=== PATIENT | female | born 1945 | race Caucasian/White ===

== ENCOUNTER 2019-07-21 18:09 | Emergency (ER) | payer MEDICARE, OTHER, SELFPAY ==
[2019-07-21 19:33] VITALS: BP 166/104; PULSE 83; RESP 18; TEMP 37; O2SAT 97; BMI 25.1
--- NOTE | 2019-07-21 20:18 | W.ED.GENADLT ---
HPI - General Adult General: Chief complaint: General Medical Stated complaint: diarrhea/vomiting Time Seen by Provider: 07/21/19 20:18 History of Present Illness: HPI narrative: Patient is a 73-year-old female comes to the ED with vomiting and diarrhea. Patient has a past medical history Alzheimer's. Patient's is with her to help provide history. Symptoms of vomiting and diarrhea started around 3 PM today. She states that she's vomited twice and has had diarrhea twice since 3 PM. She denies any abdominal pain or nausea. Really. Diarrhea was just brown and no blood was present. Emesis and no blood. Denies any fever or chills, chest pain, Shortness of breath, abdominal pain, dysuria, hematuria, weakness to extremities or numbness or tingling. Review of Systems General: Reports: 10 or more systems reviewed and unremarkable except in HPI and below PFSH ED PFSH: Statuses (acute, chronic, etc) shown below reflect problem list status as previously entered and may not be historically accurate Medical History Normal pressure hydrocephalus (Acute) Surgical History Intracranial shunt (Acute) Codman-Hakim programmable shunt with right angle valve placed on 03/20/2015 Family History Sister Cancer Family/Other Cancer Paternal Aunt Father Cancer Hypertension Diabetes Social History Smoking and tobacco status: never smoked Alcohol intake: never Lives independently: Yes Household members: spouse Marital status: Current occupational status: retired History of recent travel: No Physical Exam Narrative: EXAM NARRATIVE: Patient is a 73-year-old female who was sitting comfortably on the exam bed when I entered the room. She was showing no signs of acute distress or pain or respiratory distress. She was able to answer all my questions accurately and was able to follow line of questioning. Patient would look to her on occasion to help provide some history, but other than that appeared to be in good cognition. Const: COMMON NORMALS: oriented x3 HENMT: COMMON NORMALS: normocephalic HEAD & SCALP: normocephalic MOUTH: oral and palatal mucosa normal THROAT: posterior oropharynx normal and uvula midline Neck/C-Spine: COMMON NORMALS: supple GENERAL: Yes normal visual inspection Resp: COMMON NORMALS: normal respiratory effort, no retractions, no use of accessory muscles and clear to auscultation bilaterally AUSCULTATION: clear to auscultation bilaterally Cardio: COMMON NORMALS: regular rate, regular rhythm, S1 normal heart sound, S2 normal heart sound, no gallops, no clicks, no murmurs and peripheral pulses 2+ throughout RATE: regular rate RHYTHM: regular rhythm HEART SOUNDS: S1 normal and S2 normal PERIPHERAL PULSES: pulses 2+ throughout GI: COMMON NORMALS: normal to inspection, nondistended, normoactive bowel sounds, soft to palpation, non-tender and no masses PALPATION: Yes soft : COMMON NORMALS: Yes no CVA tenderness BLADDER/KIDNEY EXAM: Yes no CVA tenderness Back/Pelvis: COMMON NORMALS: no CVA tenderness Extremity: COMMON NORMALS: normal to inspection and normal capillary refill Neuro: COMMON NORMALS: oriented x3 and moves all extremities Skin: COMMON NORMALS: no rashes or lesions noted and skin turgor normal GENERAL SKIN EXAM: no rashes or lesions noted and turgor normal Course Vital Signs: Vital signs: Vital Signs Temperature 98.6 F 07/21/19 19:33 Pulse Rate 75 07/21/19 23:32 Respiratory Rate 18 07/21/19 23:32 Blood Pressure 161/99 07/21/19 23:32 Pulse Oximetry 96 07/21/19 23:32 [facility] - General Adult Lab Data: Attestation: I reviewed the patient's lab results. Labs: Lab Results 07/21/19 07/21/19 07/21/19 Range/Units 20:40 21:09 21:09 WBC 10.6 H (4.0-10.0) 10^3/ uL RBC 4.61 (4.1-5.3) 10^6/u L Hgb 14.2 (11.5-15.3) g/dL Hct 44.4 (37.0-47.0) % MCV 96.3 (81-99) fL MCH 30.8 (28.0-34.0) pg MCHC 32.0 (30.0-36.0) g/dL RDW 11.9 L (12.1-15.1) % Plt Count 147 (130-400) 10^3/c mm MPV 9.3 (7.4-10.4) fL Neut % (Auto) 84.8 % Lymph % (Auto) 8.4 % Kaufman % (Auto) 6.2 % Eos % (Auto) 0.1 % Baso % (Auto) 0.1 % Neut # (Auto) 9.0 H (1.8-7.7) 10^3/u L Lymph # (Auto) 0.9 (0.8-4.8) 10^3/u L Kaufman # (Auto) 0.7 (0.2-0.9) 10^3/u L Eos # (Auto) 0.0 (0.0-0.8) 10^3/u L Baso # (Auto) 0.0 (0.0-0.1) 10^3/u L Nucleated RBC % (a uto) 0 % Nucleated RBCs # 0.0 /100WBC Sodium 140 (136-145) mmol/L Potassium 4.6 (3.5-5.1) mmol/L Chloride 102 (98-107) mmol/L Carbon Dioxide 27 (22-29) mmol/L Anion Gap 15.6 (5-19) BUN 13 (8-23) mg/dL Creatinine 0.5 (0.5-0.9) mg/dL Glucose 107 (65-115) mg/dL Calcium 10.7 H (8.5-10.5) mg/dL Total Bilirubin 0.4 (0.15-1.2) mg/dL AST 23 (0-32) U/L ALT 8 (0-33) U/L Alkaline Phosphata se 103 (35-105) IU/L Total Protein 7.6 (6.6-8.7) g/dL Albumin 4.7 (3.5-5.2) g/dL Globulin 2.9 (1.3-4.6) g/dL Lipase 58 (13-60) U/L Urine Color Straw (Yellow) Urine Appearance Sl hazy (CLEAR) Urine pH 8 H (5-7) Ur Specific Gravit y 1.010 (1.005-1.030) Urine Protein Neg (Negative) Urine Glucose (UA) Norm (Normal) Urine Ketones Negative (Negative) Urine Occult Blood Neg (Negative) Urine Nitrate Positive H (Negative) Urine Bilirubin Neg (NEGATIVE) Prot Sulfosalicyli c Acd Negative Urine Urobilinogen Norm (Negative) mg/dL Ur Leukocyte Leatha ase Negative (Negative) Urine RBC None (0-2) /hpf Urine WBC Rare (0-5) /hpf Ur Squamous Epith Cells Rare (0-5) Urine Bacteria 2+ H (NONE) Discharge Plan Discharge Patient Disposition: Home, Self-Care Clinical Impression: UTI (urinary tract infection) Qualifiers: Urinary tract infection type: acute cystitis Hematuria presence: without hematuria Qualified Code(s): N30.00 - Acute cystitis without hematuria Nausea & vomiting Qualifiers: Vomiting type: unspecified Vomiting Intractability: non-intractable Qualified Code(s): R11.2 - Nausea with vomiting, unspecified Condition: Stable Prescriptions: New Bactrim DS 800-160 mg tablet 1 tab PO DAILY 7 Days Qty: 7 RF: 0 Zofran 4 mg tablet 4 mg PO DAILY 10 Days Qty: 10 RF: 0 No Action ibuprofen 200 mg capsule 400 mg PO Q8H PRN (Reason: Pain) RF: 0 multivitamin [Daily Multi-Vitamin] Tablet 1 tab PO QAM RF: 0 memantine 10 mg tablet 10 mg PO BID Qty: 60 RF: 7 donepezil 10 mg tablet 10 mg PO QDAY Qty: 30 RF: 7 Discharge Orders: Discharge Order (Routine); Ordered 07/21/19 Ordered By: Trevin Bledsoe Referrals: Rashaad Soriano DO [Primary Care Provider] - Discharge Diet: Regular Discharge Activity: Resume usual activity Patient Instructions: Urinary Tract Infection in Women (ED) Activity Restrictions/Additional Instructions: Follow-up with PCP in 7 days for reevaluation. Take full course of antibiotics as prescribed. Take Zofran as needed for nausea and vomiting. Drink plenty of fluids and stay hydrated. Continue taking all other home medications. Take Tylenol or ibuprofen as needed for fevers. Discharge Date/Time: 07/21/19 23:32 Coding Level of Care Code ED Gynecology Teacher for Иван Titus
[2019-07-21 21:18] LABS: Basophils % 0.1 %; Eosinophils % 0.1 %; Hematocrit 44.4 % (37.0-47.0); Hemoglobin 14.2 g/dL (11.5-15.3); Lymphocytes # 0.9 10^3/uL (0.8-4.8); Lymphocytes % 8.4 %; Mean Corpuscular Hemoglobin 30.8 pg (28.0-34.0); Mean Corpuscular Volume 96.3 fL (81-99); Mean Platelet Volume 9.3 fL (7.4-10.4); Monocytes # 0.7 10^3/uL (0.2-0.9); Monocytes % 6.2 %; Neutrophils % 84.8 %; Nucleated Red Blood Cells % 0 %; Platelet Count 147 10^3/cmm (130-400); Red Blood Count 4.61 10^6/uL (4.1-5.3); Red Cell Distribution Width 11.9 % (12.1-15.1); White Blood Count 10.6 10^3/uL (4.0-10.0)
[2019-07-21] MEDS: sodium chloride 0.9% 1,000 ML 999 ML IV (21:21)
[2019-07-21 21:28] LABS: Alanine Aminotransferase 8 U/L (0-33); Albumin Level 4.7 g/dL (3.5-5.2); Alkaline Phosphatase 103 IU/L (35-105); Anion Gap 15.6 (5-19); Aspartate Amino Transferase 23 U/L (0-32); Blood Urea Nitrogen 13 mg/dL (8-23); Calcium 10.7 mg/dL (8.5-10.5); Carbon Dioxide 27 mmol/L (22-29); Chloride 102 mmol/L (98-107); Creatinine Clr Calc Pharmacy 67.6855; Globulin 2.9 g/dL (1.3-4.6); Glucose 107 mg/dL (65-115); Lipase 58 U/L (13-60); Potassium 4.6 mmol/L (3.5-5.1); Sodium 140 mmol/L (136-145); Total Bilirubin 0.4 mg/dL (0.15-1.2); Total Protein 7.6 g/dL (6.6-8.7)
[2019-07-21 21:38] LABS: Add Urine Microscopic? YES; Bilirubin Urine Neg (NEGATIVE); Blood Urine Neg (Negative); Glucose Urine UA Norm (Normal); Ketones Urine Negative (Negative); Leukocyte Esterase Urine Negative (Negative); Nitrate Urine Positive (Negative); Protein Urine Neg (Negative); Sulfosalicylic Acid Urine Negative; Urine Appearance SL Hazy (CLEAR); Urine Color Straw (Yellow); Urobilinogen Urine Norm (Negative); pH Urine 8 (5-7)
[2019-07-21 21:39] LABS: Add Urine Culture? Yes; Bacteria Urine 2+; Squamous Epithelial Cell Urine RARE (0-5); WBC Urine RARE /hpf (0-5)
[2019-07-21 23:32] VITALS: BP 161/99; PULSE 75; RESP 18; O2SAT 96
== END 2019-07-21 23:32 | disposition home or self-care (01) ==
PROVIDERS: Emergency Provider Physician Assistant; Family Provider Electrodiagnostic Medicine; PCP Electrodiagnostic Medicine
DX: N39.0 Urinary tract infection, site not specified (principal); R11.2 Nausea with vomiting, unspecified; G30.9 Alzheimer's disease, unspecified; F02.80 Dementia in other diseases classified elsewhere, unspecified severity, without behavioral disturbance, psychotic disturbance, mood disturbance, and anxiety
CPT/HCPCS: 80053; 81001; 83690; 85025; 87077; 87086; 87186; 96360; 99282; 99283; J7030

== ENCOUNTER → 2019-08-16 07:58 | Outpatient (BNVA) | payer MEDICARE, OTHER, SELFPAY | PROVIDERS: Family Provider Electrodiagnostic Medicine; PCP Electrodiagnostic Medicine; Referring Provider Specialist; Visit Provider Specialist | DX: F02.80 Dementia in other diseases classified elsewhere, unspecified severity, without behavioral disturbance, psychotic disturbance, mood disturbance, and anxiety (principal) | CPT/HCPCS: 96116; 99213 ==

== ENCOUNTER 2019-09-02 09:22 | Outpatient (RCR) | payer MEDICARE, OTHER, SELFPAY | END 2019-09-14 23:59 | disposition home or self-care (01) | LOC: SPT 09:22 | PROVIDERS: Family Provider Electrodiagnostic Medicine; PCP Electrodiagnostic Medicine; Referring Provider Specialist; Visit Provider Specialist | DX: R26.9 Unspecified abnormalities of gait and mobility (principal) | CPT/HCPCS: 97110; 97112; 97162 ==

== ENCOUNTER 2020-01-13 09:11 | Outpatient (RCR) | payer MEDICARE, OTHER, SELFPAY | END 2020-01-14 23:59 | disposition home or self-care (01) | LOC: SPT 09:11 | PROVIDERS: PCP Electrodiagnostic Medicine; Referring Provider Electrodiagnostic Medicine; Visit Provider Electrodiagnostic Medicine | DX: M81.0 Age-related osteoporosis without current pathological fracture (principal); S43.015D Anterior dislocation of left humerus, subsequent encounter; F03.90 Unspecified dementia, unspecified severity, without behavioral disturbance, psychotic disturbance, mood disturbance, and anxiety; R26.9 Unspecified abnormalities of gait and mobility; Z91.81 History of falling | CPT/HCPCS: 97161 ==

== ENCOUNTER 2020-01-15 06:00 | Outpatient (RCR) | payer MEDICARE, OTHER, SELFPAY | END 2020-02-14 23:59 | disposition home or self-care (01) | LOC: SPT 06:00 | PROVIDERS: PCP Electrodiagnostic Medicine; Referring Provider Electrodiagnostic Medicine; Visit Provider Electrodiagnostic Medicine | DX: S43.015D Anterior dislocation of left humerus, subsequent encounter (principal); X58.XXXD Exposure to other specified factors, subsequent encounter; M81.0 Age-related osteoporosis without current pathological fracture; F03.90 Unspecified dementia, unspecified severity, without behavioral disturbance, psychotic disturbance, mood disturbance, and anxiety; R26.9 Unspecified abnormalities of gait and mobility; R29.6 Repeated falls | CPT/HCPCS: 97110 ==

== ENCOUNTER 2020-02-15 06:00 | Outpatient (RCR) | payer MEDICARE, OTHER, SELFPAY | END 2020-03-15 23:59 | disposition home or self-care (01) | LOC: SPT 06:00 | PROVIDERS: PCP Electrodiagnostic Medicine; Referring Provider Electrodiagnostic Medicine; Visit Provider Electrodiagnostic Medicine | DX: M81.0 Age-related osteoporosis without current pathological fracture (principal); S43.015D Anterior dislocation of left humerus, subsequent encounter; X58.XXXD Exposure to other specified factors, subsequent encounter; F03.90 Unspecified dementia, unspecified severity, without behavioral disturbance, psychotic disturbance, mood disturbance, and anxiety; R26.9 Unspecified abnormalities of gait and mobility | CPT/HCPCS: 97110 ==

== ENCOUNTER 2020-04-11 11:29 | Outpatient (RCR) | payer MEDICARE, OTHER, SELFPAY | END 2020-04-15 23:59 | disposition home or self-care (01) | LOC: SPT 11:29 | PROVIDERS: PCP Electrodiagnostic Medicine; Visit Provider Electrodiagnostic Medicine | DX: R29.6 Repeated falls (principal); F03.90 Unspecified dementia, unspecified severity, without behavioral disturbance, psychotic disturbance, mood disturbance, and anxiety; R26.9 Unspecified abnormalities of gait and mobility | CPT/HCPCS: 97161 ==

== ENCOUNTER 2020-04-16 06:00 | Outpatient (RCR) | payer MEDICARE, OTHER, SELFPAY | END 2020-05-15 23:59 | disposition home or self-care (01) | LOC: SPT 06:00 | PROVIDERS: PCP Electrodiagnostic Medicine; Visit Provider Electrodiagnostic Medicine | DX: R29.6 Repeated falls (principal); F03.90 Unspecified dementia, unspecified severity, without behavioral disturbance, psychotic disturbance, mood disturbance, and anxiety; R26.9 Unspecified abnormalities of gait and mobility | CPT/HCPCS: 97110 ==

== ENCOUNTER 2020-04-18 14:23 | Outpatient (CLI) | payer MEDICARE, OTHER, SELFPAY ==
--- NOTE | 2020-04-18 14:32 | XR_ITS ---
WS: [id number] Bone mineral density performed on a [employer] IDXA, 04/18/2020 Clinical data: OSTEOPOROSIS, VITAMIN D DEFICIENCY, OSTEOARTHRITIS COMPARISON STUDY: DEXA scan, 03/26/2018. Findings: The first 4 lumbar vertebral bodies demonstrated the bone mineral density of 1.029 g/cm2 for a young adult T score of -1.3. Measurement of the left hip reveals a bone mineral density of 0.686 g/cm2 with a young adult T score of -2.6. Measurement of the right hip reveals the bone mineral density of 0.720 g/cm2 for young adult T score of -2.3. XR/XR DEXA axial skeleton* [id number] Impression: 1. Osteopenia of the lumbar spine which represents worsening of the bone minera l density from the prior study. 2. Osteoporosis of the left hip which represents worsening of the bone mineral density from before. 3. Osteopenia of the right hip which also represents worsening of the bone mine ral density compared to the prior study.
== END 2020-04-18 14:24 | disposition home or self-care (01) ==
LOC: RADWPI 14:29
PROVIDERS: PCP Electrodiagnostic Medicine; Visit Provider Electrodiagnostic Medicine
DX: M81.0 Age-related osteoporosis without current pathological fracture (principal); E55.9 Vitamin D deficiency, unspecified; M85.89 Other specified disorders of bone density and structure, multiple sites
CPT/HCPCS: 77080

== ENCOUNTER 2020-05-16 06:00 | Outpatient (RCR) | payer MEDICARE, OTHER, SELFPAY | END 2020-06-15 23:59 | disposition home or self-care (01) | LOC: SPT 06:00 | PROVIDERS: PCP Electrodiagnostic Medicine; Visit Provider Electrodiagnostic Medicine | DX: R29.6 Repeated falls (principal); F03.90 Unspecified dementia, unspecified severity, without behavioral disturbance, psychotic disturbance, mood disturbance, and anxiety; R26.9 Unspecified abnormalities of gait and mobility | CPT/HCPCS: 97110; 97112 ==

== ENCOUNTER 2020-06-16 06:00 | Outpatient (RCR) | payer MEDICARE, OTHER, SELFPAY | END 2020-07-16 23:59 | disposition home or self-care (01) | LOC: SPT 06:00 | PROVIDERS: PCP Electrodiagnostic Medicine; Visit Provider Electrodiagnostic Medicine | DX: R29.6 Repeated falls (principal); F03.90 Unspecified dementia, unspecified severity, without behavioral disturbance, psychotic disturbance, mood disturbance, and anxiety; R26.9 Unspecified abnormalities of gait and mobility | CPT/HCPCS: 97110; 97112 ==

== ENCOUNTER 2020-07-17 06:00 | Outpatient (RCR) | payer MEDICARE, OTHER, SELFPAY | END 2020-07-25 23:00 | disposition home or self-care (01) | LOC: SPT 06:00 | PROVIDERS: PCP Electrodiagnostic Medicine; Visit Provider Electrodiagnostic Medicine | DX: R29.6 Repeated falls (principal); F03.90 Unspecified dementia, unspecified severity, without behavioral disturbance, psychotic disturbance, mood disturbance, and anxiety; R26.81 Unsteadiness on feet | CPT/HCPCS: 97110 ==

== ENCOUNTER → 2020-08-14 08:53 | Outpatient (BNVA) | payer MEDICARE, OTHER, SELFPAY | PROVIDERS: PCP Electrodiagnostic Medicine; Visit Provider Specialist | DX: G31.83 Neurocognitive disorder with Lewy bodies (principal); F02.80 Dementia in other diseases classified elsewhere, unspecified severity, without behavioral disturbance, psychotic disturbance, mood disturbance, and anxiety; G91.2 (Idiopathic) normal pressure hydrocephalus; Z98.2 Presence of cerebrospinal fluid drainage device | CPT/HCPCS: 96116; 99214 ==

== ENCOUNTER 2020-08-17 11:12 | Outpatient (CLI) | payer MEDICARE, OTHER, SELFPAY ==
--- NOTE | 2020-08-17 11:45 | CT_ITS ---
WS: [id number] CT HEAD TECHNIQUE: Noncontrast CT of the head obtained from the skullbase to the vertex. CLINICAL INFORMATION: Z99.2 - Dependence on renal dialysis COMPARISON: CT head May 2019 DLP: 992.[address] scans at [facility] use at least one of these dose optimization techniques: automat ed exposure control; mA and/or kV adjustment per patient size (includes targeted exams where dose is matched to clinical indication); or iterative reconstruction. FINDINGS: No evidence of intracranial hemorrhage or mass effect. Ventricular system and basal cisterns are mims nt. Moderate small vessel changes with moderate parenchymal volume loss. No extra-axial fluid collect ions. No evidence of mass or mass effect. Right frontal shunt catheter tip in the right frontal horn. Ventricular size is unchanged from previo us. No evidence of progressive hydrocephalus. Mastoid air cells are well aerated. Mild mucosal thicke phani in the paranasal sinuses. CT/CT head wo con* [id number] IMPRESSION: 1. No evidence of intracranial hemorrhage or mass effect. 2. Right frontal shunt catheter with tip in the right frontal horn. Ventricula r size is unchanged. 3. No acute intracranial findings.
== END 2020-08-17 11:13 | disposition home or self-care (01) ==
LOC: RADWPI 11:14
PROVIDERS: PCP Electrodiagnostic Medicine; Visit Provider Specialist
DX: Z99.2 Dependence on renal dialysis (principal)
CPT/HCPCS: 70450

== ENCOUNTER 2020-11-21 09:55 | Emergency (ER) | payer MEDICARE, OTHER, SELFPAY ==
--- NOTE | 2020-11-21 10:05 | ECG_ITS ---
[facility] Test Date: 2020-11-21 Pat Name: Keysha Rodriguez Department: Room: Gender: Female Dental Surgeon: : 1945 Requested By: Aneesh Delarosa Order Number: [id number] Angeles MD: Steve Linda M.D. Measurements Intervals [place] Rate: 68 P: 78 MO: 165 QRS: 99 QRSD: 98 T: 46 QT: 443 QTc: 474 Interpretive Statements MULTIFOCAL ATRIAL RHYTHM BORDERLINE RIGHT AXIS DEVIATION [QRS AXIS > 90] LEFT VENTRICULAR HYPERTROPHY AND ST-T CHANGE [VOLTAGE CRITERIA PLUS ST/T ABNORMALITY] Compared to ECG 03/14/2018 22:52:15 ST (T wave) deviation now present T-wave abnormality no longer present Electronically Signed On 11-21-2020 17:07:34 CDT by Steve Linda M.D. [id number]
--- NOTE | 2020-11-21 10:05 | XRR_ITS ---
PROCEDURE INFORMATION: Exam: XR Chest Exam date and time: 11/21/2020 10:10 AM Age: 75 years old Clinical indication: Other: Chest discomfort TECHNIQUE: Imaging protocol: XR of the chest. Views: 1 view. COMPARISON: CR Chest 1 [place] [id number] 03/14/2018 8:46 PM FINDINGS: Tubes, catheters and devices: Right PLASTER APPLICATOR shunt catheter. Lungs: COPD and interstitial prominence. Asymmetric left basilar airspace/pleural disease. Pleural spaces: Small right pleural effusion. Heart/Mediastinum: Cardiac silhouette upper limits of normal in size. Bones/joints: Osteopenia and degenerative change. XR/XR chest 1V portable [id number] IMPRESSION: 1. COPD and asymmetric left basilar airspace/pleural disease. 2. Additional findings as described above.
[2020-11-21 10:31] VITALS: BP 135/78; PULSE 65; RESP 18; TEMP 36.6; O2SAT 93; BMI 22.9
--- NOTE | 2020-11-21 10:51 | CT_ITS ---
WS: [id number] CT ABDOMEN AND PELVIS WITH CONTRAST HISTORY: abd pain TECHNIQUE: Imaging performed of the abdomen and pelvis with IV contrast. Single phase imaging of the abdomen. Coronal and sagittal reformats are submitted. All CT scans at [facility] use at least one of these dose optimization techniques: automated exposure control; mA and/or kV adjustment per patient size (includes targeted exams where dose is matched to clinical indication); or iterativ e reconstruction. IV CONTRAST: Omnipaque 300; 95 mL IV. Oral contrast: No DLP: 1052.56 mGy.cm COMPARISON: None available. Lower thorax: Small bilateral pleural effusions at the lung bases, RIGHT greater than LEFT. Markedly enlarged heart. RIGHT heart chambers are enlarged. Small hiatal hernia. Liver/biliary system: Heterogeneous liver. Probably due to delayed contrast opacification from poor c ardiac output. Gallbladder: Normal. No gallstones or wall thickening. No pericholecystic fluid. Pancreas: Normal size pancreas and pancreatic duct. No adjacent inflammation. Spleen: Normal size spleen. No mass or infarct. Adrenal glands: Normal. Right kidney: Normal. Left kidney: Fullness in the LEFT renal pelvis. Calyces are not significantly dilated. These may be s mall parapelvic cysts or mild hydronephrosis secondary to a UP junction obstruction. There is fullnes s of the pelvis is more prominent as compared to a study from 2015. Aorta: Tortuous atherosclerotic aorta. Aneurysmal dilatation measures 3.3 cm. Lymphadenopathy: None. Free fluid: Small amount of free fluid in the pelvis. May be related to patient's NEWS PRODUCER shunt catheter. GI tract: Normal appendix. No obstruction. Numerous diverticula in the sigmoid colon. No definite acu te diverticulitis. Abdominal wall: Unremarkable abdominal wall. No hernia. Pelvis: Small amount of free fluid in the pelvis. Uterus is not identified. No adnexal masses. Bones: Advanced degenerative changes in the spine. Osteopenia. Extensive fusion across the facet join ts and mild lumbar spine. CT/CT abdomen pelvis w con* [id number] IMPRESSION: 1. Small amount of free fluid in the pelvis may be related to the patient's sh unt. 2. Small bilateral pleural effusions. 3. Severe cardiomegaly. 4. LEFT parapelvic cysts versus a mild UP junction obstruction. 5. Moderate atherosclerosis aorta with 3.3 cm aneurysm. 6. Extensive sigmoid diverticulosis without evidence for acute diverticulitis. 7. Normal appendix.
--- NOTE | 2020-11-21 10:52 | W.ED.GENADLT ---
HPI - General Adult General: Chief complaint: Recheck/Abnormal Lab/Rx Stated complaint: abnormal ekg sent by Dr. 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 She has some mood body dementia. Also complaining some lower abdominal pain said for the last several weeks she denies any chest pain or difficulty breathing at the moment although she has had some in the past. She is on donepezil as well as memantine. She denies having chest pain at the moment. Her main focus is lower abdominal pain in the right and left lower quadrant she denies any medic easy melena hematemesis occurs denies any dysuria urgency or frequency. Onset (ago): week(s) Location: abdomen Severity: moderate Quality: aching Pain Consistency: intermittent Relieving factors: none Exacerbating factors: none Associated symptoms: Reports confusion, malaise, nausea and weakness; Deny chest pain, cough, diaphoresis, decreased appetite, dyspnea, fevers/chills, headache(s), rash, palpitations, seizures, short of breath, syncope or vomiting Treatments prior to arrival: none Review of Systems Const: Reports: malaise; Denies: diaphoresis ENMT: Denies: throat pain, ear or mastoid pain, nasal discharge or nasal congestion Card: Denies: chest pain, palpitations or syncope Resp: Denies: dyspnea GI: Reports: nausea; Denies: vomiting : Denies: flank pain, difficulty voiding, dysuria, urinary frequency or urinary urgency Skin/Breast: Denies: rash Neuro: Reports: confusion; Denies: headache(s) PFS ED PFSH: Medical History (Updated 11/21/20 @ 13:30 by Aneesh Vaqsuez DO) Normal pressure hydrocephalus Surgical History Intracranial shunt Codman-Hakim programmable shunt with right angle valve placed on 03/20/2015 Family History Sister Cancer Family/Other Cancer Paternal Aunt Father Cancer Hypertension Diabetes Other CAD (coronary artery disease) Denies family history of Stroke Social History Smoking and tobacco status: never smoked Alcohol intake: never Lives independently: Yes Household members: spouse Marital status: Current occupational status: retired History of recent travel: No Physical Exam Const: COMMON NORMALS: no acute distress GENERAL APPEARANCE: cooperative and comfortable ORIENTATION/CONSCIOUSNESS: Yes awake, Yes oriented to person, Yes oriented to place and Yes oriented to time HENMT: COMMON NORMALS: normocephalic, atraumatic, hearing grossly normal bilaterally and external ears normal HEAD & SCALP: normocephalic and atraumatic EXTERNAL EAR: Yes external ears normal Eye: COMMON NORMALS: Equal, round and reactive pupils present, EOMs intact bilaterally, conjunctivae normal and no scleral icterus CONJUNCTIVA: Yes conjunctivae normal PUPIL: Yes Equal, round and reactive pupils present Neck/C-Spine: COMMON NORMALS: full ROM, no lymphadenopathy, supple and no JVD Lymph: LYMPHATIC: no lymphadenopathy noted and no lymphedema noted Resp: COMMON NORMALS: normal respiratory effort, No retractions, No use of accessory muscles and clear to auscultation bilaterally AUSCULTATION: clear to auscultation bilaterally Cardio: COMMON NORMALS: no JVD, regular rate, regular rhythm and No murmurs present (Cardio) RATE: regular rate RHYTHM: regular rhythm GI: COMMON NORMALS: Soft to palpation and No hepatosplenomegaly present AUSCULTATION: Yes normoactive bowel sounds PALPATION: Yes Soft to palpation, No Tenderness to palpation present (GI), No Guarding due to palpation present (GI) and Yes No hepatosplenomegaly present Extremity: COMMON NORMALS: normal to inspection, capillary refill normal, no clubbing, cyanosis or edema, no calf tenderness and no pedal edema Neuro: SENSORIUM/ORIENTATION: Yes oriented to person, Yes oriented to place and Yes oriented to time Skin: COMMON NORMALS: no rashes or lesions noted GENERAL SKIN EXAM: no rashes or lesions noted Course Vital Signs: Vital signs: Vital Signs Temperature 97.9 F 11/21/20 10:31 Pulse Rate 73 11/21/20 14:24 Respiratory Rate 22 H 11/21/20 14:24 Blood Pressure 155/92 11/21/20 14:24 Pulse Oximetry 92 11/21/20 14:24 MDM - General Adult MDM Narrative: Medical decision making narrative: EKG from outside clinic shows lots artifact EKGs and here does not show anything acute laboratory tests are normal. Lab Data: Labs: Lab Results 11/21/20 11/21/20 11/21/20 Range/Units 11:00 11:00 11:00 WBC 7.3 (4.0-10.0) 10^3/ uL RBC 4.15 (4.1-5.3) 10^6/u L Hgb 12.6 (11.5-15.3) g/dL Hct 38.0 (37.0-47.0) % MCV 91.6 (81-99) fL MCH 30.4 (28.0-34.0) pg MCHC 33.2 (30.0-36.0) g/dL RDW 13.2 (12.1-15.1) % Plt Count 138 (130-400) 10^3/c mm MPV 9.6 (7.4-10.4) fL Neut % (Auto) 83.7 % Lymph % (Auto) 9.7 % Gooding % (Auto) 4.8 % Eos % (Auto) 0.4 % Baso % (Auto) 0.4 % Neut # (Auto) 6.10 (1.8-7.7) 10^3/u L Lymph # (Auto) 0.7 L (0.8-4.8) 10^3/u L Gooding # (Auto) 0.4 (0.2-0.9) 10^3/u L Eos # (Auto) 0.0 (0.0-0.8) 10^3/u L Baso # (Auto) 0.0 (0.0-0.1) 10^3/u L Nucleated RBC % (a uto) 0 % Nucleated RBCs # 0.0 /100WBC Sodium Cancelled Potassium Cancelled Chloride Cancelled Carbon Dioxide Cancelled Anion Gap Cancelled BUN Cancelled Creatinine Cancelled GFR Calculation Cancelled Glucose Cancelled Calculated Osmolal ity Cancelled Calcium Cancelled Total Bilirubin Cancelled AST Cancelled ALT Cancelled Alkaline Phosphata se Cancelled Troponin T Baselin e 10 (0-10) ng/L Troponin T 120 Min sarah (0-10) ng/L Delta Troponin T (0-10) ABS# Total Protein Cancelled Albumin Cancelled Globulin Cancelled 11/21/20 11/21/20 Range/Units 11:46 12:52 WBC (4.0-10.0) 10^3/ uL RBC (4.1-5.3) 10^6/u L Hgb (11.5-15.3) g/dL Hct (37.0-47.0) % MCV (81-99) fL MCH (28.0-34.0) pg MCHC (30.0-36.0) g/dL RDW (12.1-15.1) % Plt Count (130-400) 10^3/c mm MPV (7.4-10.4) fL Neut % (Auto) % Lymph % (Auto) % Gooding % (Auto) % Eos % (Auto) % Baso % (Auto) % Neut # (Auto) (1.8-7.7) 10^3/u L Lymph # (Auto) (0.8-4.8) 10^3/u L Gooding # (Auto) (0.2-0.9) 10^3/u L Eos # (Auto) (0.0-0.8) 10^3/u L Baso # (Auto) (0.0-0.1) 10^3/u L Nucleated RBC % (a uto) % Nucleated RBCs # /100WBC Sodium 142 Potassium 4.0 Chloride 108 H Carbon Dioxide 23 Anion Gap 15.0 BUN 22 Creatinine 0.5 GFR Calculation Not Reportable Glucose 156 H Calculated Osmolal ity 301 H Calcium 8.3 L Total Bilirubin 0.5 AST 25 ALT 17 Alkaline Phosphata se 68 Troponin T Baselin e (0-10) ng/L Troponin T 120 Min sarah 12.98 H (0-10) ng/L Delta Troponin T 2.98 (0-10) ABS# Total Protein 5.6 L Albumin 4.1 Globulin 1.5 Discharge Plan Discharge Patient Disposition: Home Clinical Impression: Lewy body dementia, Abdominal pain, Abnormal ECG Condition: Stable Prescriptions: No Action ibuprofen 200 mg capsule 400 mg PO Q8H PRN (Reason: Pain) RF: 0 multivitamin [Daily Multi-Vitamin] Tablet 1 tab PO QAM RF: 0 memantine 10 mg tablet 10 mg PO BID Qty: 180 RF: 4 donepezil 10 mg tablet 10 mg PO DAILY RF: 0 Discharge Orders: Discharge ED (Routine); Ordered 11/21/20 Ordered By: Aneesh Vasquez Referrals: Rashaad Soriano, [Primary Care Provider] - Discharge Diet: Usual diet Discharge Activity: Resume usual activity Patient Instructions: Abdominal Pain (ED), Opioid Safety Coding Level of Care Code ED Servomechanism Assembler for Chg Fwd Exam Comprehensive
[2020-11-21 11:17] LABS: Basophils % 0.4 %; Eosinophils % 0.4 %; Hemoglobin 12.6 g/dL (11.5-15.3); Lymphocytes # 0.7 10^3/uL (0.8-4.8); Lymphocytes % 9.7 %; Mean Corpuscular HGB Conc 33.2 g/dL (30.0-36.0); Mean Corpuscular Hemoglobin 30.4 pg (28.0-34.0); Mean Corpuscular Volume 91.6 fL (81-99); Mean Platelet Volume 9.6 fL (7.4-10.4); Monocytes # 0.4 10^3/uL (0.2-0.9); Monocytes % 4.8 %; Neutrophils % 83.7 %; Nucleated Red Blood Cells % 0 %; Platelet Count 138 10^3/cmm (130-400); Red Blood Count 4.15 10^6/uL (4.1-5.3); Red Cell Distribution Width 13.2 % (12.1-15.1); White Blood Count 7.3 10^3/uL (4.0-10.0)
[2020-11-21 11:29] LABS: Troponin(5th) Baseline 10 ng/L (0-10)
[2020-11-21 11:35] LABS: Slide Review Slide Review Perform
[2020-11-21 12:00] VITALS: BP 151/96; PULSE 64; RESP 20; O2SAT 95
--- NOTE | 2020-11-21 12:05 | ECG_ITS ---
[facility] Test Date: 2020-11-21 Pat Name: Keysha Rodriguez Department: Room: Gender: Female Regional Sales Representative: : 1945 Requested By: Aneesh Delarosa Order Number: [id number] Angeles MD: Steve Linda M.D. Measurements Intervals [place] Rate: 77 P: 98 [place]: 155 QRS: 95 QRSD: 98 T: 46 QT: 432 QTc: 491 Interpretive Statements SINUS RHYTHM POSSIBLE LEFT ATRIAL ENLARGEMENT [-0.1mV P WAVE IN V1/V2] BORDERLINE RIGHT AXIS DEVIATION [QRS AXIS > 90] Compared to ECG 11/21/2020 11:09:04 Left ventricular hypertrophy no longer present ST (T wave) deviation no longer present Electronically Signed On 11-21-2020 17:09:18 CDT by Steve Linda M.D. [id number]
[2020-11-21 12:12] LABS: Alanine Aminotransferase 17 U/L (0-33); Albumin Level 4.1 g/dL (3.5-5.2); Alkaline Phosphatase 68 IU/L (35-105); Aspartate Amino Transferase 25 U/L (0-32); Blood Urea Nitrogen 22 mg/dL (8-23); Calcium 8.3 mg/dL (8.5-10.5); Carbon Dioxide 23 mmol/L (22-29); Chloride 108 mmol/L (98-107); Globulin 1.5 g/dL (1.3-4.6); Glucose 156 mg/dL (65-115); Osmolality Calculated 301 mOsm/kg (285-295); Sodium 142 mmol/L (136-145); Total Bilirubin 0.5 mg/dL (0.15-1.2); Total Protein 5.6 g/dL (6.6-8.7)
[2020-11-21 12:30] VITALS: BP 145/96; PULSE 68; O2SAT 92
[2020-11-21] MEDS: iohexol 300 mg/mL 100 mL Btl IV (12:38)
[2020-11-21 13:15] VITALS: BP 162/105; PULSE 74; RESP 20; O2SAT 90
[2020-11-21] MEDS: ondansetron 2 mg/ML SDV 2 mL 4 MG IVP (13:15)
[2020-11-21 13:20] LABS: Troponin 5 2HR 12.98 ng/L (0-10); Troponin 5 2HR Delta 2.98 ABS# (0-10)
[2020-11-21 14:24] VITALS: BP 155/92; PULSE 73; RESP 22; O2SAT 92
== END 2020-11-21 14:19 | disposition home or self-care (01) ==
PROVIDERS: Emergency Provider Family Medicine; PCP Electrodiagnostic Medicine
DX: R94.31 Abnormal electrocardiogram [ECG] [EKG] (principal); G31.83 Neurocognitive disorder with Lewy bodies; F02.80 Dementia in other diseases classified elsewhere, unspecified severity, without behavioral disturbance, psychotic disturbance, mood disturbance, and anxiety
CPT/HCPCS: 71045; 74177; 80053; 84484; 85025; 93005; 96374; 99284; J2405; Q9967

== ENCOUNTER 2020-11-28 16:57 | Observation (INO) | payer MEDICARE, OTHER, SELFPAY ==
[2020-11-28 18:08] VITALS: BP 153/90; PULSE 66; RESP 17; TEMP 36.7; O2SAT 95; BMI 23.6
--- NOTE | 2020-11-28 18:19 | XRR_ITS ---
PROCEDURE INFORMATION: Exam: XR Left Ribs with PA Chest Exam date and time: 11/28/2020 6:19 PM Age: 75 years old Clinical indication: Injury or trauma; Rib area, left side; Blunt trauma; Injury details: Fall in kitchen today. C/O left side rib pain; Prior surgery; Surgery type: Shunt; Additional info: Fall/injury TECHNIQUE: Imaging protocol: XR Left ribs with PA chest. Views: 3 views COMPARISON: CR (CHEST, ) 11/21/2020 10:08 AM FINDINGS: Tubes, catheters and devices: Partial visualization of ventriculoperitoneal shunt catheter. Lungs: Emphysematous lung changes with hyperinflated pattern. No focal airspace consolidation. Pleural spaces: Small volume bilateral pleural effusions. Negative for pneumothorax. Heart/Mediastinum: Mild cardiomegaly. Bones/joints: Multiple acute displaced left-sided posterior rib fractures are identified involving at least ribs 6, 7 and 8. 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 XR/XR ribs LT mn 3V w CXR1V [id number] IMPRESSION: Multiple acute left posterior rib fractures.
--- NOTE | 2020-11-28 20:02 | W.ED.FALL ---
Documented by User: PARKER De Jesus 11/28/20 22:09 HPI - Fall General: Chief Complaint: Fall Stated Complaint: Fell, hurt Left side, rib pain, Time Seen by Provider: 11/28/20 19:55 Source: patient and family () Mode of arrival: wheelchair Limitations: no limitations History of Present Illness: HPI Narrative: Patient is a 75-year-old female who presents to ED today along with her for evaluation following a fall. states that his chronically has issues with gait and balance. She is supposed to be using a walker at all times however earlier today she was using her cane and fell onto her left side. She denies striking her head or LOC. She complains of pain to her left ribs but does admit she had a bellyache earlier following the fall. She has been ambulatory since the event. She does not complain of hip pain or back pain. Denies lightheadedness, dizziness, chest pain, palpitations prior to the fall. MD complaint: fall Onset (ago): hour(s) Fall from: standing Fall witnessed: yes, by family () Place fall occurred: home Loss of consciousness: None Prolonged down time: no Symptoms prior to fall: none Context: history of frequent falls Location of injury: chest and abdomen Severity: severe Severity scale (1-10): 8 Quality: sharp and stabbing Associated symptoms-after fall: Reports abdominal pain and chest pain (L chest wall pain); Denies headache(s), hematuria, lightheadedness or neck pain Review of Systems Const: Denies: fever(s) Eyes: Denies: change in vision, blurry vision, floaters or seeing flashes Card: Reports: chest pain (L chest wall pain); Denies: palpitations, lightheadedness, syncope or pre-syncope Resp: Reports: pain on inspiration; Denies: dyspnea, productive cough, non-productive cough, wheezing or hemoptysis GI: Reports: abdominal pain; Denies: nausea, vomiting or change in bowel habits : Denies: flank pain or hematuria Musc: Denies: neck pain, back pain, extremity pain or joint pain Skin/Breast: Reports: other (no lacerations/abrasions) Neuro: Reports: frequent falls; Denies: headache(s), numbness in extremities, sensory changes or dizziness PFSH ED PFSH: Medical History (Updated 11/28/20 @ 21:53 by PARKER De Jesus) Normal pressure hydrocephalus Surgical History Intracranial shunt Codman-Hakim programmable shunt with right angle valve placed on 03/20/2015 Family History Sister Cancer Family/Other Cancer Paternal Aunt Father Cancer Hypertension Diabetes Other CAD (coronary artery disease) Denies family history of Stroke Social History Smoking and tobacco status: never smoked Alcohol intake: never Lives independently: Yes Household members: spouse Marital status: Current occupational status: retired History of recent travel: No Physical Exam Const: COMMON NORMALS: no acute distress, no limitations, alert and well nourished GENERAL APPEARANCE: cooperative OTHER: chronic dementia; at mental baseline per HENMT: COMMON NORMALS: normocephalic and atraumatic HEAD & SCALP: normocephalic and atraumatic Eye: COMMON NORMALS: Equal, round and reactive pupils present and EOMs intact bilaterally GENERAL EYE: appearance normal, both eyes and all related structures PUPIL: Yes Equal, round and reactive pupils present Neck/C-Spine: COMMON NORMALS: full ROM CERVICAL SPINE: Yes cervical ROM normal, No Cervical spine tenderness and No Paracervical muscle tenderness Chest: COMMONS NORMALS: normal inspection of the chest OTHER: TTP L anteriolateral ribs; some mild crepitus noted Resp: COMMON NORMALS: normal respiratory effort and clear to auscultation bilaterally AUSCULTATION: clear to auscultation bilaterally Cardio: COMMON NORMALS: regular rate and regular rhythm RATE: regular rate RHYTHM: regular rhythm GI: COMMON NORMALS: Normal to inspection, nondistended, normoactive bowel sounds present, Soft to palpation, No hepatosplenomegaly present and no masses INSPECTION: No abdominal wall ecchymosis PALPATION: Yes Soft to palpation, Yes Tenderness to palpation present (GI) Details: LUQ and Yes No hepatosplenomegaly present Back/Pelvis: COMMON NORMALS: thoracic and lumbar spine normal to inspection, no thoracic nor lumbar tenderness, thoraco-lumbar ROM normal and straight leg raise negative bilaterally Extremity: COMMON NORMALS: normal to inspection and full ROM GENERAL: Yes normal exam except as noted Neuro: [place] COMA SCALE: document GCS findings [place] coma scale eye opening: Spontaneous [place] coma scale verbal response: Orientated [place] coma scale motor response: Obey commands [place] coma scale total score: 15 COMMON NORMALS: moves all extremities, no focal motor deficits and no sensory deficits noted SENSORIUM/ORIENTATION: Yes alert Skin: COMMON NORMALS: no rashes or lesions noted GENERAL SKIN EXAM: no rashes or lesions noted TRAUMA: no lacerations or abrasions Course Vital Signs: Vital signs: Vital Signs Temperature 98.0 F 11/28/20 18:08 Pulse Rate 76 11/28/20 21:19 Respiratory Rate 27 H 11/28/20 21:19 Blood Pressure 159/115 11/28/20 20:28 Pulse Oximetry 100 11/28/20 21:19 MDM - Fall MDM Narrative: Medical decision making narrative: Patient with fractures of her 6, 7, [address] scan read as displaced but after speaking to [facility] physician Dr. Morales he states 6-7 are more non-displaced. She has bilateral pleural effusions that were present on previous scan. I spoke to Dr. Corona regarding CT results and he recommended admitting patient to the hospital. I spoke to Dr. Marshall who will admit patient. Lab Data: Labs: Lab Results 11/28/20 11/28/20 11/28/20 Range/Units 20:25 20:25 21:04 WBC 8.3 (4.0-10.0) 10^3/ uL RBC 4.18 (4.1-5.3) 10^6/u L Hgb 12.7 (11.5-15.3) g/dL Hct 40.3 (37.0-47.0) % MCV 96.4 (81-99) fL MCH 30.4 (28.0-34.0) pg MCHC 31.5 (30.0-36.0) g/dL RDW 13.1 (12.1-15.1) % Plt Count 142 (130-400) 10^3/c mm MPV 9.5 (7.4-10.4) fL Neut % (Auto) 83.9 % Lymph % (Auto) 9.0 % Teller % (Auto) 6.1 % Eos % (Auto) 0.1 % Baso % (Auto) 0.5 % Neut # (Auto) 6.94 (1.8-7.7) 10^3/u L Lymph # (Auto) 0.7 L (0.8-4.8) 10^3/u L Teller # (Auto) 0.5 (0.2-0.9) 10^3/u L Eos # (Auto) 0.0 (0.0-0.8) 10^3/u L Baso # (Auto) 0.0 (0.0-0.1) 10^3/u L Nucleated RBC % (a uto) 0 % Nucleated RBCs # 0.0 /100WBC Sodium 145 (136-145) mmol/L Potassium 4.3 (3.5-5.1) mmol/L Chloride 108 H (98-107) mmol/L Carbon Dioxide 26 (22-29) mmol/L Anion Gap 15.3 (5-19) BUN 22 (8-23) mg/dL Creatinine 0.8 (0.5-0.9) mg/dL GFR Calculation Not Reportable Glucose 127 H (65-115) mg/dL Calculated Osmolal ity 305 H (285-295) mOsm/k g Calcium 9.1 (8.5-10.5) mg/dL Total Bilirubin 0.7 (0.15-1.2) mg/dL AST 25 (0-32) U/L ALT 19 (0-33) U/L Alkaline Phosphata se 73 (35-105) IU/L Total Protein 6.2 L (6.6-8.7) g/dL Albumin 4.2 (3.5-5.2) g/dL Globulin 2.0 (1.3-4.6) g/dL Urine Color Yellow (Yellow) Urine Appearance Cloudy (CLEAR) Urine pH 5 (5-7) Ur Specific Gravit y 1.020 (1.005-1.030) Urine Protein Neg (Negative) Urine Glucose (UA) Norm (Normal) Urine Ketones 1+ H (Negative) Urine Blood Neg (Negative) Urine Nitrate Positive H (Negative) Urine Bilirubin Neg (Negative) Urine Urobilinogen Norm (Negative) mg/dL Ur Leukocyte Leatha ase Negative (Negative) Urine RBC 0-4 H (0-2) /hpf Urine WBC 5-10 H (0-5) /hpf Ur Squamous Epith Cells 0-4 H (0-5) /hpf Amorphous Sediment Not Reportable Urine Bacteria 4+ H (NONE) /hpf Imaging Data^: L ribs/CXR: Radiologist's impression: 6Scan [address] [place] [id number] XRay Report Signed Patient: Keysha Rodriguez Unit #: [id number] : 1945 Age/Sex: 75 / F ADM Date: 11/28/20 Loc: ER Room/Bed: Attending Dr: Ordering Provider/Ordering MD: Brianne Mcconnell Date of Service: 11/28/20 Procedure(s): XR ribs LT mn 3V w CXR1V [id number] Accession Number(s): [id number] Report Number: [id number] PROCEDURE INFORMATION: Exam: XR Left Ribs with PA Chest Exam date and time: 11/28/2020 6:19 PM Age: 75 years old Clinical indication: Injury or trauma; Rib area, left side; Blunt trauma; Injury details: Fall in kitchen today. C/O left side rib pain; Prior surgery; Surgery type: Shunt; Additional info: Fall/injury TECHNIQUE: Imaging protocol: XR Left ribs with PA chest. Views: 3 views COMPARISON: CR (CHEST, ) 11/21/2020 10:08 AM FINDINGS: Tubes, catheters and devices: Partial visualization of ventriculoperitoneal shunt catheter. Lungs: Emphysematous lung changes with hyperinflated pattern. No focal airspace consolidation. Pleural spaces: Small volume bilateral pleural effusions. Negative for pneumothorax. Heart/Mediastinum: Mild cardiomegaly. Bones/joints: Multiple acute displaced left-sided posterior rib fractures are identified involving at least ribs 6, 7 and 8. 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 XR/XR ribs LT mn 3V w CXR1V [id number] IMPRESSION: Multiple acute left posterior rib fractures. Dictated By: Alexandr Morales Signed By: Alexandr Morales Signed Date/Time: 11/28/201902 DD/ 00 CT chest/abd/pelvis: Radiologist's impression: 6Scan [address] [place] [id number] [address] Scan Report Signed Patient: Keysha Rodriguez [facility] [id number] [facility] 1945 [id number] Age/Sex: 75 / F ADM Date: 11/28/20 Loc: ER Room/Bed: Attending Dr: Ordering Provider/Ordering MD: Brianne Mcconnell Date of Service: 11/28/20 Procedure(s): CT chest abd pel w con* Accession Number(s): [id number] Report Number: [id number] PROCEDURE INFORMATION: Exam: CT Chest With Contrast; Diagnostic Exam date and time: 11/28/2020 8:01 PM Age: 75 years old Clinical indication: Injury or trauma; Generalized; Blunt trauma (contusions or hematomas); Prior surgery; Surgery type: Hyst, shunt; Patient HX: Fall in kitchen today. Left side chest pain; Additional info: Fall; Multiple left rib fxs TECHNIQUE: Imaging protocol: Diagnostic computed tomography of the chest with contrast. Radiation optimization: All CT scans at this facility use at least one of these dose optimization techniques: automated exposure control; mA and/or kV adjustment per patient size (includes targeted exams where dose is matched to clinical indication); or iterative reconstruction. Contrast material: OMNI 300; Contrast volume: 95 ml; Contrast route: INTRAVENOUS (IV); COMPARISON: CR (CHEST, ) 11/28/2020 6:31 PM RADIATION DOSE METRICS: Total DLP (mGy-cm): 1305.89 FINDINGS: Tubes, catheters and devices: Right-sided tunneled ventriculoperitoneal shunt catheter present. Lungs: Mild severity emphysematous lung changes. Mild left lower lobe volume loss changes. Pleural spaces: Moderate volume layering right-sided pleural effusion. Small volume layering left-sided pleural effusion. Negative for pneumothorax. Heart: See Kidneys and ureters finding. Mediastinal space: Negative for thoracic esophageal wall thickening. Aorta: Unremarkable. No aortic aneurysm. Lymph nodes: Unremarkable. No enlarged lymph nodes. Kidneys and ureters: Dilated cardiomyopathy changes. Negative for pericardial effusion. Bones/joints: Displaced fractures involving lateral aspects left-sided ribs 6, 7 8. Thoracic spine alignment is unremarkable. No acute vertebral fracture. Soft tissues: There is a mild degree left chest intercostal soft tissue hematoma. IMPRESSION: 1. Multiple acute left lateral rib fractures. 2. Bilateral pleural effusions. 3. Dilated cardiomyopathy changes. PROCEDURE INFORMATION: Exam: CT Abdomen And Pelvis With Contrast Exam date and time: 11/28/2020 8:01 PM Age: 75 years old Clinical indication: Injury or trauma; Generalized; Blunt trauma (contusions or hematomas); Prior surgery; Surgery type: Hyst, shunt; Patient HX: Fall in kitchen today. Left side chest pain; Additional info: Fall; Multiple left rib fxs TECHNIQUE: Imaging protocol: Computed tomography of the abdomen and pelvis with contrast. Radiation optimization: All CT scans at this facility use at least one of these dose optimization techniques: automated exposure control; mA and/or kV adjustment per patient size (includes targeted exams where dose is matched to clinical indication); or iterative reconstruction. Contrast material: OMNI 300; Contrast volume: 95 ml; Contrast route: INTRAVENOUS (IV); COMPARISON: CR (CHEST, ) 11/28/2020 6:31 PM RADIATION DOSE METRICS: Total DLP (mGy-cm): 1305.89 FINDINGS: Tubes, catheters and devices: Ventriculoperitoneal shunt catheter terminates in the right pelvis. No abdominal fluid collection around the ventriculoperitoneal catheter tip. Liver: Normal. No mass. Gallbladder and bile ducts: Normal. No calcified stones. No ductal dilation. Pancreas: Normal. No ductal dilation. Spleen: Normal. No splenomegaly. Adrenal glands: Normal. No mass. Kidneys and ureters: Normal. No hydronephrosis. Stomach and bowel: Diverticulosis coli. Negative for bowel obstruction. Negative for bowel perforation. No focal inflammatory wall thickening identified. No focal bowel wall mass. Appendix: Normal appendix. Intraperitoneal space: Trace pelvic free fluid. Vasculature: Tortuosity of the abdominal aorta. The mid abdominal aortic segment is mildly aneurysmal up to 3.4 cm. Negative for dissection. Lymph nodes: Unremarkable. No enlarged lymph nodes. Urinary bladder: Unremarkable as visualized. Reproductive: Hysterectomy. Bones/joints: Pelvic ring alignment is normal. Sacroiliac joints are intact. Old posterior lumbar spine osseous fusion changes.The lumbar spine demonstrates marked discogenic and apophyseal joint degenerative changes at multiple levels. No acute lumbar fracture. Soft tissues: Unremarkable. CT/CT chest abd pel w con* IMPRESSION: 1. Negative for acute abdominopelvic injury. 2. Incidental finding of a mild fusiform mid abdominal aortic aneurysm. Outpatient surveillance recommended. Radiation Dose CTDIVOL = (mGy): DLP = 1305.89 1305.89 (mGy-cm) Dictated By: Alexandr Morales Signed By: Alexandr Morales Signed Date/Time: 11/28/202058 DD/ 56 Discharge Plan Discharge Patient Disposition: Admitted As Inpatient Clinical Impression: Bilateral pleural effusion Multiple fractures of ribs Qualifiers: Encounter type: initial encounter Fracture type: closed Laterality: left Qualified Code(s): S22.42XA - Multiple fractures of ribs, left side, initial encounter for closed fracture Condition: Stable Coding Level of Care Code ED [employer] Operator for Chg Fwd Exam Comprehensive Documented by User: Anival Marshall MD 11/28/20 21:43 HPI - Fall General: Chief Complaint: Fall Stated Complaint: Fell, hurt Left side, rib pain, Time Seen by Provider: 11/28/20 19:55 PFSH ED PFSH: Medical History (Updated 11/28/20 @ 21:53 by PARKER De Jesus) Normal pressure hydrocephalus Surgical History Intracranial shunt Codman-Hakim programmable shunt with right angle valve placed on 03/20/2015 Family History Sister Cancer Family/Other Cancer Paternal Aunt Father Cancer Hypertension Diabetes Other CAD (coronary artery disease) Denies family history of Stroke Social History Smoking and tobacco status: never smoked Alcohol intake: never Lives independently: Yes Household members: spouse Marital status: Current occupational status: retired History of recent travel: No Course Vital Signs: Vital signs: Vital Signs Temperature 98.0 F 11/28/20 18:08 Pulse Rate 76 11/28/20 21:19 Respiratory Rate 27 H 11/28/20 21:19 Blood Pressure 159/115 11/28/20 20:28 Pulse Oximetry 100 11/28/20 21:19 - Fall Lab Data: Labs: Lab Results 11/28/20 11/28/20 11/28/20 Range/Units 20:25 20:25 21:04 WBC 8.3 (4.0-10.0) 10^3/ uL RBC 4.18 (4.1-5.3) 10^6/u L Hgb 12.7 (11.5-15.3) g/dL Hct 40.3 (37.0-47.0) % MCV 96.4 (81-99) fL MCH 30.4 (28.0-34.0) pg MCHC 31.5 (30.0-36.0) g/dL RDW 13.1 (12.1-15.1) % Plt Count 142 (130-400) 10^3/c mm MPV 9.5 (7.4-10.4) fL Neut % (Auto) 83.9 % Lymph % (Auto) 9.0 % Teller % (Auto) 6.1 % Eos % (Auto) 0.1 % Baso % (Auto) 0.5 % Neut # (Auto) 6.94 (1.8-7.7) 10^3/u L Lymph # (Auto) 0.7 L (0.8-4.8) 10^3/u L Teller # (Auto) 0.5 (0.2-0.9) 10^3/u L Eos # (Auto) 0.0 (0.0-0.8) 10^3/u L Baso # (Auto) 0.0 (0.0-0.1) 10^3/u L Nucleated RBC % (a uto) 0 % Nucleated RBCs # 0.0 /100WBC Sodium 145 (136-145) mmol/L Potassium 4.3 (3.5-5.1) mmol/L Chloride 108 H (98-107) mmol/L Carbon Dioxide 26 (22-29) mmol/L Anion Gap 15.3 (5-19) BUN 22 (8-23) mg/dL Creatinine 0.8 (0.5-0.9) mg/dL GFR Calculation Not Reportable Glucose 127 H (65-115) mg/dL Calculated Osmolal ity 305 H (285-295) mOsm/k g Calcium 9.1 (8.5-10.5) mg/dL Total Bilirubin 0.7 (0.15-1.2) mg/dL AST 25 (0-32) U/L ALT 19 (0-33) U/L Alkaline Phosphata se 73 (35-105) IU/L Total Protein 6.2 L (6.6-8.7) g/dL Albumin 4.2 (3.5-5.2) g/dL Globulin 2.0 (1.3-4.6) g/dL Urine Color Yellow (Yellow) Urine Appearance Cloudy (CLEAR) Urine pH 5 (5-7) Ur Specific Gravit y 1.020 (1.005-1.030) Urine Protein Neg (Negative) Urine Glucose (UA) Norm (Normal) Urine Ketones 1+ H (Negative) Urine Blood Neg (Negative) Urine Nitrate Positive H (Negative) Urine Bilirubin Neg (Negative) Urine Urobilinogen Norm (Negative) mg/dL Ur Leukocyte Leatha ase Negative (Negative) Urine RBC 0-4 H (0-2) /hpf Urine WBC 5-10 H (0-5) /hpf Ur Squamous Epith Cells 0-4 H (0-5) /hpf Amorphous Sediment Not Reportable Urine Bacteria 4+ H (NONE) /hpf Discharge Plan Discharge Patient Disposition: Admitted As Inpatient Clinical Impression: Bilateral pleural effusion Multiple fractures of ribs Qualifiers: Encounter type: initial encounter Fracture type: closed Laterality: left Qualified Code(s): S22.42XA - Multiple fractures of ribs, left side, initial encounter for closed fracture Condition: Stable Coding Level of Care Code ED [employer] Operator for Иван Fwd Exam Comprehensive
[2020-11-28] MEDS: ondansetron 2 mg/ML SDV 2 mL 4 MG IVP (20:27)
[2020-11-28] MEDS: morphine 4 mg/mL SDV 1 mL IVP (20:27)
[2020-11-28 20:28] VITALS: BP 159/115; PULSE 70; RESP 23; O2SAT 96
[2020-11-28 20:32] LABS: Basophils % 0.5 %; Eosinophils % 0.1 %; Hematocrit 40.3 % (37.0-47.0); Hemoglobin 12.7 g/dL (11.5-15.3); Lymphocytes # 0.7 10^3/uL (0.8-4.8); Mean Corpuscular HGB Conc 31.5 g/dL (30.0-36.0); Mean Corpuscular Hemoglobin 30.4 pg (28.0-34.0); Mean Corpuscular Volume 96.4 fL (81-99); Mean Platelet Volume 9.5 fL (7.4-10.4); Monocytes # 0.5 10^3/uL (0.2-0.9); Monocytes % 6.1 %; Neutrophils # 6.94 10^3/uL (1.8-7.7); Neutrophils % 83.9 %; Nucleated Red Blood Cells % 0 %; Platelet Count 142 10^3/cmm (130-400); Red Blood Count 4.18 10^6/uL (4.1-5.3); Red Cell Distribution Width 13.1 % (12.1-15.1); White Blood Count 8.3 10^3/uL (4.0-10.0)
[2020-11-28] MEDS: iohexol 300 mg/mL 100 mL Btl IV (20:38)
[2020-11-28 21:13] LABS: Alanine Aminotransferase 19 U/L (0-33); Albumin Level 4.2 g/dL (3.5-5.2); Alkaline Phosphatase 73 IU/L (35-105); Anion Gap 15.3 (5-19); Aspartate Amino Transferase 25 U/L (0-32); Blood Urea Nitrogen 22 mg/dL (8-23); Calcium 9.1 mg/dL (8.5-10.5); Carbon Dioxide 26 mmol/L (22-29); Chloride 108 mmol/L (98-107); Glucose 127 mg/dL (65-115); Osmolality Calculated 305 mOsm/kg (285-295); Potassium 4.3 mmol/L (3.5-5.1); Sodium 145 mmol/L (136-145); Total Bilirubin 0.7 mg/dL (0.15-1.2); Total Protein 6.2 g/dL (6.6-8.7)
[2020-11-28 21:19] VITALS: PULSE 76; RESP 27; O2SAT 100
[2020-11-28 21:30] LABS: Add Urine Culture? Yes; Add Urine Microscopic? YES; Bacteria Urine 4+ /hpf; Bilirubin Urine Neg (Negative); Blood Urine Neg (Negative); Glucose Urine UA Norm (Normal); Ketones Urine 1+ (Negative); Leukocyte Esterase Urine Negative (Negative); Nitrate Urine Positive (Negative); Protein Urine Neg (Negative); RBC Urine 0-4 /hpf (0-2); Squamous Epithelial Cell Urine 0-4 /hpf (0-5); Urine Appearance Cloudy (CLEAR); Urine Color Yellow (Yellow); Urobilinogen Urine Norm (Negative); pH Urine 5 (5-7)
[2020-11-28 22:14] VITALS: BP 155/98; PULSE 74; RESP 19; O2SAT 98
--- NOTE | 2020-11-28 23:12 | CTR_ITS ---
PROCEDURE INFORMATION: Exam: CT Head Without Contrast Exam date and time: 11/28/2020 11:12 PM Age: 75 years old Clinical indication: Injury or trauma; Fall; Blunt trauma (contusions or hematomas); Prior surgery; Surgery type: Shunt; Additional info: Fall with HX of nph and shunt TECHNIQUE: Imaging protocol: Computed tomography of the head without contrast. Radiation optimization: All CT scans at this facility use at least one of these dose optimization techniques: automated exposure control; mA and/or kV adjustment per patient size (includes targeted exams where dose is matched to clinical indication); or iterative reconstruction. COMPARISON: CT head wo con* [id number] 08/17/2020 11:27 AM RADIATION DOSE METRICS: Total DLP (mGy-cm): 812.94 FINDINGS: Tubes, catheters and devices: Right frontal ventriculostomy catheter is unchanged in position the comparison imaging. No change in volume of the ventricles. Mild ventriculomegaly changes. The included portion of the COAL FEEDER OPERATOR shunt is intact. Brain: Severe diffuse cerebral cortical volume loss. No midline shift of brain. Negative for intracranial hemorrhage. Finch matter and white matter interfaces are preserved. Cerebral ventricles: See Tubes, catheters and devices finding. Paranasal sinuses: Visualized sinuses are unremarkable. No fluid levels. Mastoid air cells: Visualized mastoid air cells are well aerated. Orbital cavity: Symmetric, unremarkable orbits. Bones/joints: Unremarkable. No acute fracture. Soft tissues: Unremarkable. CT/CT head wo con* [id number] IMPRESSION: 1. Negative for acute intracranial abnormality. 2. No significant changes from comparison Radiation Dose CTDIVOL = (mGy): DLP = 812.94 (mGy-cm)
--- NOTE | 2020-11-28 23:17 | P.HP_ITS ---
Providers/Chief Complaint Admitting Physician: Anival Marshall Primary Care Provider: Rashaad Soriano DO Chief Complaint: Fell, hurt Left side, rib pain, History of Present Illness 74-year-old with a past medical history significant for Alzheimer's, normal pressure hydrocephalus status post history right frontal programmable shunt with a right angle valve in 2014 who presented to the hospital after she sustained a fall. Patient does have a baseline gate abnormality due to NPH which has led to recurrent falls. patient was complaining of left-sided chest wall pain with deep inspiration. Denied respiratory distress. No chest pain. No fever, chills, nausea or vomiting. Upon arrival to ER her initial laboratory work up showed a WBC of 8.3, hemoglobin of 12.7, hematocrit of 40.3, and a platelet count of 142. Sodium of 145, potassium of 4.3, chloride 108, bicarb 26, BUN 22 and creatinine of 0.8. Urinalysis showed positive nitrites, 5 to 10 wbc's and 4+ bacteria. Chest x-ray showed emphysematous lung changes with hyperinflated pattern without any evidence of focal consolidation. Multiple left-sided posterior rib fractures involving 6, 7 [address] of chest abdomen pelvis was then performed which showed multiple acute left rib fractures, bilateral pleural e ffusions appearing to be moderate in size on the right, and dilated cardiomyopathy. On abdominal portion no acute findings were noted. In emergency room patient was not treated with any medications. Review of Systems General: Reports: 10 or more systems reviewed and unremarkable except in HPI a nd below Medications/Allergies Home Medications Medication Instructions Recorded Confirmed Last Taken Type ibuprofen 200 mg capsule 400 mg PO Q8H PRN 06/14/19 11/28/20 07/21/19 History multivitamin 1 tab PO DAILY 06/14/19 11/28/20 11/28/20 History memantine 10 mg tablet 10 mg PO BID #180 tab 08/14/20 11/28/20 11/28/20 Rx donepezil 10 mg PO DAILY 11/21/20 11/28/20 11/28/20 History Allergies Allergy/AdvReac Type Severity Reaction Status Date / Time No Known Allergies Allergy Verified 11/28/20 18:08 PFSH Acute PFSH: Medical History (Updated 11/29/20 @ 05:28 by Anival Marshall MD) Alzheimer disease Normal pressure hydrocephalus Surgical History (Updated 11/29/20 @ 05:28 by Anival Marshall MD) Intracranial shunt Codman-Hakim programmable shunt with right angle valve placed on 03/20/2015 Status post ventriculoatrial shunt placement (03/20/15) Right frontal ventriculoperitoneal shunt placement. Codman-Hakim programmable right angle valve at 12 cm [address] De La Cruz Family History Sister Cancer Family/Other Cancer Paternal Aunt Father Cancer Hypertension Diabetes Other CAD (coronary artery disease) Denies family history of Stroke Social History Smoking and tobacco status: never smoked Alcohol intake: never Lives independently: Yes Household members: spouse Marital status: Current occupational status: retired History of recent travel: No Vitals/I&O/Wt Last Vital Signs Temp 98.0 F 11/28/20 18:08 Pulse 74 11/28/20 22:14 Resp 19 H 11/28/20 22:14 BP 155/98 11/28/20 22:14 Pulse Ox 98 11/28/20 22:14 Weight last 48 hrs Weight 74.843 kg Physical Exam Narrative: EXAM NARRATIVE: General -alert awake, in no distress HEENT -grossly unremarkable CVS -regular rate rhythm no obvious murmurs Chest -clear to auscultation bilaterally Abdomen-soft nontender non distended Extremities-no edema Data : 11/29/20 02:29 11/29/20 02:29 A&P Assessment and plan (1) Multiple fractures of ribs: Status: Acute Qualifiers: Encounter type: initial encounter Fracture type: closed Laterality: left Qualified Code(s): S22.42XA - Multiple fractures of ribs, left side, initial encounter for closed fracture (2) Bilateral pleural effusion: Status: Acute (3) Lewy body dementia: Status: Acute (4) Intracranial shunt: Status: Acute (5) Normal pressure hydrocephalus: Status: Acute Fall due to below Head CT negative PT consult May consider SNF Fall precautions Normal pressure hydrocephalus Programmable intracranial shunt CT head - stable Chronic gait abnormality outpatient follow up with Neurology Left minimal displaced fracture of rib Post 6,7,8 Pain control Supplemental o2 as needed Bilateral Pleural effusion R/L No respiratory distress If noted dyspnea - may consider tap Can consider cardiac work up Suspected Urinary tract infection UA showed positive nitrates Rocephin 1 g IV daily Follow up on urine culture Alzhemer Dementia Namenda / Aricept DVT ppx SCDS With shunt - will avoid anticoagulation Attestations Medical Necessity Statement*: AnticipateLess than 2 midnight stay in hospital for evaluation and treatment Time Spent in Patient Care: Greater than 35 minutes (>than 50% of time spent in counselling and/or direct pt care on unit) . Coding Level of Care Code Acute Camp Program Director for [facility] Fwd Diagnoses Multiple fractures of ribs S22.42XA Encounter type: initial encounter Fracture type: closed Laterality: left Bilateral pleural effusion J90 Lewy body dementia G31.83; F02.80 Intracranial shunt Z98.2 Normal pressure hydrocephalus G91.2
[2020-11-28 23:39] VITALS: BP 153/97; PULSE 84; RESP 23; O2SAT 95
[2020-11-28] MEDS: cefTRIAXone 1,000 MG in sodium chloride 0.9% (plus) 50 ML 100 MG IV (23:57)
[2020-11-29] VITALS (7 sets, daily range): BP systolic 100–128; BP diastolic 65–71; PULSE 59–66; RESP 14–19; TEMP 36.4–37.1; O2SAT 90–93
[2020-11-29] MEDS: sodium chloride 0.9% 1,000 ML 75 ML IV (00:55)
[2020-11-29] MEDS: HYDROcodone-acetaminophen 5-325 mg Tablet 1 TAB PO ×2 (01:29→10:16)
[2020-11-29 02:45] LABS: Basophils % 0.5 %; Eosinophils # 0.1 10^3/uL (0.0-0.8); Eosinophils % 0.7 %; Hematocrit 38.2 % (37.0-47.0); Lymphocytes # 0.7 10^3/uL (0.8-4.8); Lymphocytes % 8.2 %; Mean Corpuscular HGB Conc 31.4 g/dL (30.0-36.0); Mean Corpuscular Hemoglobin 30.5 pg (28.0-34.0); Mean Platelet Volume 9.7 fL (7.4-10.4); Monocytes # 0.7 10^3/uL (0.2-0.9); Monocytes % 8.8 %; Neutrophils # 6.81 10^3/uL (1.8-7.7); Neutrophils % 81.4 %; Nucleated Red Blood Cells % 0 %; Platelet Count 149 10^3/cmm (130-400); Red Blood Count 3.94 10^6/uL (4.1-5.3); Red Cell Distribution Width 13.1 % (12.1-15.1); White Blood Count 8.4 10^3/uL (4.0-10.0)
[2020-11-29 03:06] LABS: Alanine Aminotransferase 16 U/L (0-33); Albumin Level 3.7 g/dL (3.5-5.2); Alkaline Phosphatase 69 IU/L (35-105); Anion Gap 13.3 (5-19); Aspartate Amino Transferase 21 U/L (0-32); Blood Urea Nitrogen 21 mg/dL (8-23); Calcium 8.7 mg/dL (8.5-10.5); Carbon Dioxide 27 mmol/L (22-29); Chloride 104 mmol/L (98-107); Globulin 1.9 g/dL (1.3-4.6); Glucose 158 mg/dL (65-115); Magnesium 1.9 mg/dL (1.7-2.3); Osmolality Calculated 296 mOsm/kg (285-295); Potassium 4.3 mmol/L (3.5-5.1); Sodium 140 mmol/L (136-145); Total Bilirubin 0.5 mg/dL (0.15-1.2); Total Protein 5.6 g/dL (6.6-8.7)
--- NOTE | 2020-11-29 09:27 | USCV_ITS ---
Keysha Rodriguez Age: 75 Gender: F : 1945 Exam Date: 11/29/2020 13:56 Ordering Phys: George Callahan MD Technologist: Exam Location: [facility] [place] Indication: CHEST PAIN BP: 123 / 75 HR: 60 Rhythm: Sinus Technical Quality: Adequate MEASUREMENTS (Male / Female) Normal Values 2D ECHO LV Diastolic Diameter PLAX 5.5 cm 4.2 - 5.9 / 3.9 - 5.3 cm LV Systolic Diameter PLAX 2.9 cm IVS Diastolic Thickness 1.0 cm 0.6 - 1.0 / 0.6 - 0.9 cm IVS Systolic Thickness 1.4 cm LVPW Diastolic Thickness 1.2 cm 0.6 - 1.0 / 0.6 - 0.9 cm LVPW Systolic Thickness 1.2 cm LVOT Diameter 2.0 cm LV Ejection Fraction 2D Teich 76.9 % LV Ejection Fraction MOD 2C 53.2 % LV Ejection Fraction 2C AL 52.7 % LA Diameter 3.7 cm LA Width 5.9 cm LA Height 6.9 cm RA Width 4.4 cm RA Height 6.5 cm Aorta at Sinotubular Diameter 2.9 cm DOPPLER AV Peak Velocity 181.0 cm/s LVOT Peak Velocity 89.0 cm/s AV Area Cont Eq vti 1.4 cm squared AV Area Cont Eq pk 1.6 cm squared MV Area PHT 5.0 cm squared Mitral E to A Ratio 2.1 MV E' Velocity 142.0 cm/s Mitral E to LV E' Septal Ratio 9.2 TR Peak Velocity 324.7 cm/s TR Peak Gradient 42.2 mmHg TV Peak E Velocity 123.0 cm/s Right Atrial Pressure 3.0 mmHg Pulmonary Artery Systolic Pressu 45.2 mmHg PV Peak Velocity 66.0 cm/s FINDINGS Left Ventricle LV is mildly dilated. LV systolic function is normal with EF of 55-60%. No regional wall motion abnormalities. Diastolic function is indeterminate because of rhythm abnormality Right Ventricle The right ventricle is normal in size and function. Right Atrium The right atrium is enlarged Left Atrium The left atrium is severely dilated Mitral Valve Thickened mitral valve without significant stenosis or prolapse. There is mild mitral regurgitation. Aortic Valve Structurally normal aortic valve without significant sclerosis or stenosis. There is no aortic regurgitation. Tricuspid Valve Structurally normal tricuspid valve without significant stenosis or regurgitation. Insufficient TR jet to calculate RVSP Pulmonic Valve Structurally normal pulmonic valve without significant stenosis. There is trace pulmonic regurgitation. Pericardium Normal pericardium without effusion. Aorta Normal ascending aorta dimension. CONCLUSIONS LV systolic function is normal with EF of 55-60% Left atrium is severely enlarged Mild mitral regurgitation Trace pulmonic regurgitation No comparison studies are available Steve Linda MD (Electronically Signed) Final Date: 30 November 2020 12:55 S
[2020-11-29] MEDS: levoFLOXacin 500 mg Tablet PO (10:14)
--- NOTE | 2020-11-29 10:38 | PC.CHAP ---
Pastoral Care Encounter/Spiritual Assessment Type of Contact [] Declined trouble locater visit [] Patient/Family/Request visit [] Outpatient visit [] Follow-up visit [] Physician referral [] Code/Alert [x] Routine visit [] Staff referral [] Actively dying [] Patient sleeping [] Family support [] [] Out of room [] Palliative care [] [] Receiving care in room [] Pre-surgical visit [] Trauma [] Long length of stay [] ICU visit [] Other: Relational/Emotional Strength [] Patient feels connected with others/family/visitors/staff [] Distress [] Loneliness/isolation [] Abandonment Spirituality of Patient [x] Person of Devora [x] Attends Nondenominational of their Devora [x] Believes in Prayer [] Reads Bible or Latter Day materials [] There are Spiritual issues to be addressed [employer] Interventions [x] Prayer [x] Active listening [] Non-anxious presence [] Spiritual/emotional support [] Crisis/trauma care [] Spiritual counseling [] Bereavement support [] Provided bereavement packet [] Provided Bible/devotional materials [] Provided toy/stuffed animal, coloring book to patient or family member [] Provided Communion [] Anointing/[place] [] Salvation [x] Completed spiritual assessment [] Other: Impact on Illness or Injury [] Angry [] Fearful [] Anxious [] Often cries [] Exhaustion [] Unable to work [] Unable to attend temple [] Unable to walk/stand [] Unable to read [] Unable to drive [] Unable to eat/drink [] Unable to sleep [] Unable to be with family [] Patient intubated [] Other: Summary Time spent with patient 10 min
--- NOTE | 2020-11-29 13:59 | P.DS_ITS ---
Discharge Providers Date of Admission: 11/28/20 22:06 Date of Discharge: November 29, 2020 Attending Provider at Admission: Anival Marshall Attending Provider at Discharge: George Callahan MD Primary Care Provider: Rashaad Soriano DO Diagnoses at Discharge Discharge Diagnosis (1) Multiple fractures of ribs: Status: Acute Qualifiers: Encounter type: initial encounter Fracture type: closed Laterality: left Qualified Code(s): S22.42XA - Multiple fractures of ribs, left side, initial encounter for closed fracture (2) Bilateral pleural effusion: Status: Acute (3) Lewy body dementia: Status: Acute (4) Intracranial shunt: Status: Acute Permanent problem details: Codman-Hakim programmable shunt with right angle valve placed on 03/20/2015 (5) Normal pressure hydrocephalus: Status: Acute Reason for Visit Reason for Visit: Fell, hurt Left side, rib pain, Hospital Course Hospital Course 74-year-old with a past medical history significant for Alzheimer's, normal pressure hydrocephalus status post history right frontal programmable shunt with a right angle valve in 2014 who presented to the hospital after she sustained a fall. Patient does have a baseline gate abnormality due to NPH which has led to recurrent falls. patient was complaining of left-sided chest wall pain with deep inspiration. Denied respiratory distress. No chest pain. No fever, chills, nausea or vomiting. Upon arrival to ER her initial laboratory work up showed a WBC of 8.3, hemoglobin of 12.7, hematocrit of 40.3, and a platelet count of 142. Sodium of 145, potassium of 4.3, chloride 108, bicarb 26, BUN 22 and creatinine of 0.8. Urinalysis showed positive nitrites, 5 to 10 wbc's and 4+ bacteria. Chest x-ray showed emphysematous lung changes with hyperinflated pattern without any evidence of focal consolidation. Multiple left-sided posterior rib fractures involving 6, 7 and [address] of chest abdomen pelvis was then performed which showed multiple acute left rib fractures, bilateral pleural effusions appearing to be moderate in size on the right, and dilated cardiomyopathy. On abdominal portion no acute findings were noted. Patient was moved to the hospital for pain control and further monitoring. Patient hospital stay was unremarkable.She did well with incentive spirometry and remained on room air. Patient denied any dysuria did not have any white count on fever. As per her old cultures results from urine her antibiotic was changed to levofloxacin. She will take antibiotics for 5 more days to finish antibiotic course. CT chest done on in the ER on admission was concerning for dilated cardiomyopathy though patient was not in any acute exacerbation. Echocardiogram was done though the results are pending. Patient is discharging adeptly stable condition on pain control with advised to follow-up as an outpatient with primary care provider within next 1 week to follow-up results for urine culture and echocardiogram. Patient's care plan was discussed in detail with her and he verbalized understanding. Patient is also advised to continue doing incentive spirometry at least 4-5 times a day for next 1 week. Physical Exam Narrative: EXAM NARRATIVE: General -alert awake, in no distress HEENT -grossly unremarkable CVS -regular rate rhythm no obvious murmurs Chest -clear to auscultation bilaterally Abdomen-soft nontender non distended Extremities-no edema Discharge Data Data Completed and Pending: Completed Studies During Hospitalization Category Date Time Status CT chest abd pel w con* Urgent Cat Scan 11/28/20 20:[address] head wo con* 7 0450 Stat Cat Scan 11/28/20 23:12 Completed XR ribs LT mn 3V w CXR1V [id number] Urge nt Exams 11/28/20 18:19 Completed Pending at discharge Category Date Time Status Complete Blood Co unt w/Auto AM LABS Lab 11/30/20 04:00 Ordered Complete Blood Co unt w/Auto AM LABS Lab 12/01/20 04:00 Ordered Comprehensive Met abolic Panel AM LA BS Lab 11/30/20 04:00 Ordered Comprehensive Met abolic Panel AM LA BS Lab 12/01/20 04:00 Ordered Magnesium AM LABS Lab 11/30/20 04:00 Ordered Magnesium AM LABS Lab 12/01/20 04:00 Ordered Urine Culture Sta t Lab 11/28/20 21:04 Received CV echo complete* [id number] Routine Ultrasound 11/29/20 09:27 Ordered Labs from last 24 hours 11/29/20 11/29/20 11/28/20 02:29 02:29 21:04 WBC 8.4 RBC 3.94 L Hgb 12.0 Hct 38.2 MCV 97.0 MCH 30.5 MCHC 31.4 RDW 13.1 Plt Count 149 MPV 9.7 Neut % (Auto) 81.4 Lymph % (Auto) 8.2 [place] % (Auto) 8.8 Eos % (Auto) 0.7 Baso % (Auto) 0.5 Neut # (Auto) 6.81 Lymph # (Auto) 0.7 L [place] # (Auto) 0.7 Eos # (Auto) 0.1 Baso # (Auto) 0.0 Nucleated RBC % (a uto) 0 Nucleated RBCs # 0.0 Sodium 140 Potassium 4.3 Chloride 104 Carbon Dioxide 27 Anion Gap 13.3 BUN 21 Creatinine 0.6 GFR Calculation Not Reportable Glucose 158 H Calculated Osmolal ity 296 H Calcium 8.7 Magnesium 1.9 Total Bilirubin 0.5 AST 21 ALT 16 Alkaline Phosphata se 69 Total Protein 5.6 L Albumin 3.7 Globulin 1.9 Urine Color Yellow Urine Appearance Cloudy Urine pH 5 Ur Specific Gravit y 1.020 Urine Protein Neg Urine Glucose (UA) Norm Urine Ketones 1+ H Urine Blood Neg Urine Nitrate Positive H Urine Bilirubin Neg Urine Urobilinogen Norm Ur Leukocyte Leatha ase Negative Urine RBC 0-4 H Urine WBC 5-10 H Ur Squamous Epith Cells 0-4 H Amorphous Sediment Not Reportable Urine Bacteria 4+ H 11/28/20 11/28/20 20:25 20:25 WBC 8.3 RBC 4.18 Hgb 12.7 Hct 40.3 MCV 96.4 MCH 30.4 MCHC 31.5 RDW 13.1 Plt Count 142 MPV 9.5 Neut % (Auto) 83.9 Lymph % (Auto) 9.0 [place] % (Auto) 6.1 Eos % (Auto) 0.1 Baso % (Auto) 0.5 Neut # (Auto) 6.94 Lymph # (Auto) 0.7 L [place] # (Auto) 0.5 Eos # (Auto) 0.0 Baso # (Auto) 0.0 Nucleated RBC % (a uto) 0 Nucleated RBCs # 0.0 Sodium 145 Potassium 4.3 Chloride 108 H Carbon Dioxide 26 Anion Gap 15.3 BUN 22 Creatinine 0.8 GFR Calculation Not Reportable Glucose 127 H Calculated Osmolal ity 305 H Calcium 9.1 Magnesium Total Bilirubin 0.7 AST 25 ALT 19 Alkaline Phosphata se 73 Total Protein 6.2 L Albumin 4.2 Globulin 2.0 Urine Color Urine Appearance Urine pH Ur Specific Gravit y Urine Protein Urine Glucose (UA) Urine Ketones Urine Blood Urine Nitrate Urine Bilirubin Urine Urobilinogen Ur Leukocyte Leatha ase Urine RBC Urine WBC Ur Squamous Epith Cells Amorphous Sediment Urine Bacteria Addt'l Data from Hospital Stay: Laboratory Results WBC 8.4 10^3/uL (4.0- 10.0) 11/29/20 02:29 RBC 3.94 10^6/uL (4.1 -5.3) L 11/29/20 02:29 Hgb 12.0 g/dL (11.5-1 5.3) 11/29/20 02:29 Hct 38.2 % (37.0-47.0 ) 11/29/20 02:29 MCV 97.0 fL (81-99) 11/29/20 02:29 MCH 30.5 pg (28.0-34. 0) 11/29/20 02: MCHC 31.4 g/dL (30.0-3 6.0) 11/29/20 02:29 RDW 13.1 % (12.1-15.1 ) 11/29/20 02:29 Plt Count 149 10^3/cmm (130 -400) 11/29/20 02:29 MPV 9.7 fL (7.4-10.4) 11/29/20 02:29 Neut % (Auto) 81.4 % 11/29/20 02:29 Lymph % (Auto) 8.2 % 11/29/20 02:29 [place] % (Auto) 8.8 % 11/29/20 02:29 Eos % (Auto) 0.7 % 11/29/20 02:29 Baso % (Auto) 0.5 % 11/29/20 02:29 Neut # (Auto) 6.81 10^3/uL (1.8 -7.7) 11/29/20 02:29 Lymph # (Auto) 0.7 10^3/uL (0.8- 4.8) L 11/29/20 02:29 [place] # (Auto) 0.7 10^3/uL (0.2- 0.9) 11/29/20 02:29 Eos # (Auto) 0.1 10^3/uL (0.0- 0.8) 11/29/20 02:29 Baso # (Auto) 0.0 10^3/uL (0.0- 0.1) 11/29/20 02:29 Nucleated RBC % (a uto) 0 % 11/29/20 02:29 Nucleated RBCs # 0.0 /100WBC 11/29/20 02:29 Sodium 140 mmol/L (136-1 45) 11/29/20 02:29 Potassium 4.3 mmol/L (3.5-5 .1) 11/29/20 02:29 Chloride 104 mmol/L (98-10 7) 11/29/20 02:29 Carbon Dioxide 27 mmol/L (22-29) 11/29/20 02:29 Anion Gap 13.3 (5-19) 11/29/20 02:29 BUN 21 mg/dL (8-23) 11/29/20 02:29 Creatinine 0.6 mg/dL (0.5-0. 9) 11/29/20 02:29 GFR Calculation Not Reportable 11/29/20 02:29 Glucose 158 mg/dL (65-115 ) H 11/29/20 02:29 Calculated Osmolal ity 296 mOsm/kg (285- 295) H 11/29/20 02:29 Calcium 8.7 mg/dL (8.5-10 .5) 11/29/20 02:29 Magnesium 1.9 mg/dL (1.7-2. 3) 11/29/20 02:29 Total Bilirubin 0.5 mg/dL (0.15-1 .2) 11/29/20 02:29 AST 21 U/L (0-32) 11/29/20 02:29 ALT 16 U/L (0-33) 11/29/20 02:29 Alkaline Phosphata se 69 IU/L (35-105) 11/29/20 02:29 Total Protein 5.6 g/dL (6.6-8.7 ) L 11/29/20 02:29 Albumin 3.7 g/dL (3.5-5.2 ) 11/29/20 02:29 Globulin 1.9 g/dL (1.3-4.6 ) 11/29/20 02:29 Urine Color Yellow (Yellow) 11/28/20 21:04 Urine Appearance Cloudy (CLEAR) 11/28/20 21:04 Urine pH 5 (5-7) 11/28/20 21:04 Ur Specific Gravit y 1.020 (1.005-1.0 30) 11/28/20 21:04 Urine Protein Neg (Negative) 11/28/20 21:04 Urine Glucose (UA) Norm (Normal) 11/28/20 21:04 Urine Ketones 1+ (Negative) H 11/28/20 21:04 Urine Blood Neg (Negative) 11/28/20 21:04 Urine Nitrate Positive (Negati ve) H 11/28/20 21:04 Urine Bilirubin Neg (Negative) 11/28/20 21:04 Urine Urobilinogen Norm mg/dL (Negat alina) 11/28/20 21:04 Ur Leukocyte Leatha ase Negative (Negati ve) 11/28/20 21:04 Urine RBC 0-4 /hpf (0-2) H 11/28/20 21:04 Urine WBC 5-10 /hpf (0-5) H 11/28/20 21:04 Ur Squamous Epith Cells 0-4 /hpf (0-5) H 11/28/20 21:04 Amorphous Sediment Not Reportable 11/28/20 21:04 Urine Bacteria 4+ /hpf (NONE) H 11/28/20 21:04 Impressions Ribs X-Ray 11/28/20 18:19 IMPRESSION: Multiple acute left posterior rib fractures. Chest/Abdomen/Pelvis CT 11/28/20 20:01 IMPRESSION: 1. Negative for acute abdominopelvic injury. 2. Incidental finding of a mild fusiform mid abdominal aortic aneurysm. Outpatient surveillance recommended. Radiation Dose CTDIVOL = (mGy): DLP = 1305.89~1305.89 (mGy-cm) ADDENDUM: 11/28/202149 Findings were discussed with Brianne Mcconnell at 11/28/2020 9:47 PM CDT. Rib 8 fracture is displaced 4-5 mm. Rib 6 and 7 fractures relatively nondisplaced. Radiation Dose CTDIVOL = (mGy): DLP = 1305.89~1305.89 (mGy-cm) Head CT 11/28/20 23:12 IMPRESSION: 1. Negative for acute intracranial abnormality. 2. No significant changes from comparison Radiation Dose CTDIVOL = (mGy): DLP = 812.94 (mGy-cm) Vitals: Last Vital Signs Temp 97.5 F L 11/29/20 11:03 Pulse 59 L 11/29/20 11:03 Resp 19 H 11/29/20 11:03 BP 100/65 11/29/20 11:03 Pulse Ox 92 11/29/20 11:03 Discharge Plan Discharge Patient Disposition: Home Condition: Stable Prescriptions: New pantoprazole 40 mg Tablet,Delayed Release (Dr/Ec) 40 mg PO DAILY Qty: 14 RF: 0 levofloxacin 500 mg Tablet 500 mg PO DAILY@0600 Qty: 5 RF: 0 tramadol 50 mg tablet 25 mg PO Q8H PRN (Reason: pain) Qty: 7 RF: 0 Continued ibuprofen 200 mg capsule 400 mg PO Q8H PRN (Reason: Pain) RF: 0 multivitamin [Daily Multi-Vitamin] Tablet 1 tab PO DAILY RF: 0 memantine 10 mg tablet 10 mg PO BID Qty: 180 RF: 4 donepezil 10 mg tablet 10 mg PO DAILY RF: 0 Discharge Orders: Discharge Order (Routine); Ordered 11/29/20 Ordered By: George Callahan Referrals: Rashaad Soriano DO [Primary Care Provider] - 12/06/20 9:20 am Discharge Diet: Regular and Low Salt Discharge Activity: Resume usual activity Patient Instructions: Opioid Safety Activity Restrictions/Additional Instructions: Please continue doing incentive spirometry of discussed in detail to prevent atelectasis and pneumonia. You will get antibiotic called levofloxacin for next 5 days. Please follow-up with your primary care provider within next 1 week to discuss the results of echocardiogram and urine culture. If you have any fever, difficulty in breathing please come to the ER. You can take tramadol half a tablet every 8 hours as needed for pain control. Discharge Attestations Time Spent in Discharge Care*: greater than 30 min Specific Discharge Activities: educating patient, educating and/or supporting family/caregiver, discussing with case picker/social workers/dc planners, documenting/other paperwork and evaluating patient/reviewing data Status at Discharge: Cognitive status at discharge: cognitively intact , Behavioral status at discharge: cooperative , Functional status at discharge: uses cane/walker Overall status at discharge: patient is back to baseline Quality Metrics Clinical Quality Measures During this hospital stay, did patient experience: None Coding Level of Care Code Acute Chg FW DC note Diagnoses Multiple fractures of ribs S22.42XA Encounter type: initial encounter Fracture type: closed Laterality: left Bilateral pleural effusion J90 Lewy body dementia G31.83; F02.80 Intracranial shunt Z98.2 Normal pressure hydrocephalus G91.2
--- NOTE | 2020-11-29 17:01 | NUR.SHIFT ---
Report to Christina GUNDERSON at this time.
== END 2020-11-29 18:30 | disposition home or self-care (01) ==
LOC: ER 21:53 → MEDSURG 22:54
PROVIDERS: Admitting Provider Hospitalist; Emergency Provider Physician Assistant; PCP Electrodiagnostic Medicine; Visit Provider Student in an Organized Health Care Education/Training Program
DX: S22.42XA Multiple fractures of ribs, left side, initial encounter for closed fracture (principal); J90 Pleural effusion, not elsewhere classified; G31.83 Neurocognitive disorder with Lewy bodies; F02.80 Dementia in other diseases classified elsewhere, unspecified severity, without behavioral disturbance, psychotic disturbance, mood disturbance, and anxiety; Z98.2 Presence of cerebrospinal fluid drainage device; G91.2 (Idiopathic) normal pressure hydrocephalus; Z82.49 Family history of ischemic heart disease and other diseases of the circulatory system; G30.9 Alzheimer's disease, unspecified
CPT/HCPCS: 36415; 70450; 71101; 71260; 74177; 80053; 81001; 83735; 85025; 87077; 87086; 87186; 93306; 96361; 96365; 96375; 97161; 97165; 97530; 99285; G0378; J0696; J2270; J2405; J7030; Q9967

== ENCOUNTER 2020-12-06 09:21 | Outpatient (CLI) | payer MEDICARE, OTHER, SELFPAY ==
--- NOTE | 2020-12-06 09:30 | XR_ITS ---
WS: [id number] CHEST 2 VIEWS HISTORY: MULTIPLE FRACTURES OF RIBS/BILAT PLEURAL EFFUSIONS COMPARISON: 11/28/2020 Lungs: Hyperinflated lungs from emphysema. Blunting of the costophrenic angles bilaterally. Pleural t hickening on the RIGHT and pleural fluid on the LEFT. No significant increase in the pleural fluid. N o pneumonia. Cardiac size: Moderately enlarged cardiac silhouette. Mediastinum/Aorta: Mild atherosclerosis aorta. Bones: Bones are osteopenic. Recently described left-sided rib fractures are better seen on the dedic ated rib series. No pneumothorax. NUTRITIONISTS shunt tubing projects over the RIGHT thorax. XR/XR chest 2V* [id number] IMPRESSION: 1. Small persistent LEFT pleural effusion with no pneumothorax. 2. Acute rib fractures on the LEFT are better seen on the dedicated rib series from 11/28/2020. 3. Chronic emphysema.
== END 2020-12-06 09:22 | disposition home or self-care (01) ==
PROVIDERS: PCP Electrodiagnostic Medicine; Visit Provider Electrodiagnostic Medicine
DX: J90 Pleural effusion, not elsewhere classified (principal); J43.9 Emphysema, unspecified; S22.42XA Multiple fractures of ribs, left side, initial encounter for closed fracture; X58.XXXA Exposure to other specified factors, initial encounter
CPT/HCPCS: 71046

== ENCOUNTER 2021-02-17 09:23 | Emergency (ER) | payer MEDICARE, OTHER, SELFPAY ==
[2021-02-17 09:32] VITALS: BP 130/91; PULSE 57; RESP 16; TEMP 36.1; O2SAT 97; BMI 25.1
[2021-02-17 10:24] VITALS: RESP 15
--- NOTE | 2021-02-17 10:40 | CTR_ITS ---
PROCEDURE INFORMATION: Exam: CT Head Without Contrast Exam date and time: 02/17/2021 10:40 AM Age: 75 years old Clinical indication: Injury or trauma; Fall; Blunt trauma (contusions or hematomas) and laceration; Consciousness not specified; Without residual foreign body; Injury date: 02/17; Injury details: Posterior scalp lac; Prior surgery; Surgery date: 6+ months; Surgery type: Shunt 10+ years ago TECHNIQUE: Imaging protocol: Computed tomography of the head without contrast. Total images: 185 Radiation optimization: All CT scans at this facility use at least one of these dose optimization techniques: automated exposure control; mA and/or kV adjustment per patient size (includes targeted exams where dose is matched to clinical indication); or iterative reconstruction. COMPARISON: CT head wo con* [id number] 11/29/2020 12:27 AM RADIATION DOSE METRICS: Total DLP (mGy-cm): 740.51 FINDINGS: Tubes, catheters and devices: Right frontal ventriculostomy tube unchanged. Brain: Global brain atrophy and chronic white matter ischemic changes are present. Cerebral ventricles: Ventricles are appropriate in size for degree of atrophy. Lateral and 3rd ventricles appear slightly smaller. Paranasal sinuses: Visualized sinuses are unremarkable. No fluid levels. Mastoid air cells: Visualized mastoid air cells are well aerated. Orbital cavity: Prior left lens replacement. Bones/joints: Unremarkable. No acute fracture. Soft tissues: Unremarkable. CT/CT head wo con* [id number] IMPRESSION: 1. No acute intracranial pathology detected. 2. Right frontal ventriculostomy tube unchanged. 3. Lateral and 3rd ventricles appear slightly smaller. Radiation Dose CTDIVOL = (mGy): DLP = 740.51 (mGy-cm)
[2021-02-17] MEDS: tetanus-dipt-pertussis 0.5 mL SDV IM (10:59)
--- NOTE | 2021-02-17 11:34 | W.ED.WOUNDLC ---
HPI - Wound/Laceration General: Chief Complaint: Wound/Laceration Stated Complaint: fall 02/17; head lac Time Seen by Provider: 02/17/21 09:28 History of Present Illness: HPI narrative: 75 yo female comes emergency room complaining of a fall at home she stumbled and fell hit the back of her head if she went down on the edge of a door there is no loss of consciousness. She had multiple falls in the past. She has a history of BPH with a shunt in place has not had difficulty with it recently she denies loss consciousness no other injuries. Denies any neck pain. Does have a small scalp laceration. Has full range of motion of the neck. Onset (ago): minute(s) Location: scalp Place: home Patient tetanus UTD: No Context: accidental Associated symptoms: Denies chills, fever(s), foreign body sensation, inability to move, nausea, numbness, pain, syncope or vomiting Review of Systems Const: Denies: fever(s) or chills ENMT: Denies: throat pain, ear or mastoid pain, nasal discharge or nasal congestion Card: Denies: syncope Resp: Denies: dyspnea, productive cough or non-productive cough GI: Denies: nausea or vomiting : Denies: flank pain, difficulty voiding, dysuria, urinary frequency or urinary urgency Skin/Breast: Denies: rash or pruritus PFS ED PFSH: Medical History Alzheimer disease Essential hypertension Lewy body dementia Normal pressure hydrocephalus Surgical History Intracranial shunt Codman-Hakim programmable shunt with right angle valve placed on 03/20/2015 Status post ventriculoatrial shunt placement (03/20/15) Right frontal ventriculoperitoneal shunt placement. Codman-Hakim programmable right angle valve at 12 cm H[address] De La Cruz Family History Sister Cancer Family/Other Cancer Paternal Aunt Father Cancer Hypertension Diabetes Other CAD (coronary artery disease) Denies family history of Stroke Social History Smoking and tobacco status: never smoked Alcohol intake: never Lives independently: Yes Household members: spouse Marital status: Current occupational status: retired History of recent travel: No Physical Exam Const: COMMON NORMALS: no acute distress GENERAL APPEARANCE: cooperative and comfortable ORIENTATION/CONSCIOUSNESS: Yes awake, Yes oriented to person, Yes oriented to place and Yes oriented to time HENMT: COMMON NORMALS: normocephalic, atraumatic and hearing grossly normal bilaterally HEAD & SCALP: normocephalic and atraumatic Neck/C-Spine: COMMON NORMALS: no JVD Resp: COMMON NORMALS: normal respiratory effort, No retractions, No use of accessory muscles and clear to auscultation bilaterally AUSCULTATION: clear to auscultation bilaterally Cardio: COMMON NORMALS: no JVD, regular rate, regular rhythm and No murmurs present (Cardio) RATE: regular rate RHYTHM: regular rhythm GI: COMMON NORMALS: Soft to palpation and No hepatosplenomegaly present AUSCULTATION: Yes normoactive bowel sounds PALPATION: Yes Soft to palpation, No Tenderness to palpation present (GI), No Guarding due to palpation present (GI) and Yes No hepatosplenomegaly present Extremity: COMMON NORMALS: normal to inspection, capillary refill normal, no clubbing, cyanosis or edema, no calf tenderness and no pedal edema Neuro: SENSORIUM/ORIENTATION: Yes oriented to person, Yes oriented to place and Yes oriented to time Skin: COMMON NORMALS: no rashes or lesions noted GENERAL SKIN EXAM: no rashes or lesions noted Course Vital Signs: Vital signs: Vital Signs Temperature 96.9 F L 02/17/21 09:32 Pulse Rate 57 L 02/17/21 09:32 Respiratory Rate 15 02/17/21 10:24 Blood Pressure 130/91 02/17/21 09:32 Pulse Oximetry 97 02/17/21 09:32 MDM - Wound/Laceration MDM Narrative: Medical decision making narrative: CT head negative. [place] applied to the scalp to be removed in 10 days wound care instructions given use topical antibiotic ointment light application once daily return if has further problems. Discharge Plan Discharge Patient Disposition: Home Clinical Impression: Laceration of scalp Condition: Stable Prescriptions: No Action ibuprofen 200 mg capsule 400 mg PO Q8H PRN (Reason: Pain) RF: 0 multivitamin [Daily Multi-Vitamin] Tablet 1 tab PO DAILY RF: 0 memantine 10 mg tablet 10 mg PO BID Qty: 180 RF: 4 cholecalciferol (vitamin D3) 125 mcg (5,000 unit) capsule 125 mcg PO DAILY RF: 0 donepezil 10 mg tablet 10 mg PO DAILY RF: 0 pantoprazole 40 mg Tablet,Delayed Release (Dr/Ec) 40 mg PO DAILY Qty: 14 RF: 0 Discharge Orders: Discharge ED (Routine); Ordered 02/17/21 Ordered By: Aneesh Vasquez Referrals: Rashaad Soriano DO [Primary Care Provider] - Discharge Diet: Usual diet Discharge Activity: Resume usual activity Patient Instructions: Opioid Safety Activity Restrictions/Additional Instructions: [place] removed in 10 days. Coding Level of Care Code ED Senior It Business Analyst for Иван Fwd Exam Comprehensive
== END 2021-02-17 12:00 | disposition home or self-care (01) ==
PROVIDERS: Emergency Provider Family Medicine; PCP Electrodiagnostic Medicine
DX: S01.01XA Laceration without foreign body of scalp, initial encounter (principal); G30.9 Alzheimer's disease, unspecified; F02.80 Dementia in other diseases classified elsewhere, unspecified severity, without behavioral disturbance, psychotic disturbance, mood disturbance, and anxiety; I10 Essential (primary) hypertension; W01.10XA Fall on same level from slipping, tripping and stumbling with subsequent striking against unspecified object, initial encounter; Z23 Encounter for immunization
CPT/HCPCS: 12001; 70450; 90715; 99282

== ENCOUNTER → 2021-08-21 08:00 | Outpatient (BNVA) | payer MEDICARE, OTHER, SELFPAY | PROVIDERS: PCP Electrodiagnostic Medicine; Visit Provider Specialist | DX: G30.9 Alzheimer's disease, unspecified (principal); F02.80 Dementia in other diseases classified elsewhere, unspecified severity, without behavioral disturbance, psychotic disturbance, mood disturbance, and anxiety; G91.2 (Idiopathic) normal pressure hydrocephalus; Z98.2 Presence of cerebrospinal fluid drainage device | CPT/HCPCS: 96116; 99214 ==

== ENCOUNTER 2021-09-28 18:20 | Emergency (ER) | payer MEDICARE, OTHER, SELFPAY ==
[2021-09-28 18:26] VITALS: BP 160/93; PULSE 75; RESP 16; TEMP 36.4; O2SAT 95; BMI 25.1
--- NOTE | 2021-09-28 19:07 | ECG_ITS ---
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 Measurements Intervals [place] Rate: 64 P: 80 DE: 170 QRS: 93 QRSD: 92 T: 47 QT: 439 QTc: 454 Interpretive Statements SINUS RHYTHM POSSIBLE LEFT ATRIAL ENLARGEMENT [-0.1mV P-WAVE IN V1/V2] BORDERLINE RIGHT AXIS DEVIATION [QRS AXIS > 90] POSSIBLE LEFT VENTRICULAR HYPERTROPHY Compared to ECG 11/21/2020 12:21:54 No significant changes Electronically Signed On 09-29-2021 15:01:46 CDT by Belkis Bob M.D. [id number]
--- NOTE | 2021-09-28 19:07 | ED_ITS ---
HPI - Dizziness General: Chief Complaint: Dizziness Stated Complaint: Dizzy Time Seen by Provider: 09/28/21 18:59 History of Present Illness: HPI Narrative: 76-year-old female presents with vertigo. States this started earlier today. States she had some stomach cramps but denies any abdominal pain. Denies any nausea vomiting diarrhea constipation. States this completely resolved. She denies any head injury. Denies any fevers or chills. Denies any focal motor symptoms tingling vision or hearing change. Review of Systems Narrative: - CONSTITUTIONAL: Denies weight loss, fever and chills. - HEENT: Denies changes in vision and hearing. - RESPIRATORY: Denies SOB and cough. - CV: Denies palpitations and CP. - GI: Denies abdominal pain, nausea, vomiting and diarrhea. - : Denies dysuria and urinary frequency. - MSK: Denies myalgia and joint pain. - SKIN: Denies rash and pruritus. - NEUROLOGICAL: As above - PSYCHIATRIC: Denies suicidal ideation PFSH ED PFSH: Medical History Alzheimer disease Essential hypertension Lewy body dementia Normal pressure hydrocephalus Surgical History Intracranial shunt Codman-Hakim programmable shunt with right angle valve placed on 03/20/2015 Status post ventriculoatrial shunt placement (03/20/15) Right frontal ventriculoperitoneal shunt placement. Codman-Hakim programmable right angle valve at 12 cm H[address] De La Cruz Family History Sister Cancer Family/Other Cancer Paternal Aunt Father Cancer Hypertension Diabetes Other CAD (coronary artery disease) Denies family history of Stroke Social History Smoking and tobacco status: never smoked Alcohol intake: never Lives independently: Yes Household members: spouse Marital status: Current occupational status: retired History of recent travel: No Physical Exam Narrative: EXAM NARRATIVE: - GENERAL: Alert and oriented x 3. No acute distress. Well-nourished. - EYES: EOMI. Anicteric. - HENT: Atraumatic, no C-spine tenderness. Moist mucous membranes. No scleral icterus. No cervical lymphadenopathy. - LUNGS: Clear to auscultation bilaterally. No accessory muscle use. Equal lung sounds bilaterally. No respiratory distress. - CARDIOVASCULAR: Regular rate and rhythm. No murmur. No JVD. - ABDOMEN: Soft, non-tender and non-distended. Negative CVA tenderness bilaterally, no rebound or guarding, negative Payton sign. No palpable masses. - EXTREMITIES: No edema. Non-tender. - SKIN: No rashes or lesions. Warm. - NEUROLOGIC: Positive Diana-Hallpike maneuver. No meningismus or focal neurological deficits. CN II-XII grossly intact. - PSYCHIATRIC: Cooperative. Appropriate mood and affect. Course Vital Signs: Vital signs: Vital Signs Temperature 98.0 F 09/28/21 21:19 Pulse Rate 79 09/28/21 21:19 Respiratory Rate 16 09/28/21 21:19 Blood Pressure 159/97 09/28/21 21:19 Pulse Oximetry 95 09/28/21 21:19 MDM - Dizziness Medical Decision Making 76-year-old presents due to vertigo. Reports earlier she had abdominal cramping but right now has no abdominal tenderness or pain. Physical exam unremarkable except positive Diana-Hallpike. CT scan does not reveal any intracranial hemorrhage or acute abnormality. EKG does not reveal any sign of arrhythmia acute ischemia or other acute abnormality. Urinalysis concerning for UTI, pr escription for Keflex provided, otherwise lab work unremarkable. Prescription for meclizine provided. At this time I believe patient would be safe for discharge and outpatient follow-up. Return precautions provided. Plan was reviewed with the patient who expressed understanding. Questions answered. Patient will follow up with PCP. Patient discharged in stable condition. Lab Data : 09/28/21 19:40 09/28/21 19:[address] 09/28/21 19:23 IMPRESSION: 1. Shunt catheter is unchanged in good position but there is interval mild increased ventricular dilatation/hydrocephalus compared to the prior exam. 2. No acute hemorrhage, shift or mass effect. Unchanged diffuse volume loss. Laboratory Results WBC 7.2 10^3/uL (4.0-10.0) 09/28/21 19:40 RBC 4.01 10^6/uL (4.1-5.3) L 09/28/21 19:40 Hgb 12.5 g/dL (11.5-15.3) 09/28/21 19:40 Hct 38.4 % (37.0-47.0) 09/28/21 19:40 MCV 95.8 fl (81-99) 09/28/21 19:40 MCH 31.2 pg (28.0-34.0) 09/28/21 19:40 MCHC 32.6 g/dL (30.0-36.0) 09/28/21:40 RDW 13.0 % (12.1-15.1) 09/28/21 19:40 Plt Count 135 10^3/cmm (130-400) 09/28/21:40 MPV 9.8 fL (7.4-10.4) 09/28/21 19:40 Neut % (Auto) 86.2 % 09/28/21:40 Lymph % (Auto) 7.6 % 09/28/21:40 Walker % (Auto) 4.9 % 09/28/21:40 Eos % (Auto) 0.6 % 09/28/21:40 Baso % (Auto) 0.4 % 09/28/21:40 Neut # (Auto) 6.20 10^3/uL (1.8-7.7) 09/28/21:40 Lymph # (Auto) 0.6 10^3/uL (0.8-4.8) L 09/28/21:40 Walker # (Auto) 0.4 10^3/uL (0.2-0.9) 09/28/21:40 Eos # (Auto) 0.0 10^3/uL (0.0-0.8) 09/28/21 19:40 Baso # (Auto) 0.0 10^3/uL (0.0-0.1) 09/28/21: Nucleated RBC % (auto) 0 % 09/28/21: Nucleated RBCs # 0.0 /100WBC 09/28/21 19:40 Sodium 140 mmol/L (136-145) 09/28/21:40 Potassium 4.4 mmol/L (3.5-5.1) 09/28/21:40 Chloride 106 mmol/L (98-107) 09/28/21 19:40 Carbon Dioxide 25 mmol/L (22-29) 09/28/21 19:40 Anion Gap 13.4 (5-19) 09/28/21 19:40 BUN 23 mg/dL (8-23) 09/28/21 19:40 Creatinine 0.6 mg/dL (0.5-0.9) 09/28/21 19:40 GFR Calculation Not Reportable 09/28/21 19:40 Glucose 143 mg/dL (65-115) H 09/28/21 19:40 Calculated Osmolality 296 mOsm/kg (285-295) H 09/28/21 19:40 Calcium 8.5 mg/dL (8.5-10.5) 09/28/21 19:40 Total Bilirubin 0.5 mg/dL (0.15-1.2) 09/28/21 19:40 AST 25 U/L (0-32) 09/28/21 19:40 ALT 12 U/L (0-33) 09/28/21 19:40 Alkaline Phosphatase 79 IU/L (35-105) 09/28/21 19:40 Total Protein 5.7 g/dL (6.6-8.7) L 09/28/21 19:40 Albumin 4.2 g/dL (3.5-5.2) 09/28/21 19:40 Globulin 1.5 g/dL (1.3-4.6) 09/28/21 19:40 Lipase 56 U/L (13-60) 09/28/21 19:40 Urine Color Yellow (Yellow) 09/28/21 22:05 Urine Appearance Clear (CLEAR) 09/28/21 22:05 Urine pH 5 (5-7) 09/28/21 22:05 Ur Specific [place] 1.020 (1.005-1.030) 09/28/21 22:05 Urine Protein Neg (Negative) 09/28/21 22:05 Urine Glucose (UA) Norm (Normal) 09/28/21 22:05 Urine Ketones 1+ (Negative) H 09/28/21 22:05 Urine Blood Neg (Negative) 09/28/21 22:05 Urine Nitrate Positive (Negative) H 09/28/21 22:05 Urine Bilirubin Neg (Negative) 04/15/22 22:05 Urine Urobilinogen Norm mg/dL (Negative) 09/28/21 22:05 Ur Leukocyte Esterase Negative (Negative) 09/28/21 22:05 Urine RBC 0-4 /hpf (0-2) H 09/28/21 22:05 Urine WBC 0-4 /hpf (0-5) H 09/28/21 22:05 Ur Squamous Epith Cells 0-4 /hpf (0-5) H 09/28/21 22:05 Calcium Oxalate Crystal 0-4 /hpf H 09/28/21 22:05 Amorphous Sediment Not Reportable 09/28/21 22:05 Urine Bacteria 4+ /hpf (NONE) H 09/28/21 22:05 EKG Data EKG 1: Other EKG comments: Sinus rhythm, no sign of acute ischemia or other acute abnormality. Discharge Plan Discharge Patient Disposition: Home Clinical Impression: Vertigo, Acute UTI Condition: Stable Prescriptions: New meclizine 25 mg tablet 25 mg PO TID PRN (Reason: dizziness) Qty: 10 0RF cephalexin 500 mg tablet 500 mg PO BID 7 Days Qty: 14 0RF No Action ibuprofen 200 mg capsule 400 mg PO Q8H PRN (Reason: Pain) 0RF multivitamin [Daily Multi-Vitamin] Tablet 1 tab PO DAILY 0RF memantine 10 mg tablet 10 mg PO BID Qty: 180 4RF donepezil 10 mg tablet 10 mg PO DAILY 0RF pantoprazole 40 mg Tablet,Delayed Release (Dr/Ec) 40 mg PO DAILY Qty: 14 0RF Discharge Orders: Discharge ED (Routine); Ordered 09/28/21 Ordered By: Cornelius Urrutia Referrals: Rashaad Soriano DO [Primary Care Provider] - 1-3 days Coding Level of Care Code ED Lead Systems Architect for Chg Tacho
--- NOTE | 2021-09-28 19:23 | CTR_ITS ---
PROCEDURE INFORMATION: Exam: CT Head Without Contrast Exam date and time: 09/28/2021 8:05 PM Age: 76 years old Clinical indication: Dizziness; Prior surgery; Surgery type: Shunt; Patient HX: C/O vertigo. History of alzheimer's TECHNIQUE: Imaging protocol: Computed tomography of the head without contrast. Radiation optimization: All CT scans at this facility use at least one of these dose optimization techniques: automated exposure control; mA and/or kV adjustment per patient size (includes targeted exams where dose is matched to clinical indication); or iterative reconstruction. COMPARISON: CT head wo con* [id number] 02/17/2021 10:46 AM RADIATION DOSE METRICS: Total DLP (mGy-cm): 830.2 FINDINGS: Brain: There is volume loss and periventricular low density compatible with chronic small vessel disease changes. There is no acute hemorrhage, edema or mass effect. Marked volume loss of the cerebellum is unchanged. Cerebral ventricles: There is a right frontal shunt catheter with the tip in the frontal horn of the right lateral ventricle unchanged in position since the prior exam. The ventricles are more dilated than the prior exam with the 3rd ventricle having a transverse measurement of 11 mm image 22 today compared to 9 mm previously and the right lateral ventricle has a transverse measurement of 22 mm today compared to 20 mm previously. Paranasal sinuses: There is mild mucosal thickening in the sinuses. No fluid levels. Mastoid air cells: Visualized mastoid air cells are well aerated. Bones/joints: Unremarkable. No acute fracture. Soft tissues: Unremarkable. CT/CT head wo con* [id number] IMPRESSION: 1. Shunt catheter is unchanged in good position but there is interval mild increased ventricular dilatation/hydrocephalus compared to the prior exam. 2. No acute hemorrhage, shift or mass effect. Unchanged diffuse volume loss.
[2021-09-28] MEDS: meclizine 25 mg tablet PO (19:48)
[2021-09-28 19:50] LABS: Basophils % 0.4 %; Eosinophils % 0.6 %; Hematocrit 38.4 % (37.0-47.0); Hemoglobin 12.5 g/dL (11.5-15.3); Lymphocytes # 0.6 10^3/uL (0.8-4.8); Lymphocytes % 7.6 %; Mean Corpuscular HGB Conc 32.6 g/dL (30.0-36.0); Mean Corpuscular Hemoglobin 31.2 pg (28.0-34.0); Mean Corpuscular Volume 95.8 fl (81-99); Mean Platelet Volume 9.8 fL (7.4-10.4); Monocytes # 0.4 10^3/uL (0.2-0.9); Monocytes % 4.9 %; Neutrophils % 86.2 %; Nucleated Red Blood Cells % 0 %; Platelet Count 135 10^3/cmm (130-400); Red Blood Count 4.01 10^6/uL (4.1-5.3); White Blood Count 7.2 10^3/uL (4.0-10.0)
[2021-09-28 20:15] LABS: Alanine Aminotransferase 12 U/L (0-33); Albumin Level 4.2 g/dL (3.5-5.2); Alkaline Phosphatase 79 IU/L (35-105); Anion Gap 13.4 (5-19); Aspartate Amino Transferase 25 U/L (0-32); Blood Urea Nitrogen 23 mg/dL (8-23); Calcium 8.5 mg/dL (8.5-10.5); Carbon Dioxide 25 mmol/L (22-29); Chloride 106 mmol/L (98-107); Globulin 1.5 g/dL (1.3-4.6); Glucose 143 mg/dL (65-115); Lipase 56 U/L (13-60); Osmolality Calculated 296 mOsm/kg (285-295); Potassium 4.4 mmol/L (3.5-5.1); Sodium 140 mmol/L (136-145); Total Bilirubin 0.5 mg/dL (0.15-1.2); Total Protein 5.7 g/dL (6.6-8.7)
[2021-09-28 20:44] VITALS: BP 141/94; PULSE 68; RESP 13; TEMP 36.6; O2SAT 94
[2021-09-28 21:19] VITALS: BP 159/97; PULSE 79; RESP 16; TEMP 36.7; O2SAT 95
[2021-09-28 22:35] LABS: Bilirubin Urine Neg (Negative); Blood Urine Neg (Negative); Glucose Urine UA Norm (Normal); Ketones Urine 1+ (Negative); Leukocyte Esterase Urine Negative (Negative); Nitrate Urine Positive (Negative); Protein Urine Neg (Negative); Urine Appearance Clear (CLEAR); Urine Color Yellow (Yellow); Urobilinogen Urine Norm (Negative); pH Urine 5 (5-7)
[2021-09-28 22:36] LABS: Add Urine Culture? Yes; Bacteria Urine 4+ /hpf; Calcium Oxalate Crystals Urine 0-4 /hpf; RBC Urine 0-4 /hpf (0-2); Squamous Epithelial Cell Urine 0-4 /hpf (0-5); WBC Urine 0-4 /hpf (0-5)
[2021-09-28 22:55] VITALS: BP 151/108; PULSE 97; RESP 14; TEMP 36.7; O2SAT 93
[2021-09-28 22:56] VITALS: BP 151/108; PULSE 97; RESP 15; TEMP 36.7; O2SAT 93
== END 2021-09-28 22:55 | disposition home or self-care (01) ==
PROVIDERS: Emergency Medicine; Emergency Provider Emergency Medicine; PCP Electrodiagnostic Medicine
DX: N39.0 Urinary tract infection, site not specified (principal); R42 Dizziness and giddiness; G30.9 Alzheimer's disease, unspecified; F02.80 Dementia in other diseases classified elsewhere, unspecified severity, without behavioral disturbance, psychotic disturbance, mood disturbance, and anxiety; I10 Essential (primary) hypertension
CPT/HCPCS: 70450; 80053; 81001; 83690; 85025; 87077; 87086; 87186; 93005; 99284; J8597

== ENCOUNTER 2021-10-09 06:50 | Outpatient (RCR) | payer MEDICARE, OTHER, SELFPAY | END 2021-10-13 23:59 | disposition home or self-care (01) | LOC: SPT 06:50 | PROVIDERS: PCP Electrodiagnostic Medicine; Referring Provider Specialist; Visit Provider Specialist | DX: J90 Pleural effusion, not elsewhere classified (principal); S22.49XD Multiple fractures of ribs, unspecified side, subsequent encounter for fracture with routine healing; X58.XXXD Exposure to other specified factors, subsequent encounter | CPT/HCPCS: 97162 ==

== ENCOUNTER 2021-10-14 06:00 | Outpatient (RCR) | payer MEDICARE, OTHER, SELFPAY | END 2021-11-13 23:59 | disposition home or self-care (01) | LOC: SPT 06:00 | PROVIDERS: PCP Electrodiagnostic Medicine; Referring Provider Specialist; Visit Provider Specialist | DX: J90 Pleural effusion, not elsewhere classified (principal); S22.49XD Multiple fractures of ribs, unspecified side, subsequent encounter for fracture with routine healing; X58.XXXD Exposure to other specified factors, subsequent encounter | CPT/HCPCS: 97110; 97530 ==

== ENCOUNTER 2021-11-14 06:00 | Outpatient (RCR) | payer MEDICARE, OTHER, SELFPAY | END 2021-11-22 23:59 | disposition home or self-care (01) | LOC: SPT 06:00 | PROVIDERS: PCP Electrodiagnostic Medicine; Referring Provider Specialist; Visit Provider Specialist | DX: R29.6 Repeated falls (principal); R26.9 Unspecified abnormalities of gait and mobility | CPT/HCPCS: 97110; 97530 ==

== ENCOUNTER 2021-11-20 13:33 | Outpatient (CLI) | payer MEDICARE, OTHER, SELFPAY ==
--- NOTE | 2021-11-20 | XR_ITS ---
WS: [id number] RIBS BILATERAL WITH CHEST TECHNIQUE: 9 views bilateral ribs with PA chest CLINICAL INFORMATION: RIB PAIN COMPARISON: None. FINDINGS: Partially visualized shunt catheter tubing over the RIGHT hemithorax. Cardiomegaly. Aortic calcificat ion. Chronic emphysematous changes. Small bilateral pleural effusions with pleural thickening. Slight subsegmental atelectasis in the rodrick g bases. Chronic appearing LEFT mid and lower lateral rib fractures with callus formation. No acute a ppearing rib fractures bilaterally. XR/XR ribs BI mn 4V w CXR1V [id number] IMPRESSION: 1. No visualized acute rib fractures. 2. Chronic LEFT lateral rib fractures with callus formation. 3. Small bilateral pleural effusions.
== END 2021-11-20 13:34 | disposition home or self-care (01) ==
LOC: RADOUTREAD 13:35
PROVIDERS: PCP Electrodiagnostic Medicine; Visit Provider Nurse Practitioner Family
DX: R07.81 Pleurodynia (principal)
CPT/HCPCS: 71111

== ENCOUNTER 2021-11-27 11:06 | Outpatient (CLI) | payer MEDICARE, OTHER, SELFPAY ==
--- NOTE | 2021-11-27 | XR_ITS ---
WS: [id number] PA and lateral chest, 11/27/2021 Clinical Data: PLEURAL EFFUSION Comparison: None. Findings: There is a left pleural effusion and possibly a small right effusion unchanged. The heart i s slightly enlarged. The upper lobes are clear. The aortic arch and descending thoracic aorta show mi ld tortuosity. There is a ventriculoperitoneal shunt tube in position. No nodules or masses are seen. No pneumonia or pneumothorax is present. XR/XR chest 2V* [id number] Impression: 1. Bilateral pleural effusions unchanged. 2. Cardiomegaly and atherosclerosis.
== END 2021-11-27 11:07 | disposition home or self-care (01) ==
PROVIDERS: PCP Electrodiagnostic Medicine; Visit Provider Electrodiagnostic Medicine
DX: J90 Pleural effusion, not elsewhere classified (principal); I51.7 Cardiomegaly; I70.0 Atherosclerosis of aorta
CPT/HCPCS: 71046

== ENCOUNTER → 2022-01-10 09:15 | Outpatient (BNVA) | payer MEDICARE, OTHER, SELFPAY | PROVIDERS: PCP Electrodiagnostic Medicine; Visit Provider Nurse Practitioner Family | DX: N39.0 Urinary tract infection, site not specified (principal); R35.0 Frequency of micturition | CPT/HCPCS: 51798; 81003; 87086; 99203 ==

== ENCOUNTER → 2022-02-04 09:16 | Outpatient (BNVA) | payer MEDICARE, OTHER, SELFPAY | PROVIDERS: PCP Electrodiagnostic Medicine; Visit Provider Nurse Practitioner Family | DX: N30.80 Other cystitis without hematuria (principal) | CPT/HCPCS: 99213 ==

== ENCOUNTER 2022-03-14 20:37 | Inpatient (IN) | payer MEDICARE, OTHER, SELFPAY ==
[2022-03-14 20:40] VITALS: BP 121/71; PULSE 72; RESP 18; TEMP 35.7; O2SAT 93; BMI 25.1
--- NOTE | 2022-03-14 20:47 | XRR_ITS ---
PROCEDURE INFORMATION: Exam: XR Chest Exam date and time: 03/14/2022 8:58 PM Age: 76 years old Clinical indication: Pain; On breathing; Additional info: SOB TECHNIQUE: Imaging protocol: Radiologic exam of the chest. Views: 1 view. COMPARISON: CR XR chest 2V* [id number] 11/27/2021 1:48 PM FINDINGS: Tubes, catheters and devices: Cranial peritoneal shunt catheter overlays the right lower neck, the right hemithorax and the right it upper abdomen, similar to the prior. Lungs: Low lung volumes and bronchovascular crowding. Interval significant reduction of the lung volumes compared to the prior. Increased pulmonary vascular hilar shadows. Increased pulmonary vascularity and interstitial opacities concerning for pulmonary edema. Atypical infection can give a similar appearance. Pleural spaces: Moderate right and mild left pleural effusions, increased compared to the prior. There is adjacent atelectasis in the lower lobes, right more than left. Linear opacities in the the right mid lung zone compatible with atelectasis and thickened right minor fissure. Heart/Mediastinum: There is cardiomegaly however the cardiac silhouette is obscured. Vasculature: There are atherosclerotic calcifications of the thoracic aorta. Bones/joints: There are degenerative changes of the spine and the shoulder joints. XR/XR chest 1V portable [id number] IMPRESSION: 1. Interval decreased lung volumes and increased bilateral pleural effusions, right more than left. Adjacent atelectasis as outlined. 2. Increased pulmonary vascularity concerning for pulmonary edema. Atypical infection can give a similar appearance. 3. Cardiomegaly, similar to the prior.
--- NOTE | 2022-03-14 20:48 | ECG_ITS ---
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 Measurements Intervals [place] Rate: 67 P: NE: QRS: 116 QRSD: 102 T: 10 QT: 429 QTc: 453 Interpretive Statements Sinus rhythm with a frequent PACs POSSIBLE RIGHT VENTRICULAR HYPERTROPHY [SOME/ALL OF: PROMINENT R IN V1, LATE TRANSITION, RAD, FAUSTO, SSS] Compared to ECG 09/28/2021 19:47:39 Electronically Signed On 03-15-2022 19:06:12 CDT by Susan Ayon M.D. [id number]
--- NOTE | 2022-03-14 20:58 | W.ED.SOB ---
HPI - SOB/Dyspnea General: Chief Complaint: Shortness of Breath/Dyspnea Stated Complaint: SOB Time Seen by Provider: 03/14/22 20:43 Source: patient and EMS Mode of arrival: EMS Limitations: no limitations History of Present Illness: HPI Narrative: 76-year-old female who states she had increasing shortness of breath of the last 2 days. She has also had swelling in her extremities does have edema here. Patient's called EMS tonight EMS states her pulse ox was in the 80s on room air she is currently on 2 L she denies any cough or fever denies any worsening improving factors. Associated symptoms: Deny abdominal pain, chest pain, fever(s), nausea or vomiting Review of Systems Const: Denies: fever(s), chills, body aches or change in appetite Eyes: Denies: blurry vision or eye discomfort ENMT: Denies: throat pain or dental pain Card: Denies: chest pain Resp: Reports: dyspnea GI: Denies: abdominal pain, nausea, vomiting or diarrhea : Denies: dysuria Musc: Reports: extremity swelling Skin/Breast: Denies: rash Neuro: Denies: headache(s) Psych: Denies: depression Hardik/Lymph: Denies: easy bruising All/Imm: Denies: urticaria PFSH ED PFSH: Medical History Alzheimer disease Essential hypertension Lewy body dementia Normal pressure hydrocephalus Surgical History Intracranial shunt Codman-Hakim programmable shunt with right angle valve placed on 03/20/2015 Status post ventriculoatrial shunt placement (03/20/15) Right frontal ventriculoperitoneal shunt placement. Codman-Hakim programmable right angle valve at 12 cm H[address] De La Cruz Family History Sister Cancer Family/Other Cancer Paternal Aunt Father Cancer Hypertension Diabetes Other CAD (coronary artery disease) Denies family history of Stroke Social History Smoking and tobacco status: never smoked Alcohol intake: never Lives independently: Yes Household members: spouse Marital status: Current occupational status: retired History of recent travel: No Physical Exam Const: COMMON NORMALS: patient oriented x3 GENERAL APPEARANCE: ill appearing HENMT: COMMON NORMALS: normocephalic and atraumatic HEAD & SCALP: normocephalic and atraumatic Eye: COMMON NORMALS: Equal, round and reactive pupils present and EOMs intact bilaterally PUPIL: Yes Equal, round and reactive pupils present Neck/C-Spine: COMMON NORMALS: full ROM and supple Chest: COMMONS NORMALS: normal inspection of the chest and normal palpation of entire chest wall Resp: COMMON NORMALS: No retractions and No use of accessory muscles EFFORT & INSPECTION: Yes tachypneic AUSCULTATION: rales Cardio: COMMON NORMALS: regular rate, regular rhythm and No murmurs present (Cardio) RATE: regular rate RHYTHM: regular rhythm GI: COMMON NORMALS: Normal to inspection, nondistended, normoactive bowel sounds present, Soft to palpation, non-tender and no masses PALPATION: Yes Soft to palpation Extremity: COMMON NORMALS: full ROM NARRATIVE EXTREMITY EXAM: 2+edema to le Neuro: COMMON NORMALS: patient oriented x3, moves all extremities and no focal motor deficits Psych: COMMON NORMALS: mental status grossly normal, Normal thought process present and cooperative THOUGHT PROCESS: Normal thought process present Skin: COMMON NORMALS: no rashes or lesions noted and no wounds GENERAL SKIN EXAM: no rashes or lesions noted Course Vital Signs: Vital signs: Vital Signs Temperature 96.3 F L 03/14/22 20:40 Pulse Rate 72 03/14/22 20:40 Respiratory Rate 18 03/14/22 20:40 Blood Pressure 121/71 03/14/22 20:40 Pulse Oximetry 93 03/14/22 20:40 Oxygen Delivery Me thod 03/14/22 20:40 Oxygen Flow Rate 2 03/14/22 20:40 MDM - SOB/Dyspnea Medical Decision Making Patient presents here with shortness of breath patient has pulmonary edema along with congestion likely CHF her BNP is elevated as well spoke to hospitalist will admit at this time. Lab Data : 03/14/22 21:30 03/14/22 21:30 Labs/Radiology: Radiology Impressions Chest X-Ray 03/14/22 20:47 IMPRESSION: 1. Interval decreased lung volumes and increased bilateral pleural effusions, right more than left. Adjacent atelectasis as outlined. 2. Increased pulmonary vascularity concerning for pulmonary edema. Atypical infection can give a similar appearance. 3. Cardiomegaly, similar to the prior. Laboratory Results WBC 5.3 10^3/uL (4.0-10.0) 03/14/22 21: RBC 4.30 10^6/uL (4.1-5.3) 03/14/22 21: Hgb 11.8 g/dL (11.5-15.3) 03/14/22: Hct 39.8 % (37.0-47.0) 03/14/22 21: MCV 92.6 fl (81-99) 03/14/22 21: MCH 27.4 pg (28.0-34.0) L 03/14/22: MCHC 29.6 g/dL (30.0-36.0) L 03/14/22: RDW 14.7 % (12.1-15.1) 03/14/22: Plt Count 151 10^3/cmm (130-400) 03/14/22 21: MPV 10.8 fL (7.4-10.4) H 03/14/22 21: Neut % (Auto) 81.9 % 03/14/22: Lymph % (Auto) 7.6 % 03/14/22: [place] % (Auto) 9.5 % 03/14/22: Eos % (Auto) 0.4 % 03/14/22: Baso % (Auto) 0.2 % 03/14/22: Neut # (Auto) 4.30 10^3/uL (1.8-7.7) 03/14/22: Lymph # (Auto) 0.4 10^3/uL (0.8-4.8) L 03/14/22: [place] # (Auto) 0.5 10^3/uL (0.2-0.9) 03/14/22 21: Eos # (Auto) 0.0 10^3/uL (0.0-0.8) 03/14/22: Baso # (Auto) 0.0 10^3/uL (0.0-0.1) 03/14/22 21:30 Nucleated RBC % (auto) 0.6 % 03/14/22 21:30 Nucleated RBCs # 0.0 /100WBC 03/14/22 21:30 PT 15.50 SECONDS (12.1-14.9) H 03/14/22 21:30 INR 1.20 (0.8-1.2) 03/14/22 21:30 Sodium 134 mmol/L (136-145) L 03/14/22 21:30 Potassium 4.5 mmol/L (3.5-5.1) 03/14/22 21:30 Chloride 96 mmol/L (98-107) L 03/14/22 21:30 Carbon Dioxide 31 mmol/L (22-29) H 03/14/22 21:30 Anion Gap 11.5 (5-19) 03/14/22 21:30 BUN 49 mg/dL (8-23) H 03/14/22 21:30 Creatinine 0.9 mg/dL (0.5-0.9) 03/14/22 21:30 GFR Calculation Not Reportable 03/14/22 21:30 Glucose 104 mg/dL (65-115) 03/14/22 21:30 Calculated Osmolality 291 mOsm/kg (285-295) 03/14/22 21:30 Calcium 9.0 mg/dL (8.5-10.5) 03/14/22 21:30 Total Bilirubin 0.5 mg/dL (0.15-1.2) 03/14/22 21:30 AST 30 U/L (0-32) 03/14/22 21:30 ALT 17 U/L (0-33) 03/14/22 21:30 Alkaline Phosphatase 96 U/L (35-105) 03/14/22 21:30 Troponin T Baseline 35 ng/L (0-10) H 03/14/22 21:30 NT-Pro-B Natriuret Pep 38970 pg/mL (0-450) H 03/14/22 21:30 Total Protein 5.6 g/dL (6.6-8.7) L 03/14/22 21:30 Albumin 3.4 g/dL (3.5-5.2) L 03/14/22 21:30 Globulin 2.2 g/dL (1.3-4.6) 03/14/22 21:30 SARS-CoV-2 Ag (Rapid) Negative (Negative) 03/14/22 21:30 EKG Data EKG 1: I personally reviewed and interpreted this EKG as follows: EKG Interpretation Date: 03/14/22 EKG interpretation time: 20:48 Interpretation: hr [address] or t wave abnormalities qrs 102 qtc 444 Discharge Plan Discharge Patient Disposition: Admitted As Inpatient Clinical Impression: CHF exacerbation Condition: Stable Coding Level of Care Code ED Night Auditor for Chg Fwd Exam Comprehensive
[2022-03-14] MEDS: FUROsemide 10 mg/mL SDV 10mL 60 MG IVP (21:43)
[2022-03-14 21:49] LABS: Basophils % 0.2 %; Eosinophils % 0.4 %; Hematocrit 39.8 % (37.0-47.0); Hemoglobin 11.8 g/dL (11.5-15.3); Lymphocytes # 0.4 10^3/uL (0.8-4.8); Lymphocytes % 7.6 %; Mean Corpuscular HGB Conc 29.6 g/dL (30.0-36.0); Mean Corpuscular Hemoglobin 27.4 pg (28.0-34.0); Mean Corpuscular Volume 92.6 fl (81-99); Mean Platelet Volume 10.8 fL (7.4-10.4); Monocytes # 0.5 10^3/uL (0.2-0.9); Monocytes % 9.5 %; Neutrophils % 81.9 %; Nucleated Red Blood Cells % 0.6 %; Platelet Count 151 10^3/cmm (130-400); Red Cell Distribution Width 14.7 % (12.1-15.1); White Blood Count 5.3 10^3/uL (4.0-10.0)
[2022-03-14] MEDS: azithromycin 500 MG in sodium chloride 0.9% 250 ML 250 MG IV (22:05)
[2022-03-14] MEDS: cefTRIAXone 1,000 MG in sodium chloride 0.9% (plus) 50 ML 100 MG IV (22:05)
[2022-03-14 22:08] LABS: Troponin(5th) Baseline 35 ng/L (0-10)
[2022-03-14 22:16] LABS: Alanine Aminotransferase 17 U/L (0-33); Albumin Level 3.4 g/dL (3.5-5.2); Alkaline Phosphatase 96 U/L (35-105); Anion Gap 11.5 (5-19); Aspartate Amino Transferase 30 U/L (0-32); Blood Urea Nitrogen 49 mg/dL (8-23); Carbon Dioxide 31 mmol/L (22-29); Chloride 96 mmol/L (98-107); Globulin 2.2 g/dL (1.3-4.6); Glucose 104 mg/dL (65-115); NT Pro B Type Natriuretic Pept 10923 pg/mL (0-450); Osmolality Calculated 291 mOsm/kg (285-295); Potassium 4.5 mmol/L (3.5-5.1); Sodium 134 mmol/L (136-145); Total Bilirubin 0.5 mg/dL (0.15-1.2); Total Protein 5.6 g/dL (6.6-8.7)
[2022-03-14 22:35] LABS: SARS Covid-2 Antigen Negative (Negative)
--- NOTE | 2022-03-14 22:48 | ECG_ITS ---
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 Measurements Intervals [place] Rate: 70 P: WA: QRS: 114 QRSD: 92 T: 27 QT: 422 QTc: 456 Interpretive Statements Sinus rhythm with a frequent premature atrial contractions POSSIBLE RIGHT VENTRICULAR HYPERTROPHY [SOME/ALL OF: PROMINENT R IN V1, LATE TRANSITION, RAD, FAUSTO, SSS] Possible SEPTAL MYOCARDIAL INFARCTION , OF INDETERMINATE AGE [40+ ms Q WAVE IN V1/V2] Compared to ECG 03/14/2022 20:48:12 Myocardial infarct finding now present Electronically Signed On 03-15-2022 19:11:15 CDT by Susan Ayon M.D. [email or web address]
[2022-03-14 23:46] LABS: Troponin 5 2HR 32.12 ng/L (0-10)
[2022-03-14 23:47] LABS: Troponin 5 2HR Delta -2.88 ABS# (0-10)
[2022-03-15] VITALS (21 sets, daily range): BP systolic 94–118; BP diastolic 62–77; PULSE 57–95; RESP 17–24; TEMP 35.1–36.6; O2SAT 87–98
--- NOTE | 2022-03-15 00:36 | PM.HP ---
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 Some history has been gathered by ER chart review. Currently family is not available to help with history. Upon arrival in the ER she was worked up for above-mentioned complaint: Pertinent imaging studies: X-ray chest: Bilateral pleural effusion right greater than left, pulmonary vascular congestion EKG: Sinus rhythm with PACs Pertinent labs: WBC 5.3, H&H 11 and 39 ,PLT: 151 , serum sodium 134 serum potassium 4.5, serum bicarb 31, BUN serum creatinine: 49/0.9 , Troponin: 35-32 proBNP: 11579 Rapid COVID-negative Review of Systems General: Reports: ROS unobtainable due to medical condition Medications/Allergies Home Medications Medication Instructions Recorded Confirmed Last Taken Type ibuprofen 200 mg capsule 400 mg PO Q8H PRN Pain 06/14/19 02/04/22 07/21/19 History multivitamin (Daily Multi-Vitamin 1 tab PO DAILY 06/14/19 02/04/22 11/28/20 History tablet) memantine 10 mg tablet 10 mg PO BID #180 tabs 08/14/20 02/04/22 11/28/20 Rx pantoprazole 40 mg tablet,delayed 40 mg PO DAILY #14 tabs 11/29/20 02/04/22 Unknown Rx release meclizine 25 mg tablet 25 mg PO TID PRN dizziness #10 tabs 09/28/21 02/04/22 Unknown Rx donepezil 10 mg tablet 10 mg PO DAILY #90 tabs 10/25/21 02/04/22 Unknown Rx cefuroxime axetil 500 mg tablet 500 mg PO BID #60 tabs 02/04/22 02/04/22 Unknown Rx Allergies Allergy/AdvReac Type Severity Reaction Status Date / Time No Known Allergies Allergy Verified 02/04/22 10:13 PFSH Acute PFSH: Medical History Alzheimer disease Essential hypertension Lewy body dementia Normal pressure hydrocephalus Surgical History Intracranial shunt Codman-Hakim programmable shunt with right angle valve placed on 03/20/2015 Status post ventriculoatrial shunt placement (03/20/15) Right frontal ventriculoperitoneal shunt placement. Codman-Hakim programmable right angle valve at 12 cm H[address] De La Cruz Family History Sister Cancer Family/Other Cancer Paternal Aunt Father Cancer Hypertension Diabetes Other CAD (coronary artery disease) Denies family history of Stroke Social History Smoking and tobacco status: never smoked Alcohol intake: never Lives independently: Yes Household members: spouse Marital status: Current occupational status: retired History of recent travel: No Vitals/I&O/Wt Last Vital Signs Temp 96.3 F L 03/14/22 20:40 Pulse 72 03/14/22 20:40 Resp 18 03/14/22 20:40 BP 121/71 03/14/22 20:40 Pulse Ox 93 03/14/22 20:40 O2 Del Method 03/14/22 20:40 O2 Flow Rate 2 03/14/22 20:40 03/14/22 03/14/22 03/15/22 14:59 22:59 06:59 Intake Total 50 / 50 Balance 50 / 50 Weight last 48 hrs Weight 77.111 kg Physical Exam HENMT: COMMON NORMALS: normocephalic and atraumatic HEAD & SCALP: normocephalic and atraumatic Resp: COMMON NORMALS: clear to auscultation bilaterally EFFORT & INSPECTION: Yes symmetric chest movement AUSCULTATION: clear to auscultation bilaterally OTHER: Diminished air entry bilaterally, predominantly in the right lung base. Cardio: COMMON NORMALS: regular rate, regular rhythm, S1 normal heart sound present, S2 normal heart sound present, No gallops present (Cardio) and No rub (Cardio) RATE: regular rate RHYTHM: regular rhythm HEART SOUNDS: S1 normal heart sound present and S2 normal heart sound present PERIPHERAL PULSES: Peripheral pulses 2+ throughout OTHER: PSM in mitral area, Diminished B/L DPA GI: COMMON NORMALS: Normal to inspection, nondistended, normoactive bowel sounds present, Soft to palpation, non-tender, No hepatosplenomegaly present and no masses AUSCULTATION: Yes normoactive bowel sounds PALPATION: Yes Soft to palpation and Yes No hepatosplenomegaly present RECTAL EXAM: deferred Extremity: NARRATIVE EXTREMITY EXAM: B/L L/E 2+ Pitting Edema Data : 03/14/22 21:30 03/14/22 21:30 Micro: Microbiology 03/14/22 22:18 Blood Culture - Preliminary Blood SPECIMEN COLLECTED 03/14/22 22:12 Blood Culture - Preliminary Blood SPECIMEN COLLECTED A&P Assessment and plan (1) Bilateral pleural effusion: (2) Essential hypertension: (3) Alzheimer's dementia without behavioral disturbance: (4) CHF exacerbation: (5) Normal pressure hydrocephalus: Plan 76 year old female with past medical history of Alzheimer's dementia, 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 Assessment: Decompensated heart failure with preserved ejection fraction Bilateral pleural effusion: Likely secondary to decompensated heart failure Possible Pneumonia HTN History of NPH History of Alzheimer's dementia R/O PAD Plan: Follow repeat 2D echo: 2D echo done earlier in 12/04: Results appreciated Procalcitonin Sputum Gram stain and culture Blood Culture Follow B/L L/E Arterial Duplex Continue Lasix 40 mg IV twice daily K> 4, Mg>2 Monitor intake output charting Daily weight Telemetry monitoring Possible thoracentesis Continue chronic home medications CODE STATUS: Currently full code, family should be reached out tomorrow in the morning regarding clarification on CODE STATUS DVT prophylaxis: Lovenox Attestations Medical Necessity Statement*: Patient is to be in hospital for management of decompensated heart failure.Anticipated length of stay greater than 2 midnights. Time Spent in Patient Care: Greater than 35 minutes (>than 50% of time spent in counselling and/or direct pt care on unit). Coding Level of Care Code Acute Knapsack Sprayer for Chg Fwd Exam Expanded Problem Focused Diagnoses Bilateral pleural effusion J90 Essential hypertension I10 Alzheimer's dementia without behavioral disturbance G30.9; F02.80 CHF exacerbation I50.9 Normal pressure hydrocephalus G91.2
--- NOTE | 2022-03-15 00:45 | USCV_ITS ---
Keysha Rodriguez Age: 76 Gender: F : 1945 Exam Date: 03/15/2022 02:18 Ordering Phys: Maxime Herrera MD Technologist: EARLENE [place] [facility] [place]: sob. Patient is unresponsive. BP: 98 / 76 HR: 82 Rhythm: Sinus Technical Quality: Adequate MEASUREMENTS (Male / Female) Normal Values 2D ECHO LV Diastolic Diameter PLAX 4.7 cm 4.2 - 5.9 / 3.9 - 5.3 cm LV Systolic Diameter PLAX 2.8 cm IVS Diastolic Thickness 1.0 cm 0.6 - 1.0 / 0.6 - 0.9 cm IVS Systolic Thickness 1.2 cm LVPW Diastolic Thickness 0.9 cm 0.6 - 1.0 / 0.6 - 0.9 cm LVPW Systolic Thickness 1.5 cm LVOT Diameter 1.9 cm LV Ejection Fraction 2D Teich 70.8 % LV Ejection Fraction MOD 2C 67.0 % LV Ejection Fraction 2C AL 66.9 % LA Diameter 5.4 cm LA Width 5.2 cm LA Height 7.4 cm RA Width 5.9 cm RA Height 7.3 cm Aorta at Sinotubular Diameter 3.0 cm IVC Diameter 3.3 cm M-MODE Aortic Annulus Diameter 3.4 cm LA Ao Ratio MM 1.6 MV E Point Septal Separation 0.0 cm DOPPLER AV Peak Velocity 83.0 cm/s LVOT Peak Velocity 85.0 cm/s AV Area Cont Eq vti 2.1 cm squared AV Area Cont Eq pk 3.0 cm squared MV Area PHT 4.8 cm squared Mitral E to A Ratio 1.7 MV E' Velocity 58.5 cm/s Mitral E to MV E' Ratio 18.1 Mitral E to LV E' Lateral Ratio 11.7 Mitral E to LV E' Septal Ratio 40.2 TR Peak Velocity 334.0 cm/s TR Peak Gradient 44.6 mmHg TV Peak E Velocity 33.0 cm/s Right Atrial Pressure 15.0 mmHg Pulmonary Artery Systolic Pressu 59.6 mmHg PV Peak Velocity 94.0 cm/s RV Acceleration Time 0.0 s RV Ejection Time 0.3 s RV AcT/ET 0.1 FINDINGS Left Ventricle Normal left ventricular size and systolic function, EF 62 %. Flattened septum in systole consistent with right ventricle pressure overload. Right Ventricle Dilated right ventricle with some flattening of the interventricular septum. Thickened free wall of the right ventricle Right Atrium Moderately increased right atrial size. Left Atrium Moderately increased left atrial size. Mitral Valve Thickened mitral valve. Severe eccentric mitral regurgitation with the regurgitant jet directed anteriorly, suggesting prolapse of the posterior leaflet Aortic Valve Thickened aortic valve. Trace aortic valve regurgitation. Tricuspid Valve At least moderate tricuspid regurgitation. Estimated pulmonary artery peak systolic pressure 60 mmHg Pulmonic Valve Mild pulmonary valve regurgitation. Pericardium Small pericardial effusion. Aorta Normal aortic annulus size. IVC Normal IVC dimension with <50% respiratory change of the inferior vena cava. CONCLUSIONS Normal left ventricular size and systolic function, EF 62 %. Flattened septum in systole consistent with right ventricle pressure overload. Dilated right ventricle with the features of pressure overload. Moderate biatrial enlargement. Severe eccentric mitral regurgitation with the regurgitant jet directed anteriorly, suggesting prolapse of the posterior leaflet. Thickened aortic valve. Trace aortic valve regurgitation. At least moderate tricuspid regurgitation. Pulmonary hypertension with an estimated pulmonary artery peak systolic pressure of 60 mmHg. This could be an underestimation because of the suboptimal Doppler signals. Thickened aortic valve. Trace aortic valve regurgitation. Mild pulmonary valve regurgitation. Small pericardial effusion. Compared to the study report from 11/29/2020, there is worsening of the pulmonary hypertension and mitral regurgitation Dr. Munoz was informed about these findings Dr Susan Ayon MD [facility] (Electronically Signed) Final Date: 15 March 2022 18:34 S
[2022-03-15] MEDS: enoxaparin 40 mg/0.4 mL Syringe SUBCUT (01:21)
--- NOTE | 2022-03-15 01:24 | PC.NURSE ---
Patient's speech is very difficult to understand. Patient is able to tell me who she is and where she is at. She states the year is 2020.
[2022-03-15 01:29] LABS: Add Urine Microscopic? NO; Charge for UA Resulting for Rev
[2022-03-15 01:37] LABS: Bilirubin Urine Negative (Negative); Blood Urine Negative (Negative); Glucose Urine UA Negative (Normal); Ketones Urine Negative (Negative); Leukocyte Esterase Urine Negative (Negative); Nitrate Urine Negative; Protein Urine Negative (Negative); Specific Gravity, Urine 1.015 (1.005-1.030); Urine Appearance Clear (CLEAR); Urine Color Yellow (Yellow); Urobilinogen Urine 0.2 mg/dL (Negative)
--- NOTE | 2022-03-15 02:06 | PC.NURSE ---
Dr. Herrera notified of pedal pulse present by doppler in left foot, but absent in right foot. Dr. Herrera notified of rectal temp of 95.7. Patient is cold to touch. Unable to obtain oral or axillary temp. Bear brennon ordered.
[2022-03-15 02:35] LABS: Glucose Point of Care 92 mg/dL (70-110)
--- NOTE | 2022-03-15 03:10 | USCV_ITS ---
Keysha Rodriguez Age: 76 Gender: F : 1945 Exam Date: 03/15/2022 03:38 Ordering Phys: Maxime Herrera MD Technologist: EARLENE Exam Location: [facility] [place] Indication: purple feet. Patient is unresponsive. Risk Factors: purple feet. Patient is unresponsive. Previous Vascular Surgery: unknown at time of exam. Nurse states unknown at time of exam. Nurse states no fistulas. RIGHT LEFT BP: 120.0 / BP: 121.0/ 0 0 Waveform Velocity (cm/s) Velocity (cm/s) Waveform Triphasic 106.5 Iliac Prox 135.4 Triphasic Triphasic 81.5 Iliac Mid 139.1 Triphasic Triphasic 86.5 Iliac Distal 141.0 Triphasic Triphasic 35.0 DIRECTOR CONSTRUCTION SERVICES 91.7 Triphasic Triphasic 80.8 SFA Prox 62.1 Triphasic Triphasic 57.5 SFA Mid 65.3 Triphasic Triphasic 37.3 SFA Dist 58.3 Triphasic Triphasic 37.4 POP 32.9 Triphasic Triphasic 77.2 MANAGER RETAIL SALES 69.9 Biphasic Biphasic 32.9 DPA 55.2 Biphasic 1.1 BRANDI 1.1 FINDINGS Resting BRANDI 1.1 bilaterally Near normal arterial Doppler waveforms and velocities bilaterally Minimal plaques in the SFA and popliteal arteries bilaterally CONCLUSIONS No evidence of any significant arterial obstruction, based on the above findings. Dr Susan Ayon MD [facility] (Electronically Signed) Final Date: 15 March 2022 18:37 S
[2022-03-15 04:14] LABS: Magnesium 2.1 mg/dL (1.7-2.3)
[2022-03-15 04:20] LABS: Troponin 5 6HR 37.52 ng/L (0-10)
[2022-03-15 04:24] LABS: Troponin 5 6HR Delta 2.52 ng/L (0-12)
[2022-03-15 05:19] LABS: Glucose Point of Care 94 mg/dL (70-110)
--- NOTE | 2022-03-15 05:29 | PC.NURSE ---
Addendum entered by Lu Watts RN 03/15/22 05:30: Notified of blood pressure of 100/69. Original Note: Dr. Herrera notified that patient still appears to be having some respiratory distress. Ordered to give 9 am Lasix now.
[2022-03-15 05:39] LABS: Eosinophils # 0.1 10^3/uL (0.0-0.8); Eosinophils % 1.1 %; Hematocrit 36.1 % (37.0-47.0); Hemoglobin 10.8 g/dL (11.5-15.3); Lymphocytes # 0.5 10^3/uL (0.8-4.8); Lymphocytes % 8.8 %; Mean Corpuscular HGB Conc 29.9 g/dL (30.0-36.0); Mean Corpuscular Hemoglobin 27.9 pg (28.0-34.0); Mean Corpuscular Volume 93.3 fl (81-99); Mean Platelet Volume 11.3 fL (7.4-10.4); Monocytes # 0.7 10^3/uL (0.2-0.9); Neutrophils # 4.32 10^3/uL (1.8-7.7); Neutrophils % 77.6 %; Nucleated Red Blood Cells % 0.5 %; Platelet Count 141 10^3/cmm (130-400); Red Blood Count 3.87 10^6/uL (4.1-5.3); Red Cell Distribution Width 14.7 % (12.1-15.1); White Blood Count 5.6 10^3/uL (4.0-10.0)
[2022-03-15] MEDS: FUROsemide 10 mg/mL SDV 4mL 40 MG IVP ×2 (05:41→17:41)
[2022-03-15 05:49] LABS: Anion Gap 18.7 (5-19); Blood Urea Nitrogen 46 mg/dL (8-23); Calcium 8.8 mg/dL (8.5-10.5); Carbon Dioxide 26 mmol/L (22-29); Chloride 96 mmol/L (98-107); Glucose 106 mg/dL (65-115); Osmolality Calculated 294 mOsm/kg (285-295); Potassium 4.7 mmol/L (3.5-5.1); Sodium 136 mmol/L (136-145)
[2022-03-15 05:56] LABS: Procalcitonin 0.05 ng/mL (0-0.5)
--- NOTE | 2022-03-15 07:14 | PC.NURSE ---
Unable to verify patient's home medications at this time. Patient's pharmacy or family will need to be contacted for this information.
[2022-03-15] MEDS: ipratropium-albuterol 3 mL Neb INHALATION ×3 (08:20→20:02)
[2022-03-15] MEDS: cefTRIAXone 1,000 MG in sodium chloride 0.9% (plus) 50 ML 100 MG IV (08:37)
[2022-03-15] MEDS: memantine 5 mg tablet 10 MG PO ×2 (08:42→17:36)
[2022-03-15] MEDS: pantoprazole DR 40 mg Tablet PO (08:42)
[2022-03-15] MEDS: donepezil 5 MG Tablet 10 MG PO (08:42)
[2022-03-15] MEDS: azithromycin 500 MG in sodium chloride 0.9% 250 ML 250 MG IV (09:28)
--- NOTE | 2022-03-15 11:30 | FL_ITS ---
WS: [id number] Exam: FL barium swallow modifd [id number] Date/Time of Exam: 03/15/2022 1:10 PM Reason For Exam: Oropharyngeal dysphagia Fluoroscopy time: minutes # of spot films: The exam was performed in conjunction with the speech therapy service. The patient experienced moderate difficulty initiating the swallowing process at the level of the era pharynx specifically elevating the tongue to the hard palate to initiate swallowing. The patient expe rienced penetration into the laryngeal inlet when ingesting thin liquid and nectar consistency barium foodstuffs. No obvious aspiration into the airway was noted. The patient ingested the barium tablet with minimal difficulty. The barium tablet passed into the stomach. FL/FL barium swallow modifd [id number] IMPRESSION: 1. Moderate dysfunction initiating swallowing at the level of the oropharynx as discussed above. 2. The patient experienced penetration into the laryngeal inlet when ingesting thin liquid and nectar consistency barium foodstuffs. No aspiration was identif ied. A separate report of recommendations and findings will follow from the speech t herapy service.
--- NOTE | 2022-03-15 11:43 | PC.CHAP ---
Pastoral Care Encounter/Spiritual Assessment Type of Contact [] Declined peanut picker visit [] Patient/Family/Request visit [] Outpatient visit [] Follow-up visit [] Physician referral [] Code/Alert [x] Routine visit [] Staff referral [] Actively dying [] Patient sleeping [] Family support [] [x] Out of room [] Palliative care [] [] Receiving care in room [] Pre-surgical visit [] Trauma [] Long length of stay [] ICU visit [] Other: Relational/Emotional Strength [] Patient feels connected with others/family/visitors/staff [] Distress [] Loneliness/isolation [] Abandonment Spirituality of Patient [] Person of Devora [] Attends Orthodox of their Devora [] Believes in Prayer [] Reads Bible or Rastafarian materials [] There are Spiritual issues to be addressed Tooling Engineer Interventions [] Prayer [] Active listening [] Non-anxious presence [] Spiritual/emotional support [] Crisis/trauma care [] Spiritual counseling [] Bereavement support [] Provided bereavement packet [] Provided Bible/devotional materials [] Provided toy/stuffed animal, coloring book to patient or family member [] Provided Communion [] Anointing/[place] [] Salvation [] Completed spiritual assessment [] Other: Impact on Illness or Injury [] Angry [] Fearful [] Anxious [] Often cries [] Exhaustion [] Unable to work [] Unable to attend alevism [] Unable to walk/stand [] Unable to read [] Unable to drive [] Unable to eat/drink [] Unable to sleep [] Unable to be with family [] Patient intubated [] Other: Summary Time spent with patient
--- NOTE | 2022-03-15 14:16 | PM.MISC ---
Miscellaneous Note Note: Had a discussion with patient's at bedside. He states she has been falling at home due to her swollen extremities. He says he has noticed that gradually his arms and legs have been swelling up. She went to see her primary care doctor Dr. Soriano as well. Patient has not been able to get around lately. Last 3 days breathing has been compromised and she is more short of breath. Denies nausea, vomiting, diarrhea. Patient also supplemented providing a lot of this history today. She is not altered at this time. Patient is a little hard to understand but she knows where she is and she knows what is going on. Able to tell me her name date of and the fact that she is in the hospital. However does not know who the president is. Patient had modified barium swallow. Speech has recommended diet. We will place her on that. Patient has never had a diagnosis of heart failure or any heart issues in the past. Denies chest pain. Patient and both state that she is a full code. Continue current management. Await echo results.
--- NOTE | 2022-03-15 19:05 | PC.NURSE ---
Bedside report given to Lu Pemberton RN at this time
[2022-03-16] VITALS (15 sets, daily range): BP systolic 106–131; BP diastolic 69–83; PULSE 50–85; RESP 16–22; TEMP 36.5–36.8; O2SAT 92–98
[2022-03-16] MEDS: ipratropium-albuterol 3 mL Neb INHALATION ×4 (02:38→19:55)
[2022-03-16 05:04] LABS: Basophils % 0.2 %; Eosinophils # 0.1 10^3/uL (0.0-0.8); Eosinophils % 1.3 %; Hematocrit 35.4 % (37.0-47.0); Hemoglobin 10.4 g/dL (11.5-15.3); Lymphocytes # 0.7 10^3/uL (0.8-4.8); Lymphocytes % 12.1 %; Mean Corpuscular HGB Conc 29.4 g/dL (30.0-36.0); Mean Corpuscular Hemoglobin 27.3 pg (28.0-34.0); Mean Corpuscular Volume 92.9 fl (81-99); Mean Platelet Volume 10.8 fL (7.4-10.4); Monocytes # 0.8 10^3/uL (0.2-0.9); Monocytes % 14.1 %; Neutrophils # 3.97 10^3/uL (1.8-7.7); Neutrophils % 71.9 %; Nucleated Red Blood Cells % 0 %; Platelet Count 121 10^3/cmm (130-400); Red Blood Count 3.81 10^6/uL (4.1-5.3); Red Cell Distribution Width 14.9 % (12.1-15.1); White Blood Count 5.5 10^3/uL (4.0-10.0)
[2022-03-16 05:24] LABS: Anion Gap 9.9 (5-19); Blood Urea Nitrogen 37 mg/dL (8-23); Calcium 8.3 mg/dL (8.5-10.5); Carbon Dioxide 34 mmol/L (22-29); Chloride 98 mmol/L (98-107); Glucose 92 mg/dL (65-115); Osmolality Calculated 294 mOsm/kg (285-295); Potassium 3.9 mmol/L (3.5-5.1); Sodium 138 mmol/L (136-145)
[2022-03-16] MEDS: enoxaparin 40 mg/0.4 mL Syringe SUBCUT (05:31)
[2022-03-16] MEDS: pantoprazole DR 40 mg Tablet PO (10:07)
[2022-03-16] MEDS: memantine 5 mg tablet 10 MG PO ×2 (10:07→17:34)
[2022-03-16] MEDS: donepezil 5 MG Tablet 10 MG PO (10:08)
[2022-03-16] MEDS: cefTRIAXone 1,000 MG in sodium chloride 0.9% (plus) 50 ML 100 MG IV (10:09)
[2022-03-16] MEDS: azithromycin 500 MG in sodium chloride 0.9% 250 ML 250 MG IV (10:12)
[2022-03-16] MEDS: FUROsemide 10 mg/mL SDV 4mL 40 MG IVP (10:21)
--- NOTE | 2022-03-16 12:53 | P.PN_ITS ---
Subjective Subjective: Seen this morning. 2700 urine output since yesterday. Patient does feel better. Edema in bilateral upper and lower extremities is also improved. present at bedside. Discussed results of echo with them. They are waiting to speak to cardiology. Vitals/I&O/Wt Last Vital Signs Temp 98.1 F 03/16/22 12:00 Pulse 73 03/16/22 12:00 Resp 17 03/16/22 12:00 BP 106/69 03/16/22 12:00 Pulse Ox 98 03/16/22 12:00 O2 Del Method 03/16/22 12:00 O2 Flow Rate 3 03/16/22 07:52 03/15/22 03/16/22 03/16/22 22:59 06:59 14:59 Intake Total 200 / 500 540 / 540 Output Total 1825 / 1825 850 / 2675 Balance -1625 / -1325 -850 / -2175 540 / 540 Weight last 48 hrs Weight 77.111 kg Physical Exam HENMT: COMMON NORMALS: normocephalic and atraumatic HEAD & SCALP: normocephalic and atraumatic Resp: COMMON NORMALS: clear to auscultation bilaterally EFFORT & INSPECTION: Yes symmetric chest movement AUSCULTATION: clear to auscultation bilaterally OTHER: Diminished air entry bilaterally, predominantly in the right lung base. Cardio: COMMON NORMALS: regular rate, regular rhythm, S1 normal heart sound present, S2 normal heart sound present, No gallops present (Cardio), No rub (Cardio) and Peripheral pulses 2+ throughout RATE: regular rate RHYTHM: regular rhythm HEART SOUNDS: S1 normal heart sound present and S2 normal heart sound present PERIPHERAL PULSES: Peripheral pulses 2+ throughout OTHER: PSM in mitral area, Diminished B/L DPA GI: COMMON NORMALS: Normal to inspection, nondistended, normoactive bowel soun ds present, Soft to palpation, non-tender, No hepatosplenomegaly present and no masses AUSCULTATION: Yes normoactive bowel sounds PALPATION: Yes Soft to palpation and Yes No hepatosplenomegaly present RECTAL EXAM: deferred Extremity: NARRATIVE EXTREMITY EXAM: B/L L/E 2+ Pitting Edema Urinary Catheter Management: Champagne: Cath Placed During This Visit: yes Reason for Continuing Indwelling Catheter: Other Urinary Catheter Date of Insertion: 03/15/22 Urinary Catheter Time of Insertion: 12:00 Data : 03/16/22 04:45 03/16/22 04:45 Micro: Microbiology 03/14/22 22:18 Blood Culture - Preliminary Blood NEGATIVE TO DATE 03/14/22 22:12 Blood Culture - Preliminary Blood NEGATIVE TO DATE A&P Assessment and plan (1) Bilateral pleural effusion: (2) Essential hypertension: (3) Alzheimer's dementia without behavioral disturbance: (4) CHF exacerbation: (5) Normal pressure hydrocephalus: Plan 76 year old female with past medical history of Alzheimer's dementia, NPH with 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 Assessment: Decompensated heart failure with preserved ejection fraction Bilateral pleural effusion: Likely secondary to decompensated heart failure Possible Pneumonia HTN History of NPH History of Alzheimer's dementia R/O PAD Plan: Follow repeat 2D echo: 2D echo done earlier in 12/04: Results appreciated Procalcitonin Sputum Gram stain and culture Blood Culture Follow B/L L/E Arterial Duplex Continue Lasix 40 mg IV twice daily K> 4, Mg>2 Monitor intake output charting Daily weight Telemetry monitoring Possible thoracentesis Continue chronic home medications -Repeat echo showed Normal left ventricular size and systolic function, EF 62 %.? ?Flattened septum in systole consistent with right ventricle ?pressure overload. ?Dilated right ventricle with the features of pressure overload. ?Moderate biatrial enlargement. ?Severe eccentric mitral regurgitation with the regurgitant jet ?directed anteriorly, suggesting prolapse of the posterior ?leaflet. ?Thickened aortic valve. Trace aortic valve regurgitation. ?At least moderate tricuspid regurgitation. ?Pulmonary hypertension with an estimated pulmonary artery peak ?systolic pressure of 60 mmHg.? This could be an underestimation ?because of the suboptimal Doppler signals. ?Thickened aortic valve. Trace aortic valve regurgitation. ?Mild pulmonary valve regurgitation. ?Small pericardial effusion. Cardiology consult placed. -Patient put out 2600 cc of urine. She is 2 L negative since admission. ? Switch to Lasix 40 IV daily. CODE STATUS: Currently full code, family should be reached out tomorrow in the [facility] regarding clarification on CODE STATUS DVT prophylaxis: Lovenox Attestations Medical Necessity Statement*: Patient is to be in hospital for management of decompensated heart failure.Anticipated length of stay greater than 2 midnights. Time Spent in Patient Care: Greater than 35 minutes (>than 50% of time spent in counselling and/or direct pt care on unit) . Coding Level of Care Code Acute Sea Shell Gatherer for Chg Fwd Diagnoses Bilateral pleural effusion J90 Essential hypertension I10 Alzheimer's dementia without behavioral disturbance G30.9; F02.80 CHF exacerbation I50.9 Normal pressure hydrocephalus G91.2
--- NOTE | 2022-03-16 13:20 | PC.NURSE ---
patients lasix order changed from BID to Daily. Order clarified by Dr. Munoz to start tomorrow since patient received 0900 lasix this morning.
[2022-03-17] VITALS (12 sets, daily range): BP systolic 129–139; BP diastolic 74–85; PULSE 67–88; RESP 16–18; TEMP 36.6–36.8; O2SAT 90–99
[2022-03-17] MEDS: ipratropium-albuterol 3 mL Neb INHALATION ×3 (02:19→15:17)
[2022-03-17 04:24] LABS: Basophils % 0.2 %; Eosinophils # 0.1 10^3/uL (0.0-0.8); Eosinophils % 1.1 %; Hematocrit 36.9 % (37.0-47.0); Hemoglobin 10.8 g/dL (11.5-15.3); Lymphocytes # 0.6 10^3/uL (0.8-4.8); Lymphocytes % 9.7 %; Mean Corpuscular HGB Conc 29.3 g/dL (30.0-36.0); Mean Corpuscular Hemoglobin 27.5 pg (28.0-34.0); Mean Corpuscular Volume 93.9 fl (81-99); Mean Platelet Volume 10.8 fL (7.4-10.4); Monocytes # 0.8 10^3/uL (0.2-0.9); Monocytes % 13.7 %; Neutrophils # 4.26 10^3/uL (1.8-7.7); Neutrophils % 74.9 %; Nucleated Red Blood Cells % 0 %; Platelet Count 132 10^3/cmm (130-400); Red Blood Count 3.93 10^6/uL (4.1-5.3); Red Cell Distribution Width 14.7 % (12.1-15.1); White Blood Count 5.7 10^3/uL (4.0-10.0)
[2022-03-17 04:42] LABS: Anion Gap 6.1 (5-19); Blood Urea Nitrogen 33 mg/dL (8-23); Calcium 8.5 mg/dL (8.5-10.5); Carbon Dioxide 37 mmol/L (22-29); Chloride 96 mmol/L (98-107); Glucose 122 mg/dL (65-115); Osmolality Calculated 289 mOsm/kg (285-295); Potassium 4.1 mmol/L (3.5-5.1); Sodium 135 mmol/L (136-145)
[2022-03-17] MEDS: enoxaparin 40 mg/0.4 mL Syringe SUBCUT (05:15)
--- NOTE | 2022-03-17 09:02 | PM.PN ---
Subjective Subjective: seen this am no acute events overnight. 2500 cc urine output overnight will hold lasix today 3L negative since admission Vitals/I&O/Wt Last Vital Signs Temp 98.0 F 03/17/22 08:00 Pulse 67 03/17/22 08:00 Resp 18 03/17/22 08:00 BP 129/74 03/17/22 08:00 Pulse Ox 93 03/17/22 08:00 O2 Del Method 03/17/22 08:00 O2 Flow Rate 2 03/17/22 02:17 03/16/22 03/17/22 03/17/22 22:59 06:59 14:59 Intake Total 770 / 1550 Output Total 2500 / 2500 Balance -1730 / -950 Physical Exam HENMT: COMMON NORMALS: normocephalic and atraumatic HEAD & SCALP: normocephalic and atraumatic Resp: COMMON NORMALS: clear to auscultation bilaterally EFFORT & INSPECTION: Yes symmetric chest movement AUSCULTATION: clear to auscultation bilaterally OTHER: Diminished air entry bilaterally, predominantly in the right lung base. Cardio: COMMON NORMALS: regular rate, regular rhythm, S1 normal heart sound present, S2 normal heart sound present, No gallops present (Cardio), No rub (Cardio) and Peripheral pulses 2+ throughout RATE: regular rate RHYTHM: regular rhythm HEART SOUNDS: S1 normal heart sound present and S2 normal heart sound present PERIPHERAL PULSES: Peripheral pulses 2+ throughout OTHER: PSM in mitral area, Diminished B/L DPA GI: COMMON NORMALS: Normal to inspection, nondistended, normoactive bowel sounds present, Soft to palpation, non-tender, No hepatosplenomegaly present and no masses AUSCULTATION: Yes normoactive bowel sounds PALPATION: Yes Soft to palpation and Yes No hepatosplenomegaly present RECTAL EXAM: deferred Extremity: NARRATIVE EXTREMITY EXAM: B/L L/E 2+ Pitting Edema , significant improvement since admission Urinary Catheter Management: Champagne: Cath Placed During This Visit: yes Reason for Continuing Indwelling Catheter: Assist Healing of Perineal & Sacral Wounds- Incontinent Patients Urinary Catheter Date of Insertion: 03/15/22 Urinary Catheter Time of Insertion: 12:00 Data : 03/17/22 03:13 03/17/22 03:13 A&P Assessment and plan (1) Bilateral pleural effusion: (2) Essential hypertension: (3) Alzheimer's dementia without behavioral disturbance: (4) CHF exacerbation: (5) Normal pressure hydrocephalus: Plan 76 year old female with past medical history of Alzheimer's dementia, 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 Assessment: Decompensated heart failure with preserved ejection fraction Bilateral pleural effusion: Likely secondary to decompensated heart failure Possible Pneumonia HTN History of NPH History of Alzheimer's dementia R/O PAD Plan: Follow repeat 2D echo: 2D echo done earlier in 12/04: Results appreciated Procalcitonin Sputum Gram stain and culture Blood Culture Follow B/L L/E Arterial Duplex Continue Lasix 40 mg IV twice daily K> 4, Mg>2 Monitor intake output charting Daily weight Telemetry monitoring Possible thoracentesis Continue chronic home medications -Repeat echo showed Normal left ventricular size and systolic function, EF 62 %.? ?Flattened septum in systole consistent with right ventricle ?pressure overload. ?Dilated right ventricle with the features of pressure overload. ?Moderate biatrial enlargement. ?Severe eccentric mitral regurgitation with the regurgitant jet ?directed anteriorly, suggesting prolapse of the posterior ?leaflet. ?Thickened aortic valve. Trace aortic valve regurgitation. ?At least moderate tricuspid regurgitation. ?Pulmonary hypertension with an estimated pulmonary artery peak ?systolic pressure of 60 mmHg.? This could be an underestimation ?because of the suboptimal Doppler signals. ?Thickened aortic valve. Trace aortic valve regurgitation. ?Mild pulmonary valve regurgitation. ?Small pericardial effusion. Cardiology consult placed. -Pt 3L negative since admission. Hold lasix today Ns 250 cc bolus today Seem by cardiology. Pt's family has been given options regarding further treatment. They will discuss and let us know. CODE STATUS: Full Code DVT prophylaxis: Lovenox Attestations Medical Necessity Statement*: Patient is to be in hospital for management of decompensated heart failure.Anticipated length of stay greater than 2 midnights. Time Spent in Patient Care: Greater than 35 minutes (>than 50% of time spent in counselling and/or direct pt care on unit). Coding Level of Care Code Acute Conduit Cleaner for Chg Fwd Diagnoses Bilateral pleural effusion J90 Essential hypertension I10 Alzheimer's dementia without behavioral disturbance G30.9; F02.80 CHF exacerbation I50.9 Normal pressure hydrocephalus G91.2
[2022-03-17] MEDS: cefTRIAXone 1,000 MG in sodium chloride 0.9% (plus) 50 ML 100 MG IV (09:13)
[2022-03-17] MEDS: memantine 5 mg tablet 10 MG PO ×2 (09:13→17:37)
[2022-03-17] MEDS: donepezil 5 MG Tablet 10 MG PO (09:13)
[2022-03-17] MEDS: pantoprazole DR 40 mg Tablet PO (09:13)
[2022-03-17] MEDS: azithromycin 500 MG in sodium chloride 0.9% 250 ML 250 MG IV (09:14)
[2022-03-17] MEDS: FUROsemide 10 mg/mL SDV 4mL 40 MG IVP (09:16)
--- NOTE | 2022-03-17 10:04 | P.CONIM_ITS ---
Providers/Reason For Consult Consulting Physician/Specialty*: Steve Linda MD/ Cardiology Reason for Consult*: Severe Mitral regurgitation Requesting Physician: Dr Munoz Attending Physician: Shawanda Munoz MD Primary Care Provider: Rashaad Soriano DO History of Present Illness History of Present Illness ( Please consider it as note for 03/16/2022, as documentation was missed but patient seen on 03/16/2022) Keysha Rodriguez is a 76 year old female with past medical history of HFpEF, Alzheimer's dementia, NPH who came to the hospital with worsening shortness of breath. Secondary to her significant dementia, history obtained from . Echocardiogram showed preserved LV systolic function however severe anteriorly directed eccentric mitral regurgitation is noted. Review of Systems General: Reports: ROS unobtainable due to medical condition Medications/Allergies Home Medications Medication Instructions Recorded Confirmed Last Taken Type ibuprofen 200 mg capsule 400 mg PO Q8H PRN Pain 06/14/19 03/15/22 07/21/19 History cefuroxime axetil 500 mg tablet 500 mg PO BID #60 tabs 02/04/22 03/15/22 Unknown Rx cholecalciferol (vitamin D3) 25 25 mcg PO DAILY 03/15/22 03/15/22 Unknown History mcg (1,000 unit) capsule (Vitamin D3) [id number] ac 400 1 tab PO DAILY 03/15/22 03/15/22 Unknown History mcg-calcium carb 500 mg-vit K1 20 mcg tablet (Women's 50 Plus Multivitamin) vitamin B12 0.5 mg-folic acid 1 mg 1 tab PO DAILY 03/15/22 03/15/22 Unknown History tablet Allergies Allergy/AdvReac Type Severity Reaction Status Date / Time No Known Allergies Allergy Verified 03/15/22 07:58 Current Medications Generic Name Dose Route Start Last Admin Trade Name Freq PRN Reason Stop Dose Admin Albuterol/Ipratropium 3 ml 03/15/22 20:00 03/17/22 09:19 Ipratropium-Albuterol 3 Ml Neb INHALATION 3 ml Q6H.RESP HEATHER Administration Donepezil HCl 10 mg 03/15/22 09:00 03/17/22 09:13 Donepezil 5 Mg Tablet PO 10 mg DAILY HEATHER Administration Enoxaparin Sodium 40 mg 03/16/22 05:15 03/17/22 05:15 Enoxaparin 40 Mg/0.4 Ml Syringe SUBCUT 40 mg Q24H HEATHER Administration Furosemide 40 mg 03/17/22 09:00 03/17/22 09:16 Furosemide 10 Mg/Ml Sdv 4ml IVP 40 mg DAILY HEATHER Administration Azithromycin 500 mg/ Sodium 250 mls @ 250 mls/hr 03/15/22 09:00 03/17/22 09:14 Chloride IV 250 mls/hr Q24H HEATHER Administration Protocol Ceftriaxone Sodium 1,000 mg/ 50 mls @ 100 mls/hr 03/15/22 09:00 03/17/22 09:58 Sodium Chloride IV Infused Q24H HEATHER Infusion Protocol Memantine 10 mg 03/15/22 09:00 03/17/22 09:13 Memantine 5 Mg Tablet PO 10 mg BID HEATHER Administration Pantoprazole Sodium 40 mg 03/15/22 09:00 03/17/22 09:[address] 40 Mg Tablet PO 40 mg DAILY HEATHER Administration PFSH Acute PFSH: Medical History Alzheimer disease Essential hypertension Lewy body dementia Normal pressure hydrocephalus Surgical History Intracranial shunt Codman-Hakim programmable shunt with right angle valve placed on 03/20/2015 Status post ventriculoatrial shunt placement (03/20/15) Right frontal ventriculoperitoneal shunt placement. Codman-Hakim programmable right angle valve at 12 cm [address] De La Cruz Family History Sister Cancer Family/Other Cancer Paternal Aunt Father Cancer Hypertension Diabetes Other CAD (coronary artery disease) Denies family history of Stroke Social History Smoking and tobacco status: never smoked Alcohol intake: never Lives independently: Yes Household members: spouse Marital status: Current occupational status: retired History of recent travel: No Vitals/I&O/Wt Last Vital Signs Temp 98.0 F 03/17/22 08:00 Pulse 88 03/17/22 09:29 Resp 17 03/17/22 09:19 BP 129/74 03/17/22 08:00 Pulse Ox 90 03/17/22 09:19 O2 Del Method 03/17/22 09:19 O2 Flow Rate 6 03/17/22 09:19 03/16/22 03/17/22 03/17/22 22:59 06:59 14:59 Intake Total 770 / 1550 530 / 530 Output Total 2500 / 2500 Balance -1730 / -950 530 / 530 Physical Exam Narrative: GENERAL: Patient is alert. Not oriented NECK: No jugular vein distension. [] HEENT: No cyanosis. No icterus. No pallor. [] HEART: Regular S1 and S2. No murmur, rub or gallop. [] LUNGS: Mild crackles, decreased breathing sounds CENTRAL NERVOUS SYSTEM: Grossly nonfocal. [] EXTREMITIES: Lower extremities with 1+ edema bilaterally. Pulses palpable in the lower extremities, both dorsalis pedis and posterior tibial. [] Urinary Catheter Management: Champagne: Cath Placed During This Visit: yes Reason for Continuing Indwelling Catheter: Assist Healing of Perineal & Sacral Wounds- Incontinent Patients Urinary Catheter Date of Insertion: 03/15/22 Urinary Catheter Time of Insertion: 12:00 Data : 03/17/22 03:13 03/17/22 03:13 A&P Assessment and plan (1) Essential hypertension: (2) CHF exacerbation: (3) Severe mitral regurgitation: (4) Alzheimer's dementia without behavioral disturbance: Plan Patient has severe dementia. She is not very functional. She has been found to have severe mitral regurgitation. I discussed with family in detail all options available. These will include work-up for valve replacement versus medical therapy. Medical therapy will be reasonable given her severe dementia and physical limitations. Family will discuss and will inform us about their decision. Continue diuresis Monitor I&O's and electrolytes Monitor renal function Thank you for involving us with care of this patient. We will continue to follow. Please call with questions Consult Attestations Medical Necessity Statement: Care expected to cross 2 midnights. Coding Level of Care Code Acute Auction Assistant for Иван Fwd Diagnoses Essential hypertension I10 CHF exacerbation I50.9 Severe mitral regurgitation I34.0 Alzheimer's dementia without behavioral disturbance G30.9; F02.80
--- NOTE | 2022-03-17 10:18 | PM.PN ---
Subjective Subjective: Patient is stable. Diuresing well. Vitals/I&O/Wt Last Vital Signs Temp 98.0 F 03/17/22 08:00 Pulse 88 03/17/22 09:29 Resp 17 03/17/22 09:19 BP 129/74 03/17/22 08:00 Pulse Ox 90 03/17/22 09:19 O2 Del Method 03/17/22 09:19 O2 Flow Rate 6 03/17/22 09:19 03/16/22 03/17/22 03/17/22 22:59 06:59 14:59 Intake Total 770 / 1550 530 / 530 Output Total 2500 / 2500 Balance -1730 / -950 530 / 530 Physical Exam Narrative: GENERAL: Patient is alert. Not oriented NECK: No jugular vein distension. [] HEENT: No cyanosis. No icterus. No pallor. [] HEART: Regular S1 and S2. Has grade 3/6 systolic murmur LUNGS: Mild crackles, decreased breathing sounds CENTRAL NERVOUS SYSTEM: Grossly nonfocal. [] EXTREMITIES: Lower extremities with 1-2+ edema bilaterally. Pulses palpable in the lower extremities, both dorsalis pedis and posterior tibial. [] Urinary Catheter Management: Champagne: Cath Placed During This Visit: yes Reason for Continuing Indwelling Catheter: Assist Healing of Perineal & Sacral Wounds- Incontinent Patients Urinary Catheter Date of Insertion: 03/15/22 Urinary Catheter Time of Insertion: 12:00 Data : 03/17/22 03:13 03/17/22 03:13 A&P Assessment and plan (1) Essential hypertension: (2) CHF exacerbation: (3) Severe mitral regurgitation: (4) Alzheimer's dementia without behavioral disturbance: Plan Patient has severe dementia. She is not very functional. She has been found to have severe mitral regurgitation. It is eccentric anteriorly directed severe mitral regurgitation with possible prolapse of the posterior valve leaflet. Family wants to pursue procedural options. She may not be a good surgical candidate given advanced dementia and limited mobility. However MitraClip is a possible option. We may transfer patient for further workup to tertiary care center. Continue diuresis Monitor I&O's and electrolytes Monitor renal function Thank you for involving us with care of this patient. We will continue to follow. Please call with questions Attestations Medical Necessity Statement*: Care expected to cross 2 midnights. Coding Level of Care Code Acute Industrial Renderer for Иван Titus Diagnoses Essential hypertension I10 CHF exacerbation I50.9 Severe mitral regurgitation I34.0 Alzheimer's dementia without behavioral disturbance G30.9; F02.80
[2022-03-17] MEDS: sodium chloride 0.9% 250 ML IV (12:28)
--- NOTE | 2022-03-17 16:09 | PM.TDS ---
Transfer Summary Providers Date of Admission: 03/15/22 00:29 Date of Discharge/Transfer: 03/17/22 Attending Provider at Admission: Maxime Herrera MD Attending Provider at Transfer: Shawanda Munoz MD Primary Care Provider: Rashaad Soriano DO Transfer Plans: Anticipated date of transfer: 03/17/22. 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 Some history has been gathered by ER chart review. Currently family is not available to help with history. Upon arrival in the ER she was worked up for above-mentioned complaint: Pertinent imaging studies: X-ray chest: Bilateral pleural effusion right greater than left, pulmonary vascular congestion EKG: Sinus rhythm with PACs Pertinent labs: WBC 5.3, H&H 11 and 39 ,PLT: 151 , serum sodium 134 serum potassium 4.5, serum bicarb 31, BUN serum creatinine: 49/0.9 , Troponin: 35-32 proBNP: 84412 Rapid COVID-negative Hospital Course Hospital Course Patient was admitted to the hospital for decompensated heart failure with preserved ejection fraction. She also had bilateral pleural effusions. Echocardiogram was done: Normal left ventricular size and systolic function, EF 62 %.? ?Flattened septum in systole consistent with right ventricle ?pressure overload. ?Dilated right ventricle with the features of pressure overload. ?Moderate biatrial enlargement. ?Severe eccentric mitral regurgitation with the regurgitant jet ?directed anteriorly, suggesting prolapse of the posterior ?leaflet. ?Thickened aortic valve. Trace aortic valve regurgitation. ?At least moderate tricuspid regurgitation. ?Pulmonary hypertension with an estimated pulmonary artery peak ?systolic pressure of 60 mmHg.? This could be an underestimation ?because of the suboptimal Doppler signals. ?Thickened aortic valve. Trace aortic valve regurgitation. ?Mild pulmonary valve regurgitation. ?Small pericardial effusion. Patient was diuresed with Lasix 40 IV twice daily and transition to 40 daily. She is 3.5 L negative since admission. Cardiology was consulted.Patient has severe dementia.? She is not very functional.? She has been found to have severe mitral regurgitation.? It is eccentric anteriorly directed severe mitral regurgitation with possible prolapse of the posterior valve leaflet.? Family wants to pursue procedural options.? She may not be a good surgical candidate given advanced dementia and limited mobility.? However MitraClip is a possible option. Case was discussed with Dr. Li at [facility] who accepted the patient for transfer. Hospitalist team will admit patient to stepdown unit. accepting physician. The above transfer was coordinated by our fresco artist Dr. Linda. Patient will be transferred to [facility] in stable condition. She is currently on 6L NC. Due to patient's presentation of shortness of breath requiring oxygen for possible pneumonia she was empirically covered with ceftriaxone and azithromycin. Physical Exam Narrative: GENERAL: Patient is alert. Not oriented NECK: No jugular vein distension. [] HEENT: No cyanosis. No icterus. No pallor. [] HEART: Regular S1 and S2. Has grade 3/6 systolic murmur LUNGS: Mild crackles, decreased breathing sounds CENTRAL NERVOUS SYSTEM: Grossly nonfocal. [] EXTREMITIES: Lower extremities with 1-2+ edema bilaterally. Pulses palpable in the lower extremities, both dorsalis pedis and posterior tibial. [] Urinary Catheter Management: Champagne: Cath Placed During This Visit: yes Reason for Continuing Indwelling Catheter: Assist Healing of Perineal & Sacral Wounds- Incontinent Patients Urinary Catheter Date of Insertion: 03/15/22 Urinary Catheter Time of Insertion: 12:00 TS Data Studies Completed and Pending Pending at discharge Category Date Time Status BMP [Basic Metabolic Panel] AM LABS Lab 03/18/22 04:00 Ordered Blood Culture Stat Lab 03/14/22 22:18 Results CBC Auto Diff [Complete Blood Count w/Auto] AM LABS Lab 03/18/22 04:00 Ordered Sputum Culture and Gram Stain Routine Lab 03/15/22 05:33 Uncollected Labs from last 24 hours 03/17/22 03/17/22 03:13 03:13 WBC 5.7 RBC 3.93 L Hgb 10.8 L Hct 36.9 L MCV 93.9 MCH 27.5 L MCHC 29.3 L RDW 14.7 Plt Count 132 MPV 10.8 H Neut % (Auto) 74.9 Lymph % (Auto) 9.7 Whitley % (Auto) 13.7 Eos % (Auto) 1.1 Baso % (Auto) 0.2 Neut # (Auto) 4.26 Lymph # (Auto) 0.6 L Whitley # (Auto) 0.8 Eos # (Auto) 0.1 Baso # (Auto) 0.0 Nucleated RBC % (auto) 0 Nucleated RBCs # 0.0 Sodium 135 L Potassium 4.1 Chloride 96 L Carbon Dioxide 37 H Anion Gap 6.1 BUN 33 H Creatinine 0.6 GFR Calculation Not Reportable Glucose 122 H Calculated Osmolality 289 Calcium 8.5 Completed Studies During Hospitalization Category Date Time Status Modified barium swallow [FL barium swallow modifd [id number] Exams 03/15/22 11:30 Completed ] Routine XR chest 1V portable [id number] Stat Exams 03/14/22 20:47 Completed CV. echo complete* [id number] Stat Ultrasound 03/15/22 00:45 Completed US arterial duplex lower extremity bilat [CV arterial Ultrasound 03/15/22 03:10 [place] [id number]] Routine Laboratory Last Values WBC 5.7 10^3/uL (4.0-10.0) 03/17/22 03:13 RBC 3.93 10^6/uL (4.1-5.3) L 03/17/22 03:13 Hgb 10.8 g/dL (11.5-15.3) L 03/17/22 03:13 Hct 36.9 % (37.0-47.0) L 03/17/22 03:13 MCV 93.9 fl (81-99) 03/17/22 03:13 MCH 27.5 pg (28.0-34.0) L 03/17/22 03:13 MCHC 29.3 g/dL (30.0-36.0) L 03/17/22 03:13 RDW 14.7 % (12.1-15.1) 03/17/22 03:13 Plt Count 132 10^3/cmm (130-400) 03/17/22 03:13 MPV 10.8 fL (7.4-10.4) H 03/17/22 03:13 Neut % (Auto) 74.9 % 03/17/22 03:13 Lymph % (Auto) 9.7 % 03/17/22 03:13 Whitley % (Auto) 13.7 % 03/17/22 03:13 Eos % (Auto) 1.1 % 03/17/22 03:13 Baso % (Auto) 0.2 % 03/17/22 03:13 Neut # (Auto) 4.26 10^3/uL (1.8-7.7) 03/17/22 03:13 Lymph # (Auto) 0.6 10^3/uL (0.8-4.8) L 03/17/22 03:13 Whitley # (Auto) 0.8 10^3/uL (0.2-0.9) 03/17/22 03:13 Eos # (Auto) 0.1 10^3/uL (0.0-0.8) 03/17/22 03:13 Baso # (Auto) 0.0 10^3/uL (0.0-0.1) 03/17/22 03:13 Nucleated RBC % (auto) 0 % 03/17/22 03:13 Nucleated RBCs # 0.0 /100WBC 03/17/22 03:13 PT 15.50 SECONDS (12.1-14.9) H 03/14/22 21:30 INR 1.20 (0.8-1.2) 03/14/22 21:30 Sodium 135 mmol/L (136-145) L 03/17/22 03:13 Potassium 4.1 mmol/L (3.5-5.1) 03/17/22 03:13 Chloride 96 mmol/L (98-107) L 03/17/22 03:13 Carbon Dioxide 37 mmol/L (22-29) H 03/17/22 03:13 Anion Gap 6.1 (5-19) 03/17/22 03:13 BUN 33 mg/dL (8-23) H 03/17/22 03:13 Creatinine 0.6 mg/dL (0.5-0.9) 03/17/22 03:13 GFR Calculation Not Reportable 03/17/22 03:13 Glucose 122 mg/dL (65-115) H 03/17/22 03:13 POC Glucose 94 mg/dL (70-110) 03/15/22 05:14 Calculated Osmolality 289 mOsm/kg (285-295) 03/17/22 03:13 Calcium 8.5 mg/dL (8.5-10.5) 03/17/22 03:13 Magnesium 2.1 mg/dL (1.7-2.3) 03/15/22 03:35 Total Bilirubin 0.5 mg/dL (0.15-1.2) 03/14/22 21:30 AST 30 U/L (0-32) 03/14/22 21:30 ALT 17 U/L (0-33) 03/14/22 21:30 Alkaline Phosphatase 96 U/L (35-105) 03/14/22 21:30 Troponin T Baseline 35 ng/L (0-10) H 03/14/22 21:30 Troponin T 120 Minute 32.12 ng/L (0-10) H 03/14/22 23:18 Delta Troponin T -2.88 ABS# (0-10) L 03/14/22 23:18 Troponin T Hi Sens 6Hr 37.52 ng/L (0-10) H 03/15/22 03:35 Troponin T Hi Sens 6Hr Delta 2.52 ng/L (0-12) 03/15/22 03:35 NT-Pro-B Natriuret Pep 10169 pg/mL (0-450) H 03/14/22 21:30 Total Protein 5.6 g/dL (6.6-8.7) L 03/14/22 21:30 Albumin 3.4 g/dL (3.5-5.2) L 03/14/22 21:30 Globulin 2.2 g/dL (1.3-4.6) 03/14/22 21:30 Procalcitonin 0.05 ng/mL (0-0.5) 03/15/22 03:35 Urine Color Yellow (Yellow) 03/15/22 01:15 Urine Appearance Clear (CLEAR) 03/15/22 01:15 Urine pH 5.0 (5-7) 03/15/22 01:15 Ur Specific [place] 1.015 (1.005-1.030) 03/15/22 01:15 Urine Protein Negative (Negative) 03/15/22 01:15 Urine Glucose (UA) Negative (Normal) 03/15/22 01:15 Urine Ketones Negative (Negative) 03/15/22 01:15 Urine Blood Negative (Negative) 03/15/22 01:15 Urine Nitrate Negative 03/15/22 01:15 Urine Bilirubin Negative (Negative) 03/15/22 01:15 Urine Urobilinogen 0.2 mg/dL (Negative) 03/15/22 01:15 Ur Leukocyte Esterase Negative (Negative) 03/15/22 01:15 SARS-CoV-2 Ag (Rapid) Negative (Negative) 03/14/22 21:30 Radiology Impressions Chest X-Ray 03/14/22 20:47 IMPRESSION: 1. Interval decreased lung volumes and increased bilateral pleural effusions, right more than left. Adjacent atelectasis as outlined. 2. Increased pulmonary vascularity concerning for pulmonary edema. Atypical infection can give a similar appearance. 3. Cardiomegaly, similar to the prior. Modified Barium Swallow 03/15/22 11:30 IMPRESSION: 1. Moderate dysfunction initiating swallowing at the level of the oropharynx as discussed above. 2. The patient experienced penetration into the laryngeal inlet when ingesting thin liquid and nectar consistency barium foodstuffs. No aspiration was identified. A separate report of recommendations and findings will follow from the speech therapy service. Recent Clincial Data Last Vital Signs Temp 98.2 F 03/17/22 15:42 Pulse 76 03/17/22 15:42 Resp 18 03/17/22 15:42 BP 139/74 03/17/22 11:53 Pulse Ox 98 03/17/22 15:42 O2 Del Method 03/17/22 15:42 O2 Flow Rate 3 03/17/22 15:22 Vital Signs Temp Pulse Resp BP Pulse Ox O2 Del Method O2 Flow Rate 03/17/22 15:42 98.2 F 76 18 98 Nasal Cannula 03/17/22 15:22 76 17 96 Nasal Cannula 3 03/17/22 15:17 78 17 99 Nasal Cannula 6 03/17/22 11:53 98.0 F 74 16 139/74 97 Nasal Cannula 03/17/22 09:29 88 03/17/22 09:19 87 17 90 Nasal Cannula 6 03/17/22 08:00 98.0 F 67 18 129/74 93 Nasal Cannula 03/17/22 05:53 73 Intake & Output/Weight 09/30/22 10/01/22 10/02/22 10/03/22 06:59 06:59 06:59 06:59 Intake Total 300 / 300 500 / 500 1550 / 1550 1270 / 1270 Output Total 575 / 575 2675 / 2675 2500 / 2500 Balance -275 / -275 -2175 / -2175 -950 / -950 1270 / 1270 Weight 77.111 kg Vitals Last Vital Signs Temp 98.2 F 03/17/22 15:42 Pulse 76 03/17/22 15:42 Resp 18 03/17/22 15:42 BP 139/74 03/17/22 11:53 Pulse Ox 98 03/17/22 15:42 O2 Del Method 03/17/22 15:42 O2 Flow Rate 3 03/17/22 15:22 TS Medications Medications Acetaminophen (Acetaminophen 325 Mg Tablet) 650 mg PO Q6H PRN PRN Reason: Mild/Mod Pain Or Temp >/= 101 Albuterol/Ipratropium (Ipratropium-Albuterol 3 Ml Neb) 3 ml INHALATION Q6H.RESP HEATHER Last Admin: 03/17/22 15:17 Dose: 3 ml Bisacodyl (Bisacodyl 5 Mg Tablet) 10 mg PO DAILY PRN; Protocol PRN Reason: Constipation (see protocol) Donepezil HCl (Donepezil 5 Mg Tablet) 10 mg PO DAILY [facility] Last Admin: 03/17/22 09:13 Dose: 10 mg Enoxaparin Sodium (Enoxaparin 40 Mg/0.4 Ml Syringe) 40 mg SUBCUT Q24H HEATHER Last Admin: 03/17/22 05:15 Dose: 40 mg Azithromycin 500 mg/ Sodium (Chloride) 250 mls @ 250 mls/hr IV Q24H HEATHER; Protocol Last Infusion: 03/17/22 10:33 Dose: Infused Ceftriaxone Sodium 1,000 mg/ (Sodium Chloride) 50 mls @ 100 mls/hr IV Q24H HEATHER; Protocol Last Infusion: 03/17/22 09:58 Dose: Infused Memantine (Memantine 5 Mg Tablet) 10 mg PO BID HEATHER Last Admin: 03/17/22 09:13 Dose: 10 mg Ondansetron HCl (Ondansetron 2 Mg/Ml Sdv 2 Ml) 4 mg IVP Q8H PRN PRN Reason: vomiting, or N/V if npo Pantoprazole Sodium (Pantoprazole Dr 40 Mg Tablet) 40 mg PO DAILY HEATHER Last Admin: 03/17/22 09:13 Dose: 40 mg Discontinued Medications Albuterol/Ipratropium (Ipratropium-Albuterol 3 Ml Neb) 3 ml INHALATION Q6H.RESP [facility] Last Admin: 03/15/22 08:21 Dose: Not Given Albuterol/Ipratropium (Ipratropium-Albuterol 3 Ml Neb) 3 ml INHALATION Q6H PRN PRN Reason: SHORTNESS OF BREATH Albuterol/Ipratropium (Ipratropium-Albuterol 3 Ml Neb) 3 ml INHALATION Q6H [facility] Last Admin: 03/15/22 15:09 Dose: 3 ml Enoxaparin Sodium (Enoxaparin 40 Mg/0.4 Ml Syringe) 40 mg SUBCUT Q24H [facility] Last Admin: 03/16/22 05:12 Dose: Not Given Furosemide (Furosemide 10 Mg/Ml Sdv 10ml) 60 mg IVP ONCE ONE Stop: 03/14/22 21:14 Last Admin: 03/14/22 21:43 Dose: 60 mg Furosemide (Furosemide 10 Mg/Ml Sdv 4ml) 40 mg IVP BID [facility] Last Admin: 03/16/22 10:21 Dose: 40 mg Furosemide (Furosemide 10 Mg/Ml Sdv 4ml) 40 mg IVP ONCE ONE Stop: 03/15/22 05:32 Last Admin: 03/15/22 05:41 Dose: 40 mg Furosemide (Furosemide 10 Mg/Ml Sdv 4ml) 40 mg IVP DAILY [facility] Last Admin: 03/16/22 13:20 Dose: Not Given Furosemide (Furosemide 10 Mg/Ml Sdv 4ml) 40 mg IVP DAILY [facility] Last Admin: 03/17/22 09:16 Dose: 40 mg Azithromycin 500 mg/ Sodium (Chloride) 250 mls @ 250 mls/hr IV ONCE ONE; Protocol Stop: 03/14/22 22:12 Last Infusion: 03/15/22 01:05 Dose: Infused Ceftriaxone Sodium 1,000 mg/ (Sodium Chloride) 50 mls @ 100 mls/hr IV ONCE ONE; Protocol Stop: 03/14/22 21:42 Last Infusion: 03/14/22 22:53 Dose: Infused Sodium Chloride (Sodium Chloride 0.9%) 250 mls @ 250 mls/hr IV ONCE ONE Stop: 03/17/22 13:08 Last Infusion: 10/02/22 14:00 Dose: Infused Allergies No Known Allergies Allergy (Verified 03/15/22 07:58) Home Medications ibuprofen 200 mg capsule 400 mg PO Q8H PRN Pain 06/14/19 [History Confirmed 03/15/22] cefuroxime axetil 500 mg tablet 500 mg PO BID #60 tabs 02/04/22 [Rx Confirmed 03/15/22] cholecalciferol (vitamin D3) 25 mcg (1,000 unit) capsule (Vitamin D3) 25 mcg PO DAILY 03/15/22 [History Confirmed 03/15/22] oesykcbe-ouq-wciok ac 400 mcg-calcium carb 500 mg-vit K1 20 mcg tablet (Women's 50 Plus Multivitamin) 1 tab PO DAILY 03/15/22 [History Confirmed 03/15/22] vitamin B12 0.5 mg-folic acid 1 mg tablet 1 tab PO DAILY 03/15/22 [History Confirmed 03/15/22] Discharge Plan Discharge Patient Disposition: Home Condition: Stable Prescriptions: No Action ibuprofen 200 mg capsule 400 mg PO Q8H PRN (Reason: Pain) cefuroxime axetil 500 mg tablet 500 mg PO BID Qty: 60 2RF Vitamin D3 25 mcg (1,000 unit) Capsule 25 mcg PO DAILY vitamin A09-rotwh acid 0.5-1 mg Tablet 1 tab PO DAILY Women's 50 Plus Multivitamin 400 mcg-500 mg calcium-20 mcg Tablet 1 tab PO DAILY Referrals: Rashaad Soriano DO [Primary Care Provider] - Patient Instructions: Opioid Safety Transfer Attestations Time Spent in Transfer Care: greater than 30 min Status at Transfer: Cognitive status at transfer: cognitively intact; Behavioral status at transfer: cooperative; Quality Metrics Clinical Quality Measures [ No reported AMI, CVA or VTE this stay] Coding Level of Care Code 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
[2022-03-18 03:09] VITALS: BP 133/76; PULSE 76; RESP 18; TEMP 36.8; O2SAT 98
== END 2022-03-17 19:20 | disposition short-term general hospital (02) | DRG 291 ==
LOC: ER 23:18 → MEDSURG 03-15 01:42
PROVIDERS: Admitting Provider Internal Medicine; Emergency Provider Emergency Medicine; PCP Electrodiagnostic Medicine; Visit Provider Internal Medicine
DX: I11.0 Hypertensive heart disease with heart failure (principal); I50.33 Acute on chronic diastolic (congestive) heart failure; G91.2 (Idiopathic) normal pressure hydrocephalus; G30.9 Alzheimer's disease, unspecified; F02.C0 Dementia in other diseases classified elsewhere, severe, without behavioral disturbance, psychotic disturbance, mood disturbance, and anxiety; I34.0 Nonrheumatic mitral (valve) insufficiency; Z98.2 Presence of cerebrospinal fluid drainage device; I27.20 Pulmonary hypertension, unspecified; I34.1 Nonrheumatic mitral (valve) prolapse
CPT/HCPCS: 36415; 36416; 51702; 71045; 74230; 80048; 80053; 81003; 82962; 83735; 83880; 84145; 84484; 85025; 85610; 87040; 87426; 92507; 92523; 92526; 92610; 92611; 93005; 93306; 93925; 94640; 96365; 96367; 96372; 96375; 97161; 97165; 99285; J0456; J0696; J1650; J1940; J7050

== ENCOUNTER → 2022-08-19 09:05 | Outpatient (BNVA) | payer MEDICARE, OTHER, MEDICAID, SELFPAY | PROVIDERS: PCP Electrodiagnostic Medicine; Visit Provider Specialist | DX: G30.9 Alzheimer's disease, unspecified (principal); F02.80 Dementia in other diseases classified elsewhere, unspecified severity, without behavioral disturbance, psychotic disturbance, mood disturbance, and anxiety; G91.2 (Idiopathic) normal pressure hydrocephalus; R26.89 Other abnormalities of gait and mobility; I50.9 Heart failure, unspecified | CPT/HCPCS: 96116; 99214 ==

== ENCOUNTER 2022-09-03 15:27 | Outpatient (CLI) | payer MEDICARE, OTHER, MEDICAID, SELFPAY ==
--- NOTE | 2022-09-03 16:00 | CT_ITS ---
WS: [id number] CT HEAD TECHNIQUE: Noncontrast CT of the head obtained from the skullbase to the vertex. CLINICAL INFORMATION: R41.3 - Other amnesia COMPARISON: CT August 17, 2020 DLP: 1009.[address] scans at [facility] use at least one of these dose optimization techniques: automated e xposure control; mA and/or kV adjustment per patient size (includes targeted exams where dose is matc hed to clinical indication); or iterative reconstruction. FINDINGS: Thin late subacute to chronic RIGHT frontoparietal subdural hematoma with minimal underlying mass eff ect. This measures approximately 7 mm in maximum transverse dimension. No high attenuation acute bloo d products. Findings are new since September 28, 2021. Smaller more recent appearing subacute subdural hematoma overlying the LEFT parietal convexity at the vertex with a tiny amount of scattered high attenuation blood products. Subdural hematoma measures 5 mm in maximum transverse dimension. No significant mass effect. Additional small amount of low-attenuation parafalcine subdural hematoma overlying the LEFT frontal l obe with minimal mass effect. RIGHT frontal shunt catheter with tip in the RIGHT frontal horn. Ventricular size appears stable. No significant progressed hydrocephalus. Vascular calcification. Mild small vessel changes. Moderate par enchymal volume loss. Mastoid air cells are well aerated. Mild mucosal thickening in the paranasal si nuses. Vascular calcification. Normal posterior nasopharynx. CT/CT head wo con* [id number] IMPRESSION: 1. Thin late subacute to chronic appearing subdural hematoma overlying the RIG HT frontoparietal convexity measuring 7 mm in maximum dimension. Minimal mass e ffect on the underlying brain parenchyma. No midline shift. 2. Smaller more recent appearing subacute subdural hematoma overlying the LEFT parietal convexity and the vertex with a tiny amount of scattered high attenua tion blood products. Subdural hematoma measures 5 mm in maximum transverse dime nsion. No significant mass effect. Recommend interval follow-up of the subdural hematomas to ensure resolution. 3. Additional small amount of low-attenuation parafalcine subdural hematoma ov erlying the LEFT frontal lobe. 4. Stable RIGHT frontal shunt catheter tip in the RIGHT frontal horn. Stable d ilatation of the ventricular system. No progressed hydrocephalus. 5. Moderate small vessel changes with moderate parenchymal volume loss. 6. Vascular calcification. Notified Yvonne Ugalde MD at 09/03/2022 4:41 PM.
== END 2022-09-03 15:28 | disposition home or self-care (01) ==
LOC: RAD 15:28
PROVIDERS: PCP Electrodiagnostic Medicine; Visit Provider Specialist
DX: R41.3 Other amnesia (principal); F02.80 Dementia in other diseases classified elsewhere, unspecified severity, without behavioral disturbance, psychotic disturbance, mood disturbance, and anxiety; G30.9 Alzheimer's disease, unspecified
CPT/HCPCS: 70450

== ENCOUNTER 2022-09-06 14:15 | Outpatient (CLI) | payer MEDICARE, OTHER, MEDICAID, SELFPAY ==
--- NOTE | 2022-09-06 16:30 | CT_ITS ---
WS: [id number] EXAMINATION: CT head wo con* [id number] REASON FOR EXAM: G30.9 - Alzheimer's disease, unspecified COMPARISON: 09/03/2022 ORDER DATE: 09/06/2022 2:43 PM TOTAL EXAM DLP: 973.[address] scans at [facility] use at least one of these dose optimization techniques: automated ex posure control; mA and/or kV adjustment per patient size (includes targeted exams where dose is match ed to clinical indication); or iterative reconstruction. TECHNIQUE: AXIAL IMAGING WITH 2-D REFORMATS WITHOUT CONTRAST Thin late subacute to chronic RIGHT frontoparietal subdural hematoma with minimal underlying mass effect. This measures approximately 7 mm in maximum transverse dimension. No high attenuation acute blood products. Findings are new since September 28, 2021, but unchanged since previous study. Smaller more recent appearing subacute subdural hematoma overlying the LEFT parietal convexity at the vertex with a tiny amount of scattered high attenuation blood products. Subdural hematoma measures 5 mm in maximum transverse dimension. No significant mass effect. Additional small amount of low-attenuation parafalcine subdural hematoma overlying the LEFT frontal lobe with minimal mass effect. RIGHT frontal shunt catheter with tip in the RIGHT frontal horn. Ventricular size appears stable. No significant progressed hydrocephalus. Vascular calcification. Mild small vessel changes. Moderate parenchymal volume loss. Mastoid air cells are well aerated. Mild mucosal thickening in the paranasal sinuses. Vascular calcification. Normal posterior nasopharynx. CT/CT head wo con* [id number] IMPRESSION: 1. Thin late subacute to chronic appearing subdural hematoma overlying the RIGH T frontoparietal convexity unchanged from the previous study 2. Smaller more recent appearing subacute subdural hematoma overlying the LEFT parietal convexity with a tiny amount of scattered high attenuation blood produ cts is also unchanged from previous. 3. Additional small amount of low-attenuation parafalcine subdural hematoma ove rlying the LEFT frontal lobe unchanged.. 4. Ventricular shunt catheter terminating in the right frontal horn. Stable dil atation of the ventricular system. No progressed hydrocephalus. 5. Moderate small vessel changes with moderate parenchymal volume loss. 6. Vascular calcification.
== END 2022-09-06 14:16 | disposition home or self-care (01) ==
PROVIDERS: PCP Internal Medicine; Visit Provider Specialist
DX: F02.80 Dementia in other diseases classified elsewhere, unspecified severity, without behavioral disturbance, psychotic disturbance, mood disturbance, and anxiety (principal); G30.9 Alzheimer's disease, unspecified
CPT/HCPCS: 70450

== ENCOUNTER 2022-12-16 08:50 | Outpatient (CLI) | payer MEDICARE, OTHER, MEDICAID, SELFPAY ==
--- NOTE | 2022-12-16 08:58 | US_ITS ---
WS: [id number] transvaginal [id number] HISTORY: VAGINAL BLEEDING COMPARISON: 07/27/2013 No midline mass. Patient is status post hysterectomy. No uterine tissue is identified. Neither ovary is identified. There is a very tiny amount of fluid in the RIGHT pelvis without increased vascularity . US/ transvaginal [id number] IMPRESSION: 1. Very tiny amount of fluid in the pelvis. 2. Status post hysterectomy. 3. Neither ovary identified.
== END 2022-12-16 08:51 | disposition home or self-care (01) ==
LOC: RAD 08:53
PROVIDERS: PCP Internal Medicine; Visit Provider Internal Medicine
DX: N93.9 Abnormal uterine and vaginal bleeding, unspecified (principal); Z90.710 Acquired absence of both cervix and uterus
CPT/HCPCS: 76830

== ENCOUNTER → 2023-02-18 09:17 | Outpatient (BNVA) | payer MEDICARE, OTHER, MEDICAID, SELFPAY | PROVIDERS: PCP Internal Medicine; Visit Provider Specialist | DX: G30.9 Alzheimer's disease, unspecified (principal); F02.80 Dementia in other diseases classified elsewhere, unspecified severity, without behavioral disturbance, psychotic disturbance, mood disturbance, and anxiety; S06.5XAA Traumatic subdural hemorrhage with loss of consciousness status unknown, initial encounter; X58.XXXA Exposure to other specified factors, initial encounter | CPT/HCPCS: 99214 ==

== ENCOUNTER 2023-04-25 10:33 | Outpatient (CLI) | payer MEDICARE, OTHER, MEDICAID, SELFPAY ==
--- NOTE | 2023-04-25 10:39 | USCV_ITS ---
Keysha Rodriguez Age: 77 Gender: F : 1945 Exam Date: 04/25/2023 10:56 Ordering Phys: Cristiano Sharpe Technologist: LUL [place] [facility] [place]: [place] BP: 102 / 60 HR: 67 Rhythm: Atrial fibrillation Technical Quality: Adequate MEASUREMENTS (Male / Female) Normal Values 2D ECHO LVOT Diameter 2.0 cm LV Ejection Fraction MOD 2C 68.8 % LV Ejection Fraction 2C AL 69.4 % LA Diameter 2.9 cm LA Width 3.0 cm LA Height 4.4 cm RA Width 2.4 cm RA Height 4.4 cm Aorta at Sinotubular Diameter 2.6 cm IVC Diameter 1.2 cm M-MODE Aortic Annulus Diameter 2.4 cm LA Ao Ratio MM 1.1 MV E Point Septal Separation 0.3 cm DOPPLER AV Peak Velocity 129.0 cm/s LVOT Peak Velocity 77.0 cm/s AV Area Cont Eq vti 1.5 cm squared AV Area Cont Eq pk 1.9 cm squared MV Peak Velocity 186.0 cm/s MV Area PHT 2.1 cm squared MV E' Velocity 85.5 cm/s Mitral E to MV E' Ratio 19.0 Mitral E to LV E' Lateral Ratio 18.6 Mitral E to LV E' Septal Ratio 19.7 TR Peak Velocity 274.1 cm/s TR Peak Gradient 30.1 mmHg TR Mean Velocity 226.6 cm/s TR Mean Gradient 21.5 mmHg TR Velocity Time Integral 90.6 cm TV Peak E Velocity 43.0 cm/s Right Atrial Pressure 3.0 mmHg Pulmonary Artery Systolic Pressu 33.1 mmHg PV Peak Velocity 98.0 cm/s RV Acceleration Time 0.0 s RV Ejection Time 0.3 s RV AcT/ET 0.2 FINDINGS Left Ventricle Normal left ventricular size, systolic function and wall thickness, with no regional wall motion abnormalities. Normal left ventricular wall thickness. Normal diastolic filling pattern. Right Ventricle The right ventricle is normal in size and function. Right Atrium The right atrium is normal in size. Left Atrium The left atrium is normal in size. Mitral Valve Structurally normal mitral valve without significant stenosis or prolapse. There is mild mitral regurgitation. Mitral valve clip in place Aortic Valve Structurally normal aortic valve without significant sclerosis or stenosis. There is trivial aortic regurgitation. Tricuspid Valve Structurally normal tricuspid valve without significant stenosis. There is mild regurgitation. Pulmonary artery systolic pressure is normal. Pulmonic Valve Structurally normal pulmonic valve without significant stenosis. There is no pulmonic regurgitation. Pericardium Normal pericardium without effusion. Aorta Normal ascending aorta dimension. IVC The inferior vena cava appears normal. CONCLUSIONS Lucas Pizano MD (Electronically Signed) Final Date: 25 April 2023 11:52 S
== END 2023-04-25 10:34 | disposition home or self-care (01) ==
LOC: RAD 10:33
PROVIDERS: PCP Internal Medicine; Visit Provider Physician Assistant
DX: I34.0 Nonrheumatic mitral (valve) insufficiency (principal); I48.19 Other persistent atrial fibrillation; Z99.3 Dependence on wheelchair; Z99.81 Dependence on supplemental oxygen; Z98.890 Other specified postprocedural states
CPT/HCPCS: 93306

== ENCOUNTER → 2024-02-18 07:53 | Outpatient (BNVA) | payer MEDICARE, OTHER, MEDICAID, SELFPAY | PROVIDERS: PCP Internal Medicine; Visit Provider Specialist | DX: R41.3 Other amnesia (principal); G30.9 Alzheimer's disease, unspecified; F02.80 Dementia in other diseases classified elsewhere, unspecified severity, without behavioral disturbance, psychotic disturbance, mood disturbance, and anxiety; S06.5XAA Traumatic subdural hemorrhage with loss of consciousness status unknown, initial encounter; X58.XXXA Exposure to other specified factors, initial encounter | CPT/HCPCS: 99213 ==

== ENCOUNTER 2024-07-28 13:27 | Emergency (ER) | payer MEDICARE, OTHER, MEDICAID, SELFPAY ==
[2024-07-28] VITALS (8 sets, daily range): BP systolic 100–128; BP diastolic 41–82; PULSE 58–74; TEMP 36.8; O2SAT 94–98; BMI 24.3
--- NOTE | 2024-07-28 13:44 | CTR_ITS ---
PROCEDURE INFORMATION: Exam: CT Abdomen And Pelvis With Contrast Exam date and time: 07/28/2024 3:11 PM Age: 78 years old Clinical indication: Condition or disease; Other: Rectal bleeding; Prior surgery; Surgery date: 6+ months; Surgery type: Shunt TECHNIQUE: Imaging protocol: Computed tomography of the abdomen and pelvis with contrast. Radiation optimization: All CT scans at this facility use at least one of these dose optimization techniques: automated exposure control; mA and/or kV adjustment per patient size (includes targeted exams where dose is matched to clinical indication); or iterative reconstruction. Contrast material: OMNIPAQUE 350; Contrast volume: 100 ml; Contrast route: INTRAVENOUS (IV); COMPARISON: CT chest abd pel w con* 11/28/2020 8:36 PM RADIATION DOSE METRICS: Total DLP (mGy-cm): 655.96 FINDINGS: Liver: Normal. No mass. Gallbladder and biliary ducts: Cholecystectomy. No ductal dilation. Pancreas: Normal. No ductal dilation. Spleen: Normal. No splenomegaly. Adrenal glands: Normal. No mass. Kidneys and ureters: 1 cm cyst noted in the left kidney. No hydronephrosis. Stomach and bowel: Mild circumferential wall thickening of the rectum. Colonic diverticulosis. No obstruction. Appendix: No evidence of appendicitis. Intraperitoneal space: UNIVERSITY RELATIONS VICE PRESIDENT shunt terminates in the left mid abdomen. No free air. No significant fluid collection. Vasculature: 4.8 cm infrarenal abdominal aortic aneurysm. Lymph nodes: Unremarkable. No enlarged lymph nodes. Urinary bladder: Unremarkable as visualized. Reproductive: Hysterectomy. Bones/joints: No acute fracture. Soft tissues: Unremarkable. CT/CT abdomen pelvis w con* [id number] IMPRESSION: 1. Mild circumferential wall thickening of the rectum most likely reflecting proctitis. 2. Abdominal aortic aneurysm measuring 4.8 cm in size. COMMENTS: Consistent with the [employer]'s Incidental Findings Committee white paper (J Am Jordi Radiol 2018): Any incidental renal lesion less than 1 cm or classified as too small to characterize, or any incidental cystic renal lesion characterized as simple-appearing, is likely benign. No follow-up imaging is recommended for these lesions per consensus recommendations based on imaging criteria.
--- NOTE | 2024-07-28 13:46 | ED_ITS ---
HPI - GI Bleed 2 General: Chief complaint: GI Bleed Stated complaint: GI Bleed Time Seen by Provider: 07/28/24 13:28 Source: patient and EMS Mode of arrival: EMS Limitations: no limitations History of Present Illness: Patient is an 78-year-old female with past medical history of Alzheimer's, Lewy body dementia, and chronic cystitis who is brought into the emergency department by ambulance from [facility] for bleeding, thought to be rectal by staff. She had labs drawn this morning with primary care, no results on these and I am unable to access them. Patient seems to be at baseline mentation, alert to self and place, not to time. EMS is reporting they are at baseline. Patient reports to me that she noticed the blood after wiping after urinating, that she did not have any gross hematochezia or blood in the toilet bowl. Denies ever having bleeding and currently she is not reporting any other symptoms. States that I feel fine and confirms that she is not having any abdominal pain, fevers, or vomiting/diarrhea. Currently her vitals are all within normal limits. No history of cancer, abdominal surgeries. She does have a CLIENT SERVICE PROFESSIONAL shunt in place for normal pressure hydrocephalus, placed about a decade ago. Does not report a history of hemorrhoids or previous GI bleed, and I did not see any record of this in her chart. Reviewing her med list it does appear that she is on apixaban. complaint: blood on toilet paper Onset (ago): hour(s) Severity: mild Relieving factors: none Exacerbating factors: none Associated symptoms: Reports no associated symptoms; Denies abdominal pain, chills, fever(s), headache(s), nausea, rash or vomiting Treatments Prior to Arrival: none Related Data Home Medications ?Medication ?Instructions ?Recorded ?Confirmed furosemide 40 mg tablet 40 mg PO BID 08/19/22 metoprolol succinate 25 mg 25 mg PO DAILY 08/19/2206/09 tablet,extended release 24 hr spironolactone 25 mg tablet 25 mg PO DAILY 08/19/22 bisacodyl 10 mg rectal suppository 10 mg HI DAILY PRN Constipation 02/18/23 07/28/24 (Dulcolax (bisacodyl)) bisacodyl 5 mg tablet,delayed 10 mg PO DAILY PRN Const ipation 02/18/23 07/28/24 release (Dulcolax (bisacodyl)) nitroglycerin 0.4 mg sublingual 0.4 mg sublingual Q5M PRN Chest 02/18/23 07/28/24 tablet Pain acetaminophen 325 mg tablet 650 mg PO Q6H PRN pain or 07/28/24 07/28/24 increased temp magnesium hydroxide 400 mg/5 mL 30 ml PO DAILY PRN Con stipation 07/28/24 07/28/24 oral suspension (Milk of Magnesia) sodium phosphates 19 gram-7 118 ml HI DAILY PRN Consti pation 07/28/24 07/28/24 gram/118 mL enema (Fleet Enema) Previous Rx's ?Medication ?Instructions ?Recorded galantamine 4 mg tablet 4 mg PO BID #180 tabs cefdinir 300 mg capsule 300 mg PO BID 10 days #20 ca ps 07/28/24 Allergies Allergy/AdvReac Type Severity Reaction Status Date / Time No Known Allergies Allergy Verified 02/18/24 07:54 Review of Systems 2 General: Reports: 10 or more systems reviewed and unremarkable except in HPI and below Const: Denies: fever(s), chills, change in appetite, change in weight or diaphoresis ENMT: Denies: throat pain or hoarseness Card: Denies: chest pain, palpitations or lightheadedness Resp: Denies: dyspnea, productive cough or wheezing GI: Reports: other (Rectal bleeding, blood on toilet paper); Denies: abdominal pain, nausea, vomiting, diarrhea, constipation, bloating or change in stool character : Denies: flank pain, difficulty voiding, dysuria, urinary frequency or urinary urgency Musc: Denies: neck pain or back pain Skin/Breast: Denies: rash or new lesions Neuro: Denies: headache(s) or dizziness PFSH ED 2 PFSH: Medical History Chronic cystitis Essential hypertension Alzheimer disease Lewy body dementia Normal pressure hydrocephalus Surgical History Status post ventriculoatrial shunt placement (03/20/15) Right frontal ventriculoperitoneal shunt placement. Codman-Hakim programmable right angle valve at 12 cm H[address] De La Cruz Intracranial shunt Codman-Hakim programmable shunt with right angle valve placed on 03/20/2015 Family History Sister Cancer Family/Other Cancer Paternal Aunt Father Cancer Hypertension Diabetes Other CAD (coronary artery disease) Denies family history of Stroke Social History Smoking and tobacco/nicotine status: never used tobacco/nicotine Alcohol intake: never Substance/Drug Use: never Lives independently: Yes Household members: spouse Marital status: Current occupational status: retired Physical Exam 2 Const: COMMON NORMALS: no acute distress, no limitations, healthy appearing and alert GENERAL APPEARANCE: cooperative and comfortable O RIENTATION/CONSCIOUSNESS: Yes awake, Yes oriented to person and Yes oriented to place HENMT: COMMON NORMALS: atraumatic, moist oral mucous membranes and oropharynx normal HEAD & SCALP: atraumatic and other (CLIENT SERVICE PROFESSIONAL shunt) Eye: COMMON NORMALS: EOMs intact bilaterally and conjunctivae normal C ONJUNCTIVA: Yes conjunctivae normal Neck/C-Spine: COMMON NORMALS: full ROM and no meningeal signs Resp: COMMON NORMALS: normal respiratory effort, No retractions, No use of accessory muscles and clear to auscultation bilaterally AUSCULTATION: clear to auscultation bilaterally Cardio: COMMON NORMALS: regular rate, regular rhythm, S1 normal heart sound present, S2 normal heart sound present, No gallops present (Cardio), No murmurs present (Cardio) and No rub (Cardio) RATE: regular rate RHYTHM: regular rhythm HEART SOUNDS: S1 normal heart sound present and S2 normal heart sound present GI: COMMON NORMALS: Normal to inspection, nondistended, normoactive bowel sounds present, Soft to palpation and non-tender PALPATION: Yes Soft to palpation RECTAL EXAM: visual inspection normal (No obvious hemorrhoids) and no fissure noted OTHER: Normal rectal tone. Hemoccult positive stool. : COMMON NORMALS: Yes no CVA tenderness BLADDER/KIDNEY EXAM: Yes no CVA tenderness OTHER: No obvious bleeding on external vaginal exam Back/Pelvis: COMMON NORMALS: no CVA tenderness Extremity: COMMON NORMALS: normal to inspection, full ROM and no pedal edema Neuro: COMMON NORMALS: moves all extremities, no focal motor deficits and no sensory deficits noted SENSORIUM/ORIENTATION: Yes alert, Yes oriented to person and Yes oriented to place MENINGEAL SIGNS: Yes no meningeal signs Skin: COMMON NORMALS: no rashes or lesions noted GENERAL SKIN EXAM: no rashes or lesions noted Course 2 Vital Signs: Vital signs: Vital Signs Temperature 98.3 F 07/28/24 13:32 Pulse Rate 73 07/28/24 13:37 Blood Pressure 128/82 07/28/24 13:37 Pulse Oximetry 97 07/28/24 13:37 Oxygen Delivery Me thod Room Air 07/28/24 13:37 MDM - GI Bleed Medical Decision Making This patient presented by ambulance for bleeding, it was unknown if rectal or vaginal until on exam found her to be Hemoccult positive by stool and normal external vaginal exam. Her vitals have been within normal limits throughout her ED stay and though she does have a history of Alzheimer's and Lewy body dementia she has not shown any signs of altered mental status. She does have a history of chronic cystitis and on urinalysis does have evidence of a current UTI. Will treat this with antibiotics. Her hemoglobin was normal which does not indicate any acute blood loss anemia, her BUN and creatinine were normal and the rest of her labs essentially unremarkable. On CT there was signs of a proctitis, however indicating cannot rule out a rectal mass and that this needs colorectal screening. I asked the patient when her last colonoscopy was, she had stated it was years ago. For these findings I spoke with on-call general surgeon, Dr. Collins, who had stated that this can follow-up in the office for routine colonoscopy being that she is stable. Patient has maintained throughout ED stay without symptoms and states she is ready to go home. Referred her to general surgery and started her on antibiotics, encouraged her to return if she has any worsening bleeding or any pain. She did verbalize understanding and will be discharged back to senior care. Discussed case with Dr. Deutsch here in the ED. Lab Data 07/28/24 13:56 07/28/24 13:56 Radiology Impressions Abdomen/Pelvis CT 07/28/24 13:44 IMPRESSION: 1. Mild circumferential wall thickening of the rectum most likely reflecting proctitis. 2. Abdominal aortic aneurysm measuring 4.8 cm in size. COMMENTS: Consistent with the [place] [employer]'s Incidental Findings Committee white paper (J Am Jordi Radiol 2018): Any incidental renal lesion less than 1 cm or classified as too small to characterize, or any incidental cystic renal lesion characterized as simple-appearing, is likely benign. No follow-up imaging is recommended for these lesions per consensus recommendations based on imaging criteria. ADDENDUM: 07/28/24 1536 Please note, a rectal mass can not be excluded on CT, please ensure patient is up to date with colorectal screening. Laboratory Results WBC 8.54 10^3/uL (3.29-11.43) 07/28/24 13:56 RBC 3.86 10^6/uL (3.85-5.65) 07/28/24 13:56 Hgb 11.60 g/dL (11.27-16.99) 07/28/24 13:56 Hct 35.5 % (36-47) L 07/28/24 13:56 MCV 92.0 fl (85-98) 07/28/24 13:56 MCH 30.1 pg (27-33) 07/28/24 13:56 MCHC 32.7 g/dL (30-55) 07/28/24 13:56 RDW 12.8 % (12.1-15.1) 07/28/24 13:56 Plt Count 193 10^3/cmm (157-399) 07/28/24 13:56 MPV 8.8 fL (7.4-10.4) 07/28/24 13:56 Neut % (Auto) 71.2 % 07/28/24 13:56 Lymph % (Auto) 15.2 % 07/28/24 13:56 [place] % (Auto) 10.2 % 07/28/24 13:56 Eos % (Auto) 2.2 % 07/28/24 13:56 Baso % (Auto) 0.5 % 07/28/24 13:56 Neut # (Auto) 6.08 10^3/uL (1.8-7.7) 07/28/24 13:56 Lymph # (Auto) 1.3 10^3/uL (0.8-4.8) 07/28/24 13:56 [place] # (Auto) 0.9 10^3/uL (0.2-0.9) 07/28/24 13:56 Eos # (Auto) 0.2 10^3/uL (0.0-0.8) 07/28/24 13:56 Baso # (Auto) 0.0 10^3/uL (0.0-0.1) 07/28/24 13:56 Nucleated RBC % (auto) 0 % 07/28/24 13:56 Nucleated RBCs # 0.0 /100WBC 07/28/24 13:56 Sodium 139 mmol/L (136-145) 07/28/24 13:56 Potassium 3.9 mmol/L (3.5-5.1) 07/28/24 13:56 Chloride 100 mmol/L (98-107) 07/28/24 13:56 Carbon Dioxide 27 mmol/L (22-29) 07/28/24 13:56 Anion Gap 15.9 (5-19) 07/28/24 13:56 BUN 14 mg/dL (8-23) 07/28/24 13:56 Creatinine 0.9 mg/dL (0.5-0.9) 07/28/24 13:56 GFR Calculation Not Reportable 07/28/24 13:56 Glucose 117 mg/dL (65-115) H 07/28/24 13:56 Calculated Osmolality 290 mOsm/kg (285-295) 07/28/24 13:56 Lactic Acid 2.1 mmol/L (0.5-2.2) 07/28/24 13:56 Calcium 8.8 mg/dL (8.5-10.5) 07/28/24 13:56 Total Bilirubin 0.5 mg/dL (0.15-1.2) 07/28/24 13:56 AST 11 U/L (0-32) 07/28/24 13:56 ALT < 5 U/L (0-33) 07/28/24 13:56 Alkaline Phosphatase 109 U/L (35-105) H 07/28/24 13:56 Total Protein 6.5 g/dL (6.6-8.7) L 07/28/24 13:56 Albumin 3.8 g/dL (3.5-5.2) 07/28/24 13:56 Globulin 2.7 g/dL (1.3-4.6) 07/28/24 13:56 Lipase 77 U/L (13-60) H 07/28/24 13:56 Urine Color Yellow (Yellow) 07/28/24 15:00 Urine Appearance Cloudy (CLEAR) A 07/28/24 15:00 Urine pH 7.0 (5-7) 07/28/24 15:00 Ur Specific [place] 1.010 (1.005-1.030) 07/28/24 15:00 Urine Protein Negative (Negative) 07/28/24 15:00 Urine Glucose (UA) Negative (Normal) 07/28/24 15:00 Urine Ketones Negative (Negative) 07/28/24 15:00 Urine Blood 1+ (Negative) A 07/28/24 15:00 Urine Nitrate Positive (Negative) A 07/28/24 15:00 Urine Bilirubin Negative (Negative) 07/28/24 15:00 Urine Urobilinogen 1.0 mg/dL (Negative) 07/28/24 15:00 Ur Leukocyte Esterase 2+ (Negative) A 07/28/24 15:00 Urine RBC 0-2 /hpf (0-2) 07/28/24 15:00 Urine WBC 21-50 /hpf (0-5) H 07/28/24 15:00 Ur Squamous Epith Cells 0-5 /hpf (0-5) 07/28/24 15:00 Amorphous Sediment Not Reportable 07/28/24 15:00 Urine Bacteria 4+ /hpf (NONE) H 07/28/24 15:00 Hyaline Casts 2.05 /lpf 07/28/24 15:00 Coronavirus (PCR) Negative (Negative) 07/28/24 14:55 Influenza A (PCR) Negative (Negative) 07/28/24 14:55 Influenza Type B (PCR) Negative (Negative) 07/28/24 14:55 RSV (PCR) Negative (Negative) 07/28/24 14:55 Blood Type B Negative 07/28/24 13:56 Rho(D) Type Rh negative 07/28/24 13:56 Antibody Screen Negative 07/28/24 13:56 All radiology interpretation(s) finalized by discharge Discharge Plan Discharge Patient Disposition: Home Clinical Impression: Acute proctitis Acute cystitis Qualifiers: Hematuria presence: without hematuria Qualified Code(s): N30.00 - Acute cystitis without hematuria Condition: Stable Prescriptions: New cefdinir 300 mg capsule 300 mg PO BID 10 Days Qty: 20 0RF No Action furosemide 40 mg tablet 40 mg PO BID metoprolol succinate 25 mg tablet extended release 24 hr 25 mg PO DAILY spironolactone 25 mg tablet 25 mg PO DAILY bisacodyl [Dulcolax (bisacodyl)] 5 mg tablet,delayed release (DR/EC) 10 mg PO DAILY PRN (Reason: Constipation) Rx Instructions: if no results from Milk of Mag bisacodyl [Dulcolax (bisacodyl)] 10 mg suppository 10 mg HI DAILY PRN (Reason: Constipation) nitroglycerin 0.4 mg tablet, sublingual 0.4 mg sublingual Q5M PRN (Reason: Chest Pain) Rx Instructions: do not exceed 3 doses per episode galantamine 4 mg tablet 4 mg PO BID Qty: 180 4RF acetaminophen 325 mg Tablet 650 mg PO Q6H PRN (Reason: pain or increased temp) magnesium hydroxide [Milk of Magnesia] 400 mg/5 mL Suspension 30 ml PO DAILY PRN (Reason: Constipation) Fleet Enema 19-7 gram/118 mL Enema 118 ml HI DAILY PRN (Reason: Constipation) Discharge Orders: Discharge ED (Routine); Ordered 07/28/24 Ordered By: Wilder Small Referrals: Tru Mendenhall DO [Primary Care Provider] - Patient Instructions: Proctitis (ED), Urinary Tract Infection in Older Adults (ED) Activity Restrictions/Additional Instructions: Please follow-up with general surgery, await call to schedule appointment. Please take your antibiotics as prescribed. Return with any worsening bleeding, worsening pain, or any fevers. Print Language: Slovak Coding Level of Care Code ED Gem [employer] Cutter for вИан Titus
[2024-07-28 14:14] LABS: Basophils % 0.5 %; Eosinophils # 0.2 10^3/uL (0.0-0.8); Eosinophils % 2.2 %; Hematocrit 35.5 % (36-47); Lymphocytes # 1.3 10^3/uL (0.8-4.8); Lymphocytes % 15.2 %; Mean Corpuscular HGB Conc 32.7 g/dL (30-55); Mean Corpuscular Hemoglobin 30.1 pg (27-33); Mean Platelet Volume 8.8 fL (7.4-10.4); Monocytes # 0.9 10^3/uL (0.2-0.9); Monocytes % 10.2 %; Neutrophils # 6.08 10^3/uL (1.8-7.7); Neutrophils % 71.2 %; Nucleated Red Blood Cells % 0 %; Platelet Count 193 10^3/cmm (157-399); Red Blood Count 3.86 10^6/uL (3.85-5.65); Red Cell Distribution Width 12.8 % (12.1-15.1); White Blood Count 8.54 10^3/uL (3.29-11.43)
[2024-07-28 14:31] LABS: Alanine Aminotransferase < 5 U/L (0-33); Albumin Level 3.8 g/dL (3.5-5.2); Alkaline Phosphatase 109 U/L (35-105); Anion Gap 15.9 (5-19); Aspartate Amino Transferase 11 U/L (0-32); Blood Urea Nitrogen 14 mg/dL (8-23); Calcium 8.8 mg/dL (8.5-10.5); Carbon Dioxide 27 mmol/L (22-29); Chloride 100 mmol/L (98-107); Creatinine Clr Calc Pharmacy 58.2801; Globulin 2.7 g/dL (1.3-4.6); Glucose 117 mg/dL (65-115); Lipase 77 U/L (13-60); Osmolality Calculated 290 mOsm/kg (285-295); Potassium 3.9 mmol/L (3.5-5.1); Sodium 139 mmol/L (136-145); Total Bilirubin 0.5 mg/dL (0.15-1.2); Total Protein 6.5 g/dL (6.6-8.7)
[2024-07-28 14:33] LABS: Lactic Sepsis W/Reflex 2.1 mmol/L (0.5-2.2)
--- NOTE | 2024-07-28 14:57 | PC.PHAR ---
Pt is from [facility]. Current med list does not show Multivitamin, Vitamin b12, Vitamin d, miralax, ibuprofen 200mg, calmoseptine and ELIQUIS 5MG LAST FILL 08/19/22 30DS. Removed from pt med list.
[2024-07-28] MEDS: iohexol 350 mg/mL 500 mL Btl (per mL) IV (15:12)
[2024-07-28 15:26] LABS: Bilirubin Urine Negative (Negative); Blood Urine 1+ (Negative); Glucose Urine UA Negative (Normal); Ketones Urine Negative (Negative); Leukocyte Esterase Urine 2+ (Negative); Nitrate Urine Positive (Negative); Protein Urine Negative (Negative); Urine Appearance Cloudy (CLEAR); Urine Color Yellow (Yellow)
[2024-07-28 15:31] LABS: Add Urine Microscopic? YES; Bacteria Urine 4+ /hpf; Hyaline Casts Urine 2.05 /lpf; RBC Urine 0-2 /hpf (0-2); Squamous Epithelial Cell Urine 0-5 /hpf (0-5); WBC Urine 21-50 /hpf (0-5)
[2024-07-28 15:57] LABS: Reflex Lactate Order REFLEX LACTIC ORDERD
[2024-07-28 15:58] LABS: Add Urine Culture? Yes
[2024-07-28 16:17] LABS: Covid PCR NEGATIVE (Negative); Influenza A NEGATIVE (Negative); Influenza B NEGATIVE (Negative); Respiratory Syncytial Virus Ce NEGATIVE (Negative)
[2024-07-28 17:24] LABS: Lactic Acid level (Lactate) 1.6 mmol/L (0.5-2.2)
--- NOTE | 2024-07-29 08:12 | DCPLANNER ---
message gen surg for er f/u
== END 2024-07-28 17:21 | disposition home or self-care (01) ==
PROVIDERS: Emergency Provider Physician Assistant; PCP Internal Medicine
DX: K62.89 Other specified diseases of anus and rectum (principal); N30.00 Acute cystitis without hematuria; Z11.52 Encounter for screening for COVID-19; I10 Essential (primary) hypertension
CPT/HCPCS: 36415; 74177; 80053; 81001; 83605; 83690; 85025; 86850; 86900; 87086; 87637; 99285

== ENCOUNTER → 2024-08-12 08:21 | Outpatient (BNVA) | payer MEDICARE, OTHER, MEDICAID, SELFPAY | PROVIDERS: PCP Internal Medicine; Visit Provider Student in an Organized Health Care Education/Training Program | DX: K92.1 Melena (principal) | CPT/HCPCS: 99204 ==

== ENCOUNTER 2024-08-31 06:59 | Day surgery (SDC) | payer MEDICARE, OTHER, MEDICAID, SELFPAY ==
[2024-08-31 07:26] VITALS: BP 122/78; PULSE 77; RESP 18; TEMP 36.2; O2SAT 98; BMI 24.4
--- NOTE | 2024-08-31 07:33 | ANES.PREANE2 ---
Pre-Anesthetic Assessment Height/Weight: Height 1.8 m Preop Diagnosis: Screening Operation Date: 08/31/24 08:00 Proposed Procedures p Colonoscopy 39631 G0105 Z12.11 K92.1(Not Applicable) - Adi Collins MD Familial anesthetic complications: none Was Beta Ricky taken within 24 hours: Yes Was Clonidine taken within 24 hours: N/A Last intake: before midnight Social No alcohol and No tobacco Exam alert and clear to auscultation bilaterally Dementia, irregular rhythm, murmur Airway Mallampati: Class II Dentition: full Pulmonary None reported CV/HEM Congestive Heart Failure, Hypertension and Murmur Echo shows EF 68%, trace MR, mitral clip in place. None reported Hepatic None reported GI Gastroesophageal Reflux Disease Metabolic Hyperlipidemia [facility] [place] None reported Neuropsych Dementia Hx. of subdural hematoma, alzheimers. Anesthetic Plan ASA status: 3 Anesthesia: MAC Risk of > 500 ml blood loss (7ml/kg in children): No Medications/Allergies Home Medications ?Medication ?Instructions ?Recorded ?Confirmed ?Last Taken ?Type furosemide 40 mg tablet 40 mg PO BID 08/19/22 08/27/24 08/30/24 History metoprolol succinate 25 mg 25 mg PO DAILY 08/19/22 08/27/24 08/30/24 History tablet,extended release 24 hr spironolactone 25 mg tablet 25 mg PO DAILY 08/19/22 08/27/24 08/30/24 History bisacodyl 10 mg rectal suppository 10 mg DE DAILY PRN Constipation 02/18/23 08/27/24 Unknown History (Dulcolax (bisacodyl)) bisacodyl 5 mg tablet,delayed 10 mg PO DAILY PRN Constipation 02/18/23 08/27/24 04/21/24 History release (Dulcolax (bisacodyl)) nitroglycerin 0.4 mg sublingual 0.4 mg sublingual Q5M PRN Chest 02/18/23 08/27/24 Unknown History tablet Pain galantamine 4 mg tablet 4 mg PO BID #180 tabs 02/18/24 08/27/24 08/30/24 Rx acetaminophen 325 mg tablet 650 mg PO Q6H PRN pain or 07/28/24 08/27/24 07/28/24 History increased temp magnesium hydroxide 400 mg/5 mL 30 ml PO DAILY PRN Constipation 07/28/24 08/27/24 11/24/23 History oral suspension (Milk of Magnesia) sodium phosphates 19 gram-7 118 ml DE DAILY PRN Constipation 07/28/24 08/27/24 Unknown History gram/118 mL enema (Fleet Enema) famotidine 20 mg tablet 20 mg PO BEDTIME 08/12/24 08/27/24 08/30/24 History Allergies Allergy/AdvReac Type Severity Reaction Status Date / Time No Known Allergies Allergy Verified 08/26/24 08:57 [facility] Anesthesia Medical History Chronic cystitis Essential hypertension Alzheimer disease Lewy body dementia Normal pressure hydrocephalus Surgical History Status post ventriculoatrial shunt placement (03/20/15) Right frontal ventriculoperitoneal shunt placement. Codman-Hakim programmable right angle valve at 12 cm H[address] De La Cruz Intracranial shunt Codman-Hakim programmable shunt with right angle valve placed on 03/20/2015 Family History Sister Cancer Family/Other Cancer Paternal Aunt Father Cancer Hypertension Diabetes Other CAD (coronary artery disease) Denies family history of Stroke Social History Smoking and tobacco/nicotine status: never used tobacco/nicotine Alcohol intake: never Substance/Drug Use: never Lives independently: Yes Household members: spouse Marital status: Current occupational status: retired Data Anesthesia Cardiac Studies: Echocardiogram 04/25/23 Echocardiogram Ultrasound 11/29/20
[2024-08-31] MEDS: sodium chloride 0.9% 500 ML 15 ML IV (07:43)
--- NOTE | 2024-08-31 07:58 | W.PM.OPSUD ---
Surgery/Procedure H&P Update DATE OF PROCEDURE: August 31, 2024 DATE H&P PERFORMED: 08/12/24 H&P UPDATE INFORMATION: I have reviewed H&P completed within last 30 days, I have examined patient prior to procedure and No changes to prior documentation PREOP DIAGNOSIS: Screening PLANNED PROCEDURE: Operation Date: 08/31/24 08:00 Proposed Procedures p Colonoscopy 31309 G0105 Z12.11 K92.1(Not Applicable) - Adi Collins MD
[2024-08-31 08:33] VITALS: BP 106/62; PULSE 64; RESP 17; TEMP 36.1; O2SAT 95
[2024-08-31 08:41] VITALS: BP 112/84; PULSE 69; RESP 16; TEMP 36.3; O2SAT 96
[2024-08-31 09:02] VITALS: BP 116/85; PULSE 70; RESP 16; TEMP 36.4; O2SAT 97
--- NOTE | 2024-08-31 13:23 | ANE.PACU2 ---
Inpatient post-anesthesia follow up: Airway intact: Yes Vital signs: Temperature 97.5 F Pulse Rate 70 Respiratory Rate 16 Blood Pressure 116/85 Pulse Oximetry 97 Oxygen Delivery Me thod Room Air Oxygen Flow Rate Fraction of Inspir ed Oxygen Hydration adequate: Yes Nausea and vomiting: No Pain level: 1 Mental status: Baseline Additional Comments: discussed with patient to f/u with PCP or financial service professional about rhythm
== END 2024-08-31 09:31 | disposition home or self-care (01) ==
PROVIDERS: PCP Internal Medicine; Visit Provider Student in an Organized Health Care Education/Training Program
PROC: 0DJD8ZZ Inspection of Lower Intestinal Tract, Via Natural or Artificial Opening Endoscopic (ICD-10-PCS; CPT 45378; principal; 2024-08-31 08:00)
DX: D12.4 Benign neoplasm of descending colon (principal); K57.31 Diverticulosis of large intestine without perforation or abscess with bleeding; K21.9 Gastro-esophageal reflux disease without esophagitis; E78.5 Hyperlipidemia, unspecified; I11.0 Hypertensive heart disease with heart failure; I50.9 Heart failure, unspecified; Z79.899 Other long term (current) drug therapy; G31.83 Neurocognitive disorder with Lewy bodies; F02.80 Dementia in other diseases classified elsewhere, unspecified severity, without behavioral disturbance, psychotic disturbance, mood disturbance, and anxiety; G30.9 Alzheimer's disease, unspecified; Z98.2 Presence of cerebrospinal fluid drainage device
CPT/HCPCS: 45380; 45381; 88305; J2704; J7040

== ENCOUNTER 2024-09-09 08:01 | Oncology outpatient (recurring) (ONCR) | payer MEDICARE, MEDICAID, SELFPAY ==
[2024-09-09 08:48] LABS: Basophils % 0.7 %; Eosinophils # 0.2 10^3/uL (0.0-0.8); Eosinophils % 2.7 %; Hematocrit 39.3 % (36-47); Lymphocytes # 0.9 10^3/uL (0.8-4.8); Lymphocytes % 15.6 %; Mean Corpuscular HGB Conc 33.1 g/dL (30-55); Mean Corpuscular Hemoglobin 30.4 pg (27-33); Mean Corpuscular Volume 91.8 fl (85-98); Mean Platelet Volume 9.1 fL (7.4-10.4); Monocytes # 0.4 10^3/uL (0.2-0.9); Monocytes % 7.4 %; Neutrophils # 4.37 10^3/uL (1.8-7.7); Neutrophils % 73.1 %; Nucleated Red Blood Cells % 0 %; Platelet Count 168 10^3/cmm (157-399); Red Blood Count 4.28 10^6/uL (3.85-5.65); Red Cell Distribution Width 13.1 % (12.1-15.1); Reticulocyte % 1.8 % (0.5-2.0); White Blood Count 5.97 10^3/uL (3.29-11.43)
[2024-09-09 09:14] LABS: Alanine Aminotransferase < 5 U/L (0-33); Albumin Level 4.3 g/dL (3.5-5.2); Alkaline Phosphatase 101 U/L (35-105); Anion Gap 13.8 (5-19); Aspartate Amino Transferase 14 U/L (0-32); Blood Urea Nitrogen 15 mg/dL (8-23); Calcium 9.5 mg/dL (8.5-10.5); Carbon Dioxide 29 mmol/L (22-29); Chloride 100 mmol/L (98-107); Ferritin 273 ng/mL (15-150); Globulin 2.6 g/dL (1.3-4.6); Glucose 103 mg/dL (65-115); Iron 66 ug/dL (37-145); Lactate Dehydrogenase 191 U/L (135-214); Osmolality Calculated 289 mOsm/kg (285-295); Percent Saturation 20.6 % (20-50); Potassium 3.8 mmol/L (3.5-5.1); Sodium 139 mmol/L (136-145); Total Bilirubin 0.5 mg/dL (0.15-1.2); Total Iron Binding Capacity 319 mcg/dl; Total Protein 6.9 g/dL (6.6-8.7); Unsaturated Iron Binding 253 ug/dL (112-347)
[2024-09-09 09:28] LABS: Vitamin B12 301 pg/mL (232-1245)
[2024-09-09 09:31] LABS: Folate Level 16.5 ng/mL (4.8-37.3)
== END 2024-09-13 23:59 | disposition home or self-care (01) ==
PROVIDERS: PCP Internal Medicine; Visit Provider Internal Medicine
DX: K63.89 Other specified diseases of intestine (principal); I50.9 Heart failure, unspecified; D64.9 Anemia, unspecified; F03.90 Unspecified dementia, unspecified severity, without behavioral disturbance, psychotic disturbance, mood disturbance, and anxiety
CPT/HCPCS: 36415; 80053; 82607; 82728; 82746; 83010; 83540; 83550; 83615; 85025; 85045; 86880; 99204

== ENCOUNTER → 2024-09-16 08:47 | Outpatient (BNVA) | payer MEDICARE, OTHER, MEDICAID, SELFPAY | PROVIDERS: PCP Internal Medicine; Visit Provider Student in an Organized Health Care Education/Training Program | DX: Z09 Encounter for follow-up examination after completed treatment for conditions other than malignant neoplasm (principal) | CPT/HCPCS: 99213 ==

== ENCOUNTER 2024-09-24 13:15 | Oncology outpatient (recurring) (ONCR) | payer MEDICARE, OTHER, MEDICAID, SELFPAY ==
--- NOTE | 2024-09-24 13:15 | CTR_ITS ---
PROCEDURE INFORMATION: Exam: CT Chest With Contrast; Diagnostic Exam date and time: 09/24/2024 1:27 PM Age: 79 years old Clinical indication: Mass, lump, or swelling in the chest; Additional info: Colonic mass TECHNIQUE: Imaging protocol: Diagnostic computed tomography of the chest with contrast. Radiation optimization: All CT scans at this facility use at least one of these dose optimization techniques: automated exposure control; mA and/or kV adjustment per patient size (includes targeted exams where dose is matched to clinical indication); or iterative reconstruction. Contrast material: OMNI 350; Contrast volume: 100 ml; Contrast route: INTRAVENOUS (IV); COMPARISON: CT chest abd pel w con* 11/28/2020 8:36 PM RADIATION DOSE METRICS: Total DLP (mGy-cm): 379.31 FINDINGS: Lungs: 5 mm subsolid peripheral nodule in the right lower lobe on series 5/40. No consolidation. Pleural spaces: Unremarkable. No pneumothorax. No pleural effusion. Heart: Moderate cardiomegaly. Coronary arteries: Coronary artery calcifications are present. Lymph nodes: Unremarkable. No enlarged lymph nodes. Vasculature: Prominent bilateral pulmonary arteries suggestive of pulmonary arterial hypertension. Bones/joints: Severe left glenohumeral osteoarthritis. Soft tissues: Unremarkable. CT/CT chest w con* [id number] IMPRESSION: 1. Moderate cardiomegaly. 2. Prominent bilateral pulmonary arteries suggestive of pulmonary arterial hypertension. 3. No evidence of acute intrathoracic process. 4. 5 mm subsolid peripheral nodule in the right lower lobe on series 5/40. No routine follow-up is indicated. (Reference: Barb) References: Barb Rizvi et al. Guidelines for Management of Incidental Pulmonary Nodules Detected on CT Images: From the Fleischner Society 2017. Radiology. 2017;284(1):228-243.
[2024-09-24] MEDS: iohexol 350 mg/mL 500 mL Btl (per mL) IV (13:38)
== END 2024-10-13 23:59 | disposition home or self-care (01) ==
LOC: RAD 09-25 00:01 → ONCMED 09-27 09:14
PROVIDERS: PCP Internal Medicine; Visit Provider Internal Medicine
DX: Z53.9 Procedure and treatment not carried out, unspecified reason; K63.89 Other specified diseases of intestine; I51.7 Cardiomegaly; R91.1 Solitary pulmonary nodule
CPT/HCPCS: 71260; 99213

== ENCOUNTER 2024-11-25 13:15 | Oncology outpatient (recurring) (ONCR) | payer MEDICARE, OTHER, MEDICAID, SELFPAY ==
[2024-11-16] MEDS: iohexol 350 mg/mL 500 mL Btl (per mL) PO (11:16)
--- NOTE | 2024-11-16 12:00 | CTR_ITS ---
PROCEDURE INFORMATION: Exam: CT Chest With Contrast; Diagnostic Exam date and time: 11/16/2024 12:44 PM Age: 79 years old Clinical indication: Condition or disease; Intestinal condition; Mass/lesion; Other: Colonic mass; Prior surgery; Surgery date: 6+ months; Surgery type: Hyst; Colon mass follow up; Additional info: Colonic Dr. Kenroy jean baptiste would like this done 11/16/24 TECHNIQUE: Imaging protocol: Diagnostic computed tomography of the chest with contrast. Radiation optimization: All CT scans at this facility use at least one of these dose optimization techniques: automated exposure control; mA and/or kV adjustment per patient size (includes targeted exams where dose is matched to clinical indication); or iterative reconstruction. Contrast material: OMNIPAQUE 350; Contrast volume: 100 ml; Contrast route: INTRAVENOUS (IV); Other contrast: Oral, omnipaque 350, 50ml; COMPARISON: CT chest w con* [id number] 09/24/2024 1:27 PM RADIATION DOSE METRICS: Total DLP (mGy-cm): 990.28 FINDINGS: Tubes, catheters and devices: Small caliber catheter tracks in the subcutaneous fat of the right anterior chest wall, likely a ventricular peritoneal shunt. Thyroid: Homogeneous thyroid. Lungs: Clear normal lung parenchyma. No features of interstitial lung disease, mass lesion, or infiltrate. Pleural spaces: No pneumothorax. No pleural effusion. Heart: There is severe four-chamber cardiomegaly with particular prominence the right atrium and ventricle. Mitral endoprosthesis is noted. Coronary arteries: No significant coronary artery calcification. Lymph nodes: No enlarged lymph nodes. Vasculature: Normal caliber thoracic aorta with typical branching pattern. Enlarged pulmonary artery tree. Main pulmonary artery trunk measures 4.0 cm. No visible filling defects in the pulmonary arteries. Diaphragm: Tiny sliding hiatal hernia. Bones/joints: No bony destructive change. No destructive bony lesions are seen. Adequate thoracic spinal canal. Moderate stenosis at C7-T1. Bilateral shoulder arthropathy with intra-articular loose bodies on the left. Soft tissues: Unremarkable. PROCEDURE INFORMATION: Exam: CT Abdomen And Pelvis With Contrast Exam date and time: 11/16/2024 12:44 PM Age: 79 years old Clinical indication: Condition or disease; Intestinal condition; Mass/lesion; Other: Colonic mass; Prior surgery; Surgery date: 6+ months; Surgery type: Hyst; Colon mass follow up; Additional info: Colonic massDr. Jasmine would like this done 11/16/24 TECHNIQUE: Imaging protocol: Computed tomography of the abdomen and pelvis with contrast. Radiation optimization: All CT scans at this facility use at least one of these dose optimization techniques: automated exposure control; mA and/or kV adjustment per patient size (includes targeted exams where dose is matched to clinical indication); or iterative reconstruction. Contrast material: OMNIPAQUE 350; Contrast volume: 100 ml; Contrast route: INTRAVENOUS (IV); Other contrast: Oral, omnipaque 350, 50ml; COMPARISON: CT abdomen pelvis w con* [id number] 07/28/2024 3:11 PM RADIATION DOSE METRICS: Total DLP (mGy-cm): 990.28 FINDINGS: Tubes, catheters and devices: Ventriculoperitoneal shunt catheter is in place. Liver: Normal configuration. Homogeneous parenchyma. Gallbladder and biliary ducts: No regional inflammation. No calcified stones. No ductal dilation. Pancreas: No mass or edema. No ductal dilation. Spleen: Normal. No splenomegaly. Adrenal glands: Normal configuration. Kidneys and ureters: Mild bilateral renal atrophy. No evidence of solid renal mass. Intrarenal stone noted in the lower pole of the left kidney. Stomach and bowel: There is high density contrast in the stomach. No gross gastric mass or ulcer. High-density contrast noted throughout the normal caliber small bowel in the proximal colon, limiting assessment of mucosal enhancement pattern. There appears to be lobulated soft tissue at the junction of the descending and sigmoid colon concerning for mass lesion. Colon is also notable for extensive diverticulosis distally without evidence of acute diverticulitis. Appendix: Normal appendix is confirmed. Intraperitoneal space: Trace pelvic free fluid. No free air. Vasculature: Infrarenal abdominal aortic aneurysm is unchanged from prior measuring 4.7 cm AP dimension. No perianeurysmal fibrosis or hemorrhage. Normal caliber iliac arteries. Mesenteric arteries and renal arteries are patent without significant stenosis. Lymph nodes: No enlarged lymph nodes. Urinary bladder: Unremarkable as visualized. Reproductive: Prior hysterectomy. No evidence of vaginal cuff or adnexal mass. Bones/joints: There is long segment posterior element fusion spanning L1 through L4. Degenerative disc and facet disease with thickening of the ligamentum flavum noted at L4-L5 causing mild spinal canal stenosis. There is bilateral neural foraminal stenosis at L4-L5 and L5-S1. Mild bilateral sacroiliac osteoarthritis. Mild bilateral hip arthropathy. Soft tissues: No perineal/perianal abscess or inflammation. No visible skin breakdown. CT/CT chest abdpel w/*[id number] IMPRESSION: 1. No findings of metastatic disease in the chest. 2. Enlarged main pulmonary artery trunk with enlargement of the right heart structures. Findings are most compelling for chronic PA hypertension. IMPRESSION: 1. 2.9 cm soft tissue focus at the junction of the descending and sigmoid colon may be adherent fecal debris but mass lesion is not excluded. Correlate with colonoscopy if the clinical scenario is ambiguous. 2. No findings of metastatic disease in the abdomen or pelvis. No visible liver lesions, adenopathy, or destructive bony lesions. 3. Unchanged fusiform abdominal aortic aneurysm. No perianeurysmal fibrosis or hemorrhage. 4. Intrarenal stone left kidney. No ureteral stones. Mild bilateral renal atrophy.
[2024-11-16 12:37] LABS: Blood Urea Nitrogen 13 mg/dL (8-23)
[2024-11-16] MEDS: iohexol 350 mg/mL 500 mL Btl (per mL) IV (12:46)
[2024-11-25 13:25] LABS: Basophils # 0.1 10^3/uL (0.0-0.1); Basophils % 0.6 %; Eosinophils # 0.2 10^3/uL (0.0-0.8); Eosinophils % 2.3 %; Hematocrit 40.6 % (36-47); Lymphocytes # 1.4 10^3/uL (0.8-4.8); Lymphocytes % 17.3 %; Mean Corpuscular HGB Conc 33.3 g/dL (30-55); Mean Corpuscular Hemoglobin 30.3 pg (27-33); Mean Platelet Volume 9.1 fL (7.4-10.4); Monocytes # 0.8 10^3/uL (0.2-0.9); Monocytes % 10.1 %; Neutrophils # 5.42 10^3/uL (1.8-7.7); Neutrophils % 68.9 %; Nucleated Red Blood Cells % 0 %; Platelet Count 198 10^3/cmm (157-399); Red Blood Count 4.46 10^6/uL (3.85-5.65); Red Cell Distribution Width 13.1 % (12.1-15.1); White Blood Count 7.86 10^3/uL (3.29-11.43)
[2024-11-25 13:45] LABS: Alanine Aminotransferase < 5 U/L (0-33); Albumin Level 4.4 g/dL (3.5-5.2); Alkaline Phosphatase 124 U/L (35-105); Anion Gap 19.4 (5-19); Aspartate Amino Transferase 14 U/L (0-32); Blood Urea Nitrogen 14 mg/dL (8-23); Calcium 9.2 mg/dL (8.5-10.5); Carbon Dioxide 28 mmol/L (22-29); Chloride 97 mmol/L (98-107); Globulin 3.1 g/dL (1.3-4.6); Glucose 115 mg/dL (65-115); Osmolality Calculated 293 mOsm/kg (285-295); Potassium 3.4 mmol/L (3.5-5.1); Sodium 141 mmol/L (136-145); Total Bilirubin 0.4 mg/dL (0.15-1.2); Total Protein 7.5 g/dL (6.6-8.7)
[2024-11-25 14:39] LABS: Folate Level 16.9 ng/mL (4.8-37.3)
[2024-11-25 15:07] LABS: Ferritin 144 ng/mL (15-150); Iron 59 ug/dL (37-145); Percent Saturation 16.2 % (20-50); Total Iron Binding Capacity 364 mcg/dl; Unsaturated Iron Binding 305 ug/dL (112-347)
== END 2024-12-13 23:59 | disposition home or self-care (01) ==
PROVIDERS: Nurse Practitioner; PCP Internal Medicine; Visit Provider Internal Medicine
DX: Z53.9 Procedure and treatment not carried out, unspecified reason (principal); K63.89 Other specified diseases of intestine; D64.9 Anemia, unspecified; F03.90 Unspecified dementia, unspecified severity, without behavioral disturbance, psychotic disturbance, mood disturbance, and anxiety
CPT/HCPCS: 36415; 71260; 74177; 80053; 82565; 82728; 82746; 83540; 83550; 84520; 85025; 99214

== ENCOUNTER → 2025-02-16 07:54 | Outpatient (BNVA) | payer MEDICARE, OTHER, MEDICAID, SELFPAY | PROVIDERS: PCP Internal Medicine; Visit Provider Specialist | DX: G30.9 Alzheimer's disease, unspecified (principal); F02.80 Dementia in other diseases classified elsewhere, unspecified severity, without behavioral disturbance, psychotic disturbance, mood disturbance, and anxiety; S06.5XAA Traumatic subdural hemorrhage with loss of consciousness status unknown, initial encounter; X58.XXXA Exposure to other specified factors, initial encounter | CPT/HCPCS: 99213 ==

== ENCOUNTER 2025-03-03 13:45 | Oncology outpatient (recurring) (ONCR) | payer MEDICARE, OTHER, MEDICAID, SELFPAY ==
[2025-03-03 14:14] LABS: Hematocrit 37.2 % (36-47); Hemoglobin 12.40 g/dL (11.27-16.99); Mean Corpuscular HGB Conc 33.3 g/dL (30-55); Mean Corpuscular Hemoglobin 29.7 pg (27-33); Mean Corpuscular Volume 89.2 fl (85-98); Nucleated Red Blood Cells % 0 %; Platelet Count 168 10^3/cmm (157-399); Red Blood Count 4.17 10^6/uL (3.85-5.65); White Blood Count 6.22 10^3/uL (3.29-11.43)
[2025-03-03 14:36] LABS: Alanine Aminotransferase < 5 U/L (0-33); Albumin Level 4.2 g/dL (3.5-5.2); Alkaline Phosphatase 120 U/L (35-105); Anion Gap 14.8 (5-19); Aspartate Amino Transferase 13 U/L (0-32); Blood Urea Nitrogen 14 mg/dL (8-23); Calcium 9.0 mg/dL (8.5-10.5); Carbon Dioxide 28 mmol/L (22-29); Chloride 102 mmol/L (98-107); Creatinine Clr Calc Pharmacy 61.0594; Globulin 2.8 g/dL (1.3-4.6); Glucose 120 mg/dL (65-115); Iron 51 ug/dL (37-145); Osmolality Calculated 294 mOsm/kg (285-295); Potassium 3.8 mmol/L (3.5-5.1); Sodium 141 mmol/L (136-145); Total Iron Binding Capacity 325 mcg/dl; Total Protein 7.0 g/dL (6.6-8.7); Unsaturated Iron Binding 274 ug/dL (112-347)
== END 2025-03-15 23:59 | disposition home or self-care (01) ==
PROVIDERS: Internal Medicine; PCP Internal Medicine; Visit Provider Internal Medicine
DX: K63.89 Other specified diseases of intestine (principal); D64.9 Anemia, unspecified; G30.9 Alzheimer's disease, unspecified; F02.80 Dementia in other diseases classified elsewhere, unspecified severity, without behavioral disturbance, psychotic disturbance, mood disturbance, and anxiety
CPT/HCPCS: 36415; 80053; 83540; 83550; 85025; 99214

== ENCOUNTER → 2025-03-07 14:28 | Outpatient (BNVA) | payer MEDICARE, OTHER, MEDICAID, SELFPAY | PROVIDERS: PCP Internal Medicine; Referring Provider Internal Medicine; Visit Provider Obstetrics & Gynecology | DX: R30.0 Dysuria (principal); R35.0 Frequency of micturition | CPT/HCPCS: 84315; 87086 ==

== ENCOUNTER 2025-03-10 18:58 | Emergency (ER) | payer MEDICARE, OTHER, MEDICAID, SELFPAY ==
[2025-03-10 18:58] VITALS: BP 106/70; PULSE 64; RESP 18; TEMP 36.5; O2SAT 95; BMI 28.7
--- OUTSIDE RECORDS SUMMARY | 2025-03-10 19:03 | XMS_ITS | Patient Health Record ---
Author Organization [facility] Address [address] [place] [address] Care Team Providers Care Rfid Manager Name Role Phone Za CORNELIUS Tru Primary Care Provider AlejandroMickie Rodriguez Unavailable [phone] Allergies No Known Allergies Reason For Referral No Information Medications Medication SIG (Take, Route, Frequency, Duration) Notes Start Date End Date Status Famotidine 20 MG Tablet 1 tablet at bedtime as needed Orally bid Active Eliquis 5 MG Tablet 1 tablet Orally Twice a day Active Metoprolol Tartrate 25 MG Tablet 1 tablet with food Orally qd Active Furosemide 40 MG Tablet 1 tablet Orally bid Active Spironolactone 25 MG Tablet 1 tablet Orally Once a day Active MiraLax 17 GM/SCOOP Powder as directed Orally Once a day Active Albuterol Sulfate HFA 108 (90 Base) MCG/ACT Aerosol Solution 1 puff as needed Inhalation every 4 hrs Active Donepezil hydrochloride 10 MG Oral Tablet Donepezil hydrochloride 10 MG Oral Tablet 09/29/2018 Not-Taking Amoxicillin-Pot Clavulanate 875-125 MG Tablet 1 tablet Orally every 12 hrs with food; Duration: 10 day(s) Not-Taking Memantine hydrochloride 10 MG Oral Tablet Memantine hydrochloride 10 MG Oral Tablet 09/29/2018 Not-Taking Immunizations Vaccine Route Administration Date Status Comme nts Influenza (whole), CPT 52254 Inactive Unknown 07/17/2018 Administered Social History Tobacco Use: Social History Observation Description Date Details (start date - stop date) Never Smoker NA - NA Social History Drugs/Alcohol: Social Info Question Answer Notes Alcohol Screen (Audit-C) Did you have a drink containing alcohol in the past year? No Points 0 Interpretation Negative Drugs Have you used drugs other than those for medical reasons in the past 12 months? No Tobacco Use: Social Info Question Answer Notes xTobacco Use/Smoking Are you a nonsmoker Additional Details Category Social Info Options Details Drugs/Alcohol: Do you smoke marijuana? De nies Do you drink alcohol? No Problems Problem Type SNOMED Code ICD Code Onset Dates Problem Status W/U Status Risk Notes Problem Urinary retention (327544024) Urinary retention (R33.9) Active confirmed Problem Heart failure (83810341) Congestive heart failure, unspecified HF chronicity, unspecified heart failure type (I50.9) Active confirmed Problem Normal pressure hydrocephalus (25729481) Normal pressure hydrocephalus (G91.2) Active confirmed Problem Indwelling urinary catheter, device (physical object) (42018769) Indwelling Champagne catheter present (Z97.8) Active confirmed Plan Of Treatment No Information Insurance Providers Payer Name Payer Address Payer Phone Subscriber Number Group Number Insured Name Patient Relationship to Insured Coverage Start Date Coverage End Date [place] Medicare [address] [address] [place] [address] [id number] Keysha Avila Self - patient is the insured [place] Medicaid [address] [place] [address] [id number] Keysha Avila Self - patient is the insured for Life Secondary to Medicare [address] [place] [address] [id number] Keysha Avila Self - patient is the insured Medical (General) History Medical History History ICD Code At risk for falls hypertension congestive heart failure alzheimers disease Atrial fibrillation normal pressure hydrocephalus urinary retention Surgical History Surgery Date(Month/Year) mitral valve 04/19/22 shunt head Hospitalization History Reason Date(Month/Year) mitral valve regurgitation 04/06/22
--- NOTE | 2025-03-10 19:06 | CTR_ITS ---
PROCEDURE INFORMATION: Exam: CT Abdomen And Pelvis With Contrast Exam date and time: 03/10/2025 7:32 PM Age: 79 years old Clinical indication: Other: Gi bleed TECHNIQUE: Imaging protocol: Computed tomography of the abdomen and pelvis with contrast. Radiation optimization: All CT scans at this facility use at least one of these dose optimization techniques: automated exposure control; mA and/or kV adjustment per patient size (includes targeted exams where dose is matched to clinical indication); or iterative reconstruction. Contrast material: OMNIPAQUE 350; Contrast volume: 100 ml; Contrast route: INTRAVENOUS (IV); COMPARISON: CT chest abdpel w/*[id number] 11/16/2024 12:44 PM RADIATION DOSE METRICS: Total DLP (mGy-cm): 747.17 FINDINGS: Tubes, catheters and devices: [employer] [facility] shunt terminates within left mid abdomen. Lungs: Unremarkable. Liver: Normal. No mass. Gallbladder and biliary ducts: Cholecystectomy. Pancreas: Normal. No ductal dilation. Spleen: Normal. No splenomegaly. Adrenal glands: Normal. No mass. Kidneys and ureters: 1.0 cm cyst within left kidney. No further imaging follow-up is required. No hydronephrosis. Stomach and bowel: No small bowel obstruction. Colonic diverticulosis without CT evidence of acute diverticulitis. Appendix: No evidence of appendicitis. Intraperitoneal space: Unremarkable. No free air. No significant fluid collection. Vasculature: 4.8 cm infrarenal abdominal aortic aneurysm. Lymph nodes: Unremarkable. No enlarged lymph nodes. Urinary bladder: Unremarkable as visualized. Reproductive: Hysterectomy. Bones/joints: Unremarkable. No acute fracture. Soft tissues: Unremarkable. CT/CT abdomen pelvis w con* [id number] IMPRESSION: 1. Colonic diverticulosis without CT evidence of acute diverticulitis. 2. 4.8 cm infrarenal abdominal aortic aneurysm. COMMENTS: Consistent with the [employer]'s Incidental Findings Committee white paper (J Am Jordi Radiol 2018): Any incidental renal lesion less than 1 cm or classified as too small to characterize, or any incidental cystic renal lesion characterized as simple-appearing, is likely benign. No follow-up imaging is recommended for these lesions per consensus recommendations based on imaging criteria.
--- OUTSIDE RECORDS SUMMARY | 2025-03-10 19:07 | XMS_ITS | Patient Health Record ---
Author Organization [facility] Address [address] [facility] [place] [address] Care Team Providers Care Toolroom Attendant Name Role Phone Tru Menednhall Primary Care Provider AZALIA Dickerson Unavailable [phone] TAWNYA KRAMER Unavailable [phone] Allergies No Known Allergies Reason For Referral No Information Medications Medication SIG (Take, Route, Frequency, Duration) Notes Start Date End Date Status Calmoseptine 0.44-20.6 % as directed Externally Active Donepezil hydrochloride 10 MG Oral Tablet Donepezil hydrochloride 10 MG Oral Tablet *Reorder from [employer] for eRx and Interaction Alerts* 09/29/2018 Not-Taking Nitroglycerin 0.4 MG as directed Sublingual Active Memantine hydrochloride 10 MG Oral Tablet Memantine hydrochloride 10 MG Oral Tablet *Reorder from [employer] for eRx and Interaction Alerts* 09/29/2018 Not-Taking Amoxicillin-Pot Clavulanate 875-125 MG 1 tablet Orally every 12 hrs with food; Duration: 10 day(s) Not-Taking Metoprolol Tartrate 25 MG 1 tablet with food Orally qd Active Albuterol Sulfate HFA 108 (90 Base) MCG/ACT 1 puff as needed Inhalation every 4 hrs Active Spironolactone 25 MG 1 tablet Orally Once a day Active Furosemide 40 MG 1 tablet Orally bid Active MiraLax 17 GM/SCOOP as directed Orally Once a day Active Famotidine 20 MG 1 tablet at bedtime as needed Orally bid Active Eliquis 5 MG 1 tablet Orally Twice a day Active Immunizations Vaccine Route Administration Date Status Comme nts Influenza (whole), CPT 56300 Inactive Unknown 07/17/2018 Administered Problems Problem Type SNOMED Code ICD Code Onset Dates Problem Status W/U Status Risk Notes Problem Urinary incontinence (276196461) Urinary incontinence (R32) Active confirmed Problem History of hysterectomy (414338474) S/P hysterectomy (Z90.710) Active confirmed Problem Normal pressure hydrocephalus (01129843) Normal pressure hydrocephalus (G91.2) Active confirmed Problem Heart failure (17810244) Congestive heart failure, unspecified HF chronicity, unspecified heart failure type (I50.9) Active confirmed Problem Indwelling urinary catheter, device (physical object) (01970524) Indwelling Champagne catheter present (Z97.8) Active confirmed Problem Urinary retention (647078890) Urinary retention (R33.9) Active confirmed history of Encounters Encounter Location Date Provider Diagnosis [facility] [address] [place] [address] 03/16/2024 TAWNYA KRAMER Plan Of Treatment Pending Test Test Name Order Date CULTURE, URINE, ROUTINE (395) 03/04/2024 Insurance Providers Payer Name Payer Address Payer Phone Subscriber Number Group Number Insured Name Patient Relationship to Insured Coverage Start Date Coverage End Date [place] Medicare [employer] [address] [place], [place] [id number] Keysha Avila Self - patient is the insured [place] Medicaid [address] [place], [place] [id number] [phone] [id number] Keysha Avila Self - patient is the insured for Life Secondary to Medicare [address] [place], [place] [id number] Keysha Avila Self - patient is the insured Medical (General) History Medical History History ICD Code At risk for falls hypertension congestive heart failure alzheimers disease Atrial fibrillation normal pressure hydrocephalus urinary retention Surgical History Surgery Date(Month/Year) mitral valve 04/19/22 shunt head Hospitalization History Reason Date(Month/Year) mitral valve regurgitation 04/06/22
--- OUTSIDE RECORDS SUMMARY | 2025-03-10 19:09 | XMS_ITS | Continuity of Care Document ---
Author Organization [employer] ([facility]) Address [address] [place] [address] Insurance Providers Payer Plan Claims Address Claims Phone Policy Number Group Number Relation Employer Guarantor Name Guarantor Guarantor Address Guarantor Phone [place] [facility] [address] [address], [place] [address] tel:[phone] Self Kyesha Rodriguez [address] [place] [id number] [place] [facility] [address], [place] [address] tel:[phone] Self Keysha Rodriguez [address] [place] [id number] [employer] [facility] to [facility] are [address], [place] [address] tel:[phone] [id number] Self Keysha Rodriguez [address] [place] [id number] Problems Condition ICD9 code ICD10 code SNOMED code Start Date End Date S tatus Hypertensive heart disease with heart failure I11.0 03/28/2022 Active Chronic diastolic (congestive) heart failure I50.32 03/28/2022 Active 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 03/28/2022 Active Alzheimer's disease, unspecified G30.9 03/28/2022 Active Dementia with Lewy bodies G31.83 03/28/2022 Active Dysphagia, oropharyngeal phase R13.12 05/01/2024 Active Dementia in other diseases classified elsewhere, mild, without behavioral disturbance, psychotic disturbance, mood disturbance, and anxiety F02.A0 05/22/2022 Active History of falling Z91.81 03/28/2022 Ac tive Nonrheumatic mitral (valve) insufficiency I34.0 03/29/2022 Act alina Presence of other cardiac implants and grafts Z95.818 04/23/2022 Activ e Other persistent atrial fibrillation I48.19 03/28/2022 Active (Idiopathic) normal pressure hydrocephalus G91.2 03/28/2022 Ac tive Presence of cerebrospinal fluid drainage device Z98.2 03/28/2022 Act alina Retention of urine, unspecified R33.9 06/25/2022 Active 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 Refere nce Range COVID-19 Test Viral Antigen null flavor [null] 04/05/2024 05:00 PM See note NEG COVID-19 Test Viral Antigen COVID-19 Test Viral Antigen null flavor [null] 03/29/2024 05:00 PM See note NEG COVID-19 Test Viral Antigen COVID-19 Test Viral Antigen null flavor [null] 03/16/2024 01:35 PM See note POS COVID-19 Test Viral Antigen COVID-19 Test Viral Antigen null flavor [null] 03/15/2024 05:00 PM See note NEG COVID-19 Test Viral Antigen COVID-19 Test Viral Antigen null flavor [null] 03/08/2024 05:00 PM See note NEG COVID-19 Test Viral Antigen COVID-19 Test Viral Antigen null flavor [null] 03/01/2024 05:00 PM See note NEG COVID-19 Test Viral Antigen Allergies, adverse reactions, alerts No known allergies and adverse reactions Immunizations Vaccine Route Date Status COVID-19 Vaccine Unassigned Route of Administration Completed COVID-19 Vaccine Unassigned Route of Administration Completed COVID-19 Vaccine Unassigned Route of Administration Completed COVID-19 Vaccine Unassigned Route of Administration Refused COVID-19 Vaccine Unassigned Route of Administration Refused COVID-19 Vaccine Unassigned Route of Administration Refused Influenza Vaccine Unassigned Route of Administration 1 Completed Influenza Vaccine Unassigned Route of Administration 1 Completed COVID-19 Vaccine Unassigned Route of Administration Refused Medications Medication Instructions Route Dosage Frequency Start Date Stop Date Indications Status Dulcolax (bisacodyl) (bisacodyl) 10 mg suppository (Dulcolax (bisacodyl) (bisacodyl)) 1 suppository, rectal, Once A Day - PRN, Give rectally if can't take p/o, if no results from MOM rectal 1.0 1.0 d 2021 Active Dulcolax (bisacodyl) (bisacodyl) 5 mg tablet,delayed release (DR/EC) (Dulcolax (bisacodyl) (bisacodyl)) 2 tabs/10mg, oral, Once A Day - PRN, Give if no results from MOM oral 1.0 1.0 d 2021 Active Fleet Enema (sodium phosphates) 19-7 gram/118 mL enema (Fleet Enema (sodium phosphates)) 1 application, rectal, Once A Day - PRN, Give fleets if no results from MOM and Dulcolax rectal 1.0 1.0 d 2021 Active galantamine 4 mg tablet (galantamine) 1, oral, Twice A Day oral 1.0 12.0 h 2022 Dementia in other diseases classified elsewhere, mild, without behavioral disturbance, psychotic disturbance, mood disturbance, and anxiety Active Lasix (furosemide) 40 mg tablet (Lasix (furosemide)) 1, oral, Twice A Day oral 1.0 12.0 h 2022 Pulmonary hypertension due to left heart disease Active metoprolol succinate 25 mg tablet extended release 24 hr (metoprolol succinate) 1, oral, Once A Day oral 1.0 1.0 d 2021 Pulmonary hypertension due to left heart disease Active Milk of Magnesia (magnesium hydroxide) 400 mg/5 mL suspension (Milk of Magnesia (magnesium hydroxide)) 30 ml, oral, Once A Day - PRN, if no BM in 3 daysDO NOT GIVE TO RENAL PATIENTS--GO TO DULCOLAX ORDERS oral 1.0 1.0 d 2021 Active nitroglycerin 0.4 mg tablet, sublingual (nitroglycerin) 1-3, sublingual, Three Times A Day - PRN, Administer 1 tablet sublingually every 5 min for chest pain. NO MORE than 3 tablets. Monitor BP and HOLD if SBP less than or equal to 90. sublingua l 1.0 8.0 h 2021 Active spironolactone 25 mg tablet (spironolactone ) 1, oral, Once A Day, Clinical Indication:HT N oral 1.0 1.0 d 10/14 Active Tylenol (acetaminophen) 325 mg tablet (Tylenol (acetaminophen) ) 2 tabs/650mg, oral, Every 6 Hours - PRN, as needed for PRN pain/increase d tempMay give rectally if necessary oral 1.0 6.0 h 2021 Active spironolactone 25 mg tablet (spironolactone ) 1 tab, oral, Once A Day, 1 tab daily x 4 days due to wt gain of 2.8lbs in 24 hours oral 1.0 1.0 d 06/09 Active famotidine 20 mg tablet (famotidine) 1, oral, At Bedtime oral 1.0 2024 Active cefdinir 300 mg capsule (cefdinir) 1 cap, oral, Twice A Day oral 1.0 12.0 h 08/07 Active cefdinir 300 mg capsule (cefdinir) 1 cap, oral, Twice A Day oral 1.0 12.0 h 07/28 Active Dulcolax (bisacodyl) (bisacodyl) 5 mg tablet,delayed release (DR/EC) (Dulcolax (bisacodyl) (bisacodyl)) 4 tablets, oral, Once - One Time, Take 4 tablets at 2 pm oral 1.0 08/30 Active magnesium citrate - solution (magnesium citrate) 1 bottle, oral, Once - One Time, Drink entire bottle with in 30 min oral 1.0 08/30 Active Calmoseptine (menthol-zinc oxide) 0.44-20.6 % ointment (Calmoseptine (menthol-zinc oxide)) 1 application, topical, Every Shift, Buttock: Cleanse area with NS and gauze, apply thin layer to open area on right buttock and red area on bilateral buttock. topical 1.0 8.0 h 2024 Active spironolactone 25 mg tablet (spironolactone ) / tab= 12.5mg, oral, Once A Day oral 1.0 1.0 d 2024 Pulmonary hypertension due to left heart disease Active memantine 5 mg tablet (memantine) 1, oral, Once A Day oral 1.0 1.0 d 02/23 Active nystatin 100,000 unit/gram powder (nystatin) apply under breast, topical, Every Shift, Apply to red areas under breast till healed then dc topical 1.0 8.0 h 2024 Active Macrobid (nitrofurantoin monohyd/m-cryst ) 100 mg capsule (Macrobid (nitrofurantoin monohyd/m-cryst )) 1 tablet, oral, Twice A Day oral 1.0 12.0 h 01/23 Active memantine 5 mg tablet (memantine) 1, oral, Twice A Day oral 1.0 12.0 h 03/03 Active memantine 5 mg tablet (memantine) 1, oral, Once A Morning oral 1.0 03/11 Active memantine 10 mg tablet (memantine) 1, oral, At Bedtime oral 1.0 03/11 Active Macrobid (nitrofurantoin monohyd/m-cryst ) 100 mg capsule (Macrobid (nitrofurantoin monohyd/m-cryst )) 1 cap, oral, Twice A Day oral 1.0 12.0 h 03/16 Active Vital Signs Date Vital Result Comment 05/25/2024 09:47 PM Temperature (8310-5) 97.4 [degF] Oxygen Saturation (17381-7) 94 % Respiratory Rate (9279-1) 18 /min Heart Rate (8867-4) 58 /min Blood Pressure Systolic (8480-6) 110 mm[Hg] Blood Pressure Diastolic (8462-4) 75 mm[Hg] 05/25/2024 09:14 AM Oxygen Saturation (66801-9) 99 % 05/25/2024 09:13 AM Temperature (8310-5) 98 [degF] Oxygen Saturation (46900-5) 99 % Respiratory Rate (9279-1) 18 /min Heart Rate (8867-4) 66 /min Blood Pressure Systolic (8480-6) 103 mm[Hg] Blood Pressure Diastolic (8462-4) 63 mm[Hg] 05/25/2024 09:12 AM Body Weight (37386-1) 172.6 [lb_av ] Body Mass Index (65208-3) 24.07 kg/m2 05/24/2024 09:39 PM Temperature (8310-5) 98.5 [degF] Respiratory Rate (9279-1) 17 /min Heart Rate (8867-4) 91 /min Blood Pressure Systolic (8480-6) 179 mm[Hg] Blood Pressure Diastolic (8462-4) 98 mm[Hg] 05/24/2024 09:38 PM Oxygen Saturation (40578-0) 99 % 05/24/2024 11:09 AM Body Weight (95292-0) 178.6 [lb_av ] Body Mass Index (99181-4) 24.91 kg/m2 05/24/2024 08:43 AM Temperature (8310-5) 97.7 [degF] Oxygen Saturation (66139-6) 97 % Respiratory Rate (9279-1) 18 /min Heart Rate (8867-4) 77 /min Blood Pressure Systolic (8480-6) 117 mm[Hg] Blood Pressure Diastolic (8462-4) 74 mm[Hg] 05/24/2024 08:00 AM Oxygen Saturation (50732-1) 97 % 05/24/2024 12:28 AM Temperature (8310-5) 97.5 [degF] Respiratory Rate (9279-1) 18 /min Heart Rate (8867-4) 71 /min Blood Pressure Systolic (8480-6) 116 mm[Hg] Blood Pressure Diastolic (8462-4) 63 mm[Hg] 05/23/2024 09:56 PM Oxygen Saturation (41960-2) 96 % 05/23/2024 11:36 AM Temperature (8310-5) 97.7 [degF] Oxygen Saturation (28033-8) 97 % Respiratory Rate (9279-1) 17 /min Heart Rate (8867-4) 77 /min Blood Pressure Systolic (8480-6) 120 mm[Hg] Blood Pressure Diastolic (8462-4) 66 mm[Hg] 05/23/2024 10:44 AM Body Weight (43375-8) 173 [lb_av] Body Mass Index (67337-5) 24.13 kg/m2 05/22/2024 10:42 PM Temperature (8310-5) 98.1 [degF] Respiratory Rate (9279-1) 18 /min Heart Rate (8867-4) 69 /min Blood Pressure Systolic (8480-6) 116 mm[Hg] Blood Pressure Diastolic (8462-4) 68 mm[Hg] 05/22/2024 10:41 PM Oxygen Saturation (81144-2) 97 % 05/22/2024 04:16 PM Temperature (8310-5) 97.8 [degF] Oxygen Saturation (57982-2) 95 % Respiratory Rate (9279-1) 18 /min Heart Rate (8867-4) 72 /min Blood Pressure Systolic (8480-6) 122 mm[Hg] Blood Pressure Diastolic (8462-4) 71 mm[Hg] 05/22/2024 09:04 AM Body Weight (00536-4) 172.8 [lb_av ] Body Mass Index (29237-1) 24.1 kg/m2 05/21/2024 11:38 PM Temperature (8310-5) 98 [degF] Respiratory Rate (9279-1) 20 /min Heart Rate (8867-4) 69 /min Blood Pressure Systolic (8480-6) 127 mm[Hg] Blood Pressure Diastolic (8462-4) 66 mm[Hg] 05/21/2024 09:00 AM Body Weight (65145-0) 173.3 [lb_av ] Body Mass Index (72365-8) 24.17 kg/m2 05/21/2024 08:59 AM Temperature (8310-5) 97.8 [degF] Respiratory Rate (9279-1) 18 /min Heart Rate (8867-4) 63 /min Blood Pressure Systolic (8480-6) 112 mm[Hg] Blood Pressure Diastolic (8462-4) 59 mm[Hg] 05/20/2024 09:15 AM Body Weight (94223-4) 172.6 [lb_av ] Body Mass Index (19846-5) 24.07 kg/m2 05/19/2024 09:40 AM Body Weight (98225-1) 173.8 [lb_av ] Body Mass Index (99604-0) 24.24 kg/m2 05/18/2024 09:14 AM Body Weight (62124-8) 173.8 [lb_av ] Body Mass Index (46265-0) 24.24 kg/m2 05/17/2024 08:44 AM Body Weight (30680-6) 173.6 [lb_av ] Body Mass Index (64147-2) 24.21 kg/m2 05/16/2024 08:49 AM Body Weight (89798-7) 172.6 [lb_av ] Body Mass Index (36347-7) 24.07 kg/m2 05/15/2024 05:22 PM Body Weight (31434-6) 173 [lb_av] Body Mass Index (96117-0) 24.13 kg/m2 05/14/2024 07:52 AM Body Weight (29898-6) 170.8 [lb_av ] Body Mass Index (28100-7) 23.82 kg/m2 05/13/2024 09:06 AM Body Weight (38334-6) 171.3 [lb_av ] Body Mass Index (57956-9) 23.89 kg/m2 05/12/2024 08:12 AM Body Weight (56428-7) 173.6 [lb_av ] Body Mass Index (07354-1) 24.21 kg/m2 05/11/2024 06:32 AM Body Weight (47761-2) 171.2 [lb_av ] Body Mass Index (33110-2) 23.87 kg/m2 05/10/2024 07:52 AM Body Weight (90356-9) 173.6 [lb_av ] Body Mass Index (57506-0) 24.21 kg/m2 05/09/2024 09:12 AM Body Weight (30070-3) 173.9 [lb_av ] Body Mass Index (32871-9) 24.25 kg/m2 05/08/2024 04:21 PM Body Weight (68470-6) 173.6 [lb_av ] Body Mass Index (19736-3) 24.21 kg/m2 05/06/2024 06:58 AM Body Weight (41473-5) 170 [lb_av] Body Mass Index (18429-0) 23.71 kg/m2 05/05/2024 02:09 PM Body Weight (73895-7) 175 [lb_av] Body Mass Index (15091-6) 24.4 kg/m2 05/04/2024 11:30 AM Body Weight (04353-1) 171.2 [lb_av ] Body Mass Index (13886-7) 23.87 kg/m2 05/03/2024 06:46 AM Body Weight (52534-5) 171.4 [lb_av ] Body Mass Index (61060-1) 23.9 kg/m2 05/02/2024 12:27 PM Body Weight (23082-0) 172.8 [lb_av ] Body Mass Index (38113-2) 24.1 kg/m2 05/01/2024 02:42 PM Body Weight (85924-8) 173.4 [lb_av ] Body Mass Index (83546-6) 24.18 kg/m2 04/30/2024 06:47 PM Body Weight (60483-8) 173 [lb_av] Body Mass Index (92297-0) 24.13 kg/m2 04/29/2024 11:07 AM Body Weight (00625-1) 171.4 [lb_av ] Body Mass Index (51880-4) 23.9 kg/m2 04/28/2024 11:32 AM Body Weight (48831-8) 171.2 [lb_av ] Body Mass Index (20825-4) 23.87 kg/m2 04/27/2024 08:25 AM Body Weight (91997-7) 171.2 [lb_av ] Body Mass Index (79825-0) 23.87 kg/m2 04/26/2024 04:22 PM Body Weight (89856-5) 171.2 [lb_av ] Body Mass Index (66928-9) 23.87 kg/m2 04/25/2024 08:09 PM Body Weight (45629-9) 171.1 [lb_av ] Body Mass Index (99206-3) 23.86 kg/m2 04/24/2024 04:56 PM Body Weight (79998-0) 171.3 [lb_av ] Body Mass Index (96849-5) 23.89 kg/m2 04/23/2024 01:57 PM Body Weight (40012-0) 171 [lb_av] Body Mass Index (09615-8) 23.85 kg/m2 04/22/2024 04:32 PM Body Weight (61994-7) 171 [lb_av] Body Mass Index (69008-4) 23.85 kg/m2 04/21/2024 10:31 AM Body Weight (48171-5) 171.2 [lb_av ] Body Mass Index (68558-2) 23.87 kg/m2 04/20/2024 04:10 PM Body Weight (29893-8) 171.4 [lb_av ] Body Mass Index (94952-5) 23.9 kg/m2 04/19/2024 01:56 PM Body Weight (25142-7) 172 [lb_av] Body Mass Index (29410-1) 23.99 kg/m2 04/18/2024 08:56 AM Body Weight (47571-2) 174.2 [lb_av ] Body Mass Index (88186-8) 24.29 kg/m2 04/17/2024 02:59 PM Body Weight (72721-8) 174 [lb_av] Body Mass Index (47173-3) 24.27 kg/m2 04/16/2024 04:06 PM Body Weight (12189-5) 173 [lb_av] Body Mass Index (63989-8) 24.13 kg/m2 04/15/2024 12:39 PM Body Weight (59157-4) 170.4 [lb_av ] Body Mass Index (32038-1) 23.76 kg/m2 04/14/2024 05:39 PM Body Weight (95254-2) 170.6 [lb_av ] Body Mass Index (27488-2) 23.79 kg/m2 04/13/2024 08:31 AM Body Weight (84035-4) 170 [lb_av] Body Mass Index (99017-9) 23.71 kg/m2 04/12/2024 02:03 PM Body Weight (82037-8) 169.8 [lb_av ] Body Mass Index (31232-0) 23.68 kg/m2 04/10/2024 03:16 PM Body Weight (98136-3) 170.2 [lb_av ] Body Mass Index (39051-1) 23.74 kg/m2 04/07/2024 05:28 PM Body Weight (80014-7) 169.4 [lb_av ] Body Mass Index (64129-3) 23.62 kg/m2 04/05/2024 10:19 AM Body Weight (99669-8) 168.6 [lb_av ] Body Mass Index (71492-5) 23.51 kg/m2 04/04/2024 03:50 PM Body Weight (86650-3) 171 [lb_av] Body Mass Index (41775-8) 23.85 kg/m2 04/03/2024 04:00 PM Body Weight (60489-5) 170.8 [lb_av ] Body Mass Index (32620-7) 23.82 kg/m2 04/02/2024 03:52 PM Body Weight (63494-2) 171.2 [lb_av ] Body Mass Index (25732-5) 23.87 kg/m2 04/01/2024 03:25 PM Body Weight (18631-4) 172.2 [lb_av ] Body Mass Index (75723-2) 24.01 kg/m2 03/31/2024 02:22 PM Body Weight (55092-8) 170.8 [lb_av ] Body Mass Index (86859-6) 23.82 kg/m2 03/30/2024 04:14 PM Body Weight (61674-3) 170 [lb_av] Body Mass Index (13545-8) 23.71 kg/m2 03/29/2024 09:10 AM Body Weight (52052-7) 169.8 [lb_av ] Body Mass Index (88518-1) 23.68 kg/m2 03/28/2024 03:38 PM Body Weight (55599-5) 170.5 [lb_av ] Body Mass Index (34394-4) 23.78 kg/m2 03/27/2024 08:29 AM Body Weight (01841-5) 171 [lb_av] Body Mass Index (92179-1) 23.85 kg/m2 03/26/2024 03:05 PM Body Weight (04339-6) 168.6 [lb_av ] Body Mass Index (41598-5) 23.51 kg/m2 03/25/2024 07:44 AM Body Weight (20456-9) 166.4 [lb_av ] Body Mass Index (54412-8) 23.21 kg/m2 03/24/2024 07:59 AM Body Weight (12544-3) 165.8 [lb_av ] Body Mass Index (45828-9) 23.12 kg/m2 03/22/2024 12:54 PM Body Weight (07691-7) 167 [lb_av] Body Mass Index (30995-8) 23.29 kg/m2 03/21/2024 11:23 AM Body Weight (24915-4) 168.4 [lb_av ] Body Mass Index (63827-2) 23.48 kg/m2 03/20/2024 12:23 PM Body Weight (88421-8) 168 [lb_av] Body Mass Index (02904-4) 23.43 kg/m2 03/19/2024 10:54 AM Body Weight (25122-5) 168 [lb_av] Body Mass Index (12937-4) 23.43 kg/m2 03/18/2024 09:51 AM Body Weight (21860-4) 167.8 [lb_av ] Body Mass Index (44848-1) 23.4 kg/m2 03/17/2024 03:04 PM Body Weight (26989-1) 167.8 [lb_av ] Body Mass Index (79648-9) 23.4 kg/m2 03/16/2024 07:39 AM Body Weight (93204-4) 167.2 [lb_av ] Body Mass Index (19854-3) 23.32 kg/m2 03/15/2024 10:03 AM Body Weight (24889-8) 169.2 [lb_av ] Body Mass Index (22414-7) 23.6 kg/m2 03/14/2024 09:38 AM Body Weight (75565-3) 170.4 [lb_av ] Body Mass Index (38381-4) 23.76 kg/m2 03/13/2024 11:22 AM Body Weight (84440-6) 171 [lb_av] Body Mass Index (05543-3) 23.85 kg/m2 03/12/2024 09:40 AM Body Weight (03960-5) 168.8 [lb_av ] Body Mass Index (67337-5) 23.54 kg/m2 03/11/2024 03:41 PM Body Weight (92883-4) 170.2 [lb_av ] Body Mass Index (64064-4) 23.74 kg/m2 03/10/2024 12:43 PM Body Weight (59169-5) 169.8 [lb_av ] Body Mass Index (05525-4) 23.68 kg/m2 03/08/2024 08:36 AM Body Weight (27163-6) 167 [lb_av] Body Mass Index (22261-4) 23.29 kg/m2 03/07/2024 02:15 PM Body Weight (48180-9) 168.6 [lb_av ] Body Mass Index (16856-7) 23.51 kg/m2 03/06/2024 03:09 PM Body Weight (26116-4) 168.1 [lb_av ] Body Mass Index (31334-1) 23.44 kg/m2 03/05/2024 01:42 PM Body Weight (47829-0) 168.8 [lb_av ] Body Mass Index (36380-0) 23.54 kg/m2 03/04/2024 08:41 AM Body Weight (25664-1) 169.8 [lb_av ] Body Mass Index (43240-7) 23.68 kg/m2 03/03/2024 09:21 AM Body Weight (88887-0) 168.6 [lb_av ] Body Mass Index (27665-3) 23.51 kg/m2 03/02/2024 02:41 PM Body Weight (83441-2) 170.6 [lb_av ] Body Mass Index (71194-8) 23.79 kg/m2 03/01/2024 09:54 AM Body Weight (29753-4) 169.4 [lb_av ] Body Mass Index (95329-7) 23.62 kg/m2 02/29/2024 09:56 AM Body Weight (88437-7) 170 [lb_av] Body Mass Index (30671-8) 23.71 kg/m2 02/28/2024 01:54 PM Body Weight (13859-2) 170.6 [lb_av ] Body Mass Index (04104-7) 23.79 kg/m2 02/27/2024 04:31 PM Body Weight (31991-0) 169.8 [lb_av ] Body Mass Index (81205-0) 23.68 kg/m2 02/26/2024 12:13 PM Body Weight (21343-3) 169.8 [lb_av ] Body Mass Index (74929-2) 23.68 kg/m2 03/28/2022 11:34 PM Body Height (8302-2) 71 [in_us] 05/26/2024 09:53 AM Body Weight (43447-3) 173.6 [lb_av ] Body Mass Index (13664-5) 24.21 kg/m2 05/26/2024 09:52 AM Temperature (8310-5) 98.2 [degF] Oxygen Saturation (26579-8) 96 % Respiratory Rate (9279-1) 16 /min Heart Rate (8867-4) 80 /min Blood Pressure Systolic (8480-6) 128 mm[Hg] Blood Pressure Diastolic (8462-4) 76 mm[Hg] 05/26/2024 10:37 PM Temperature (8310-5) 97.4 [degF] Oxygen Saturation (09238-0) 97 % Respiratory Rate (9279-1) 18 /min Heart Rate (8867-4) 56 /min Blood Pressure Systolic (8480-6) 109 mm[Hg] Blood Pressure Diastolic (8462-4) 74 mm[Hg] 05/26/2024 08:45 PM Oxygen Saturation (29649-4) 97 % 05/28/2024 03:37 PM Body Weight (26973-0) 174.8 [lb_av ] Body Mass Index (27980-0) 24.38 kg/m2 05/28/2024 09:26 AM Temperature (8310-5) 97.8 [degF] Oxygen Saturation (81552-5) 93 % Respiratory Rate (9279-1) 17 /min Heart Rate (8867-4) 74 /min Blood Pressure Systolic (8480-6) 113 mm[Hg] Blood Pressure Diastolic (8462-4) 65 mm[Hg] 05/27/2024 10:35 PM Temperature (8310-5) 98.2 [degF] Respiratory Rate (9279-1) 18 /min Heart Rate (8867-4) 78 /min Blood Pressure Systolic (8480-6) 122 mm[Hg] Blood Pressure Diastolic (8462-4) 78 mm[Hg] 05/27/2024 06:43 PM Oxygen Saturation (38340-6) 97 % 05/27/2024 10:45 AM Oxygen Saturation (59693-8) 95 % 05/27/2024 10:44 AM Body Weight (19278-3) 174 [lb_av] Body Mass Index (83817-9) 24.27 kg/m2 05/27/2024 08:41 AM Temperature (8310-5) 97.8 [degF] Oxygen Saturation (22353-9) 95 % Respiratory Rate (9279-1) 16 /min Heart Rate (8867-4) 81 /min Blood Pressure Systolic (8480-6) 111 mm[Hg] Blood Pressure Diastolic (8462-4) 76 mm[Hg] 05/29/2024 11:34 AM Temperature (8310-5) 97.8 [degF] Oxygen Saturation (68873-3) 96 % Respiratory Rate (9279-1) 18 /min Heart Rate (8867-4) 75 /min Blood Pressure Systolic (8480-6) 126 mm[Hg] Blood Pressure Diastolic (8462-4) 74 mm[Hg] 05/28/2024 11:22 PM Temperature (8310-5) 98.1 [degF] Oxygen Saturation (04831-6) 96 % Respiratory Rate (9279-1) 18 /min Heart Rate (8867-4) 71 /min Blood Pressure Systolic (8480-6) 122 mm[Hg] Blood Pressure Diastolic (8462-4) 67 mm[Hg] 05/30/2024 01:52 PM Body Weight (03106-0) 174.2 [lb_av ] Body Mass Index (18711-4) 24.29 kg/m2 05/30/2024 01:12 PM Temperature (8310-5) 98.4 [degF] Oxygen Saturation (12748-8) 97 % Respiratory Rate (9279-1) 18 /min Heart Rate (8867-4) 76 /min Blood Pressure Systolic (8480-6) 124 mm[Hg] Blood Pressure Diastolic (8462-4) 73 mm[Hg] 05/29/2024 10:08 PM Temperature (8310-5) 98.2 [degF] Oxygen Saturation (76246-0) 97 % Respiratory Rate (9279-1) 18 /min Heart Rate (8867-4) 73 /min Blood Pressure Systolic (8480-6) 119 mm[Hg] Blood Pressure Diastolic (8462-4) 71 mm[Hg] 05/29/2024 04:14 PM Body Weight (89582-9) 174.4 [lb_av ] Body Mass Index (51613-7) 24.32 kg/m2 05/30/2024 10:10 PM Temperature (8310-5) 98.1 [degF] Oxygen Saturation (51445-7) 97 % Respiratory Rate (9279-1) 18 /min Heart Rate (8867-4) 69 /min Blood Pressure Systolic (8480-6) 117 mm[Hg] Blood Pressure Diastolic (8462-4) 68 mm[Hg] 05/31/2024 08:28 PM Temperature (8310-5) 98.4 [degF] Oxygen Saturation (68933-2) 96 % Respiratory Rate (9279-1) 18 /min Heart Rate (8867-4) 70 /min Blood Pressure Systolic (8480-6) 128 mm[Hg] Blood Pressure Diastolic (8462-4) 78 mm[Hg] 05/31/2024 08:15 AM Body Weight (07073-9) 173.6 [lb_av ] Body Mass Index (99797-8) 24.21 kg/m2 05/31/2024 08:14 AM Temperature (8310-5) 98.3 [degF] Oxygen Saturation (03445-9) 93 % Respiratory Rate (9279-1) 18 /min Heart Rate (8867-4) 69 /min Blood Pressure Systolic (8480-6) 111 mm[Hg] Blood Pressure Diastolic (8462-4) 69 mm[Hg] 06/01/2024 10:18 PM Temperature (8310-5) 97.1 [degF] Oxygen Saturation (02240-4) 98 % Respiratory Rate (9279-1) 18 /min Heart Rate (8867-4) 80 /min Blood Pressure Systolic (8480-6) 114 mm[Hg] Blood Pressure Diastolic (8462-4) 78 mm[Hg] 06/01/2024 08:14 AM Body Weight (41767-5) 172.2 [lb_av ] Body Mass Index (84104-1) 24.01 kg/m2 06/01/2024 08:13 AM Temperature (8310-5) 97.5 [degF] Oxygen Saturation (42038-9) 97 % Respiratory Rate (9279-1) 16 /min Heart Rate (8867-4) 68 /min Blood Pressure Systolic (8480-6) 129 mm[Hg] Blood Pressure Diastolic (8462-4) 83 mm[Hg] 06/03/2024 06:39 AM Oxygen Saturation (65598-4) 94 % 06/02/2024 10:16 PM Temperature (8310-5) 97.1 [degF] Oxygen Saturation (81355-1) 96 % Respiratory Rate (9279-1) 16 /min Heart Rate (8867-4) 65 /min Blood Pressure Systolic (8480-6) 125 mm[Hg] Blood Pressure Diastolic (8462-4) 83 mm[Hg] 06/02/2024 05:42 PM Body Weight (62786-7) 172.6 [lb_av ] Body Mass Index (59268-5) 24.07 kg/m2 06/02/2024 05:38 PM Temperature (8310-5) 97.5 [degF] Oxygen Saturation (60252-3) 94 % Respiratory Rate (9279-1) 16 /min Heart Rate (8867-4) 81 /min Blood Pressure Systolic (8480-6) 122 mm[Hg] Blood Pressure Diastolic (8462-4) 68 mm[Hg] 06/03/2024 08:15 PM Temperature (8310-5) 98.4 [degF] Oxygen Saturation (33487-0) 94 % Respiratory Rate (9279-1) 18 /min Heart Rate (8867-4) 76 /min Blood Pressure Systolic (8480-6) 120 mm[Hg] Blood Pressure Diastolic (8462-4) 58 mm[Hg] 06/03/2024 09:12 AM Body Weight (91944-1) 173 [lb_av] Body Mass Index (50733-0) 24.13 kg/m2 06/03/2024 08:55 AM Temperature (8310-5) 97.8 [degF] Oxygen Saturation (14503-3) 94 % Respiratory Rate (9279-1) 18 /min Heart Rate (8867-4) 69 /min Blood Pressure Systolic (8480-6) 146 mm[Hg] Blood Pressure Diastolic (8462-4) 80 mm[Hg] 06/04/2024 09:21 AM Body Weight (73704-9) 172.8 [lb_av ] Body Mass Index (04632-3) 24.1 kg/m2 06/04/2024 09:20 AM Temperature (8310-5) 97.5 [degF] Oxygen Saturation (74784-3) 94 % Respiratory Rate (9279-1) 16 /min Heart Rate (8867-4) 85 /min Blood Pressure Systolic (8480-6) 111 mm[Hg] Blood Pressure Diastolic (8462-4) 71 mm[Hg] 06/04/2024 09:19 AM Oxygen Saturation (86513-3) 94 % 06/05/2024 12:32 AM Temperature (8310-5) 98.1 [degF] Respiratory Rate (9279-1) 18 /min Heart Rate (8867-4) 72 /min Blood Pressure Systolic (8480-6) 116 mm[Hg] Blood Pressure Diastolic (8462-4) 68 mm[Hg] 06/05/2024 12:19 AM Oxygen Saturation (51110-1) 95 % 06/05/2024 09:44 PM Temperature (8310-5) 98.7 [degF] Oxygen Saturation (37829-4) 97 % Respiratory Rate (9279-1) 18 /min Heart Rate (8867-4) 69 /min Blood Pressure Systolic (8480-6) 126 mm[Hg] Blood Pressure Diastolic (8462-4) 64 mm[Hg] 06/05/2024 06:43 PM Body Weight (39208-8) 173.1 [lb_av ] Body Mass Index (39905-7) 24.14 kg/m2 06/05/2024 03:24 PM Temperature (8310-5) 98.4 [degF] Oxygen Saturation (58268-3) 95 % Respiratory Rate (9279-1) 18 /min Heart Rate (8867-4) 77 /min Blood Pressure Systolic (8480-6) 119 mm[Hg] Blood Pressure Diastolic (8462-4) 62 mm[Hg] 06/05/2024 10:15 AM Oxygen Saturation (99883-7) 94 % 06/06/2024 10:07 PM Oxygen Saturation (47318-0) 94 % 06/06/2024 09:17 AM Temperature (8310-5) 98 [degF] Oxygen Saturation (50446-0) 92 % Respiratory Rate (9279-1) 20 /min Heart Rate (8867-4) 80 /min Blood Pressure Systolic (8480-6) 121 mm[Hg] Blood Pressure Diastolic (8462-4) 74 mm[Hg] 06/06/2024 07:46 AM Body Weight (75569-3) 175.6 [lb_av ] Body Mass Index (12513-4) 24.49 kg/m2 06/07/2024 07:54 AM Body Weight (20719-3) 175.8 [lb_av ] Body Mass Index (58561-2) 24.52 kg/m2 06/07/2024 07:53 AM Temperature (8310-5) 97.6 [degF] Oxygen Saturation (68705-6) 96 % Respiratory Rate (9279-1) 17 /min Heart Rate (8867-4) 55 /min Blood Pressure Systolic (8480-6) 114 mm[Hg] Blood Pressure Diastolic (8462-4) 72 mm[Hg] 06/07/2024 01:11 AM Temperature (8310-5) 97.8 [degF] Respiratory Rate (9279-1) 18 /min Heart Rate (8867-4) 77 /min Blood Pressure Systolic (8480-6) 116 mm[Hg] Blood Pressure Diastolic (8462-4) 68 mm[Hg] 06/08/2024 09:39 AM Body Weight (08983-9) 172.8 [lb_av ] Body Mass Index (55913-8) 24.1 kg/m2 06/08/2024 09:20 AM Temperature (8310-5) 98.1 [degF] Oxygen Saturation (59181-8) 99 % Respiratory Rate (9279-1) 16 /min Heart Rate (8867-4) 82 /min Blood Pressure Systolic (8480-6) 127 mm[Hg] Blood Pressure Diastolic (8462-4) 82 mm[Hg] 06/07/2024 08:08 PM Temperature (8310-5) 99.4 [degF] Oxygen Saturation (39171-5) 93 % Respiratory Rate (9279-1) 17 /min Heart Rate (8867-4) 92 /min Blood Pressure Systolic (8480-6) 143 mm[Hg] Blood Pressure Diastolic (8462-4) 76 mm[Hg] 06/09/2024 11:31 PM Temperature (8310-5) 97.4 [degF] Oxygen Saturation (33852-1) 94 % Respiratory Rate (9279-1) 16 /min Heart Rate (8867-4) 69 /min Blood Pressure Systolic (8480-6) 114 mm[Hg] Blood Pressure Diastolic (8462-4) 70 mm[Hg] 06/09/2024 10:09 PM Oxygen Saturation (20524-4) 94 % 06/10/2024 10:53 PM Temperature (8310-5) 98.5 [degF] Respiratory Rate (9279-1) 18 /min Heart Rate (8867-4) 71 /min Blood Pressure Systolic (8480-6) 139 mm[Hg] Blood Pressure Diastolic (8462-4) 74 mm[Hg] 06/10/2024 10:52 PM Oxygen Saturation (96794-0) 95 % 06/10/2024 09:13 AM Temperature (8310-5) 98 [degF] Oxygen Saturation (94077-1) 93 % Respiratory Rate (9279-1) 18 /min Heart Rate (8867-4) 76 /min Blood Pressure Systolic (8480-6) 143 mm[Hg] Blood Pressure Diastolic (8462-4) 77 mm[Hg] 06/11/2024 09:10 AM Temperature (8310-5) 97.7 [degF] Oxygen Saturation (14072-8) 95 % Respiratory Rate (9279-1) 16 /min Heart Rate (8867-4) 81 /min Blood Pressure Systolic (8480-6) 109 mm[Hg] Blood Pressure Diastolic (8462-4) 62 mm[Hg] 06/12/2024 09:30 AM Temperature (8310-5) 97.9 [degF] Oxygen Saturation (44089-2) 99 % Respiratory Rate (9279-1) 16 /min Heart Rate (8867-4) 84 /min Blood Pressure Systolic (8480-6) 138 mm[Hg] Blood Pressure Diastolic (8462-4) 77 mm[Hg] 06/11/2024 11:24 PM Temperature (8310-5) 97.5 [degF] Oxygen Saturation (67778-7) 98 % Respiratory Rate (9279-1) 20 /min Heart Rate (8867-4) 81 /min Blood Pressure Systolic (8480-6) 117 mm[Hg] Blood Pressure Diastolic (8462-4) 70 mm[Hg] 06/12/2024 09:52 PM Temperature (8310-5) 97.5 [degF] Oxygen Saturation (91346-8) 97 % Respiratory Rate (9279-1) 18 /min Heart Rate (8867-4) 77 /min Blood Pressure Systolic (8480-6) 122 mm[Hg] Blood Pressure Diastolic (8462-4) 72 mm[Hg] 06/13/2024 09:42 AM Temperature (8310-5) 97.4 [degF] Oxygen Saturation (47486-3) 94 % Respiratory Rate (9279-1) 16 /min Heart Rate (8867-4) 81 /min Blood Pressure Systolic (8480-6) 110 mm[Hg] Blood Pressure Diastolic (8462-4) 70 mm[Hg] 06/13/2024 07:35 AM Oxygen Saturation (02593-6) 94 % 06/14/2024 11:54 AM Temperature (8310-5) 97.8 [degF] Oxygen Saturation (06241-4) 98 % Respiratory Rate (9279-1) 17 /min Heart Rate (8867-4) 78 /min Blood Pressure Systolic (8480-6) 104 mm[Hg] Blood Pressure Diastolic (8462-4) 80 mm[Hg] 06/13/2024 11:07 PM Temperature (8310-5) 98 [degF] Oxygen Saturation (92003-6) 95 % Respiratory Rate (9279-1) 18 /min Heart Rate (8867-4) 77 /min Blood Pressure Systolic (8480-6) 118 mm[Hg] Blood Pressure Diastolic (8462-4) 64 mm[Hg] 06/15/2024 06:43 AM Temperature (8310-5) 97.4 [degF] Oxygen Saturation (05192-6) 97 % Respiratory Rate (9279-1) 16 /min Heart Rate (8867-4) 85 /min Blood Pressure Systolic (8480-6) 134 mm[Hg] Blood Pressure Diastolic (8462-4) 93 mm[Hg] 06/15/2024 06:42 AM Oxygen Saturation (70547-7) 97 % 06/14/2024 07:31 PM Temperature (8310-5) 99.2 [degF] Oxygen Saturation (35624-8) 93 % Respiratory Rate (9279-1) 18 /min Heart Rate (8867-4) 79 /min Blood Pressure Systolic (8480-6) 101 mm[Hg] Blood Pressure Diastolic (8462-4) 64 mm[Hg] 06/16/2024 10:11 AM Temperature (8310-5) 98.3 [degF] Respiratory Rate (9279-1) 16 /min Heart Rate (8867-4) 81 /min Blood Pressure Systolic (8480-6) 123 mm[Hg] Blood Pressure Diastolic (8462-4) 76 mm[Hg] Body Weight (19329-3) 172.8 [lb_av] Body Mass Index (83178-2) 24.1 kg/m2 06/16/2024 10:10 AM Oxygen Saturation (84425-7) 95 % 06/15/2024 11:28 PM Temperature (8310-5) 97.2 [degF] Respiratory Rate (9279-1) 16 /min Heart Rate (8867-4) 74 /min Blood Pressure Systolic (8480-6) 104 mm[Hg] Blood Pressure Diastolic (8462-4) 74 mm[Hg] 06/15/2024 11:27 PM Oxygen Saturation (68708-5) 98 % 06/17/2024 07:25 PM Temperature (8310-5) 98.4 [degF] Oxygen Saturation (07093-7) 97 % Respiratory Rate (9279-1) 18 /min Heart Rate (8867-4) 62 /min Blood Pressure Systolic (8480-6) 107 mm[Hg] Blood Pressure Diastolic (8462-4) 62 mm[Hg] 06/17/2024 06:50 AM Temperature (8310-5) 97.7 [degF] Oxygen Saturation (75958-0) 97 % Respiratory Rate (9279-1) 16 /min Heart Rate (8867-4) 62 /min Blood Pressure Systolic (8480-6) 122 mm[Hg] Blood Pressure Diastolic (8462-4) 73 mm[Hg] 06/16/2024 09:56 PM Temperature (8310-5) 97.3 [degF] Oxygen Saturation (55449-5) 97 % Respiratory Rate (9279-1) 18 /min Heart Rate (8867-4) 70 /min Blood Pressure Systolic (8480-6) 106 mm[Hg] Blood Pressure Diastolic (8462-4) 76 mm[Hg] 06/18/2024 07:19 AM Oxygen Saturation (45239-6) 95 % 06/18/2024 07:20 AM Temperature (8310-5) 97.6 [degF] Respiratory Rate (9279-1) 19 /min Heart Rate (8867-4) 81 /min Blood Pressure Systolic (8480-6) 141 mm[Hg] Blood Pressure Diastolic (8462-4) 84 mm[Hg] 06/19/2024 10:49 AM Temperature (8310-5) 97.7 [degF] Respiratory Rate (9279-1) 17 /min Heart Rate (8867-4) 73 /min Blood Pressure Systolic (8480-6) 126 mm[Hg] Blood Pressure Diastolic (8462-4) 74 mm[Hg] 06/19/2024 10:48 AM Oxygen Saturation (01749-5) 97 % 06/19/2024 12:53 AM Temperature (8310-5) 97.9 [degF] Respiratory Rate (9279-1) 18 /min Heart Rate (8867-4) 75 /min Blood Pressure Systolic (8480-6) 122 mm[Hg] Blood Pressure Diastolic (8462-4) 72 mm[Hg] 06/19/2024 12:52 AM Oxygen Saturation (07545-6) 97 % 06/19/2024 10:03 PM Temperature (8310-5) 98 [degF] Respiratory Rate (9279-1) 20 /min Heart Rate (8867-4) 77 /min Blood Pressure Systolic (8480-6) 132 mm[Hg] Blood Pressure Diastolic (8462-4) 76 mm[Hg] 06/19/2024 10:01 PM Oxygen Saturation (71281-8) 96 % 06/20/2024 10:11 PM Temperature (8310-5) 98 [degF] Oxygen Saturation (29426-3) 97 % Respiratory Rate (9279-1) 18 /min Heart Rate (8867-4) 71 /min Blood Pressure Systolic (8480-6) 128 mm[Hg] Blood Pressure Diastolic (8462-4) 64 mm[Hg] 06/20/2024 07:42 AM Temperature (8310-5) 97.5 [degF] Oxygen Saturation (93604-3) 95 % Respiratory Rate (9279-1) 18 /min Heart Rate (8867-4) 75 /min Blood Pressure Systolic (8480-6) 139 mm[Hg] Blood Pressure Diastolic (8462-4) 61 mm[Hg] 06/21/2024 09:15 AM Temperature (8310-5) 98.2 [degF] Oxygen Saturation (77418-0) 92 % Respiratory Rate (9279-1) 16 /min Heart Rate (8867-4) 68 /min Blood Pressure Systolic (8480-6) 115 mm[Hg] Blood Pressure Diastolic (8462-4) 65 mm[Hg] 06/22/2024 08:35 AM Oxygen Saturation (38354-5) 96 % 06/21/2024 07:16 PM Temperature (8310-5) 97.6 [degF] Oxygen Saturation (02508-0) 95 % Respiratory Rate (9279-1) 20 /min Heart Rate (8867-4) 76 /min Blood Pressure Systolic (8480-6) 126 mm[Hg] Blood Pressure Diastolic (8462-4) 88 mm[Hg] 06/22/2024 08:36 AM Temperature (8310-5) 97 [degF] Oxygen Saturation (87256-3) 96 % Respiratory Rate (9279-1) 18 /min Heart Rate (8867-4) 60 /min Blood Pressure Systolic (8480-6) 122 mm[Hg] Blood Pressure Diastolic (8462-4) 79 mm[Hg] 06/22/2024 07:04 AM Blood Pressure Systolic (8480-6) 1 22 mm[Hg] Blood Pressure Diastolic (8462-4) 79 mm[Hg] 06/23/2024 08:38 AM Temperature (8310-5) 97.1 [degF] Oxygen Saturation (80384-0) 94 % Respiratory Rate (9279-1) 16 /min Heart Rate (8867-4) 55 /min Blood Pressure Systolic (8480-6) 111 mm[Hg] Blood Pressure Diastolic (8462-4) 64 mm[Hg] 06/23/2024 07:11 AM Blood Pressure Systolic (8480-6) 1 11 mm[Hg] Blood Pressure Diastolic (8462-4) 64 mm[Hg] 06/22/2024 09:02 PM Oxygen Saturation (39247-2) 96 % 06/23/2024 12:19 PM Body Weight (53169-9) 168.8 [lb_av ] Body Mass Index (60927-9) 23.54 kg/m2 06/22/2024 09:38 PM Temperature (8310-5) 97.2 [degF] Oxygen Saturation (94415-2) 94 % Respiratory Rate (9279-1) 18 /min Heart Rate (8867-4) 50 /min Blood Pressure Systolic (8480-6) 100 mm[Hg] Blood Pressure Diastolic (8462-4) 63 mm[Hg] 06/23/2024 08:37 AM Oxygen Saturation (02617-8) 94 % 06/24/2024 06:19 PM Temperature (8310-5) 97.9 [degF] Oxygen Saturation (35875-6) 92 % Respiratory Rate (9279-1) 16 /min Heart Rate (8867-4) 84 /min Blood Pressure Systolic (8480-6) 119 mm[Hg] Blood Pressure Diastolic (8462-4) 69 mm[Hg] 06/24/2024 07:41 AM Blood Pressure Systolic (8480-6) 1 19 mm[Hg] Blood Pressure Diastolic (8462-4) 69 mm[Hg] 06/23/2024 09:38 PM Temperature (8310-5) 97.2 [degF] Oxygen Saturation (38453-4) 99 % Respiratory Rate (9279-1) 16 /min Heart Rate (8867-4) 71 /min Blood Pressure Systolic (8480-6) 118 mm[Hg] Blood Pressure Diastolic (8462-4) 81 mm[Hg] 06/25/2024 07:41 AM Blood Pressure Systolic (8480-6) 1 35 mm[Hg] Blood Pressure Diastolic (8462-4) 88 mm[Hg] 06/25/2024 02:46 PM Temperature (8310-5) 97.8 [degF] Oxygen Saturation (75122-7) 94 % Respiratory Rate (9279-1) 18 /min Heart Rate (8867-4) 82 /min Blood Pressure Systolic (8480-6) 135 mm[Hg] Blood Pressure Diastolic (8462-4) 88 mm[Hg] 06/25/2024 08:22 AM Oxygen Saturation (84944-5) 96 % 06/24/2024 09:10 PM Temperature (8310-5) 97.6 [degF] Oxygen Saturation (48050-2) 97 % Respiratory Rate (9279-1) 18 /min Heart Rate (8867-4) 81 /min Blood Pressure Systolic (8480-6) 112 mm[Hg] Blood Pressure Diastolic (8462-4) 67 mm[Hg] 06/25/2024 10:18 PM Temperature (8310-5) 98.1 [degF] Oxygen Saturation (48858-5) 97 % Respiratory Rate (9279-1) 18 /min Heart Rate (8867-4) 79 /min Blood Pressure Systolic (8480-6) 133 mm[Hg] Blood Pressure Diastolic (8462-4) 79 mm[Hg] 06/26/2024 08:22 AM Blood Pressure Systolic (8480-6) 1 26 mm[Hg] Blood Pressure Diastolic (8462-4) 82 mm[Hg] 06/26/2024 10:53 AM Temperature (8310-5) 98 [degF] Oxygen Saturation (54127-3) 96 % Respiratory Rate (9279-1) 17 /min Heart Rate (8867-4) 80 /min 06/26/2024 10:48 PM Temperature (8310-5) 98.3 [degF] Oxygen Saturation (36514-1) 98 % Respiratory Rate (9279-1) 18 /min Heart Rate (8867-4) 73 /min Blood Pressure Systolic (8480-6) 117 mm[Hg] Blood Pressure Diastolic (8462-4) 75 mm[Hg] 06/27/2024 09:09 AM Blood Pressure Systolic (8480-6) 1 22 mm[Hg] Blood Pressure Diastolic (8462-4) 71 mm[Hg] 06/27/2024 09:57 AM Oxygen Saturation (20453-8) 96 % 06/27/2024 10:06 PM Temperature (8310-5) 98.1 [degF] Respiratory Rate (9279-1) 18 /min Heart Rate (8867-4) 69 /min Blood Pressure Systolic (8480-6) 118 mm[Hg] Blood Pressure Diastolic (8462-4) 68 mm[Hg] 06/27/2024 10:05 PM Oxygen Saturation (29727-8) 98 % 06/27/2024 09:58 AM Temperature (8310-5) 97.8 [degF] Respiratory Rate (9279-1) 18 /min Heart Rate (8867-4) 77 /min 06/28/2024 07:41 AM Temperature (8310-5) 97.3 [degF] Oxygen Saturation (46697-4) 97 % Respiratory Rate (9279-1) 16 /min Heart Rate (8867-4) 74 /min Blood Pressure Systolic (8480-6) 122 mm[Hg] Blood Pressure Diastolic (8462-4) 77 mm[Hg] 06/29/2024 06:49 AM Temperature (8310-5) 99.1 [degF] Oxygen Saturation (65950-5) 97 % Respiratory Rate (9279-1) 18 /min Heart Rate (8867-4) 78 /min Blood Pressure Systolic (8480-6) 122 mm[Hg] Blood Pressure Diastolic (8462-4) 83 mm[Hg] 06/29/2024 06:48 AM Oxygen Saturation (14826-2) 97 % 06/28/2024 08:06 PM Temperature (8310-5) 96.9 [degF] Respiratory Rate (9279-1) 20 /min Heart Rate (8867-4) 74 /min Blood Pressure Systolic (8480-6) 100 mm[Hg] Blood Pressure Diastolic (8462-4) 64 mm[Hg] 06/28/2024 08:05 PM Oxygen Saturation (98895-8) 96 % 06/30/2024 01:27 PM Body Weight (59020-3) 174.4 [lb_av ] Body Mass Index (86338-2) 24.32 kg/m2 06/30/2024 09:35 AM Temperature (8310-5) 98.8 [degF] Oxygen Saturation (24097-3) 94 % Respiratory Rate (9279-1) 14 /min Heart Rate (8867-4) 88 /min Blood Pressure Systolic (8480-6) 129 mm[Hg] Blood Pressure Diastolic (8462-4) 77 mm[Hg] 06/30/2024 07:27 AM Blood Pressure Systolic (8480-6) 1 29 mm[Hg] Blood Pressure Diastolic (8462-4) 77 mm[Hg] 06/29/2024 09:18 PM Temperature (8310-5) 97.3 [degF] Oxygen Saturation (71097-0) 97 % Respiratory Rate (9279-1) 18 /min Heart Rate (8867-4) 59 /min Blood Pressure Systolic (8480-6) 102 mm[Hg] Blood Pressure Diastolic (8462-4) 68 mm[Hg] 06/29/2024 09:08 PM Oxygen Saturation (27331-1) 97 % 07/01/2024 10:30 AM Oxygen Saturation (56353-9) 97 % 06/30/2024 08:51 PM Temperature (8310-5) 97.2 [degF] Oxygen Saturation (69470-3) 97 % Respiratory Rate (9279-1) 16 /min Heart Rate (8867-4) 55 /min Blood Pressure Systolic (8480-6) 103 mm[Hg] Blood Pressure Diastolic (8462-4) 74 mm[Hg] 07/01/2024 10:31 AM Temperature (8310-5) 97.4 [degF] Oxygen Saturation (97547-3) 97 % Respiratory Rate (9279-1) 16 /min Heart Rate (8867-4) 88 /min Blood Pressure Systolic (8480-6) 136 mm[Hg] Blood Pressure Diastolic (8462-4) 86 mm[Hg] 07/01/2024 06:47 AM Blood Pressure Systolic (8480-6) 1 36 mm[Hg] Blood Pressure Diastolic (8462-4) 86 mm[Hg] 07/02/2024 08:30 AM Temperature (8310-5) 97.8 [degF] Oxygen Saturation (63853-4) 98 % Respiratory Rate (9279-1) 16 /min Heart Rate (8867-4) 76 /min Blood Pressure Systolic (8480-6) 125 mm[Hg] Blood Pressure Diastolic (8462-4) 89 mm[Hg] 07/02/2024 07:53 AM Blood Pressure Systolic (8480-6) 1 25 mm[Hg] Blood Pressure Diastolic (8462-4) 89 mm[Hg] 07/01/2024 07:58 PM Temperature (8310-5) 98.4 [degF] Respiratory Rate (9279-1) 17 /min Heart Rate (8867-4) 64 /min Blood Pressure Systolic (8480-6) 112 mm[Hg] Blood Pressure Diastolic (8462-4) 60 mm[Hg] 07/01/2024 07:56 PM Oxygen Saturation (56604-3) 97 % 07/03/2024 10:12 PM Temperature (8310-5) 99.3 [degF] Oxygen Saturation (19943-5) 96 % Respiratory Rate (9279-1) 18 /min Heart Rate (8867-4) 79 /min Blood Pressure Systolic (8480-6) 132 mm[Hg] Blood Pressure Diastolic (8462-4) 77 mm[Hg] 07/03/2024 04:34 PM Temperature (8310-5) 99 [degF] Oxygen Saturation (25364-8) 94 % Respiratory Rate (9279-1) 20 /min Heart Rate (8867-4) 87 /min Blood Pressure Systolic (8480-6) 147 mm[Hg] Blood Pressure Diastolic (8462-4) 98 mm[Hg] 07/03/2024 01:40 PM Oxygen Saturation (23927-5) 96 % 07/03/2024 09:20 AM Blood Pressure Systolic (8480-6) 1 47 mm[Hg] Blood Pressure Diastolic (8462-4) 98 mm[Hg] 07/02/2024 11:34 PM Temperature (8310-5) 98 [degF] Respiratory Rate (9279-1) 18 /min Heart Rate (8867-4) 71 /min Blood Pressure Systolic (8480-6) 122 mm[Hg] Blood Pressure Diastolic (8462-4) 78 mm[Hg] 07/02/2024 11:33 PM Oxygen Saturation (94703-3) 97 % 07/04/2024 07:02 AM Blood Pressure Systolic (8480-6) 1 21 mm[Hg] Blood Pressure Diastolic (8462-4) 80 mm[Hg] 07/04/2024 09:30 PM Temperature (8310-5) 97.4 [degF] Oxygen Saturation (62841-9) 95 % Respiratory Rate (9279-1) 18 /min Heart Rate (8867-4) 72 /min Blood Pressure Systolic (8480-6) 127 mm[Hg] Blood Pressure Diastolic (8462-4) 76 mm[Hg] 07/04/2024 03:14 PM Temperature (8310-5) 96.9 [degF] Oxygen Saturation (33045-5) 91 % Respiratory Rate (9279-1) 20 /min Heart Rate (8867-4) 85 /min Blood Pressure Systolic (8480-6) 121 mm[Hg] Blood Pressure Diastolic (8462-4) 80 mm[Hg] 07/04/2024 03:13 PM Oxygen Saturation (24303-2) 91 % 07/05/2024 07:19 PM Temperature (8310-5) 97.7 [degF] Respiratory Rate (9279-1) 18 /min Heart Rate (8867-4) 67 /min Blood Pressure Systolic (8480-6) 148 mm[Hg] Blood Pressure Diastolic (8462-4) 77 mm[Hg] 07/05/2024 07:18 PM Oxygen Saturation (65070-2) 96 % 07/05/2024 09:12 AM Temperature (8310-5) 99.3 [degF] Oxygen Saturation (32592-7) 93 % Respiratory Rate (9279-1) 18 /min Heart Rate (8867-4) 77 /min 07/05/2024 07:20 AM Blood Pressure Systolic (8480-6) 1 32 mm[Hg] Blood Pressure Diastolic (8462-4) 78 mm[Hg] 07/06/2024 09:44 AM Temperature (8310-5) 98.1 [degF] Oxygen Saturation (49163-5) 95 % Respiratory Rate (9279-1) 17 /min Heart Rate (8867-4) 66 /min 07/06/2024 09:43 AM Blood Pressure Systolic (8480-6) 1 17 mm[Hg] Blood Pressure Diastolic (8462-4) 77 mm[Hg] 07/07/2024 09:54 AM Body Weight (61475-8) 174 [lb_av] Body Mass Index (19215-0) 24.27 kg/m2 07/07/2024 09:33 AM Temperature (8310-5) 98.2 [degF] Oxygen Saturation (90762-9) 97 % Respiratory Rate (9279-1) 16 /min Heart Rate (8867-4) 82 /min Blood Pressure Systolic (8480-6) 105 mm[Hg] Blood Pressure Diastolic (8462-4) 68 mm[Hg] 07/07/2024 08:13 AM Body Weight (77121-8) 174 [lb_av] Body Mass Index (87357-7) 24.27 kg/m2 07/07/2024 07:27 AM Blood Pressure Systolic (8480-6) 1 05 mm[Hg] Blood Pressure Diastolic (8462-4) 68 mm[Hg] 07/06/2024 09:18 PM Temperature (8310-5) 97.4 [degF] Oxygen Saturation (76277-0) 97 % Respiratory Rate (9279-1) 18 /min Heart Rate (8867-4) 67 /min Blood Pressure Systolic (8480-6) 110 mm[Hg] Blood Pressure Diastolic (8462-4) 73 mm[Hg] 07/06/2024 09:10 PM Oxygen Saturation (91394-4) 97 % 07/08/2024 09:49 AM Temperature (8310-5) 98.1 [degF] Oxygen Saturation (75446-0) 97 % Respiratory Rate (9279-1) 16 /min Heart Rate (8867-4) 78 /min Blood Pressure Systolic (8480-6) 126 mm[Hg] Blood Pressure Diastolic (8462-4) 84 mm[Hg] 07/08/2024 08:32 AM Blood Pressure Systolic (8480-6) 1 26 mm[Hg] Blood Pressure Diastolic (8462-4) 84 mm[Hg] 07/07/2024 09:01 PM Temperature (8310-5) 97.5 [degF] Oxygen Saturation (88618-8) 97 % Respiratory Rate (9279-1) 18 /min Heart Rate (8867-4) 70 /min Blood Pressure Systolic (8480-6) 100 mm[Hg] Blood Pressure Diastolic (8462-4) 72 mm[Hg] 07/07/2024 08:38 PM Oxygen Saturation (80507-6) 97 % 07/08/2024 10:05 PM Temperature (8310-5) 97.6 [degF] Oxygen Saturation (67697-8) 96 % Respiratory Rate (9279-1) 18 /min Heart Rate (8867-4) 73 /min Blood Pressure Systolic (8480-6) 121 mm[Hg] Blood Pressure Diastolic (8462-4) 72 mm[Hg] 07/09/2024 08:00 AM Blood Pressure Systolic (8480-6) 1 27 mm[Hg] Blood Pressure Diastolic (8462-4) 76 mm[Hg] 07/09/2024 09:03 AM Temperature (8310-5) 98 [degF] Oxygen Saturation (74095-4) 97 % Respiratory Rate (9279-1) 17 /min Heart Rate (8867-4) 87 /min 07/09/2024 08:44 PM Oxygen Saturation (76290-3) 9 % 07/10/2024 08:52 AM Temperature (8310-5) 98.1 [degF] Oxygen Saturation (77672-0) 96 % Respiratory Rate (9279-1) 16 /min Heart Rate (8867-4) 77 /min Blood Pressure Systolic (8480-6) 123 mm[Hg] Blood Pressure Diastolic (8462-4) 78 mm[Hg] 07/09/2024 09:04 PM Temperature (8310-5) 97.7 [degF] Oxygen Saturation (08833-0) 96 % Respiratory Rate (9279-1) 20 /min Heart Rate (8867-4) 75 /min Blood Pressure Systolic (8480-6) 133 mm[Hg] Blood Pressure Diastolic (8462-4) 77 mm[Hg] 07/11/2024 12:31 AM Temperature (8310-5) 97.7 [degF] Oxygen Saturation (94370-3) 93 % Respiratory Rate (9279-1) 18 /min Heart Rate (8867-4) 73 /min Blood Pressure Systolic (8480-6) 120 mm[Hg] Blood Pressure Diastolic (8462-4) 72 mm[Hg] 07/11/2024 08:55 AM Oxygen Saturation (06719-8) 98 % Blood Pressure Systolic (8480-6) 113 mm[Hg] Blood Pressure Diastolic (8462-4) 61 mm[Hg] 07/11/2024 10:45 AM Temperature (8310-5) 97.8 [degF] Respiratory Rate (9279-1) 17 /min Heart Rate (8867-4) 83 /min 07/11/2024 10:40 PM Temperature (8310-5) 98.1 [degF] Oxygen Saturation (60031-8) 95 % Respiratory Rate (9279-1) 20 /min Heart Rate (8867-4) 77 /min Blood Pressure Systolic (8480-6) 117 mm[Hg] Blood Pressure Diastolic (8462-4) 73 mm[Hg] 07/12/2024 05:40 PM Temperature (8310-5) 98.8 [degF] Oxygen Saturation (93793-1) 96 % Respiratory Rate (9279-1) 18 /min Heart Rate (8867-4) 77 /min Blood Pressure Systolic (8480-6) 124 mm[Hg] Blood Pressure Diastolic (8462-4) 78 mm[Hg] 07/12/2024 08:09 AM Blood Pressure Systolic (8480-6) 1 24 mm[Hg] Blood Pressure Diastolic (8462-4) 78 mm[Hg] 07/13/2024 09:13 AM Temperature (8310-5) 98.5 [degF] Oxygen Saturation (00492-8) 96 % Respiratory Rate (9279-1) 20 /min Heart Rate (8867-4) 80 /min Blood Pressure Systolic (8480-6) 115 mm[Hg] Blood Pressure Diastolic (8462-4) 75 mm[Hg] 07/13/2024 07:17 AM Blood Pressure Systolic (8480-6) 1 15 mm[Hg] Blood Pressure Diastolic (8462-4) 75 mm[Hg] 07/12/2024 07:39 PM Temperature (8310-5) 98 [degF] Oxygen Saturation (38535-0) 98 % Respiratory Rate (9279-1) 20 /min Heart Rate (8867-4) 75 /min Blood Pressure Systolic (8480-6) 117 mm[Hg] Blood Pressure Diastolic (8462-4) 54 mm[Hg] 07/13/2024 08:57 PM Oxygen Saturation (75578-3) 99 % 07/14/2024 06:27 PM Oxygen Saturation (23437-7) 94 % 07/13/2024 08:59 PM Temperature (8310-5) 97.8 [degF] Respiratory Rate (9279-1) 20 /min Heart Rate (8867-4) 64 /min Blood Pressure Systolic (8480-6) 112 mm[Hg] Blood Pressure Diastolic (8462-4) 74 mm[Hg] 07/14/2024 06:28 PM Temperature (8310-5) 97.9 [degF] Oxygen Saturation (32371-4) 94 % Respiratory Rate (9279-1) 19 /min Heart Rate (8867-4) 93 /min Blood Pressure Systolic (8480-6) 126 mm[Hg] Blood Pressure Diastolic (8462-4) 80 mm[Hg] 07/14/2024 06:30 PM Body Weight (63534-0) 174.6 [lb_av ] Body Mass Index (35038-2) 24.35 kg/m2 07/14/2024 07:10 AM Blood Pressure Systolic (8480-6) 1 26 mm[Hg] Blood Pressure Diastolic (8462-4) 82 mm[Hg] 07/15/2024 03:33 PM Temperature (8310-5) 97.7 [degF] Respiratory Rate (9279-1) 16 /min Heart Rate (8867-4) 78 /min Blood Pressure Systolic (8480-6) 114 mm[Hg] Blood Pressure Diastolic (8462-4) 66 mm[Hg] 07/15/2024 03:32 PM Oxygen Saturation (07703-1) 95 % 07/15/2024 11:56 AM Blood Pressure Systolic (8480-6) 1 14 mm[Hg] Blood Pressure Diastolic (8462-4) 66 mm[Hg] 07/14/2024 09:15 PM Temperature (8310-5) 97.7 [degF] Oxygen Saturation (68517-1) 93 % Respiratory Rate (9279-1) 18 /min Heart Rate (8867-4) 67 /min Blood Pressure Systolic (8480-6) 124 mm[Hg] Blood Pressure Diastolic (8462-4) 66 mm[Hg] 07/15/2024 07:11 PM Temperature (8310-5) 98 [degF] Oxygen Saturation (28494-0) 96 % Respiratory Rate (9279-1) 20 /min Heart Rate (8867-4) 82 /min Blood Pressure Systolic (8480-6) 122 mm[Hg] Blood Pressure Diastolic (8462-4) 74 mm[Hg] 07/16/2024 08:25 AM Blood Pressure Systolic (8480-6) 1 32 mm[Hg] Blood Pressure Diastolic (8462-4) 76 mm[Hg] 07/16/2024 03:45 PM Oxygen Saturation (11466-1) 95 % 07/16/2024 04:05 PM Temperature (8310-5) 98.1 [degF] Oxygen Saturation (41977-0) 94 % Respiratory Rate (9279-1) 16 /min Heart Rate (8867-4) 67 /min Blood Pressure Systolic (8480-6) 132 mm[Hg] Blood Pressure Diastolic (8462-4) 76 mm[Hg] 07/16/2024 11:28 PM Temperature (8310-5) 98.3 [degF] Oxygen Saturation (22204-6) 95 % Respiratory Rate (9279-1) 18 /min Heart Rate (8867-4) 71 /min Blood Pressure Systolic (8480-6) 127 mm[Hg] Blood Pressure Diastolic (8462-4) 69 mm[Hg] 07/17/2024 01:29 PM Body Weight (84884-2) 176.6 [lb_av ] Body Mass Index (54697-8) 24.63 kg/m2 07/17/2024 08:07 AM Oxygen Saturation (18502-4) 95 % Blood Pressure Systolic (8480-6) 114 mm[Hg] Blood Pressure Diastolic (8462-4) 70 mm[Hg] 07/17/2024 08:08 AM Temperature (8310-5) 98 [degF] Respiratory Rate (9279-1) 16 /min Heart Rate (8867-4) 81 /min 07/18/2024 09:40 AM Blood Pressure Systolic (8480-6) 1 18 mm[Hg] Blood Pressure Diastolic (8462-4) 64 mm[Hg] 07/17/2024 11:49 PM Temperature (8310-5) 97.7 [degF] Oxygen Saturation (30127-3) 95 % Respiratory Rate (9279-1) 18 /min Heart Rate (8867-4) 71 /min Blood Pressure Systolic (8480-6) 119 mm[Hg] Blood Pressure Diastolic (8462-4) 73 mm[Hg] 07/18/2024 03:47 PM Oxygen Saturation (40950-1) 96 % 07/18/2024 03:48 PM Temperature (8310-5) 98.1 [degF] Respiratory Rate (9279-1) 18 /min Heart Rate (8867-4) 84 /min 07/18/2024 10:10 PM Temperature (8310-5) 98.4 [degF] Oxygen Saturation (05940-7) 95 % Respiratory Rate (9279-1) 18 /min Heart Rate (8867-4) 79 /min Blood Pressure Systolic (8480-6) 125 mm[Hg] Blood Pressure Diastolic (8462-4) 71 mm[Hg] 07/19/2024 09:38 AM Temperature (8310-5) 98.6 [degF] Oxygen Saturation (86276-3) 95 % Respiratory Rate (9279-1) 20 /min Heart Rate (8867-4) 82 /min Blood Pressure Systolic (8480-6) 111 mm[Hg] Blood Pressure Diastolic (8462-4) 68 mm[Hg] 07/19/2024 07:46 AM Oxygen Saturation (47077-0) 95 % Blood Pressure Systolic (8480-6) 111 mm[Hg] Blood Pressure Diastolic (8462-4) 68 mm[Hg] 07/19/2024 07:21 PM Temperature (8310-5) 98.2 [degF] Oxygen Saturation (35751-9) 98 % Respiratory Rate (9279-1) 19 /min Heart Rate (8867-4) 76 /min Blood Pressure Systolic (8480-6) 140 mm[Hg] Blood Pressure Diastolic (8462-4) 76 mm[Hg] 07/20/2024 09:14 AM Blood Pressure Systolic (8480-6) 1 31 mm[Hg] Blood Pressure Diastolic (8462-4) 78 mm[Hg] 07/20/2024 12:35 PM Temperature (8310-5) 97.8 [degF] Oxygen Saturation (55027-1) 94 % Respiratory Rate (9279-1) 20 /min Heart Rate (8867-4) 77 /min Blood Pressure Systolic (8480-6) 131 mm[Hg] Blood Pressure Diastolic (8462-4) 78 mm[Hg] 07/21/2024 08:10 AM Blood Pressure Systolic (8480-6) 1 29 mm[Hg] Blood Pressure Diastolic (8462-4) 77 mm[Hg] 07/21/2024 10:55 AM Temperature (8310-5) 98.4 [degF] Oxygen Saturation (99454-0) 93 % Respiratory Rate (9279-1) 20 /min Heart Rate (8867-4) 53 /min Blood Pressure Systolic (8480-6) 129 mm[Hg] Blood Pressure Diastolic (8462-4) 77 mm[Hg] 07/21/2024 10:56 AM Body Weight (46158-4) 174.6 [lb_av ] Body Mass Index (86969-2) 24.35 kg/m2 07/21/2024 08:11 AM Oxygen Saturation (53340-7) 93 % 07/20/2024 08:50 PM Temperature (8310-5) 97.5 [degF] Oxygen Saturation (91717-2) 98 % Respiratory Rate (9279-1) 18 /min Heart Rate (8867-4) 63 /min Blood Pressure Systolic (8480-6) 121 mm[Hg] Blood Pressure Diastolic (8462-4) 80 mm[Hg] 07/22/2024 03:04 PM Temperature (8310-5) 98.1 [degF] Oxygen Saturation (15576-9) 95 % Respiratory Rate (9279-1) 18 /min Heart Rate (8867-4) 80 /min Blood Pressure Systolic (8480-6) 132 mm[Hg] Blood Pressure Diastolic (8462-4) 81 mm[Hg] 07/22/2024 07:28 AM Blood Pressure Systolic (8480-6) 1 32 mm[Hg] Blood Pressure Diastolic (8462-4) 81 mm[Hg] 07/21/2024 09:49 PM Temperature (8310-5) 97.3 [degF] Oxygen Saturation (67310-5) 97 % Respiratory Rate (9279-1) 18 /min Heart Rate (8867-4) 75 /min Blood Pressure Systolic (8480-6) 112 mm[Hg] Blood Pressure Diastolic (8462-4) 59 mm[Hg] 07/23/2024 02:41 PM Temperature (8310-5) 97.8 [degF] Oxygen Saturation (45897-6) 99 % Respiratory Rate (9279-1) 17 /min Heart Rate (8867-4) 80 /min 07/23/2024 07:52 AM Blood Pressure Systolic (8480-6) 1 28 mm[Hg] Blood Pressure Diastolic (8462-4) 72 mm[Hg] 07/22/2024 10:02 PM Temperature (8310-5) 98.3 [degF] Respiratory Rate (9279-1) 18 /min Heart Rate (8867-4) 75 /min Blood Pressure Systolic (8480-6) 124 mm[Hg] Blood Pressure Diastolic (8462-4) 76 mm[Hg] 07/22/2024 10:01 PM Oxygen Saturation (84784-1) 97 % 07/24/2024 11:18 AM Temperature (8310-5) 97.9 [degF] Oxygen Saturation (22434-6) 95 % Respiratory Rate (9279-1) 17 /min Heart Rate (8867-4) 96 /min Blood Pressure Systolic (8480-6) 132 mm[Hg] Blood Pressure Diastolic (8462-4) 77 mm[Hg] 07/24/2024 07:50 AM Blood Pressure Systolic (8480-6) 1 16 mm[Hg] Blood Pressure Diastolic (8462-4) 63 mm[Hg] 07/23/2024 09:21 PM Temperature (8310-5) 98 [degF] Respiratory Rate (9279-1) 19 /min Heart Rate (8867-4) 73 /min Blood Pressure Systolic (8480-6) 121 mm[Hg] Blood Pressure Diastolic (8462-4) 69 mm[Hg] 07/23/2024 06:56 PM Oxygen Saturation (59482-7) 97 % 07/24/2024 08:30 PM Temperature (8310-5) 98.2 [degF] Oxygen Saturation (61353-3) 96 % Respiratory Rate (9279-1) 18 /min Heart Rate (8867-4) 81 /min Blood Pressure Systolic (8480-6) 125 mm[Hg] Blood Pressure Diastolic (8462-4) 69 mm[Hg] 07/25/2024 08:58 PM Temperature (8310-5) 98 [degF] Oxygen Saturation (58465-9) 98 % Respiratory Rate (9279-1) 20 /min Heart Rate (8867-4) 89 /min Blood Pressure Systolic (8480-6) 138 mm[Hg] Blood Pressure Diastolic (8462-4) 81 mm[Hg] 07/25/2024 09:02 AM Temperature (8310-5) 98.2 [degF] Oxygen Saturation (16831-7) 99 % Respiratory Rate (9279-1) 18 /min Heart Rate (8867-4) 83 /min 07/25/2024 07:32 AM Blood Pressure Systolic (8480-6) 1 30 mm[Hg] Blood Pressure Diastolic (8462-4) 77 mm[Hg] 07/26/2024 08:09 AM Oxygen Saturation (45466-7) 99 % 07/26/2024 08:41 AM Temperature (8310-5) 97.8 [degF] Oxygen Saturation (61175-2) 99 % Respiratory Rate (9279-1) 16 /min Heart Rate (8867-4) 82 /min Blood Pressure Systolic (8480-6) 141 mm[Hg] Blood Pressure Diastolic (8462-4) 79 mm[Hg] 07/26/2024 08:08 AM Blood Pressure Systolic (8480-6) 1 41 mm[Hg] Blood Pressure Diastolic (8462-4) 79 mm[Hg] 07/26/2024 07:18 PM Temperature (8310-5) 97.9 [degF] Oxygen Saturation (53967-6) 99 % Respiratory Rate (9279-1) 18 /min Heart Rate (8867-4) 80 /min Blood Pressure Systolic (8480-6) 136 mm[Hg] Blood Pressure Diastolic (8462-4) 76 mm[Hg] 07/27/2024 09:46 PM Oxygen Saturation (35613-7) 95 % 07/27/2024 09:22 AM Temperature (8310-5) 97.4 [degF] Oxygen Saturation (58725-1) 97 % Respiratory Rate (9279-1) 16 /min Heart Rate (8867-4) 81 /min Blood Pressure Systolic (8480-6) 136 mm[Hg] Blood Pressure Diastolic (8462-4) 87 mm[Hg] 07/27/2024 08:05 AM Blood Pressure Systolic (8480-6) 1 36 mm[Hg] Blood Pressure Diastolic (8462-4) 87 mm[Hg] 07/27/2024 09:47 PM Temperature (8310-5) 97.1 [degF] Respiratory Rate (9279-1) 18 /min Heart Rate (8867-4) 75 /min Blood Pressure Systolic (8480-6) 98 mm[Hg] Blood Pressure Diastolic (8462-4) 60 mm[Hg] 07/28/2024 09:23 PM Temperature (8310-5) 97.6 [degF] Oxygen Saturation (51564-4) 98 % Respiratory Rate (9279-1) 18 /min Heart Rate (8867-4) 64 /min Blood Pressure Systolic (8480-6) 107 mm[Hg] Blood Pressure Diastolic (8462-4) 63 mm[Hg] 07/28/2024 09:19 PM Oxygen Saturation (73572-2) 98 % 07/28/2024 04:46 PM Body Weight (60950-3) 171.8 [lb_av ] Body Mass Index (52388-1) 23.96 kg/m2 07/28/2024 11:38 AM Temperature (8310-5) 97.8 [degF] Respiratory Rate (9279-1) 16 /min Heart Rate (8867-4) 84 /min Blood Pressure Systolic (8480-6) 133 mm[Hg] Blood Pressure Diastolic (8462-4) 75 mm[Hg] 07/28/2024 11:37 AM Oxygen Saturation (38732-9) 95 % 07/28/2024 09:25 AM Blood Pressure Systolic (8480-6) 1 33 mm[Hg] Blood Pressure Diastolic (8462-4) 75 mm[Hg] 07/29/2024 07:46 PM Temperature (8310-5) 97.8 [degF] Oxygen Saturation (13615-3) 93 % Respiratory Rate (9279-1) 18 /min Heart Rate (8867-4) 51 /min Blood Pressure Systolic (8480-6) 113 mm[Hg] Blood Pressure Diastolic (8462-4) 61 mm[Hg] 07/29/2024 12:12 PM Temperature (8310-5) 98.7 [degF] Respiratory Rate (9279-1) 16 /min Heart Rate (8867-4) 61 /min 07/29/2024 12:11 PM Oxygen Saturation (74160-8) 95 % 07/29/2024 10:14 AM Blood Pressure Systolic (8480-6) 1 09 mm[Hg] Blood Pressure Diastolic (8462-4) 66 mm[Hg] 07/30/2024 08:00 AM Blood Pressure Systolic (8480-6) 1 17 mm[Hg] Blood Pressure Diastolic (8462-4) 69 mm[Hg] 07/30/2024 07:58 PM Temperature (8310-5) 97.9 [degF] Oxygen Saturation (14584-6) 93 % Respiratory Rate (9279-1) 18 /min Heart Rate (8867-4) 70 /min Blood Pressure Systolic (8480-6) 116 mm[Hg] Blood Pressure Diastolic (8462-4) 70 mm[Hg] 07/30/2024 06:09 PM Temperature (8310-5) 98.4 [degF] Oxygen Saturation (97244-6) 96 % Respiratory Rate (9279-1) 18 /min Heart Rate (8867-4) 87 /min Blood Pressure Systolic (8480-6) 132 mm[Hg] Blood Pressure Diastolic (8462-4) 74 mm[Hg] 07/30/2024 05:17 PM Oxygen Saturation (84783-7) 94 % 07/31/2024 07:29 PM Temperature (8310-5) 98 [degF] Oxygen Saturation (73220-1) 96 % Respiratory Rate (9279-1) 18 /min Heart Rate (8867-4) 82 /min Blood Pressure Systolic (8480-6) 116 mm[Hg] Blood Pressure Diastolic (8462-4) 64 mm[Hg] 07/31/2024 03:17 PM Temperature (8310-5) 98.2 [degF] Oxygen Saturation (26506-8) 94 % Respiratory Rate (9279-1) 18 /min Heart Rate (8867-4) 83 /min Blood Pressure Systolic (8480-6) 141 mm[Hg] Blood Pressure Diastolic (8462-4) 87 mm[Hg] 07/31/2024 02:53 PM Oxygen Saturation (89158-0) 94 % 07/31/2024 08:57 AM Blood Pressure Systolic (8480-6) 1 41 mm[Hg] Blood Pressure Diastolic (8462-4) 87 mm[Hg] 08/01/2024 08:17 AM Blood Pressure Systolic (8480-6) 1 34 mm[Hg] Blood Pressure Diastolic (8462-4) 77 mm[Hg] 08/01/2024 08:11 PM Temperature (8310-5) 98.6 [degF] Oxygen Saturation (20470-7) 96 % Respiratory Rate (9279-1) 17 /min Heart Rate (8867-4) 76 /min Blood Pressure Systolic (8480-6) 124 mm[Hg] Blood Pressure Diastolic (8462-4) 84 mm[Hg] 08/01/2024 07:43 PM Temperature (8310-5) 98.4 [degF] Oxygen Saturation (99013-1) 98 % Respiratory Rate (9279-1) 18 /min Heart Rate (8867-4) 81 /min Blood Pressure Systolic (8480-6) 109 mm[Hg] Blood Pressure Diastolic (8462-4) 62 mm[Hg] 08/01/2024 04:19 PM Oxygen Saturation (99868-2) 96 % 08/02/2024 08:35 PM Temperature (8310-5) 98 [degF] Oxygen Saturation (97606-8) 98 % Respiratory Rate (9279-1) 16 /min Heart Rate (8867-4) 65 /min Blood Pressure Systolic (8480-6) 115 mm[Hg] Blood Pressure Diastolic (8462-4) 67 mm[Hg] 08/02/2024 12:35 PM Temperature (8310-5) 98.4 [degF] Oxygen Saturation (35150-0) 95 % Respiratory Rate (9279-1) 17 /min Heart Rate (8867-4) 84 /min Blood Pressure Systolic (8480-6) 128 mm[Hg] Blood Pressure Diastolic (8462-4) 76 mm[Hg] 08/02/2024 08:10 AM Blood Pressure Systolic (8480-6) 1 22 mm[Hg] Blood Pressure Diastolic (8462-4) 75 mm[Hg] 08/03/2024 08:16 AM Blood Pressure Systolic (8480-6) 1 26 mm[Hg] Blood Pressure Diastolic (8462-4) 83 mm[Hg] 08/04/2024 12:51 PM Body Weight (54162-3) 175 [lb_av] Body Mass Index (57646-1) 24.4 kg/m2 08/04/2024 08:09 AM Temperature (8310-5) 97.2 [degF] Oxygen Saturation (69755-8) 97 % Respiratory Rate (9279-1) 16 /min Heart Rate (8867-4) 102 /min Blood Pressure Systolic (8480-6) 132 mm[Hg] Blood Pressure Diastolic (8462-4) 84 mm[Hg] 08/03/2024 10:25 PM Temperature (8310-5) 97.3 [degF] Respiratory Rate (9279-1) 18 /min Heart Rate (8867-4) 56 /min Blood Pressure Systolic (8480-6) 107 mm[Hg] Blood Pressure Diastolic (8462-4) 72 mm[Hg] 08/03/2024 08:42 PM Oxygen Saturation (26155-0) 97 % 08/03/2024 04:59 PM Temperature (8310-5) 98.4 [degF] Oxygen Saturation (37367-1) 94 % Respiratory Rate (9279-1) 16 /min Heart Rate (8867-4) 54 /min Blood Pressure Systolic (8480-6) 126 mm[Hg] Blood Pressure Diastolic (8462-4) 83 mm[Hg] 08/05/2024 10:49 AM Temperature (8310-5) 97.6 [degF] Respiratory Rate (9279-1) 16 /min Heart Rate (8867-4) 70 /min Blood Pressure Systolic (8480-6) 107 mm[Hg] Blood Pressure Diastolic (8462-4) 57 mm[Hg] 08/05/2024 10:48 AM Oxygen Saturation (26220-8) 96 % 08/05/2024 08:21 AM Blood Pressure Systolic (8480-6) 1 07 mm[Hg] Blood Pressure Diastolic (8462-4) 57 mm[Hg] 08/04/2024 09:36 PM Temperature (8310-5) 97.2 [degF] Respiratory Rate (9279-1) 18 /min Heart Rate (8867-4) 65 /min Blood Pressure Systolic (8480-6) 105 mm[Hg] Blood Pressure Diastolic (8462-4) 73 mm[Hg] 08/04/2024 09:35 PM Oxygen Saturation (79069-3) 98 % 08/06/2024 10:37 AM Temperature (8310-5) 97.8 [degF] Oxygen Saturation (59623-8) 92 % Respiratory Rate (9279-1) 16 /min Heart Rate (8867-4) 87 /min Blood Pressure Systolic (8480-6) 122 mm[Hg] Blood Pressure Diastolic (8462-4) 82 mm[Hg] 08/06/2024 08:01 AM Oxygen Saturation (79141-8) 92 % Blood Pressure Systolic (8480-6) 122 mm[Hg] Blood Pressure Diastolic (8462-4) 82 mm[Hg] 08/06/2024 12:22 AM Temperature (8310-5) 98 [degF] Oxygen Saturation (50961-5) 94 % Respiratory Rate (9279-1) 18 /min Heart Rate (8867-4) 67 /min Blood Pressure Systolic (8480-6) 114 mm[Hg] Blood Pressure Diastolic (8462-4) 62 mm[Hg] 08/06/2024 11:34 PM Temperature (8310-5) 98 [degF] Respiratory Rate (9279-1) 18 /min Heart Rate (8867-4) 73 /min Blood Pressure Systolic (8480-6) 119 mm[Hg] Blood Pressure Diastolic (8462-4) 78 mm[Hg] 08/06/2024 11:18 PM Oxygen Saturation (46815-2) 97 % 08/07/2024 11:35 AM Temperature (8310-5) 96.8 [degF] Respiratory Rate (9279-1) 16 /min Heart Rate (8867-4) 76 /min Blood Pressure Systolic (8480-6) 121 mm[Hg] Blood Pressure Diastolic (8462-4) 78 mm[Hg] 08/07/2024 11:34 AM Oxygen Saturation (95079-6) 99 % 08/07/2024 07:48 AM Blood Pressure Systolic (8480-6) 1 21 mm[Hg] Blood Pressure Diastolic (8462-4) 78 mm[Hg] 08/08/2024 11:09 AM Temperature (8310-5) 97.2 [degF] Respiratory Rate (9279-1) 20 /min Heart Rate (8867-4) 79 /min Blood Pressure Systolic (8480-6) 118 mm[Hg] Blood Pressure Diastolic (8462-4) 54 mm[Hg] 08/08/2024 11:08 AM Oxygen Saturation (87722-0) 96 % 08/08/2024 07:56 AM Blood Pressure Systolic (8480-6) 1 18 mm[Hg] Blood Pressure Diastolic (8462-4) 55 mm[Hg] 08/08/2024 12:35 AM Temperature (8310-5) 98.7 [degF] Oxygen Saturation (12124-0) 96 % Respiratory Rate (9279-1) 18 /min Heart Rate (8867-4) 67 /min Blood Pressure Systolic (8480-6) 117 mm[Hg] Blood Pressure Diastolic (8462-4) 54 mm[Hg] 08/08/2024 10:40 PM Temperature (8310-5) 97.9 [degF] Respiratory Rate (9279-1) 18 /min Heart Rate (8867-4) 71 /min Blood Pressure Systolic (8480-6) 113 mm[Hg] Blood Pressure Diastolic (8462-4) 63 mm[Hg] 08/08/2024 10:39 PM Oxygen Saturation (66489-1) 98 % 08/09/2024 07:45 PM Temperature (8310-5) 97 [degF] Oxygen Saturation (32752-2) 96 % Respiratory Rate (9279-1) 20 /min Heart Rate (8867-4) 78 /min Blood Pressure Systolic (8480-6) 97 mm[Hg] Blood Pressure Diastolic (8462-4) 58 mm[Hg] 08/09/2024 08:50 AM Temperature (8310-5) 97.1 [degF] Oxygen Saturation (31414-5) 100 % Respiratory Rate (9279-1) 17 /min Heart Rate (8867-4) 80 /min 08/09/2024 08:49 AM Blood Pressure Systolic (8480-6) 1 24 mm[Hg] Blood Pressure Diastolic (8462-4) 76 mm[Hg] 08/10/2024 08:52 AM Temperature (8310-5) 97.1 [degF] Oxygen Saturation (95047-0) 93 % Respiratory Rate (9279-1) 16 /min Heart Rate (8867-4) 74 /min 08/10/2024 08:51 AM Blood Pressure Systolic (8480-6) 1 21 mm[Hg] Blood Pressure Diastolic (8462-4) 61 mm[Hg] 08/10/2024 09:34 PM Temperature (8310-5) 97.2 [degF] Oxygen Saturation (62179-5) 97 % Respiratory Rate (9279-1) 18 /min Heart Rate (8867-4) 53 /min Blood Pressure Systolic (8480-6) 106 mm[Hg] Blood Pressure Diastolic (8462-4) 64 mm[Hg] 08/10/2024 08:37 PM Oxygen Saturation (18862-7) 97 % 08/11/2024 09:12 PM Temperature (8310-5) 97 [degF] Oxygen Saturation (54300-0) 99 % Respiratory Rate (9279-1) 18 /min Heart Rate (8867-4) 78 /min Blood Pressure Systolic (8480-6) 134 mm[Hg] Blood Pressure Diastolic (8462-4) 92 mm[Hg] 08/11/2024 11:08 AM Body Weight (10086-6) 170.4 [lb_av ] Body Mass Index (04500-4) 23.76 kg/m2 08/11/2024 08:41 AM Temperature (8310-5) 98.1 [degF] Oxygen Saturation (74571-1) 95 % Respiratory Rate (9279-1) 17 /min Heart Rate (8867-4) 73 /min Blood Pressure Systolic (8480-6) 118 mm[Hg] Blood Pressure Diastolic (8462-4) 63 mm[Hg] 08/11/2024 07:01 AM Blood Pressure Systolic (8480-6) 1 11 mm[Hg] Blood Pressure Diastolic (8462-4) 73 mm[Hg] 08/12/2024 07:26 AM Blood Pressure Systolic (8480-6) 1 31 mm[Hg] Blood Pressure Diastolic (8462-4) 76 mm[Hg] 08/12/2024 08:48 PM Temperature (8310-5) 97.8 [degF] Oxygen Saturation (38862-4) 98 % Respiratory Rate (9279-1) 18 /min Heart Rate (8867-4) 75 /min Blood Pressure Systolic (8480-6) 101 mm[Hg] Blood Pressure Diastolic (8462-4) 62 mm[Hg] 08/12/2024 05:46 PM Temperature (8310-5) 98.6 [degF] Oxygen Saturation (55998-4) 93 % Respiratory Rate (9279-1) 16 /min Heart Rate (8867-4) 73 /min Blood Pressure Systolic (8480-6) 131 mm[Hg] Blood Pressure Diastolic (8462-4) 76 mm[Hg] 08/13/2024 10:03 PM Temperature (8310-5) 98.2 [degF] Oxygen Saturation (06568-5) 97 % Respiratory Rate (9279-1) 18 /min Heart Rate (8867-4) 72 /min Blood Pressure Systolic (8480-6) 116 mm[Hg] Blood Pressure Diastolic (8462-4) 63 mm[Hg] 08/13/2024 08:44 AM Temperature (8310-5) 97.7 [degF] Oxygen Saturation (65153-2) 98 % Respiratory Rate (9279-1) 17 /min Heart Rate (8867-4) 84 /min 08/13/2024 08:43 AM Blood Pressure Systolic (8480-6) 1 05 mm[Hg] Blood Pressure Diastolic (8462-4) 67 mm[Hg] 08/14/2024 08:24 AM Temperature (8310-5) 98.2 [degF] Respiratory Rate (9279-1) 16 /min Heart Rate (8867-4) 67 /min 08/14/2024 08:23 AM Oxygen Saturation (94247-4) 94 % Blood Pressure Systolic (8480-6) 123 mm[Hg] Blood Pressure Diastolic (8462-4) 57 mm[Hg] 08/15/2024 08:23 AM Temperature (8310-5) 98 [degF] Respiratory Rate (9279-1) 19 /min Heart Rate (8867-4) 84 /min 08/15/2024 08:22 AM Oxygen Saturation (99200-4) 98 % Blood Pressure Systolic (8480-6) 120 mm[Hg] Blood Pressure Diastolic (8462-4) 81 mm[Hg] 08/15/2024 04:46 AM Body Weight (07505-5) 174.8 [lb_av ] Body Mass Index (07994-4) 24.38 kg/m2 08/14/2024 09:58 PM Body Weight (93964-2) 174.8 [lb_av ] Body Mass Index (90481-2) 24.38 kg/m2 08/14/2024 09:24 PM Temperature (8310-5) 97.4 [degF] Oxygen Saturation (34762-1) 98 % Respiratory Rate (9279-1) 16 /min Heart Rate (8867-4) 63 /min Blood Pressure Systolic (8480-6) 117 mm[Hg] Blood Pressure Diastolic (8462-4) 59 mm[Hg] 08/15/2024 11:41 PM Temperature (8310-5) 97.4 [degF] Oxygen Saturation (68762-6) 97 % Respiratory Rate (9279-1) 18 /min Heart Rate (8867-4) 73 /min Blood Pressure Systolic (8480-6) 117 mm[Hg] Blood Pressure Diastolic (8462-4) 75 mm[Hg] 08/16/2024 07:44 PM Temperature (8310-5) 97.3 [degF] Respiratory Rate (9279-1) 20 /min Heart Rate (8867-4) 66 /min Blood Pressure Systolic (8480-6) 120 mm[Hg] Blood Pressure Diastolic (8462-4) 80 mm[Hg] 08/16/2024 07:43 PM Oxygen Saturation (35122-9) 95 % 08/16/2024 08:26 AM Temperature (8310-5) 97.4 [degF] Oxygen Saturation (99874-9) 94 % Respiratory Rate (9279-1) 18 /min Heart Rate (8867-4) 82 /min 08/16/2024 07:30 AM Blood Pressure Systolic (8480-6) 1 47 mm[Hg] Blood Pressure Diastolic (8462-4) 94 mm[Hg] 08/17/2024 09:33 AM Temperature (8310-5) 98.1 [degF] Respiratory Rate (9279-1) 18 /min Heart Rate (8867-4) 68 /min 08/17/2024 09:32 AM Oxygen Saturation (94078-1) 93 % 08/17/2024 09:31 AM Blood Pressure Systolic (8480-6) 1 28 mm[Hg] Blood Pressure Diastolic (8462-4) 72 mm[Hg] 08/18/2024 08:41 AM Temperature (8310-5) 98.1 [degF] Respiratory Rate (9279-1) 16 /min Heart Rate (8867-4) 83 /min 08/18/2024 08:40 AM Oxygen Saturation (66780-9) 97 % Blood Pressure Systolic (8480-6) 120 mm[Hg] Blood Pressure Diastolic (8462-4) 76 mm[Hg] 08/17/2024 09:26 PM Temperature (8310-5) 97.2 [degF] Oxygen Saturation (01228-4) 98 % Respiratory Rate (9279-1) 18 /min Heart Rate (8867-4) 59 /min Blood Pressure Systolic (8480-6) 107 mm[Hg] Blood Pressure Diastolic (8462-4) 78 mm[Hg] 08/19/2024 07:01 AM Temperature (8310-5) 98.4 [degF] Respiratory Rate (9279-1) 16 /min Heart Rate (8867-4) 82 /min 08/19/2024 06:59 AM Oxygen Saturation (42427-1) 96 % Blood Pressure Systolic (8480-6) 115 mm[Hg] Blood Pressure Diastolic (8462-4) 72 mm[Hg] 08/18/2024 08:19 PM Temperature (8310-5) 97.4 [degF] Oxygen Saturation (93393-9) 97 % Respiratory Rate (9279-1) 16 /min Heart Rate (8867-4) 64 /min Blood Pressure Systolic (8480-6) 117 mm[Hg] Blood Pressure Diastolic (8462-4) 77 mm[Hg] 08/20/2024 09:32 AM Temperature (8310-5) 98 [degF] Oxygen Saturation (17100-3) 94 % Respiratory Rate (9279-1) 18 /min Heart Rate (8867-4) 75 /min Blood Pressure Systolic (8480-6) 122 mm[Hg] Blood Pressure Diastolic (8462-4) 81 mm[Hg] 08/19/2024 10:05 PM Temperature (8310-5) 98.6 [degF] Oxygen Saturation (29894-8) 98 % Respiratory Rate (9279-1) 18 /min Heart Rate (8867-4) 74 /min Blood Pressure Systolic (8480-6) 118 mm[Hg] Blood Pressure Diastolic (8462-4) 68 mm[Hg] 08/20/2024 09:31 PM Temperature (8310-5) 98.4 [degF] Oxygen Saturation (36154-5) 97 % Respiratory Rate (9279-1) 18 /min Heart Rate (8867-4) 71 /min Blood Pressure Systolic (8480-6) 117 mm[Hg] Blood Pressure Diastolic (8462-4) 75 mm[Hg] 08/21/2024 10:19 PM Temperature (8310-5) 98.5 [degF] Oxygen Saturation (02582-0) 97 % Respiratory Rate (9279-1) 20 /min Heart Rate (8867-4) 53 /min Blood Pressure Systolic (8480-6) 130 mm[Hg] Blood Pressure Diastolic (8462-4) 65 mm[Hg] 08/21/2024 08:19 AM Temperature (8310-5) 98 [degF] Oxygen Saturation (98450-1) 94 % Respiratory Rate (9279-1) 16 /min Heart Rate (8867-4) 55 /min Blood Pressure Systolic (8480-6) 113 mm[Hg] Blood Pressure Diastolic (8462-4) 62 mm[Hg] 08/22/2024 08:05 AM Temperature (8310-5) 98.4 [degF] Respiratory Rate (9279-1) 18 /min Heart Rate (8867-4) 56 /min 08/22/2024 08:04 AM Oxygen Saturation (75940-9) 99 % 08/22/2024 08:03 AM Blood Pressure Systolic (8480-6) 1 26 mm[Hg] Blood Pressure Diastolic (8462-4) 66 mm[Hg] 08/22/2024 10:59 PM Temperature (8310-5) 98.1 [degF] Oxygen Saturation (10234-4) 97 % Respiratory Rate (9279-1) 18 /min Heart Rate (8867-4) 67 /min Blood Pressure Systolic (8480-6) 117 mm[Hg] Blood Pressure Diastolic (8462-4) 63 mm[Hg] 08/23/2024 07:45 PM Temperature (8310-5) 98.1 [degF] Oxygen Saturation (79589-8) 99 % Respiratory Rate (9279-1) 18 /min Heart Rate (8867-4) 70 /min Blood Pressure Systolic (8480-6) 120 mm[Hg] Blood Pressure Diastolic (8462-4) 70 mm[Hg] 08/23/2024 08:37 AM Temperature (8310-5) 97.2 [degF] Oxygen Saturation (21496-2) 100 % Respiratory Rate (9279-1) 17 /min Heart Rate (8867-4) 72 /min Blood Pressure Systolic (8480-6) 117 mm[Hg] Blood Pressure Diastolic (8462-4) 73 mm[Hg] 08/24/2024 02:28 PM Temperature (8310-5) 98.6 [degF] Oxygen Saturation (05138-6) 97 % Respiratory Rate (9279-1) 17 /min Heart Rate (8867-4) 87 /min Blood Pressure Systolic (8480-6) 122 mm[Hg] Blood Pressure Diastolic (8462-4) 78 mm[Hg] 08/24/2024 07:56 AM Blood Pressure Systolic (8480-6) 1 22 mm[Hg] Blood Pressure Diastolic (8462-4) 78 mm[Hg] 08/24/2024 07:54 AM Oxygen Saturation (47891-1) 97 % 08/24/2024 07:30 PM Temperature (8310-5) 98 [degF] Oxygen Saturation (71172-8) 97 % Respiratory Rate (9279-1) 20 /min Heart Rate (8867-4) 52 /min Blood Pressure Systolic (8480-6) 121 mm[Hg] Blood Pressure Diastolic (8462-4) 74 mm[Hg] 08/25/2024 07:30 AM Blood Pressure Systolic (8480-6) 1 11 mm[Hg] Blood Pressure Diastolic (8462-4) 67 mm[Hg] 08/25/2024 02:27 PM Body Weight (66306-3) 175.6 [lb_av ] Body Mass Index (83117-3) 24.49 kg/m2 08/25/2024 10:27 AM Temperature (8310-5) 97.1 [degF] Oxygen Saturation (04223-0) 96 % Respiratory Rate (9279-1) 16 /min Heart Rate (8867-4) 77 /min 08/25/2024 08:03 PM Oxygen Saturation (90864-3) 95 % 08/25/2024 08:07 PM Temperature (8310-5) 97 [degF] Oxygen Saturation (90434-9) 95 % Respiratory Rate (9279-1) 20 /min Heart Rate (8867-4) 71 /min Blood Pressure Systolic (8480-6) 112 mm[Hg] Blood Pressure Diastolic (8462-4) 61 mm[Hg] 08/26/2024 08:18 AM Blood Pressure Systolic (8480-6) 1 41 mm[Hg] Blood Pressure Diastolic (8462-4) 89 mm[Hg] 08/26/2024 08:10 PM Temperature (8310-5) 98.2 [degF] Oxygen Saturation (64198-2) 94 % Respiratory Rate (9279-1) 18 /min Heart Rate (8867-4) 53 /min Blood Pressure Systolic (8480-6) 114 mm[Hg] Blood Pressure Diastolic (8462-4) 62 mm[Hg] 08/26/2024 06:18 PM Temperature (8310-5) 97.4 [degF] Oxygen Saturation (08273-2) 96 % Respiratory Rate (9279-1) 19 /min Heart Rate (8867-4) 78 /min 08/27/2024 09:41 AM Oxygen Saturation (45096-3) 96 % 08/27/2024 07:53 AM Blood Pressure Systolic (8480-6) 1 43 mm[Hg] Blood Pressure Diastolic (8462-4) 73 mm[Hg] 08/27/2024 11:19 AM Temperature (8310-5) 97.6 [degF] Respiratory Rate (9279-1) 18 /min Heart Rate (8867-4) 79 /min 08/28/2024 12:47 AM Temperature (8310-5) 98 [degF] Respiratory Rate (9279-1) 20 /min Heart Rate (8867-4) 83 /min Blood Pressure Systolic (8480-6) 147 mm[Hg] Blood Pressure Diastolic (8462-4) 77 mm[Hg] 08/28/2024 12:46 AM Oxygen Saturation (81391-5) 96 % 08/28/2024 08:34 AM Temperature (8310-5) 98.2 [degF] Respiratory Rate (9279-1) 19 /min Heart Rate (8867-4) 74 /min 08/28/2024 08:33 AM Oxygen Saturation (31335-2) 94 % Blood Pressure Systolic (8480-6) 104 mm[Hg] Blood Pressure Diastolic (8462-4) 58 mm[Hg] 08/28/2024 08:20 PM Temperature (8310-5) 97.9 [degF] Oxygen Saturation (21707-1) 97 % Respiratory Rate (9279-1) 20 /min Heart Rate (8867-4) 81 /min Blood Pressure Systolic (8480-6) 122 mm[Hg] Blood Pressure Diastolic (8462-4) 69 mm[Hg] 08/29/2024 08:48 AM Blood Pressure Systolic (8480-6) 1 37 mm[Hg] Blood Pressure Diastolic (8462-4) 77 mm[Hg] 08/29/2024 12:07 PM Temperature (8310-5) 98.7 [degF] Respiratory Rate (9279-1) 18 /min Heart Rate (8867-4) 77 /min 08/29/2024 12:06 PM Oxygen Saturation (55629-4) 96 % 08/29/2024 07:28 PM Temperature (8310-5) 98.2 [degF] Oxygen Saturation (36932-7) 98 % Respiratory Rate (9279-1) 18 /min Heart Rate (8867-4) 67 /min Blood Pressure Systolic (8480-6) 119 mm[Hg] Blood Pressure Diastolic (8462-4) 71 mm[Hg] 08/30/2024 08:08 AM Blood Pressure Systolic (8480-6) 1 21 mm[Hg] Blood Pressure Diastolic (8462-4) 76 mm[Hg] 08/30/2024 09:51 AM Temperature (8310-5) 97.8 [degF] Oxygen Saturation (12187-4) 98 % Respiratory Rate (9279-1) 18 /min Heart Rate (8867-4) 62 /min Blood Pressure Systolic (8480-6) 112 mm[Hg] Blood Pressure Diastolic (8462-4) 72 mm[Hg] 08/30/2024 09:50 AM Oxygen Saturation (72843-1) 98 % 08/30/2024 08:29 PM Temperature (8310-5) 97.4 [degF] Respiratory Rate (9279-1) 20 /min Heart Rate (8867-4) 58 /min Blood Pressure Systolic (8480-6) 120 mm[Hg] Blood Pressure Diastolic (8462-4) 80 mm[Hg] 08/30/2024 08:28 PM Oxygen Saturation (60893-9) 97 % 08/31/2024 06:02 AM Temperature (8310-5) 97 [degF] Oxygen Saturation (11999-6) 92 % Respiratory Rate (9279-1) 16 /min Heart Rate (8867-4) 73 /min Blood Pressure Systolic (8480-6) 121 mm[Hg] Blood Pressure Diastolic (8462-4) 63 mm[Hg] 09/01/2024 10:08 AM Body Weight (71247-1) 176.2 [lb_av ] Body Mass Index (01732-3) 24.57 kg/m2 09/01/2024 08:51 AM Temperature (8310-5) 97.5 [degF] Oxygen Saturation (98483-1) 97 % Respiratory Rate (9279-1) 18 /min Heart Rate (8867-4) 56 /min Blood Pressure Systolic (8480-6) 108 mm[Hg] Blood Pressure Diastolic (8462-4) 67 mm[Hg] 09/01/2024 08:30 AM Blood Pressure Systolic (8480-6) 1 08 mm[Hg] Blood Pressure Diastolic (8462-4) 67 mm[Hg] 08/31/2024 09:44 PM Temperature (8310-5) 97.2 [degF] Oxygen Saturation (47139-7) 98 % Respiratory Rate (9279-1) 18 /min Heart Rate (8867-4) 81 /min Blood Pressure Systolic (8480-6) 114 mm[Hg] Blood Pressure Diastolic (8462-4) 67 mm[Hg] 08/31/2024 08:00 PM Oxygen Saturation (49307-6) 98 % 09/01/2024 07:10 PM Temperature (8310-5) 97.2 [degF] Oxygen Saturation (66388-1) 97 % Respiratory Rate (9279-1) 16 /min Heart Rate (8867-4) 57 /min Blood Pressure Systolic (8480-6) 103 mm[Hg] Blood Pressure Diastolic (8462-4) 69 mm[Hg] 09/02/2024 07:05 AM Temperature (8310-5) 96.6 [degF] Oxygen Saturation (98866-5) 94 % Respiratory Rate (9279-1) 16 /min Heart Rate (8867-4) 79 /min Blood Pressure Systolic (8480-6) 110 mm[Hg] Blood Pressure Diastolic (8462-4) 68 mm[Hg] 09/02/2024 06:41 AM Oxygen Saturation (09119-6) 94 % 09/02/2024 06:40 AM Blood Pressure Systolic (8480-6) 1 10 mm[Hg] Blood Pressure Diastolic (8462-4) 68 mm[Hg] 09/02/2024 07:57 PM Temperature (8310-5) 97.5 [degF] Oxygen Saturation (10021-6) 97 % Respiratory Rate (9279-1) 20 /min Heart Rate (8867-4) 81 /min Blood Pressure Systolic (8480-6) 125 mm[Hg] Blood Pressure Diastolic (8462-4) 71 mm[Hg] 09/03/2024 08:15 AM Temperature (8310-5) 97.7 [degF] Oxygen Saturation (96541-7) 92 % Respiratory Rate (9279-1) 18 /min Heart Rate (8867-4) 68 /min Blood Pressure Systolic (8480-6) 115 mm[Hg] Blood Pressure Diastolic (8462-4) 58 mm[Hg] 09/03/2024 07:30 AM Blood Pressure Systolic (8480-6) 1 15 mm[Hg] Blood Pressure Diastolic (8462-4) 58 mm[Hg] 09/03/2024 10:43 PM Temperature (8310-5) 98.1 [degF] Oxygen Saturation (28013-7) 95 % Respiratory Rate (9279-1) 18 /min Heart Rate (8867-4) 63 /min Blood Pressure Systolic (8480-6) 121 mm[Hg] Blood Pressure Diastolic (8462-4) 64 mm[Hg] 09/04/2024 08:41 AM Temperature (8310-5) 97.2 [degF] Oxygen Saturation (28985-2) 93 % Respiratory Rate (9279-1) 17 /min Heart Rate (8867-4) 63 /min Blood Pressure Systolic (8480-6) 99 mm[Hg] Blood Pressure Diastolic (8462-4) 61 mm[Hg] 09/04/2024 08:40 AM Oxygen Saturation (40865-7) 93 % 09/04/2024 08:02 AM Blood Pressure Systolic (8480-6) 9 9 mm[Hg] Blood Pressure Diastolic (8462-4) 61 mm[Hg] 09/04/2024 10:13 PM Temperature (8310-5) 97.9 [degF] Oxygen Saturation (86409-6) 96 % Respiratory Rate (9279-1) 18 /min Heart Rate (8867-4) 69 /min Blood Pressure Systolic (8480-6) 116 mm[Hg] Blood Pressure Diastolic (8462-4) 64 mm[Hg] 09/05/2024 08:09 AM Blood Pressure Systolic (8480-6) 1 47 mm[Hg] Blood Pressure Diastolic (8462-4) 86 mm[Hg] 09/05/2024 09:06 PM Temperature (8310-5) 98.3 [degF] Oxygen Saturation (98550-1) 95 % Respiratory Rate (9279-1) 21 /min Heart Rate (8867-4) 67 /min Blood Pressure Systolic (8480-6) 114 mm[Hg] Blood Pressure Diastolic (8462-4) 59 mm[Hg] 09/05/2024 08:54 AM Oxygen Saturation (11231-7) 96 % 09/05/2024 07:33 AM Temperature (8310-5) 97.2 [degF] Oxygen Saturation (67107-0) 93 % Respiratory Rate (9279-1) 17 /min Heart Rate (8867-4) 63 /min Blood Pressure Systolic (8480-6) 99 mm[Hg] Blood Pressure Diastolic (8462-4) 61 mm[Hg] 09/06/2024 09:46 AM Temperature (8310-5) 97.8 [degF] Oxygen Saturation (80364-6) 94 % Respiratory Rate (9279-1) 18 /min Heart Rate (8867-4) 81 /min Blood Pressure Systolic (8480-6) 109 mm[Hg] Blood Pressure Diastolic (8462-4) 59 mm[Hg] 09/06/2024 06:58 AM Blood Pressure Systolic (8480-6) 1 09 mm[Hg] Blood Pressure Diastolic (8462-4) 58 mm[Hg] 09/06/2024 07:58 PM Temperature (8310-5) 97.8 [degF] Respiratory Rate (9279-1) 20 /min Heart Rate (8867-4) 69 /min Blood Pressure Systolic (8480-6) 107 mm[Hg] Blood Pressure Diastolic (8462-4) 79 mm[Hg] 09/06/2024 07:57 PM Oxygen Saturation (39751-3) 95 % 09/07/2024 07:24 AM Blood Pressure Systolic (8480-6) 1 12 mm[Hg] Blood Pressure Diastolic (8462-4) 77 mm[Hg] 09/07/2024 11:14 AM Temperature (8310-5) 98 [degF] Oxygen Saturation (12582-0) 98 % Respiratory Rate (9279-1) 18 /min Heart Rate (8867-4) 78 /min 09/07/2024 08:48 PM Temperature (8310-5) 97.3 [degF] Oxygen Saturation (52020-8) 98 % Respiratory Rate (9279-1) 16 /min Heart Rate (8867-4) 60 /min Blood Pressure Systolic (8480-6) 97 mm[Hg] Blood Pressure Diastolic (8462-4) 57 mm[Hg] 09/08/2024 08:46 AM Blood Pressure Systolic (8480-6) 1 12 mm[Hg] Blood Pressure Diastolic (8462-4) 73 mm[Hg] 09/08/2024 05:03 PM Temperature (8310-5) 97.9 [degF] Oxygen Saturation (45431-4) 96 % Respiratory Rate (9279-1) 16 /min Heart Rate (8867-4) 71 /min 09/08/2024 12:09 PM Body Weight (88524-1) 173.6 [lb_av ] Body Mass Index (07727-9) 24.21 kg/m2 09/08/2024 09:10 PM Temperature (8310-5) 97 [degF] Oxygen Saturation (15756-3) 98 % Respiratory Rate (9279-1) 16 /min Heart Rate (8867-4) 54 /min Blood Pressure Systolic (8480-6) 97 mm[Hg] Blood Pressure Diastolic (8462-4) 66 mm[Hg] 09/09/2024 07:27 AM Blood Pressure Systolic (8480-6) 1 24 mm[Hg] Blood Pressure Diastolic (8462-4) 77 mm[Hg] 09/09/2024 07:31 PM Temperature (8310-5) 98 [degF] Oxygen Saturation (15311-9) 97 % Respiratory Rate (9279-1) 18 /min Heart Rate (8867-4) 56 /min Blood Pressure Systolic (8480-6) 100 mm[Hg] Blood Pressure Diastolic (8462-4) 57 mm[Hg] 09/09/2024 06:35 PM Temperature (8310-5) 97.6 [degF] Oxygen Saturation (97429-1) 96 % Respiratory Rate (9279-1) 16 /min Heart Rate (8867-4) 67 /min 09/10/2024 11:44 AM Temperature (8310-5) 97.6 [degF] Oxygen Saturation (66029-7) 94 % Respiratory Rate (9279-1) 18 /min Heart Rate (8867-4) 76 /min 09/10/2024 11:43 AM Blood Pressure Systolic (8480-6) 1 15 mm[Hg] Blood Pressure Diastolic (8462-4) 68 mm[Hg] 09/10/2024 09:15 PM Temperature (8310-5) 98.8 [degF] Oxygen Saturation (85541-4) 95 % Respiratory Rate (9279-1) 20 /min Heart Rate (8867-4) 103 /min Blood Pressure Systolic (8480-6) 114 mm[Hg] Blood Pressure Diastolic (8462-4) 52 mm[Hg] 2024 09:17 AM Temperature (8310-5) 97.6 [degF] Respiratory Rate (9279-1) 18 /min Heart Rate (8867-4) 76 /min 2024 09:16 AM Oxygen Saturation (80652-9) 97 % 2024 09:15 AM Blood Pressure Systolic (8480-6) 1 29 mm[Hg] Blood Pressure Diastolic (8462-4) 59 mm[Hg] 2024 09:35 PM Temperature (8310-5) 98.4 [degF] Oxygen Saturation (91280-9) 98 % Respiratory Rate (9279-1) 18 /min Heart Rate (8867-4) 54 /min Blood Pressure Systolic (8480-6) 113 mm[Hg] Blood Pressure Diastolic (8462-4) 56 mm[Hg] 09/12/2024 08:14 AM Temperature (8310-5) 98.7 [degF] Oxygen Saturation (87015-9) 96 % Respiratory Rate (9279-1) 20 /min Heart Rate (8867-4) 85 /min Blood Pressure Systolic (8480-6) 117 mm[Hg] Blood Pressure Diastolic (8462-4) 71 mm[Hg] 09/12/2024 08:42 PM Temperature (8310-5) 98.6 [degF] Respiratory Rate (9279-1) 22 /min Heart Rate (8867-4) 89 /min Blood Pressure Systolic (8480-6) 125 mm[Hg] Blood Pressure Diastolic (8462-4) 82 mm[Hg] 09/13/2024 08:36 AM Temperature (8310-5) 98.2 [degF] Oxygen Saturation (24814-9) 95 % Respiratory Rate (9279-1) 18 /min Heart Rate (8867-4) 83 /min Blood Pressure Systolic (8480-6) 122 mm[Hg] Blood Pressure Diastolic (8462-4) 72 mm[Hg] 09/13/2024 07:56 AM Blood Pressure Systolic (8480-6) 1 22 mm[Hg] Blood Pressure Diastolic (8462-4) 72 mm[Hg] 09/13/2024 07:27 PM Temperature (8310-5) 97.8 [degF] Oxygen Saturation (38039-3) 96 % Respiratory Rate (9279-1) 20 /min Heart Rate (8867-4) 77 /min Blood Pressure Systolic (8480-6) 130 mm[Hg] Blood Pressure Diastolic (8462-4) 70 mm[Hg] 09/14/2024 07:58 AM Body Weight (78155-6) 170.6 [lb_av ] Body Mass Index (62152-0) 23.79 kg/m2 09/14/2024 07:57 AM Temperature (8310-5) 97.6 [degF] Oxygen Saturation (05555-0) 95 % Respiratory Rate (9279-1) 16 /min Heart Rate (8867-4) 62 /min Blood Pressure Systolic (8480-6) 102 mm[Hg] Blood Pressure Diastolic (8462-4) 63 mm[Hg] 09/15/2024 12:07 AM Temperature (8310-5) 97.1 [degF] Oxygen Saturation (63368-0) 98 % Respiratory Rate (9279-1) 16 /min Heart Rate (8867-4) 60 /min Blood Pressure Systolic (8480-6) 109 mm[Hg] Blood Pressure Diastolic (8462-4) 80 mm[Hg] 09/14/2024 09:20 PM Oxygen Saturation (51096-4) 98 % 09/15/2024 08:47 AM Blood Pressure Systolic (8480-6) 1 27 mm[Hg] Blood Pressure Diastolic (8462-4) 77 mm[Hg] 09/15/2024 08:48 AM Temperature (8310-5) 97.6 [degF] Oxygen Saturation (45852-8) 97 % Respiratory Rate (9279-1) 16 /min Heart Rate (8867-4) 93 /min 09/15/2024 04:18 PM Body Weight (96899-9) 176.2 [lb_av ] Body Mass Index (68676-5) 24.57 kg/m2 09/15/2024 09:30 PM Temperature (8310-5) 97.1 [degF] Oxygen Saturation (25606-7) 97 % Respiratory Rate (9279-1) 16 /min Heart Rate (8867-4) 57 /min Blood Pressure Systolic (8480-6) 116 mm[Hg] Blood Pressure Diastolic (8462-4) 76 mm[Hg] 09/16/2024 06:58 AM Temperature (8310-5) 97.2 [degF] Oxygen Saturation (34941-5) 96 % Respiratory Rate (9279-1) 18 /min Heart Rate (8867-4) 61 /min Blood Pressure Systolic (8480-6) 120 mm[Hg] Blood Pressure Diastolic (8462-4) 72 mm[Hg] 09/16/2024 11:16 PM Temperature (8310-5) 97.7 [degF] Oxygen Saturation (36068-6) 98 % Respiratory Rate (9279-1) 18 /min Heart Rate (8867-4) 71 /min Blood Pressure Systolic (8480-6) 116 mm[Hg] Blood Pressure Diastolic (8462-4) 68 mm[Hg] 09/17/2024 08:54 AM Temperature (8310-5) 97.6 [degF] Oxygen Saturation (47931-4) 98 % Respiratory Rate (9279-1) 17 /min Heart Rate (8867-4) 82 /min Blood Pressure Systolic (8480-6) 142 mm[Hg] Blood Pressure Diastolic (8462-4) 92 mm[Hg] 09/17/2024 07:59 AM Blood Pressure Systolic (8480-6) 1 42 mm[Hg] Blood Pressure Diastolic (8462-4) 92 mm[Hg] 09/17/2024 08:06 PM Temperature (8310-5) 96.6 [degF] Respiratory Rate (9279-1) 20 /min Heart Rate (8867-4) 74 /min Blood Pressure Systolic (8480-6) 132 mm[Hg] Blood Pressure Diastolic (8462-4) 78 mm[Hg] 09/17/2024 08:05 PM Oxygen Saturation (00588-0) 95 % 09/18/2024 08:19 AM Blood Pressure Systolic (8480-6) 1 37 mm[Hg] Blood Pressure Diastolic (8462-4) 67 mm[Hg] 09/18/2024 03:31 PM Temperature (8310-5) 98 [degF] Oxygen Saturation (70103-0) 98 % Respiratory Rate (9279-1) 16 /min Heart Rate (8867-4) 80 /min 09/18/2024 08:57 PM Temperature (8310-5) 97.7 [degF] Oxygen Saturation (13669-1) 97 % Respiratory Rate (9279-1) 18 /min Heart Rate (8867-4) 71 /min Blood Pressure Systolic (8480-6) 128 mm[Hg] Blood Pressure Diastolic (8462-4) 65 mm[Hg] 09/19/2024 08:32 AM Blood Pressure Systolic (8480-6) 1 15 mm[Hg] Blood Pressure Diastolic (8462-4) 69 mm[Hg] 09/19/2024 09:40 AM Temperature (8310-5) 98 [degF] Oxygen Saturation (91452-3) 93 % Respiratory Rate (9279-1) 17 /min Heart Rate (8867-4) 79 /min Blood Pressure Systolic (8480-6) 118 mm[Hg] Blood Pressure Diastolic (8462-4) 69 mm[Hg] 09/19/2024 09:53 PM Temperature (8310-5) 98.7 [degF] Oxygen Saturation (74113-8) 96 % Respiratory Rate (9279-1) 18 /min Heart Rate (8867-4) 57 /min Blood Pressure Systolic (8480-6) 106 mm[Hg] Blood Pressure Diastolic (8462-4) 59 mm[Hg] 09/20/2024 08:52 AM Temperature (8310-5) 97.8 [degF] Respiratory Rate (9279-1) 16 /min Heart Rate (8867-4) 84 /min 09/20/2024 08:51 AM Oxygen Saturation (33380-1) 98 % Blood Pressure Systolic (8480-6) 105 mm[Hg] Blood Pressure Diastolic (8462-4) 80 mm[Hg] 09/20/2024 09:18 PM Temperature (8310-5) 98 [degF] Oxygen Saturation (31909-7) 96 % Respiratory Rate (9279-1) 19 /min Heart Rate (8867-4) 62 /min Blood Pressure Systolic (8480-6) 107 mm[Hg] Blood Pressure Diastolic (8462-4) 66 mm[Hg] 09/21/2024 08:13 AM Temperature (8310-5) 97.2 [degF] Oxygen Saturation (06218-3) 92 % Respiratory Rate (9279-1) 16 /min Heart Rate (8867-4) 72 /min 09/21/2024 08:11 AM Blood Pressure Systolic (8480-6) 1 10 mm[Hg] Blood Pressure Diastolic (8462-4) 68 mm[Hg] 09/21/2024 09:52 PM Temperature (8310-5) 97.4 [degF] Oxygen Saturation (05490-6) 97 % Respiratory Rate (9279-1) 18 /min Heart Rate (8867-4) 60 /min Blood Pressure Systolic (8480-6) 107 mm[Hg] Blood Pressure Diastolic (8462-4) 78 mm[Hg] 09/22/2024 08:08 AM Blood Pressure Systolic (8480-6) 1 12 mm[Hg] Blood Pressure Diastolic (8462-4) 64 mm[Hg] 09/22/2024 04:57 PM Temperature (8310-5) 97.7 [degF] Oxygen Saturation (97779-0) 94 % Respiratory Rate (9279-1) 18 /min Heart Rate (8867-4) 72 /min Blood Pressure Systolic (8480-6) 122 mm[Hg] Blood Pressure Diastolic (8462-4) 70 mm[Hg] 09/22/2024 05:21 PM Body Weight (50476-7) 175.9 [lb_av ] Body Mass Index (14687-6) 24.53 kg/m2 09/22/2024 09:43 PM Temperature (8310-5) 97.4 [degF] Oxygen Saturation (71749-7) 97 % Respiratory Rate (9279-1) 16 /min Heart Rate (8867-4) 57 /min Blood Pressure Systolic (8480-6) 104 mm[Hg] Blood Pressure Diastolic (8462-4) 71 mm[Hg] 09/23/2024 08:12 AM Blood Pressure Systolic (8480-6) 1 29 mm[Hg] Blood Pressure Diastolic (8462-4) 83 mm[Hg] 09/23/2024 10:02 AM Temperature (8310-5) 97.2 [degF] Oxygen Saturation (83369-7) 98 % Respiratory Rate (9279-1) 17 /min Heart Rate (8867-4) 75 /min 09/23/2024 08:24 PM Temperature (8310-5) 97.8 [degF] Oxygen Saturation (49667-2) 98 % Respiratory Rate (9279-1) 19 /min Heart Rate (8867-4) 72 /min Blood Pressure Systolic (8480-6) 106 mm[Hg] Blood Pressure Diastolic (8462-4) 60 mm[Hg] 09/24/2024 09:52 AM Temperature (8310-5) 97.3 [degF] Oxygen Saturation (49242-7) 97 % Respiratory Rate (9279-1) 18 /min Heart Rate (8867-4) 74 /min 09/24/2024 09:44 AM Blood Pressure Systolic (8480-6) 9 0 mm[Hg] Blood Pressure Diastolic (8462-4) 48 mm[Hg] 09/24/2024 09:18 PM Temperature (8310-5) 98.2 [degF] Oxygen Saturation (25198-1) 94 % Respiratory Rate (9279-1) 18 /min Heart Rate (8867-4) 66 /min Blood Pressure Systolic (8480-6) 125 mm[Hg] Blood Pressure Diastolic (8462-4) 68 mm[Hg] 09/25/2024 01:45 PM Respiratory Rate (9279-1) 19 /min Heart Rate (8867-4) 85 /min Blood Pressure Systolic (8480-6) 111 mm[Hg] Blood Pressure Diastolic (8462-4) 79 mm[Hg] 09/25/2024 01:44 PM Temperature (8310-5) 97.8 [degF] Oxygen Saturation (92436-9) 89 % 09/25/2024 01:40 PM Blood Pressure Systolic (8480-6) 1 34 mm[Hg] Blood Pressure Diastolic (8462-4) 66 mm[Hg] 09/25/2024 11:18 PM Temperature (8310-5) 98.1 [degF] Oxygen Saturation (64897-1) 95 % Respiratory Rate (9279-1) 18 /min Heart Rate (8867-4) 77 /min Blood Pressure Systolic (8480-6) 119 mm[Hg] Blood Pressure Diastolic (8462-4) 73 mm[Hg] 09/26/2024 08:45 AM Temperature (8310-5) 98.7 [degF] Oxygen Saturation (65620-1) 98 % Respiratory Rate (9279-1) 21 /min Heart Rate (8867-4) 78 /min Blood Pressure Systolic (8480-6) 129 mm[Hg] Blood Pressure Diastolic (8462-4) 76 mm[Hg] 09/26/2024 08:19 PM Temperature (8310-5) 98.1 [degF] Oxygen Saturation (31267-5) 97 % Respiratory Rate (9279-1) 18 /min Heart Rate (8867-4) 71 /min Blood Pressure Systolic (8480-6) 118 mm[Hg] Blood Pressure Diastolic (8462-4) 69 mm[Hg] 09/27/2024 07:29 AM Blood Pressure Systolic (8480-6) 1 07 mm[Hg] Blood Pressure Diastolic (8462-4) 76 mm[Hg] 09/27/2024 01:01 PM Temperature (8310-5) 97.9 [degF] Oxygen Saturation (67185-2) 96 % Respiratory Rate (9279-1) 18 /min Heart Rate (8867-4) 81 /min 09/27/2024 08:00 PM Temperature (8310-5) 97.5 [degF] Respiratory Rate (9279-1) 20 /min Heart Rate (8867-4) 81 /min Blood Pressure Systolic (8480-6) 112 mm[Hg] Blood Pressure Diastolic (8462-4) 68 mm[Hg] 09/28/2024 07:32 AM Blood Pressure Systolic (8480-6) 1 41 mm[Hg] Blood Pressure Diastolic (8462-4) 87 mm[Hg] 09/28/2024 03:40 PM Temperature (8310-5) 96.8 [degF] Oxygen Saturation (34741-1) 94 % Respiratory Rate (9279-1) 18 /min Heart Rate (8867-4) 76 /min Blood Pressure Systolic (8480-6) 129 mm[Hg] Blood Pressure Diastolic (8462-4) 83 mm[Hg] 09/29/2024 08:53 AM Temperature (8310-5) 97.1 [degF] Oxygen Saturation (58205-6) 96 % Respiratory Rate (9279-1) 16 /min Heart Rate (8867-4) 78 /min Blood Pressure Systolic (8480-6) 118 mm[Hg] Blood Pressure Diastolic (8462-4) 67 mm[Hg] 09/29/2024 08:54 AM Body Weight (42974-8) 175.4 [lb_av ] Body Mass Index (64250-2) 24.46 kg/m2 09/28/2024 09:04 PM Temperature (8310-5) 97.3 [degF] Oxygen Saturation (38563-2) 97 % Respiratory Rate (9279-1) 16 /min Heart Rate (8867-4) 58 /min Blood Pressure Systolic (8480-6) 100 mm[Hg] Blood Pressure Diastolic (8462-4) 71 mm[Hg] 09/29/2024 10:40 PM Temperature (8310-5) 97.3 [degF] Respiratory Rate (9279-1) 16 /min Heart Rate (8867-4) 77 /min Blood Pressure Systolic (8480-6) 117 mm[Hg] Blood Pressure Diastolic (8462-4) 78 mm[Hg] 09/29/2024 10:24 PM Oxygen Saturation (02944-0) 97 % 09/30/2024 09:38 AM Oxygen Saturation (28493-0) 96 % 09/30/2024 09:39 AM Temperature (8310-5) 97.9 [degF] Respiratory Rate (9279-1) 18 /min Heart Rate (8867-4) 73 /min 09/30/2024 06:59 AM Blood Pressure Systolic (8480-6) 1 04 mm[Hg] Blood Pressure Diastolic (8462-4) 73 mm[Hg] 09/30/2024 10:45 PM Temperature (8310-5) 98.2 [degF] Oxygen Saturation (95800-2) 97 % Respiratory Rate (9279-1) 18 /min Heart Rate (8867-4) 68 /min Blood Pressure Systolic (8480-6) 119 mm[Hg] Blood Pressure Diastolic (8462-4) 71 mm[Hg] 10/01/2024 08:15 AM Blood Pressure Systolic (8480-6) 1 13 mm[Hg] Blood Pressure Diastolic (8462-4) 71 mm[Hg] 10/01/2024 08:44 AM Temperature (8310-5) 97.7 [degF] Oxygen Saturation (15198-1) 98 % Respiratory Rate (9279-1) 18 /min Heart Rate (8867-4) 82 /min 10/01/2024 08:24 PM Temperature (8310-5) 97.8 [degF] Oxygen Saturation (84031-6) 96 % Respiratory Rate (9279-1) 20 /min Heart Rate (8867-4) 75 /min Blood Pressure Systolic (8480-6) 107 mm[Hg] Blood Pressure Diastolic (8462-4) 56 mm[Hg] 10/02/2024 08:55 AM Temperature (8310-5) 97.6 [degF] Oxygen Saturation (05350-6) 96 % Respiratory Rate (9279-1) 17 /min Heart Rate (8867-4) 79 /min 10/02/2024 08:30 AM Blood Pressure Systolic (8480-6) 1 31 mm[Hg] Blood Pressure Diastolic (8462-4) 77 mm[Hg] 10/02/2024 11:32 PM Temperature (8310-5) 97.7 [degF] Oxygen Saturation (81209-0) 95 % Respiratory Rate (9279-1) 18 /min Heart Rate (8867-4) 81 /min Blood Pressure Systolic (8480-6) 127 mm[Hg] Blood Pressure Diastolic (8462-4) 71 mm[Hg] 10/03/2024 08:42 AM Blood Pressure Systolic (8480-6) 1 28 mm[Hg] Blood Pressure Diastolic (8462-4) 73 mm[Hg] 10/03/2024 09:20 AM Temperature (8310-5) 97.1 [degF] Oxygen Saturation (36210-2) 99 % Respiratory Rate (9279-1) 1 /min Heart Rate (8867-4) 85 /min 10/03/2024 11:19 PM Oxygen Saturation (12118-1) 97 % 10/03/2024 11:20 PM Temperature (8310-5) 97.5 [degF] Respiratory Rate (9279-1) 18 /min Heart Rate (8867-4) 71 /min Blood Pressure Systolic (8480-6) 123 mm[Hg] Blood Pressure Diastolic (8462-4) 71 mm[Hg] 10/04/2024 07:53 AM Temperature (8310-5) 98 [degF] Oxygen Saturation (01389-3) 97 % Respiratory Rate (9279-1) 16 /min Heart Rate (8867-4) 78 /min Blood Pressure Systolic (8480-6) 107 mm[Hg] Blood Pressure Diastolic (8462-4) 70 mm[Hg] 10/04/2024 07:52 AM Oxygen Saturation (03829-1) 97 % 10/04/2024 07:14 PM Temperature (8310-5) 97.6 [degF] Oxygen Saturation (63211-0) 95 % Respiratory Rate (9279-1) 22 /min Heart Rate (8867-4) 66 /min Blood Pressure Systolic (8480-6) 97 mm[Hg] Blood Pressure Diastolic (8462-4) 59 mm[Hg] 10/04/2024 07:13 PM Oxygen Saturation (13239-0) 95 % 10/05/2024 08:09 AM Blood Pressure Systolic (8480-6) 1 31 mm[Hg] Blood Pressure Diastolic (8462-4) 78 mm[Hg] 10/05/2024 10:47 AM Temperature (8310-5) 97.9 [degF] Oxygen Saturation (94144-7) 96 % Respiratory Rate (9279-1) 18 /min Heart Rate (8867-4) 77 /min Blood Pressure Systolic (8480-6) 131 mm[Hg] Blood Pressure Diastolic (8462-4) 78 mm[Hg] 10/05/2024 09:35 PM Temperature (8310-5) 97.8 [degF] Oxygen Saturation (35084-2) 95 % Respiratory Rate (9279-1) 18 /min Heart Rate (8867-4) 69 /min Blood Pressure Systolic (8480-6) 115 mm[Hg] Blood Pressure Diastolic (8462-4) 64 mm[Hg] 10/05/2024 08:22 PM Oxygen Saturation (57188-5) 95 % 10/06/2024 06:55 AM Blood Pressure Systolic (8480-6) 1 18 mm[Hg] Blood Pressure Diastolic (8462-4) 66 mm[Hg] 10/06/2024 10:54 AM Temperature (8310-5) 97.6 [degF] Respiratory Rate (9279-1) 18 /min Heart Rate (8867-4) 73 /min 10/06/2024 10:53 AM Oxygen Saturation (22593-1) 97 % 10/06/2024 04:46 PM Body Weight (46822-2) 177.4 [lb_av ] Body Mass Index (97748-4) 24.74 kg/m2 10/06/2024 10:41 PM Temperature (8310-5) 97 [degF] Oxygen Saturation (92566-6) 97 % Respiratory Rate (9279-1) 16 /min Heart Rate (8867-4) 56 /min Blood Pressure Systolic (8480-6) 107 mm[Hg] Blood Pressure Diastolic (8462-4) 65 mm[Hg] 10/06/2024 09:50 PM Oxygen Saturation (91030-0) 97 % 10/07/2024 07:27 AM Blood Pressure Systolic (8480-6) 1 14 mm[Hg] Blood Pressure Diastolic (8462-4) 75 mm[Hg] 10/07/2024 05:16 PM Oxygen Saturation (76340-3) 97 % 10/07/2024 05:35 PM Temperature (8310-5) 97.4 [degF] Oxygen Saturation (96921-4) 99 % Respiratory Rate (9279-1) 16 /min Heart Rate (8867-4) 73 /min Blood Pressure Systolic (8480-6) 114 mm[Hg] Blood Pressure Diastolic (8462-4) 75 mm[Hg] 10/07/2024 08:23 PM Temperature (8310-5) 97.8 [degF] Oxygen Saturation (48631-0) 96 % Respiratory Rate (9279-1) 16 /min Heart Rate (8867-4) 64 /min Blood Pressure Systolic (8480-6) 126 mm[Hg] Blood Pressure Diastolic (8462-4) 71 mm[Hg] 10/08/2024 11:43 AM Temperature (8310-5) 96.6 [degF] Oxygen Saturation (83121-9) 96 % Respiratory Rate (9279-1) 16 /min Heart Rate (8867-4) 87 /min Blood Pressure Systolic (8480-6) 136 mm[Hg] Blood Pressure Diastolic (8462-4) 83 mm[Hg] 10/08/2024 10:24 PM Temperature (8310-5) 98.7 [degF] Oxygen Saturation (59497-8) 97 % Respiratory Rate (9279-1) 20 /min Heart Rate (8867-4) 56 /min Blood Pressure Systolic (8480-6) 111 mm[Hg] Blood Pressure Diastolic (8462-4) 67 mm[Hg] 10/09/2024 08:21 AM Temperature (8310-5) 98 [degF] Oxygen Saturation (10861-7) 99 % Respiratory Rate (9279-1) 16 /min Heart Rate (8867-4) 88 /min Blood Pressure Systolic (8480-6) 132 mm[Hg] Blood Pressure Diastolic (8462-4) 77 mm[Hg] 10/09/2024 08:45 PM Temperature (8310-5) 97.7 [degF] Respiratory Rate (9279-1) 18 /min Heart Rate (8867-4) 71 /min Blood Pressure Systolic (8480-6) 124 mm[Hg] Blood Pressure Diastolic (8462-4) 73 mm[Hg] 10/10/2024 08:22 AM Temperature (8310-5) 97.9 [degF] Oxygen Saturation (11968-4) 99 % Respiratory Rate (9279-1) 14 /min Heart Rate (8867-4) 80 /min 10/10/2024 07:52 AM Blood Pressure Systolic (8480-6) 1 12 mm[Hg] Blood Pressure Diastolic (8462-4) 74 mm[Hg] 10/09/2024 08:16 PM Oxygen Saturation (92146-6) 97 % 10/11/2024 12:26 AM Temperature (8310-5) 98.1 [degF] Oxygen Saturation (38761-9) 98 % Respiratory Rate (9279-1) 18 /min Heart Rate (8867-4) 74 /min Blood Pressure Systolic (8480-6) 119 mm[Hg] Blood Pressure Diastolic (8462-4) 72 mm[Hg] 10/11/2024 08:06 AM Blood Pressure Systolic (8480-6) 1 32 mm[Hg] Blood Pressure Diastolic (8462-4) 74 mm[Hg] 10/11/2024 09:35 AM Temperature (8310-5) 98 [degF] Oxygen Saturation (09063-9) 97 % Respiratory Rate (9279-1) 18 /min Heart Rate (8867-4) 83 /min 10/11/2024 07:24 PM Oxygen Saturation (98205-9) 97 % 10/11/2024 07:25 PM Temperature (8310-5) 97.4 [degF] Respiratory Rate (9279-1) 16 /min Heart Rate (8867-4) 81 /min Blood Pressure Systolic (8480-6) 122 mm[Hg] Blood Pressure Diastolic (8462-4) 77 mm[Hg] 10/12/2024 08:15 AM Blood Pressure Systolic (8480-6) 1 18 mm[Hg] Blood Pressure Diastolic (8462-4) 72 mm[Hg] 10/12/2024 03:32 PM Temperature (8310-5) 97.8 [degF] Respiratory Rate (9279-1) 16 /min Heart Rate (8867-4) 87 /min Blood Pressure Systolic (8480-6) 119 mm[Hg] Blood Pressure Diastolic (8462-4) 72 mm[Hg] 10/12/2024 03:31 PM Oxygen Saturation (26970-0) 97 % 10/12/2024 09:41 PM Temperature (8310-5) 97 [degF] Oxygen Saturation (68547-7) 97 % Respiratory Rate (9279-1) 18 /min Heart Rate (8867-4) 59 /min Blood Pressure Systolic (8480-6) 99 mm[Hg] Blood Pressure Diastolic (8462-4) 64 mm[Hg] 10/13/2024 09:24 AM Body Weight (35167-9) 177 [lb_av] Body Mass Index (21004-2) 24.68 kg/m2 10/13/2024 09:23 AM Temperature (8310-5) 96.9 [degF] Oxygen Saturation (15908-4) 91 % Respiratory Rate (9279-1) 16 /min Heart Rate (8867-4) 74 /min Blood Pressure Systolic (8480-6) 115 mm[Hg] Blood Pressure Diastolic (8462-4) 69 mm[Hg] 10/13/2024 09:22 AM Blood Pressure Systolic (8480-6) 1 15 mm[Hg] Blood Pressure Diastolic (8462-4) 69 mm[Hg] 10/13/2024 11:27 PM Temperature (8310-5) 97.3 [degF] Oxygen Saturation (93327-5) 98 % Respiratory Rate (9279-1) 18 /min Heart Rate (8867-4) 80 /min Blood Pressure Systolic (8480-6) 118 mm[Hg] Blood Pressure Diastolic (8462-4) 81 mm[Hg] 10/14/2024 08:20 AM Temperature (8310-5) 97.2 [degF] Respiratory Rate (9279-1) 17 /min Heart Rate (8867-4) 78 /min Body Weight (70805-9) 176.8 [lb_av] Body Mass Index (29249-5) 24.66 kg/m2 10/14/2024 08:16 AM Oxygen Saturation (88530-6) 98 % Blood Pressure Systolic (8480-6) 137 mm[Hg] Blood Pressure Diastolic (8462-4) 79 mm[Hg] 10/14/2024 07:24 PM Temperature (8310-5) 97.6 [degF] Oxygen Saturation (10740-7) 96 % Respiratory Rate (9279-1) 20 /min Heart Rate (8867-4) 71 /min Blood Pressure Systolic (8480-6) 128 mm[Hg] Blood Pressure Diastolic (8462-4) 74 mm[Hg] 10/15/2024 07:00 AM Blood Pressure Systolic (8480-6) 1 39 mm[Hg] Blood Pressure Diastolic (8462-4) 79 mm[Hg] 10/15/2024 07:26 AM Oxygen Saturation (18451-2) 96 % 10/15/2024 10:00 AM Temperature (8310-5) 98.1 [degF] Oxygen Saturation (74810-8) 96 % Respiratory Rate (9279-1) 18 /min Heart Rate (8867-4) 80 /min Blood Pressure Systolic (8480-6) 139 mm[Hg] Blood Pressure Diastolic (8462-4) 79 mm[Hg] 10/16/2024 05:11 AM Oxygen Saturation (17481-9) 97 % 10/16/2024 03:13 PM Body Weight (12131-7) 177 [lb_av] Body Mass Index (50993-8) 24.68 kg/m2 10/16/2024 12:40 PM Temperature (8310-5) 98 [degF] Oxygen Saturation (68011-7) 98 % Respiratory Rate (9279-1) 18 /min Heart Rate (8867-4) 82 /min 10/16/2024 09:24 AM Blood Pressure Systolic (8480-6) 1 12 mm[Hg] Blood Pressure Diastolic (8462-4) 73 mm[Hg] 10/16/2024 11:21 PM Temperature (8310-5) 97 [degF] Oxygen Saturation (21885-9) 96 % Respiratory Rate (9279-1) 16 /min Heart Rate (8867-4) 65 /min Blood Pressure Systolic (8480-6) 126 mm[Hg] Blood Pressure Diastolic (8462-4) 76 mm[Hg] 10/16/2024 11:20 PM Oxygen Saturation (80895-9) 97 % 10/17/2024 08:34 AM Body Weight (76514-6) 177.8 [lb_av ] Body Mass Index (30079-5) 24.8 kg/m2 10/17/2024 08:31 AM Blood Pressure Systolic (8480-6) 1 13 mm[Hg] Blood Pressure Diastolic (8462-4) 72 mm[Hg] 10/17/2024 10:25 AM Temperature (8310-5) 98.2 [degF] Respiratory Rate (9279-1) 17 /min Heart Rate (8867-4) 74 /min 10/17/2024 10:24 AM Oxygen Saturation (36841-0) 97 % 10/17/2024 11:33 PM Heart Rate (8867-4) 70 /min 10/17/2024 11:32 PM Respiratory Rate (9279-1) 16 /min Blood Pressure Systolic (8480-6) 134 mm[Hg] Blood Pressure Diastolic (8462-4) 80 mm[Hg] 10/17/2024 11:31 PM Temperature (8310-5) 97 [degF] 10/17/2024 11:03 PM Oxygen Saturation (99294-3) 95 % 10/18/2024 08:43 AM Blood Pressure Systolic (8480-6) 1 28 mm[Hg] Blood Pressure Diastolic (8462-4) 84 mm[Hg] 10/18/2024 09:24 AM Temperature (8310-5) 97.3 [degF] Oxygen Saturation (34720-6) 100 % Respiratory Rate (9279-1) 17 /min Heart Rate (8867-4) 78 /min 02/18/2025 11:34 AM Oxygen Saturation (68274-7) 99 % Blood Pressure Systolic (8480-6) 120 mm[Hg] Blood Pressure Diastolic (8462-4) 68 mm[Hg] 02/18/2025 02:36 AM Temperature (8310-5) 98.1 [degF] Respiratory Rate (9279-1) 17 /min Heart Rate (8867-4) 79 /min Blood Pressure Systolic (8480-6) 133 mm[Hg] Blood Pressure Diastolic (8462-4) 75 mm[Hg] 02/18/2025 02:00 PM Temperature (8310-5) 97.9 [degF] Respiratory Rate (9279-1) 17 /min Heart Rate (8867-4) 80 /min Blood Pressure Systolic (8480-6) 128 mm[Hg] Blood Pressure Diastolic (8462-4) 70 mm[Hg] 02/15/2025 06:54 AM Blood Pressure Systolic (8480-6) 1 32 mm[Hg] Blood Pressure Diastolic (8462-4) 92 mm[Hg] 02/13/2025 11:51 PM Temperature (8310-5) 97.7 [degF] Oxygen Saturation (95131-8) 98 % Respiratory Rate (9279-1) 17 /min Heart Rate (8867-4) 69 /min 12/01/2024 03:16 PM Body Weight (65135-2) 181 [lb_av] Body Mass Index (70863-1) 25.24 kg/m2 02/15/2025 08:20 AM Temperature (8310-5) 98.1 [degF] Oxygen Saturation (31681-8) 95 % Respiratory Rate (9279-1) 15 /min Heart Rate (8867-4) 70 /min Blood Pressure Systolic (8480-6) 132 mm[Hg] Blood Pressure Diastolic (8462-4) 92 mm[Hg] 02/14/2025 08:59 AM Blood Pressure Systolic (8480-6) 1 22 mm[Hg] Blood Pressure Diastolic (8462-4) 66 mm[Hg] 02/14/2025 10:17 PM Temperature (8310-5) 96.8 [degF] Oxygen Saturation (25963-6) 97 % Respiratory Rate (9279-1) 16 /min Heart Rate (8867-4) 87 /min Blood Pressure Systolic (8480-6) 140 mm[Hg] Blood Pressure Diastolic (8462-4) 64 mm[Hg] 12/08/2024 10:37 AM Body Weight (99875-8) 179.4 [lb_av ] Body Mass Index (85577-6) 25.02 kg/m2 02/14/2025 10:41 AM Body Weight (81826-6) 183.8 [lb_av ] Body Mass Index (97308-9) 25.63 kg/m2 02/09/2025 11:33 AM Body Weight (11296-2) 178 [lb_av] Body Mass Index (56567-5) 24.82 kg/m2 02/17/2025 09:46 PM Oxygen Saturation (12245-4) 97 % 02/14/2025 09:19 AM Temperature (8310-5) 97.8 [degF] Oxygen Saturation (10022-7) 97 % Respiratory Rate (9279-1) 18 /min Heart Rate (8867-4) 76 /min 02/02/2025 11:33 AM Body Weight (95120-1) 179 [lb_av] Body Mass Index (98930-9) 24.96 kg/m2 02/16/2025 12:40 PM Temperature (8310-5) 97.9 [degF] Oxygen Saturation (44476-4) 98 % Respiratory Rate (9279-1) 17 /min Heart Rate (8867-4) 76 /min Blood Pressure Systolic (8480-6) 110 mm[Hg] Blood Pressure Diastolic (8462-4) 78 mm[Hg] 01/26/2025 01:32 PM Body Weight (05014-6) 180.2 [lb_av ] Body Mass Index (90059-0) 25.13 kg/m2 12/14/2024 09:14 AM Body Weight (14532-8) 178.3 [lb_av ] Body Mass Index (14863-8) 24.87 kg/m2 01/12/2025 12:41 PM Body Weight (28928-0) 178.8 [lb_av ] Body Mass Index (68207-0) 24.93 kg/m2 01/05/2025 06:15 PM Body Weight (46331-3) 180.4 [lb_av ] Body Mass Index (95910-8) 25.16 kg/m2 11/24/2024 04:17 PM Body Weight (30201-0) 176 [lb_av] Body Mass Index (03055-2) 24.54 kg/m2 02/16/2025 09:08 PM Temperature (8310-5) 97.4 [degF] Oxygen Saturation (88843-3) 96 % Respiratory Rate (9279-1) 15 /min Heart Rate (8867-4) 83 /min Blood Pressure Systolic (8480-6) 137 mm[Hg] Blood Pressure Diastolic (8462-4) 87 mm[Hg] 02/16/2025 02:17 PM Body Weight (53368-8) 180.4 [lb_av ] Body Mass Index (60333-5) 25.16 kg/m2 02/13/2025 02:24 PM Temperature (8310-5) 98 [degF] Respiratory Rate (9279-1) 16 /min Heart Rate (8867-4) 74 /min 01/19/2025 08:50 AM Body Weight (65385-8) 180 [lb_av] Body Mass Index (80575-9) 25.1 kg/m2 12/29/2024 08:55 AM Body Weight (40688-5) 178.8 [lb_av ] Body Mass Index (27030-9) 24.93 kg/m2 12/22/2024 09:45 AM Body Weight (03357-9) 180.8 [lb_av ] Body Mass Index (78891-5) 25.21 kg/m2 02/17/2025 04:46 PM Oxygen Saturation (60981-1) 98 % 02/16/2025 12:26 AM Temperature (8310-5) 98.5 [degF] Oxygen Saturation (57086-0) 97 % Respiratory Rate (9279-1) 17 /min Heart Rate (8867-4) 70 /min Blood Pressure Systolic (8480-6) 107 mm[Hg] Blood Pressure Diastolic (8462-4) 76 mm[Hg] 01/14/2025 08:26 AM Body Weight (84146-3) 179.2 [lb_av ] Body Mass Index (83506-2) 24.99 kg/m2 02/18/2025 11:27 PM Temperature (8310-5) 98.2 [degF] Oxygen Saturation (93704-2) 98 % Respiratory Rate (9279-1) 17 /min Heart Rate (8867-4) 76 /min Blood Pressure Systolic (8480-6) 118 mm[Hg] Blood Pressure Diastolic (8462-4) 67 mm[Hg] 02/19/2025 07:42 AM Blood Pressure Systolic (8480-6) 1 29 mm[Hg] Blood Pressure Diastolic (8462-4) 74 mm[Hg] 02/19/2025 09:06 AM Temperature (8310-5) 97.5 [degF] Oxygen Saturation (66178-1) 97 % Respiratory Rate (9279-1) 16 /min Heart Rate (8867-4) 80 /min Blood Pressure Systolic (8480-6) 131 mm[Hg] Blood Pressure Diastolic (8462-4) 75 mm[Hg] 02/19/2025 09:05 AM Oxygen Saturation (30813-2) 96 % 02/20/2025 12:10 AM Temperature (8310-5) 98.1 [degF] Oxygen Saturation (39174-0) 99 % Respiratory Rate (9279-1) 19 /min Heart Rate (8867-4) 78 /min Blood Pressure Systolic (8480-6) 139 mm[Hg] Blood Pressure Diastolic (8462-4) 78 mm[Hg] 02/20/2025 08:11 AM Blood Pressure Systolic (8480-6) 1 32 mm[Hg] Blood Pressure Diastolic (8462-4) 80 mm[Hg] 02/20/2025 12:50 PM Temperature (8310-5) 96.9 [degF] Oxygen Saturation (15829-3) 99 % Respiratory Rate (9279-1) 18 /min Heart Rate (8867-4) 90 /min Blood Pressure Systolic (8480-6) 132 mm[Hg] Blood Pressure Diastolic (8462-4) 80 mm[Hg] 02/20/2025 11:51 PM Oxygen Saturation (89415-8) 98 % 02/21/2025 01:16 AM Temperature (8310-5) 97.2 [degF] Respiratory Rate (9279-1) 17 /min Heart Rate (8867-4) 78 /min Blood Pressure Systolic (8480-6) 122 mm[Hg] Blood Pressure Diastolic (8462-4) 73 mm[Hg] 02/21/2025 08:33 AM Blood Pressure Systolic (8480-6) 1 11 mm[Hg] Blood Pressure Diastolic (8462-4) 66 mm[Hg] 02/21/2025 09:41 AM Temperature (8310-5) 96.4 [degF] Oxygen Saturation (42241-8) 98 % Respiratory Rate (9279-1) 12 /min Heart Rate (8867-4) 75 /min 02/21/2025 09:07 PM Temperature (8310-5) 96.8 [degF] Respiratory Rate (9279-1) 18 /min Heart Rate (8867-4) 56 /min Blood Pressure Systolic (8480-6) 100 mm[Hg] Blood Pressure Diastolic (8462-4) 62 mm[Hg] 02/21/2025 09:06 PM Oxygen Saturation (64649-2) 97 % 02/22/2025 09:13 AM Temperature (8310-5) 97.5 [degF] Respiratory Rate (9279-1) 20 /min Heart Rate (8867-4) 85 /min 02/22/2025 09:12 AM Oxygen Saturation (15336-6) 97 % Blood Pressure Systolic (8480-6) 120 mm[Hg] Blood Pressure Diastolic (8462-4) 69 mm[Hg] 02/22/2025 07:56 PM Temperature (8310-5) 98.9 [degF] Oxygen Saturation (04196-6) 95 % Respiratory Rate (9279-1) 16 /min Heart Rate (8867-4) 54 /min Blood Pressure Systolic (8480-6) 104 mm[Hg] Blood Pressure Diastolic (8462-4) 59 mm[Hg] 02/22/2025 07:55 PM Oxygen Saturation (17623-0) 95 % 02/23/2025 09:48 AM Temperature (8310-5) 96.7 [degF] Oxygen Saturation (94805-6) 95 % Respiratory Rate (9279-1) 20 /min Heart Rate (8867-4) 83 /min 02/23/2025 09:47 AM Blood Pressure Systolic (8480-6) 1 16 mm[Hg] Blood Pressure Diastolic (8462-4) 62 mm[Hg] 02/23/2025 12:03 PM Body Weight (14697-0) 181 [lb_av] Body Mass Index (56849-9) 25.24 kg/m2 02/23/2025 08:49 PM Oxygen Saturation (71221-8) 98 % 02/23/2025 09:54 PM Temperature (8310-5) 97.6 [degF] Oxygen Saturation (48658-2) 98 % Respiratory Rate (9279-1) 16 /min Heart Rate (8867-4) 67 /min Blood Pressure Systolic (8480-6) 108 mm[Hg] Blood Pressure Diastolic (8462-4) 61 mm[Hg] 02/24/2025 07:21 AM Blood Pressure Systolic (8480-6) 1 36 mm[Hg] Blood Pressure Diastolic (8462-4) 85 mm[Hg] 02/24/2025 04:29 PM Temperature (8310-5) 98 [degF] Respiratory Rate (9279-1) 18 /min Heart Rate (8867-4) 81 /min Blood Pressure Systolic (8480-6) 136 mm[Hg] Blood Pressure Diastolic (8462-4) 85 mm[Hg] 02/24/2025 04:18 PM Oxygen Saturation (77678-9) 96 % 02/24/2025 08:38 PM Temperature (8310-5) 97.2 [degF] Oxygen Saturation (46773-3) 94 % Respiratory Rate (9279-1) 20 /min Heart Rate (8867-4) 76 /min Blood Pressure Systolic (8480-6) 142 mm[Hg] Blood Pressure Diastolic (8462-4) 64 mm[Hg] 02/25/2025 08:15 AM Temperature (8310-5) 98.1 [degF] Oxygen Saturation (12706-9) 98 % Respiratory Rate (9279-1) 17 /min Heart Rate (8867-4) 76 /min Blood Pressure Systolic (8480-6) 141 mm[Hg] Blood Pressure Diastolic (8462-4) 97 mm[Hg] 02/26/2025 12:05 AM Temperature (8310-5) 98 [degF] Oxygen Saturation (83918-8) 97 % Respiratory Rate (9279-1) 18 /min Heart Rate (8867-4) 77 /min Blood Pressure Systolic (8480-6) 128 mm[Hg] Blood Pressure Diastolic (8462-4) 79 mm[Hg] 02/26/2025 08:30 AM Blood Pressure Systolic (8480-6) 1 24 mm[Hg] Blood Pressure Diastolic (8462-4) 80 mm[Hg] 02/26/2025 09:27 AM Temperature (8310-5) 97.4 [degF] Oxygen Saturation (71190-2) 97 % Respiratory Rate (9279-1) 19 /min Heart Rate (8867-4) 79 /min Blood Pressure Systolic (8480-6) 124 mm[Hg] Blood Pressure Diastolic (8462-4) 80 mm[Hg] 02/28/2025 12:39 AM Temperature (8310-5) 97.9 [degF] Oxygen Saturation (48187-1) 98 % Respiratory Rate (9279-1) 18 /min Heart Rate (8867-4) 78 /min Blood Pressure Systolic (8480-6) 129 mm[Hg] Blood Pressure Diastolic (8462-4) 77 mm[Hg] 02/28/2025 08:32 AM Blood Pressure Systolic (8480-6) 9 8 mm[Hg] Blood Pressure Diastolic (8462-4) 60 mm[Hg] 02/28/2025 09:38 PM Temperature (8310-5) 97.6 [degF] Oxygen Saturation (08253-5) 91 % Respiratory Rate (9279-1) 18 /min Heart Rate (8867-4) 96 /min Blood Pressure Systolic (8480-6) 133 mm[Hg] Blood Pressure Diastolic (8462-4) 98 mm[Hg] 02/28/2025 09:37 PM Oxygen Saturation (73954-1) 96 % 02/28/2025 06:23 PM Temperature (8310-5) 97.9 [degF] Oxygen Saturation (72676-4) 94 % Respiratory Rate (9279-1) 15 /min Heart Rate (8867-4) 81 /min 03/01/2025 11:19 AM Temperature (8310-5) 97.4 [degF] Oxygen Saturation (76645-5) 92 % Respiratory Rate (9279-1) 20 /min Heart Rate (8867-4) 82 /min Blood Pressure Systolic (8480-6) 142 mm[Hg] Blood Pressure Diastolic (8462-4) 66 mm[Hg] 03/01/2025 09:30 PM Temperature (8310-5) 97 [degF] Oxygen Saturation (43829-4) 97 % Respiratory Rate (9279-1) 16 /min Heart Rate (8867-4) 57 /min Blood Pressure Systolic (8480-6) 98 mm[Hg] Blood Pressure Diastolic (8462-4) 64 mm[Hg] 03/02/2025 04:31 PM Body Weight (12527-1) 181.4 [lb_av ] Body Mass Index (48790-9) 25.3 kg/m2 03/02/2025 10:24 AM Temperature (8310-5) 97.4 [degF] Oxygen Saturation (39632-7) 97 % Respiratory Rate (9279-1) 16 /min Heart Rate (8867-4) 73 /min 03/02/2025 09:33 AM Blood Pressure Systolic (8480-6) 1 33 mm[Hg] Blood Pressure Diastolic (8462-4) 83 mm[Hg] 03/03/2025 01:17 AM Temperature (8310-5) 97.9 [degF] Oxygen Saturation (86665-4) 96 % Respiratory Rate (9279-1) 16 /min Heart Rate (8867-4) 51 /min Blood Pressure Systolic (8480-6) 100 mm[Hg] Blood Pressure Diastolic (8462-4) 60 mm[Hg] 03/03/2025 12:43 PM Temperature (8310-5) 97.6 [degF] Oxygen Saturation (91091-1) 98 % Respiratory Rate (9279-1) 16 /min Heart Rate (8867-4) 80 /min Blood Pressure Systolic (8480-6) 138 mm[Hg] Blood Pressure Diastolic (8462-4) 68 mm[Hg] 03/03/2025 12:42 PM Oxygen Saturation (99495-2) 98 % Blood Pressure Systolic (8480-6) 138 mm[Hg] Blood Pressure Diastolic (8462-4) 68 mm[Hg] 03/03/2025 11:04 PM Temperature (8310-5) 98.5 [degF] Oxygen Saturation (62421-0) 91 % Respiratory Rate (9279-1) 20 /min Heart Rate (8867-4) 91 /min Blood Pressure Systolic (8480-6) 114 mm[Hg] Blood Pressure Diastolic (8462-4) 61 mm[Hg] 03/04/2025 09:21 AM Temperature (8310-5) 98 [degF] Oxygen Saturation (92633-6) 95 % Respiratory Rate (9279-1) 16 /min Heart Rate (8867-4) 79 /min Blood Pressure Systolic (8480-6) 131 mm[Hg] Blood Pressure Diastolic (8462-4) 77 mm[Hg] 03/04/2025 08:58 AM Blood Pressure Systolic (8480-6) 1 31 mm[Hg] Blood Pressure Diastolic (8462-4) 77 mm[Hg] 03/04/2025 11:30 PM Temperature (8310-5) 98.4 [degF] Respiratory Rate (9279-1) 17 /min Heart Rate (8867-4) 72 /min Blood Pressure Systolic (8480-6) 124 mm[Hg] Blood Pressure Diastolic (8462-4) 73 mm[Hg] 03/04/2025 11:07 PM Oxygen Saturation (36225-2) 96 % 03/05/2025 08:50 AM Blood Pressure Systolic (8480-6) 1 17 mm[Hg] Blood Pressure Diastolic (8462-4) 74 mm[Hg] 03/05/2025 09:53 PM Temperature (8310-5) 97.4 [degF] Oxygen Saturation (95022-4) 98 % Respiratory Rate (9279-1) 18 /min Heart Rate (8867-4) 69 /min Blood Pressure Systolic (8480-6) 129 mm[Hg] Blood Pressure Diastolic (8462-4) 78 mm[Hg] 03/05/2025 05:13 PM Temperature (8310-5) 98.2 [degF] Oxygen Saturation (60611-2) 97 % Respiratory Rate (9279-1) 17 /min Heart Rate (8867-4) 64 /min 03/06/2025 01:18 PM Temperature (8310-5) 97.8 [degF] Oxygen Saturation (26474-7) 96 % Respiratory Rate (9279-1) 18 /min Heart Rate (8867-4) 62 /min 03/06/2025 09:04 AM Blood Pressure Systolic (8480-6) 1 11 mm[Hg] Blood Pressure Diastolic (8462-4) 76 mm[Hg] 03/06/2025 10:50 PM Temperature (8310-5) 98.4 [degF] Respiratory Rate (9279-1) 18 /min Heart Rate (8867-4) 73 /min Blood Pressure Systolic (8480-6) 127 mm[Hg] Blood Pressure Diastolic (8462-4) 78 mm[Hg] 03/06/2025 10:49 PM Oxygen Saturation (66809-2) 98 % 03/07/2025 10:19 AM Temperature (8310-5) 96.4 [degF] Oxygen Saturation (47101-0) 92 % Respiratory Rate (9279-1) 12 /min Heart Rate (8867-4) 76 /min Blood Pressure Systolic (8480-6) 118 mm[Hg] Blood Pressure Diastolic (8462-4) 67 mm[Hg] 03/07/2025 10:29 PM Temperature (8310-5) 99.2 [degF] Respiratory Rate (9279-1) 20 /min Heart Rate (8867-4) 57 /min Blood Pressure Systolic (8480-6) 120 mm[Hg] Blood Pressure Diastolic (8462-4) 65 mm[Hg] 03/07/2025 10:28 PM Oxygen Saturation (23888-3) 96 % 03/08/2025 10:11 PM Temperature (8310-5) 96.8 [degF] Oxygen Saturation (44926-1) 95 % Respiratory Rate (9279-1) 17 /min Heart Rate (8867-4) 57 /min Blood Pressure Systolic (8480-6) 110 mm[Hg] Blood Pressure Diastolic (8462-4) 49 mm[Hg] 03/08/2025 06:30 PM Temperature (8310-5) 97.9 [degF] Respiratory Rate (9279-1) 16 /min Heart Rate (8867-4) 69 /min 03/08/2025 06:29 PM Oxygen Saturation (26340-8) 97 % 03/08/2025 08:01 AM Blood Pressure Systolic (8480-6) 1 30 mm[Hg] Blood Pressure Diastolic (8462-4) 77 mm[Hg] 03/09/2025 10:15 AM Temperature (8310-5) 97.9 [degF] Oxygen Saturation (74906-6) 96 % Respiratory Rate (9279-1) 20 /min Heart Rate (8867-4) 55 /min 03/09/2025 09:28 AM Blood Pressure Systolic (8480-6) 1 18 mm[Hg] Blood Pressure Diastolic (8462-4) 69 mm[Hg] 03/09/2025 11:46 PM Temperature (8310-5) 97.7 [degF] Oxygen Saturation (06548-8) 94 % Respiratory Rate (9279-1) 19 /min Heart Rate (8867-4) 55 /min Blood Pressure Systolic (8480-6) 107 mm[Hg] Blood Pressure Diastolic (8462-4) 63 mm[Hg] 03/09/2025 06:34 PM Body Weight (90800-0) 182 [lb_av] Body Mass Index (14548-5) 25.38 kg/m2 03/10/2025 07:30 AM Blood Pressure Systolic (8480-6) 1 14 mm[Hg] Blood Pressure Diastolic (8462-4) 70 mm[Hg] Social History No smoking Hx information available Encounters Type CPT Code Date Location Provider Indication s encounter report 03/28/2022 06:06 PM Cari Mendenhall DO 01 Advance Directives Directive Description Verification Date Supporting Document(s) Resuscitation
[2025-03-10 19:19] LABS: Hematocrit 35.2 % (36-47); Hemoglobin 11.60 g/dL (11.27-16.99); Mean Corpuscular HGB Conc 33.0 g/dL (30-55); Mean Corpuscular Hemoglobin 29.5 pg (27-33); Mean Corpuscular Volume 89.6 fl (85-98); Nucleated Red Blood Cells % 0 %; Platelet Count 148 10^3/cmm (157-399); Red Blood Count 3.93 10^6/uL (3.85-5.65); White Blood Count 5.88 10^3/uL (3.29-11.43)
--- NOTE | 2025-03-10 19:21 | ED_ITS ---
HPI - GI Bleed 2 General: Chief complaint: GI Bleed Stated complaint: GI BLEED Time Seen by Provider: 03/10/25 19:00 Source: patient and EMS Mode of arrival: EMS Limitations: no limitations History of Present Illness: 79-year-old female who is here from [facility] home she has been having some bleeding they are unsure where it has been coming from over the last month. They originally thought it was vaginal she was seen by [facility] 3 days ago with a do not see any source of any vaginal bleeding and she has had a hysterectomy. She currently does have a UTI is on Macrobid she did notice some slight bright red blood in her depends today. Her vitals have been normal patient had slight abdominal distention but denies any pain or fevers Related Data Home Medications ?Medication ?Instructions ?Recorded ?Confirmed furosemide 40 mg tablet 40 mg PO BID 08/19/22 metoprolol succinate 25 mg 25 mg PO DAILY 08/19/22 tablet,extended release 24 hr spironolactone 25 mg tablet 25 mg PO DAILY 08/19/22 bisacodyl 10 mg rectal suppository 10 mg PA DAILY PRN Constipation 02/18/23 03/07/25 (Dulcolax (bisacodyl)) bisacodyl 5 mg tablet,delayed 10 mg PO DAILY PRN Const ipation 02/18/23 03/07/25 release (Dulcolax (bisacodyl)) nitroglycerin 0.4 mg sublingual 0.4 mg sublingual Q5M PRN Chest 02/18/23 03/07/25 tablet Pain acetaminophen 325 mg tablet 650 mg PO Q6H PRN pain or 07/28/24 03/07/25 increased temp magnesium hydroxide 400 mg/5 mL 30 ml PO DAILY PRN Con stipation 07/28/24 03/07/25 oral suspension (Milk of Magnesia) sodium phosphates 19 gram-7 118 ml PA DAILY PRN Consti pation 07/28/24 03/07/25 gram/118 mL enema (Fleet Enema) famotidine 20 mg tablet 20 mg PO BEDTIME 08/12/24 magnesium citrate (OneLAX 150 ml PO BID PRN 09/09/24 0 03/07/25 Magnesium Citrate oral solution) Previous Rx's ?Medication ?Instructions ?Recorded galantamine 4 mg tablet 4 mg PO BID #180 tabs memantine 10 mg tablet 10 mg PO BID 90 days #180 ta bs 02/16/25 memantine 5 mg tablet 5 mg PO .COMPLEX #21 tabs memantine 5 mg tablet 5 mg PO BID 7 days #14 tabs 02/16/25 memantine 5 mg tablet 5 mg PO QAM 7 days #7 tabs 0 02/16/25 nitrofurantoin 100 mg PO BID #14 caps 03/09 monohydrate/macrocrystals 100 mg capsule (Macrobid) Allergies Allergy/AdvReac Type Severity Reaction Status Date / Time No Known Allergies Allergy Verified 03/07/25 13:30 PFSH ED 2 PFSH: Medical History (Updated 03/10/25 @ 21:22 by Venus Varghese MD) Chronic cystitis Essential hypertension Alzheimer disease Lewy body dementia Normal pressure hydrocephalus Surgical History Status post ventriculoatrial shunt placement (03/20/15) Right frontal ventriculoperitoneal shunt placement. Codman-Hakim programmable right angle valve at 12 cm H[address] De La Cruz Intracranial shunt Codman-Hakim programmable shunt with right angle valve placed on 03/20/2015 Family History Sister Cancer Family/Other Cancer Paternal Aunt Father Cancer Hypertension Diabetes Other CAD (coronary artery disease) Denies family history of Stroke Social History Smoking and tobacco/nicotine status: never used tobacco/nicotine Alcohol intake: never Substance/Drug Use: never Lives independently: Yes Household members: spouse Marital status: Current occupational status: retired Physical Exam 2 Const: COMMON NORMALS: patient oriented x3 and healthy appearing HENMT: COMMON NORMALS: normocephalic and atraumatic HEAD & SCALP: n ormocephalic and atraumatic Eye: COMMON NORMALS: conjunctivae normal CONJUNCTIVA: Yes conjunctivae normal Neck/C-Spine: COMMON NORMALS: full ROM and supple Chest: COMMONS NORMALS: normal inspection of the chest Resp: COMMON NORMALS: normal respiratory effort, No retractions, No use of accessory muscles and clear to auscultation bilaterally AUSCULTATION: clear to auscultation bilaterally Cardio: COMMON NORMALS: regular rate, regular rhythm and No murmurs present (Cardio) RATE: regular rate RHYTHM: regular rhythm GI: COMMON NORMALS: Normal to inspection, nondistended, normoactive bowel sounds present, Soft to palpation, non-tender and no masses PALPATION: Yes Soft to palpation OTHER: Slight amount of bright red blood was noted in her depends rectal exam showed no large amount of rectal bleeding Extremity: COMMON NORMALS: normal to inspection and full ROM Neuro: COMMON NORMALS: patient oriented x3, moves all extremities and no focal motor deficits Psych: COMMON NORMALS: mental status grossly normal, Normal thought process present and cooperative THOUGHT PROCESS: Normal thought process present Skin: COMMON NORMALS: no rashes or lesions noted and no wounds GENERAL SKIN EXAM: no rashes or lesions noted Course 2 Vital Signs: Vital signs: Vital Signs Temperature 97.7 F 03/10/25 18:58 Pulse Rate 61 03/10/25 20:47 Respiratory Rate 14 03/10/25 20:47 Blood Pressure 139/77 03/10/25 20:47 Pulse Oximetry 97 03/10/25 20:47 Oxygen Delivery Me thod Room Air 03/10/25 20:16 MDM - GI Bleed Medical Decision Making Patient presents here with lower GI bleeding. Her hemoglobin here is stable and she has been well-appearing she has no pain. She has no signs of massive bleeding or upper GI bleed CT scan does show diverticulosis likely has a slight bleed from that. I feel she is stable for discharge I did speak to her and family and reviewed the film along with labs. Will refer her to surgery she likely needs a colonoscopy she understands agrees to plan Medical Records I reviewed the patient's medical records. Lab Data I reviewed the patient's lab results. 03/10/25 19:09 03/10/25 19:09 Radiology Impressions Abdomen/Pelvis CT 03/10/25 19:06 IMPRESSION: 1. Colonic diverticulosis without CT evidence of acute diverticulitis. 2. 4.8 cm infrarenal abdominal aortic aneurysm. COMMENTS: Consistent with the [employer]'s Incidental Findings Committee white paper (J Am Jordi Radiol 2018): Any incidental renal lesion less than 1 cm or classified as too small to characterize, or any incidental cystic renal lesion characterized as simple-appearing, is likely benign. No follow-up imaging is recommended for these lesions per consensus recommendations based on imaging criteria. Laboratory Results WBC 5.88 10^3/uL (3.29-11.43) 03/10/25 19:09 RBC 3.93 10^6/uL (3.85-5.65) 03/10/25 19:09 Hgb 11.60 g/dL (11.27-16.99) 03/10/25 19:09 Hct 35.2 % (36-47) L 03/10/25 19:09 MCV 89.6 fl (85-98) 03/10/25 19:09 MCH 29.5 pg (27-33) 03/10/25 19:09 MCHC 33.0 g/dL (30-55) 03/10/25 19:09 RDW 12.9 % (12.1-15.1) 03/10/25 19:09 Plt Count 148 10^3/cmm (157-399) L 03/10/25 19:09 MPV 8.9 fL (7.4-10.4) 03/10/25 19:09 Neut % (Auto) 65.0 % 03/10/25 19:09 Lymph % (Auto) 20.2 % 03/10/25 19:09 [place] % (Auto) 10.2 % 03/10/25 19:09 Eos % (Auto) 3.2 % 03/10/25 19:09 Baso % (Auto) 0.7 % 03/10/25 19:09 Neut # (Auto) 3.82 10^3/uL (1.8-7.7) 03/10/25 19:09 Lymph # (Auto) 1.2 10^3/uL (0.8-4.8) 03/10/25 19:09 [place] # (Auto) 0.6 10^3/uL (0.2-0.9) 03/10/25 19:09 Eos # (Auto) 0.2 10^3/uL (0.0-0.8) 03/10/25 19:09 Baso # (Auto) 0.0 10^3/uL (0.0-0.1) 03/10/25 19:09 Nucleated RBC % (auto) 0 % 03/10/25 19:09 Nucleated RBCs # 0.0 /100WBC 03/10/25 19:09 PT 13.30 SECONDS (12.1-14.9) 03/10/25 19:09 INR 0.95 (0.8-1.2) 03/10/25 19:09 Sodium 142 mmol/L (136-145) 03/10/25 19:09 Potassium 3.6 mmol/L (3.5-5.1) 03/10/25 19:09 Chloride 99 mmol/L (98-107) 03/10/25 19:09 Carbon Dioxide 32 mmol/L (22-29) H 03/10/25 19:09 Anion Gap 14.6 (5-19) 03/10/25 19:09 BUN 13 mg/dL (8-23) 03/10/25 19:09 Creatinine 0.8 mg/dL (0.5-0.9) 03/10/25 19:09 GFR Calculation Not Reportable 03/10/25 19:09 Glucose 140 mg/dL (65-115) H 03/10/25 19:09 Calculated Osmolality 296 mOsm/kg (285-295) H 03/10/25 19:09 Calcium 9.3 mg/dL (8.5-10.5) 03/10/25 19:09 Total Bilirubin 0.4 mg/dL (0.15-1.2) 03/10/25 19:09 AST 8 U/L (0-32) 03/10/25 19:09 ALT < 5 U/L (0-33) 03/10/25 19:09 Alkaline Phosphatase 123 U/L (35-105) H 03/10/25 19:09 Total Protein 6.5 g/dL (6.6-8.7) L 03/10/25 19:09 Albumin 4.1 g/dL (3.5-5.2) 03/10/25 19:09 Globulin 2.4 g/dL (1.3-4.6) 03/10/25 19:09 Urine Color Yellow (Yellow) 03/10/25 20:14 Urine Appearance Clear (CLEAR) 03/10/25 20:14 Urine pH 8.0 (5-7) A 03/10/25 20:14 Ur Specific [place] 1.036 (1.005-1.030) H 03/10/25 20:14 Urine Protein Negative (Negative) 03/10/25 20:14 Urine Glucose (UA) Negative (Normal) 03/10/25 20:14 Urine Ketones Negative (Negative) 03/10/25 20:14 Urine Blood Negative (Negative) 03/10/25 20:14 Urine Nitrate Negative (Negative) 03/10/25 20:14 Urine Bilirubin Negative (Negative) 03/10/25 20:14 Urine Urobilinogen 2.0 mg/dL (Negative) H 03/10/25 20:14 Ur Leukocyte Esterase 1+ (Negative) A 03/10/25 20:14 Urine RBC 0-2 /hpf (0-2) 03/10/25 20:14 Urine WBC 6-10 /hpf (0-5) 03/10/25 20:14 Ur Squamous Epith Cells 0-5 /hpf (0-5) 03/10/25 20:14 Amorphous Sediment Not Reportable 03/10/25 20:14 Urine Bacteria None seen /hpf (NONE) 03/10/25 20:14 Hyaline Casts 1.21 /lpf 03/10/25 20:14 All radiology interpretation(s) finalized by discharge Discharge Plan Discharge Patient Disposition: Home Clinical Impression: Lower GI bleed, Diverticulosis Condition: Stable Prescriptions: No Action furosemide 40 mg tablet 40 mg PO BID metoprolol succinate 25 mg tablet extended release 24 hr 25 mg PO DAILY spironolactone 25 mg tablet 25 mg PO DAILY bisacodyl [Dulcolax (bisacodyl)] 5 mg tablet,delayed release (DR/EC) 10 mg PO DAILY PRN (Reason: Constipation) Rx Instructions: if no results from Milk of Mag bisacodyl [Dulcolax (bisacodyl)] 10 mg suppository 10 mg PA DAILY PRN (Reason: Constipation) nitroglycerin 0.4 mg tablet, sublingual 0.4 mg sublingual Q5M PRN (Reason: Chest Pain) Rx Instructions: do not exceed 3 doses per episode galantamine 4 mg tablet 4 mg PO BID Qty: 180 4RF memantine 10 mg tablet 10 mg PO BID 90 Days Qty: 180 3RF memantine 5 mg tablet 5 mg PO QAM 7 Days Qty: 7 0RF memantine 5 mg tablet 5 mg PO BID 7 Days Qty: 14 0RF memantine 5 mg tablet 5 mg PO .COMPLEX Qty: 21 0RF Rx Instructions: 5 mg orally 1 tablet in AM and 2 tablets in PM; famotidine 20 mg tablet 20 mg PO BEDTIME magnesium citrate [OneLAX Magnesium Citrate] Solution 150 ml PO BID PRN nitrofurantoin monohyd/m-cryst [Macrobid] 100 mg capsule 100 mg PO BID Qty: 14 0RF Rx Instructions: must administer with a meal/food acetaminophen 325 mg Tablet 650 mg PO Q6H PRN (Reason: pain or increased temp) magnesium hydroxide [Milk of Magnesia] 400 mg/5 mL Suspension 30 ml PO DAILY PRN (Reason: Constipation) Fleet Enema 19-7 gram/118 mL Enema 118 ml PA DAILY PRN (Reason: Constipation) Discharge Orders: Discharge ED (Routine); Ordered 03/10/25 Ordered By: Venus Varghese Referrals: Adi Collins MD [Physician, General Surgery] - 4-7 days Tru Mendenhall DO [Primary Care Provider, Internal Medicine] Discharge Diet: Advance as tolerated Discharge Activity: Resume usual activity Patient Instructions: Rectal Bleeding (ED) Print Language: Amharic Coding Level of Care Code ED Community Product Specialist for Иван Titus
[2025-03-10 19:28] LABS: INR 0.95 (0.8-1.2); Prothrombin Time 13.30 SECONDS (12.1-14.9)
[2025-03-10 19:33] LABS: Alanine Aminotransferase < 5 U/L (0-33); Albumin Level 4.1 g/dL (3.5-5.2); Alkaline Phosphatase 123 U/L (35-105); Anion Gap 14.6 (5-19); Aspartate Amino Transferase 8 U/L (0-32); Blood Urea Nitrogen 13 mg/dL (8-23); Calcium 9.3 mg/dL (8.5-10.5); Carbon Dioxide 32 mmol/L (22-29); Chloride 99 mmol/L (98-107); Creatinine Clr Calc Pharmacy 67.3779; Globulin 2.4 g/dL (1.3-4.6); Glucose 140 mg/dL (65-115); Osmolality Calculated 296 mOsm/kg (285-295); Potassium 3.6 mmol/L (3.5-5.1); Sodium 142 mmol/L (136-145); Total Protein 6.5 g/dL (6.6-8.7)
[2025-03-10] MEDS: iohexol 350 mg/mL 500 mL Btl (per mL) IV (19:37)
[2025-03-10 20:16] VITALS: BP 132/68; PULSE 65; RESP 16; O2SAT 96
[2025-03-10 20:21] LABS: Glucose Urine UA Negative (Normal); Nitrate Urine Negative (Negative)
[2025-03-10 20:26] LABS: Add Urine Microscopic? YES
[2025-03-10 20:34] LABS: Specific Gravity, Urine 1.036 (1.005-1.030)
[2025-03-10 20:47] VITALS: BP 139/77; PULSE 61; RESP 14; O2SAT 97
[2025-03-10 21:00] VITALS: BP 131/75; PULSE 65; RESP 16; O2SAT 97
[2025-03-10 21:33] VITALS: BP 133/88; PULSE 59; RESP 16; O2SAT 92
--- NOTE | 2025-03-11 04:23 | DCPLANNER ---
Sent referral to General surgery
== END 2025-03-10 22:01 | disposition home or self-care (01) ==
PROVIDERS: Emergency Provider Emergency Medicine; PCP Internal Medicine
DX: K92.2 Gastrointestinal hemorrhage, unspecified (principal); I10 Essential (primary) hypertension
CPT/HCPCS: 36415; 74177; 80053; 81001; 85025; 85610; 99285

== ENCOUNTER → 2025-03-28 08:51 | Outpatient (BNVA) | payer MEDICARE, OTHER, MEDICAID, SELFPAY | PROVIDERS: PCP Internal Medicine; Visit Provider Student in an Organized Health Care Education/Training Program | DX: Z09 Encounter for follow-up examination after completed treatment for conditions other than malignant neoplasm (principal) | CPT/HCPCS: 99213 ==